=== PATIENT | female | born 1990 | race Two or more races ===

== ENCOUNTER 2020-05-22 10:42 | Emergency (ER) | payer OTHER, SELFPAY ==
--- NOTE | ~2020-05-22 | XR_ITS ---
EXAMINATION: CHEST 1 VIEW CLINICAL INFORMATION: Elevated white blood cell count. COMPARISON: None. TECHNIQUE: An AP view of the chest is provided. FINDINGS: The cardiac silhouette is not enlarged. The mediastinal and hilar contours are unremarkable. There are neither pleural effusions nor pneumothoraces. There are no consolidations. The osseous structures are unremarkable. XR/XR chest 1V IMPRESSION: No evidence for acute disease.
--- NOTE | ~2020-05-22 | CT_ITS ---
EXAMINATION: CT HEAD WITHOUT CONTRAST CLINICAL INFORMATION: Headache. Vision changes. COMPARISON: None. TECHNIQUE: Contiguous helical images of the brain were obtained without IV contrast. Multiplanar reconstructions were performed. DLP: 714 mGy-cm. FINDINGS: There are no pathologic extra-axial fluid collections. The lateral, third, fourth ventricles are nondilated and concordant with the appearance of the sulci. There is no evidence for acute intraparenchymal hemorrhage or infarct. There is neither mass nor mass effect. There is no shift of midline structures. The paranasal sinuses and mastoid air cells are clear. There are no osseous lesions. CT/CT head/brain wo con IMPRESSION: No evidence for acute intracranial injury. Automated exposure control (Care Dose) Adjustment of the mA and/or kv according to patient size (this includes techniques or standardized protocols for targeted exams where dose is matched to indication / reason for exam; i.e. extremities or head).
[2020-05-22 13:40] VITALS: BP 151/93; PULSE 82; RESP 18; TEMP 36.8; O2SAT 98; BMI 36.0
[2020-05-22 14:16] LABS: UPreg QC Valid YES; Urine Pregnancy NEGATIVE (NEGATIVE)
[2020-05-22 18:02] LABS: MANUAL DIFF FLAG NO
[2020-05-22 18:05] LABS: Basophils Absolute Auto 0.1 X10*3/uL (0.0-0.2); Basophils Percent Auto 0.5 % (0-2); Eosinophils Absolute Auto 0.4 X10*3/uL (0.0-0.4); Eosinophils Percent Auto 3.1 % (0-4); Hematocrit 42.8 % (37-47); Hemoglobin 13.2 g/dl (12.0-16.0); Imm Gran Abs Auto 0.12 X10*3/uL (0.00-0.03); Imm Gran Pct Auto 0.9 % (0.0-0.4); Lymphocytes Absolute Auto 3.1 X10*3/uL (1.2-4.9); Lymphocytes Percent Auto 22.9 % (20-40); Mean Corpuscular HGB Conc 30.8 g/dl (31.0-35.0); Mean Corpuscular Hemoglobin 21.4 pg (27.0-33.0); Mean Corpuscular Volume 69.3 fL (80-98); Mean Platelet Volume 10.8 fL (9.4-12.3); Monocytes Absolute Auto 1.2 X10*3/uL (0.1-1.2); Monocytes Percent Auto 8.7 % (2-11); Neutrophils Absolute Auto 8.6 X10*3/uL (2.0-8.3); Neutrophils Percent Auto 63.9 % (45-73); Platelet Count 321 X10*3/uL (160-400); Red Blood Count 6.18 X10*6/uL (4.20-5.50); Red Cell Distribution Width 17.7 % (11.0-16.0); White Blood Count 13.5 X10*3/uL (4.8-10.8)
[2020-05-22] MEDS: 0.9 % Sodium Chloride 1,000 ML 999 ML IVCONT (18:12)
[2020-05-22] MEDS: Ketorolac Tromethamine 30 MG/ML VIAL IVPUSH (18:13)
[2020-05-22] MEDS: diphenhydrAMINE HCL 50 MG/ML VIAL 25 MG IVPUSH (18:13)
[2020-05-22 18:16] VITALS: BP 125/68; PULSE 82; RESP 14; O2SAT 100
[2020-05-22] MEDS: Metoclopramide HCl 10 MG/2 ML VIAL IVPUSH (18:16)
[2020-05-22 18:25] LABS: Anion Gap 13 (12-20); Blood Urea Nitrogen 9 mg/dL (9-16); Calcium 9.4 mg/dL (8.4-10.2); Carbon Dioxide 27 mmol/L (22-29); Chloride 105 mmol/L (96-108); Creatinine Clr Calc Pharmacy 118.1; Estimated Glomerular Filt Rate > 60; Glucose Random 83 mg/dL (60-115); Potassium 4.3 mmol/L (3.3-5.1); Sodium 141 mmol/L (135-145)
--- NOTE | 2020-05-22 18:53 | ED.HA ---
HPI - Headache General Chief Complaint: Headache Stated Complaint: headache Time Seen by Provider: 05/22/20 17:25 Source: patient Mode of arrival: ambulatory Limitations: no limitations History of Present Illness MD elicited complaint: headache Pertinent past history: migraines Onset (ago): day(s) (2) Onset description: gradually Location: right and occipital Severity: severe Pain scale (0-10): 10 Quality & Timing: throbbing, squeezing, constant, pressure, progressively worsening and different than previous headaches Exacerbating factors: exertion, movement of head/neck and light Relieving factors: nothing Context: occurred at rest Associated symptoms: nausea and photophobia Treatments prior to arrival: acetaminophen and ibuprofen Related Data Previous Rx's Medication Instructions Recorded albuterol sulfate 2 puff INHALATION Q4-6H PRN #8.5 g 05/22/20 [id number]-[id number] 1 cap PO Q4-6H PRN #10 cap 05/22/20 [Fioricet] Allergies Allergy/AdvReac Type Severity Reaction Status Date / Time No Known Allergies Allergy Verified 05/22/20 13:40 Review of Systems Review of Systems: Constitutional: No Weight loss, No Fever, No Chills, No Night Sweats, No Fatigue, No Malaise ENT/Mouth: No Hearing loss, No Ear Pain, No Nasal Congestion, No Sinus Pain, No Hoarseness, No sore throat, No Rhinorrhea, No Swallowing Difficulty Eyes: No Eye Pain, No Swelling, No Redness, No Foreign Body, No Discharge, No Vision Changes Cardiovascular: No Chest Pain, No SOB, No Dyspnea on Exertion, No Orthopnea, No Edema, No Palpitations Respiratory: No Cough, No Sputum, No Wheezing, No Smoke Exposure, No Dyspnea Gastrointestinal: No Nausea, No Vomiting, No Diarrhea, No Constipation, No abdominal Pain, No Hematochezia, No Melena Genitourinary: no irregular bleeding, No Dysuria, No Urinary Frequency, No Hematuria, No Urinary Incontinence, No Urgency, No Flank Pain, No Urinary Flow Changes, No Hesitancy Musculoskeletal: No joint pain, No Myalgias, No Joint Swelling Skin: No Skin Lesions, No rash Neuro: No Weakness, No Numbness, No Paresthesias, No Loss of Consciousness, No Dizziness, No Headache Psych: No Anxiety/Panic, No Depression, No SI/HI/AH/VH, No Social Issues Heme/Lymph: No Bruising, No Bleeding,No Lymphadenopathy Endocrine: No Polyuria, No Polydipsia, No Temperature Intolerance [facility] Past Medical History Attestation statement: The following information was validated with the patient. Source: old records reviewed Medical History Patient denies medical problems Social History Social History Smoking Status: Never smoker Use of substances other than those prescribed or required for medical reasons: No Advance Directives: No Advance Directives Information Provided: No Physical Exam Vital Signs: Vital Signs: Last Vital Signs Temp 98.2 F 05/22/20 13:40 Pulse 82 05/22/20 18:16 Resp 14 05/22/20 18:16 BP 125/68 05/22/20 18:16 Pulse Ox 100 05/22/20 18:16 Body Mass Index 36.0 Appearance: Alert. Oriented X3. Mild distress. Head: Normal external exam. Normocephalic. Atraumatic. No Santacruz signs noted. No raccoon eyes noted Eyes: PERRLA. EOMI. Conjunctiva and sclera normal. Eyelids normal. ENT: TM's Normal. Pharynx normal. Uvula midline. Moist mucous membranes. No trismus noted. No drooling noted. No muffled voice noted. Neck: Normal inspection. Neck supple. No adenopathy. Thyroid Normal. No meningeal signs. No neck mass noted. CVS: Normal heart rate and rhythm. Heart sound normal. No murmurs noted. Pulses equal to all extremities. Respiratory: No respiratory distress. Painless inspiration. Breath sounds normal. No wheezes/rales/rhonchi noted. Chest nontender. No accessory muscle usage noted or decreased air movement noted. Abdomen: Soft and nontender. Bowel sounds normal in all 4 quadrants. No distention noted. No organomegaly noted. No visible injury noted. Back: No CVA tenderness. Full range of motion noted. Skin: Skin warm and dry. Normal skin color. Normal skin turgor. No rashes/lesions/lacerations noted. Extremities: No lower extremity edema. Extremities exhibit normal range of motion. Extremities nontender. Neuro: cranial nerves 2-12 intact, no focal neural deficits, strength 5/5 to all extremities, No motor deficit. No sensory deficit. Reflexes normal. Course Course Course Narrative: 30-year-old female presents with headache and eye pressure with photophobia. Has not had headaches like this in the past. Will order CT scan of the head, CBC, Chem 7, urinalysis and COVID test. Will treat with migraine protocol. CBC indicates leukocytosis at 13.5, chemistries and urine normal. COVID test positive. CT scan of head is negative for acute findings requiring emergent intervention. Plan of care is to discharge home with supportive measures and Fioricet for migraines. Patient verbalized understanding of and agrees to plan of care discharge home. MDM - Headache Differential Diagnosis Differential diagnosis: Likely migraine, tension headache, subarachnoid hemorrhage, headache and sinusitis Medical Records Attestation: I reviewed the patient's medical records. Lab Data Attestation: I reviewed the patient's lab results. Result diagrams: 05/22/20 17:57 05/22/20 17:57 Labs: Lab Results 05/22/20 05/22/20 05/22/20 Range/Units 14:04 17:57 17:57 WBC 13.5 H (4.8-10.8) X10*3/uL RBC 6.18 H (4.20-5.50) X10*6/uL Hgb 13.2 (12.0-16.0) g/dl Hct 42.8 (37-47) % MCV 69.3 L (80-98) fL MCH 21.4 L (27.0-33.0) pg MCHC 30.8 L (31.0-35.0) g/dl RDW 17.7 H (11.0-16.0) % Plt Count 321 (160-400) X10*3/uL MPV 10.8 (9.4-12.3) fL Immature Gran % (Auto) 0.9 H (0.0-0.4) % Neut % (Auto) 63.9 (45-73) % Lymph % (Auto) 22.9 (20-40) % Paulding % (Auto) 8.7 (2-11) % Eos % (Auto) 3.1 (0-4) % Baso % (Auto) 0.5 (0-2) % Lymph # (Auto) 3.1 (1.2-4.9) X10*3/uL Paulding # (Auto) 1.2 (0.1-1.2) X10*3/uL Eos # (Auto) 0.4 (0.0-0.4) X10*3/uL Baso # (Auto) 0.1 (0.0-0.2) X10*3/uL Abs Immat Gran (auto) 0.12 H (0.00-0.03) X10*3/uL Absolute Neuts (auto) 8.6 H (2.0-8.3) X10*3/uL Absolute Nucleated RBC 0.000 (0.0-0.012) X10*3/uL Nucleated RBC % (auto) 0.0 (0.0-0.2) /100WBC Sodium 141 (135-145) mmol/L Potassium 4.3 (3.3-5.1) mmol/L Chloride 105 (96-108) mmol/L Carbon Dioxide 27 (22-29) mmol/L Anion Gap 13 (12-20) BUN 9 (9-16) mg/dL Creatinine 0.73 (0.5-1.4) mg/dL Estim Creat Clear Calc 118.1 Estimated GFR > 60 Random Glucose 83 (60-115) mg/dL Calcium 9.4 (8.4-10.2) mg/dL Magnesium 2.0 (1.6-2.6) mg/dL Urine Color Urine Appearance Urine pH (5.0-8.0) Ur Specific Electra (1.005-1.025) Urine Protein (NEG-TRACE) MG/DL Urine Glucose (UA) (NEG) MG/DL Urine Ketones (NEG) MG/DL Urine Blood (NEG) Urine Nitrite (NEG) Ur Leukocyte Esterase (NEG) Urine Test NEGATIVE (NEGATIVE) Coronavirus (PCR) (Negative) Influenza Type A (PCR) (Negative) Influenza Type B (PCR) (Negative) RSV RNA Qual (PCR) (Negative) 05/22/20 05/22/20 Range/Units 17:57 19:29 WBC (4.8-10.8) X10*3/uL RBC (4.20-5.50) X10*6/uL Hgb (12.0-16.0) g/dl Hct (37-47) % MCV (80-98) fL MCH (27.0-33.0) pg MCHC (31.0-35.0) g/dl RDW (11.0-16.0) % Plt Count (160-400) X10*3/uL MPV (9.4-12.3) fL Immature Gran % (Auto) (0.0-0.4) % Neut % (Auto) (45-73) % Lymph % (Auto) (20-40) % Paulding % (Auto) (2-11) % Eos % (Auto) (0-4) % Baso % (Auto) (0-2) % Lymph # (Auto) (1.2-4.9) X10*3/uL Paulding # (Auto) (0.1-1.2) X10*3/uL Eos # (Auto) (0.0-0.4) X10*3/uL Baso # (Auto) (0.0-0.2) X10*3/uL Abs Immat Gran (auto) (0.00-0.03) X10*3/uL Absolute Neuts (auto) (2.0-8.3) X10*3/uL Absolute Nucleated RBC (0.0-0.012) X10*3/uL Nucleated RBC % (auto) (0.0-0.2) /100WBC Sodium (135-145) mmol/L Potassium (3.3-5.1) mmol/L Chloride (96-108) mmol/L Carbon Dioxide (22-29) mmol/L Anion Gap (12-20) BUN (9-16) mg/dL Creatinine (0.5-1.4) mg/dL Estim Creat Clear Calc Estimated GFR Random Glucose (60-115) mg/dL Calcium (8.4-10.2) mg/dL Magnesium (1.6-2.6) mg/dL Urine Color STRAW Urine Appearance CLEAR Urine pH 8.0 (5.0-8.0) Ur Specific Electra 1.015 (1.005-1.025) Urine Protein NEG (NEG-TRACE) MG/DL Urine Glucose (UA) NEG (NEG) MG/DL Urine Ketones NEG (NEG) MG/DL Urine Blood NEG (NEG) Urine Nitrite NEG (NEG) Ur Leukocyte Esterase NEG (NEG) Urine Test (NEGATIVE) Coronavirus (PCR) POSITIVE A (Negative) Influenza Type A (PCR) NEGATIVE (Negative) Influenza Type B (PCR) NEGATIVE (Negative) RSV RNA Qual (PCR) NEGATIVE (Negative) Imaging Data Chest x-ray: Attestation: I personally reviewed and interpreted this imaging study as follows: Radiologist's impression: EXAMINATION: CHEST 1 VIEW CLINICAL INFORMATION: Elevated white blood cell count. COMPARISON: None. TECHNIQUE: An AP view of the chest is provided. FINDINGS: The cardiac silhouette is not enlarged. The mediastinal and hilar contours are unremarkable. There are neither pleural effusions nor pneumothoraces. There are no consolidations. The osseous structures are unremarkable. XR/XR chest 1V IMPRESSION: No evidence for acute disease. CT scan - head: Attestation: I personally reviewed and interpreted this imaging study as follows: Radiologist's impression: EXAMINATION: CT HEAD WITHOUT CONTRAST CLINICAL INFORMATION: Headache. Vision changes. COMPARISON: None. TECHNIQUE: Contiguous helical images of the brain were obtained without IV contrast. Multiplanar reconstructions were performed. DLP: 714 mGy-cm. FINDINGS: There are no pathologic extra-axial fluid collections. The lateral, third, fourth ventricles are nondilated and concordant with the appearance of the sulci. There is no evidence for acute intraparenchymal hemorrhage or infarct. There is neither mass nor mass effect. There is no shift of midline structures. The paranasal sinuses and mastoid air cells are clear. There are no osseous lesions. CT/CT head/brain wo con IMPRESSION: No evidence for acute intracranial injury. Automated exposure control (Care Dose) Adjustment of the mA and/or kv according to patient size (this includes techniques or standardized protocols for targeted exams where dose is matched to indication / reason for exam; i.e. extremities or head). Discharge Plan Discharge Clinical Impression: COVID-19 Headache Qualifiers: Headache type: unspecified Headache chronicity pattern: acute headache Intractability: intractable Qualified Code(s): R51.9 - Headache, unspecified Patient Disposition: Home, Self-Care Instructions: Acute Headache (ED), COVID-19 (Coronavirus Disease 2019) (ED) Additional Instructions: You were evaluated for headache. CT scan of the head is negative for acute findings requiring emergent intervention. You did test positive for COVID-19. Please maintain social isolation guidelines per State Federal regulations. It is your responsibility to maintain these guidelines. Please use Tylenol and Motrin as needed for fever control. We prescribed Fioricet for headaches. Please take this medication as directed. Symptoms get worse please return to the emergency department. Thank you for choosing this emergency department for evaluation. Please follow-up with primary care physician as needed. Return to the emergency department for any new, concerning, or worsening symptoms. Prescriptions: New zkbsmgqqkj-dqvtzdgfddyem-kfxe [Fioricet] 50-300-40 mg capsule 1 cap PO Q4-6H PRN (Reason: pain) Qty: 10 RF: 0 albuterol sulfate 90 mcg/actuation HFA aerosol inhaler 2 puff inhalation Q4-6H PRN (Reason: shortness of breath or wheezing) Qty: 8.5 RF: 0 Stand Alone Forms: Work/School Release Interventions: ED Discharge Assessment Last Done: 05/22/20 20:30 Discharge Date/Time: 05/22/20 20:34
[2020-05-22 19:36] LABS: Appearance Urine CLEAR; Color Urine STRAW; Glucose Urine UA NEG (NEG); Leukocyte Esterase Urine NEG (NEG); Nitrite Urine NEG (NEG); Specific Gravity - Urine 1.015 (1.005-1.025); Urine Blood NEG (NEG); Urine Ketones NEG (NEG); Urine Protein NEG (NEG-TRACE)
[2020-05-22 19:41] LABS: Influenza A PCR NEGATIVE (Negative); Influenza B PCR NEGATIVE (Negative); Resp Syncy Virus RNA Qual PCR NEGATIVE (Negative); SARS COV2 PCR INHOUSE POSITIVE (Negative)
[2020-05-22] MEDS: Albuterol Sulfate 90 MCG 8 GM INHALER 2 PUFF INHALE (20:23)
[2020-05-22] MEDS: Butalb/Acetamin/Caff 50/325/40 TABLET 1 TAB PO (20:24)
== END 2020-05-22 20:34 | disposition home or self-care (01) ==
PROVIDERS: Nurse Practitioner Family; Emergency Provider Emergency Medicine; PCP Internal Medicine
DX: U07.1 COVID-19 (principal); R51.9 Headache, unspecified; D72.829 Elevated white blood cell count, unspecified
CPT/HCPCS: 0241U; 36415; 70450; 71045; 80048; 81003; 81025; 83735; 85025; 96361; 96372; 96374; 96375; 99284; J1200; J1885; J2765; J3030

== ENCOUNTER 2020-05-25 13:00 | Outpatient (REF) | payer OTHER, SELFPAY ==
[2020-05-25 13:18] LABS: COVID-19 Test Negative (Negative)
== END 2020-05-25 13:01 | disposition home or self-care (01) ==
LOC: HO.EMPCOV 13:00
PROVIDERS: Visit Provider Internal Medicine
DX: Z20.822 Contact with and (suspected) exposure to COVID-19 (principal)
CPT/HCPCS: 36415; 87635; C9803

== ENCOUNTER 2021-02-05 14:44 | Emergency (ER) | payer OTHER, SELFPAY ==
--- NOTE | ~2021-02-05 | CT_ITS ---
EXAMINATION: CT HEAD WITHOUT CONTRAST CLINICAL INFORMATION: Hypertensive. Headache. COMPARISON: CT head dated from 05/22/2020. TECHNIQUE: Contiguous axial imaging was performed from the skull base to vertex without intravenous administration of contrast. This CT examination was performed using dose optimization techniques as appropriate, variously including the following: *Automated exposure control *Adjustment of mA and/or kV according to patient size (this includes techniques or standardized protocols for targeted exams where dose is matched to indication/reason for exam; i.e. extremities or head) *Use of iterative reconstruction technique DLP: 694 mGy-cm FINDINGS: There is no evidence of acute intracranial hemorrhage or territorial infarction. No abnormal mass effect or midline shift is seen. Lloyd to white matter differentiation is well preserved. No extra-axial fluid collections are identified. The ventricles are normal in size. There is no abnormal attenuation within the brain parenchyma. The osseous structures and soft tissues are normal. Mild mucoperiosteal thickening of the ethmoidal air cells. Other paranasal sinuses and mastoids are clear. CT/CT head/brain wo con IMPRESSION: No acute intracranial pathology.
[2021-02-05 15:24] VITALS: BP 159/92; PULSE 90; RESP 16; TEMP 36.4; O2SAT 99; BMI 36.6
[2021-02-05 16:44] VITALS: BP 156/101; RESP 18
[2021-02-05 16:50] LABS: MANUAL DIFF FLAG NO
[2021-02-05 16:52] LABS: Basophils Absolute Auto 0.1 X10*3/uL (0.0-0.2); Basophils Percent Auto 0.4 % (0-2); Eosinophils Absolute Auto 0.5 X10*3/uL (0.0-0.4); Eosinophils Percent Auto 3.7 % (0-4); Hematocrit 37.9 % (37.0-47.0); Hemoglobin 11.8 g/dl (12.0-16.0); Imm Gran Abs Auto 0.11 X10*3/uL (0.00-0.03); Imm Gran Pct Auto 0.8 % (0.0-0.4); Lymphocytes Absolute Auto 2.5 X10*3/uL (1.2-4.9); Lymphocytes Percent Auto 17.1 % (20-40); Mean Corpuscular HGB Conc 31.1 g/dl (31.0-35.0); Mean Corpuscular Hemoglobin 21.6 pg (27.0-33.0); Mean Corpuscular Volume 69.4 fL (80.0-98.0); Mean Platelet Volume 10.3 fL (9.4-12.3); Monocytes Absolute Auto 0.8 X10*3/uL (0.1-1.2); Monocytes Percent Auto 5.4 % (2-11); Neutrophils Absolute Auto 10.5 x10*3/uL (2.0-8.3); Neutrophils Percent Auto 72.6 % (45-73); Platelet Count 272 X10*3/uL (160-400); Red Blood Count 5.46 X10*6/uL (4.20-5.50); White Blood Count 14.5 X10*3/uL (4.8-10.8)
[2021-02-05 16:54] LABS: Appearance Urine HAZY; Color Urine YELLOW; Glucose Urine UA NEG (NEG); Leukocyte Esterase Urine NEG (NEG); Nitrite Urine NEG (NEG); Specific Gravity - Urine 1.025 (1.005-1.025); Urine Blood NEG (NEG); Urine Ketones NEG (NEG); Urine Protein NEG (NEG-TRACE)
[2021-02-05 16:56] LABS: UPreg QC Valid YES; Urine Pregnancy NEGATIVE (NEGATIVE)
[2021-02-05 17:06] LABS: Anion Gap 10 (12-20); Blood Urea Nitrogen 9 mg/dL (9-16); COVID-19 Test Negative (Negative); Calcium 9.2 mg/dL (8.4-10.2); Carbon Dioxide 28 mmol/L (22-29); Chloride 106 mmol/L (96-108); Creatinine Clr Calc Pharmacy 108.6; Estimated Glomerular Filt Rate > 60; Glucose Random 116 mg/dL (60-115); Potassium 3.8 mmol/L (3.3-5.1); Sodium 140 mmol/L (135-145)
--- NOTE | 2021-02-05 18:12 | ECG_ITS ---
Test Reason : HYPERTENSION Blood Pressure : / mmHG Vent. Rate : 078 BPM Atrial Rate : 078 BPM P-R Int : 154 ms QRS Dur : 088 ms QT Int : 378 ms P-R-T Axes : 023 040 -06 degrees QTc Int : 430 ms Normal sinus rhythm Nonspecific T wave abnormality Abnormal ECG When compared with ECG of 24-SEP-2012 21:46, Nonspecific T wave abnormality now evident in Inferior leads Heart rate has decreased Referred By: Joshua Whitmore Electronically Signed By:DANIA JOHNSON MD
[2021-02-05 18:13] LABS: Alanine Aminotransferase 42 U/L (0-31); Albumin Level 4.1 g/dL (3.5-5.0); Alkaline Phosphatase 70 U/L (39-117); Aspartate Amino Transferase 27 U/L (5-31); Bilirubin Direct 0.2 mg/dL (0.0-0.5); Bilirubin Total 0.4 mg/dL (0.0-1.0); Lipase 43 U/L (8-78); Total Protein 7.4 g/dL (6.5-8.0)
--- NOTE | 2021-02-05 18:16 | ED.GENADULT ---
HPI - General Adult General Chief complaint: Headache Stated complaint: hbp Time Seen by Provider: 02/05/21 17:48 Source: patient Mode of arrival: ambulatory Limitations: no limitations History of Present Illness HPI narrative: 27-year-old female presents to ED for evaluation for episode of diaphoresis and chills with elevated blood pressure. Patient states she was at work it and s she states felt weird described as chills and diaphoretic and then she had her blood pressure evaluated and systolic was over 160. Patient then states when she came to the ER she has slight epigastric pain and had 2 episodes of diarrhea. patient denies any chest pain or shortness of breath. Patient denies any photophobia, neck stiffness, slurred speech, facial droop, fever, vomiting, loss of vision, rash, dysuria, hematuria, flank pain. Patient denies any paralysis of extremities. Patient denies any head trauma. Patient states family history of brain cancer was concern for possible brain cancer. Presently patient only states slight headache. Related Data Previous Rx's Medication Instructions Recorded albuterol sulfate 90 mcg/actuation 2 puff INHALATION Q4-6H PRN #8.5 g 05/22/20 aerosol inhaler rzoigalsek-rfhbdjfgjyulx-zeebpnsf 1 cap PO Q4-6H PRN #10 cap 05/22/20 50 mg-300 mg-40 mg capsule (Fioricet) ketorolac 10 mg tablet 10 mg PO QID PRN 5 Days #20 tab 02/05/21 Allergies Allergy/AdvReac Type Severity Reaction Status Date / Time No Known Allergies Allergy Verified 05/22/20 13:40 Review of Systems Review of Systems: Yes all other systems are reviewed and are negative Constitutional: Constitutional: Reports as per HPI, Reports no additional constitutional complaints and Reports headache(s) Eyes: Eyes: Reports as per HPI and Reports no additional eye complaints ENT: Reports system reviewed and no additional complaints, except as documented, Reports as per HPI and Reports headache(s) Cardiovascular: Cardiovascular: Reports as per HPI and Reports no additional cardiovascular complaints Comments: one episode of diaphoresis. Respiratory: Respiratory: Reports as per HPI and Reports no additional respiratory complaints Gastrointestinal: Gastrointestinal: Reports as per HPI, Reports no additional gastrointestinal complaints, Reports abdominal pain (epigastric pain resolved), Reports diarrhea (one episode. ) and Reports nausea Musculoskeletal: Musculoskeletal: Reports no additional musculoskeletal complaints and Reports as per HPI Integumentary/Breasts: Skin/Breast: Reports system reviewed and no additional complaints, except as docu and Reports as per HPI Neurologic: Reports system reviewed and no additional complaints, except as documented, Reports as per HPI and Reports headache(s) Psychiatric: Psychiatric: Reports no additional psychiatric complaints and Reports as per HPI Endocrine: Endocrine: Reports no additional endocrine complaints and Reports as per HPI [facility] Past Medical History Medical History Patient denies medical problems Social History Social History Advance Directives: No Advance Directives Information Provided: Yes Patient : No Physical Exam Vital Signs: Vital Signs: Last Vital Signs Temp 97.5 F 02/05/21 15:24 Pulse 80 02/05/21 18:41 Resp 14 02/05/21 18:41 BP 137/77 02/05/21 19:57 Pulse Ox 97 02/05/21 18:41 Body Mass Index 36.6 Const: General: cooperative, healthy appearing, comfortable, no acute distress, well developed, alert, awake and Physically active Orientation/consciousness: patient oriented x3 HENMT: Head: Yes normal to inspection, Yes No palpable skull fracture present, Yes normocephalic, Yes atraumatic and No abrasion Eyes: General: appearance normal, both eyes and all related structures Neck: Neck: Yes normal visual inspection, Yes full ROM, Yes no lymphadenopathy, Yes no meningeal signs, Yes trachea midline, Yes supple, No anterior neck swelling and No tender Chest: Chest palpation & inspection: normal inspection of the chest and normal palpation of entire chest wall Resp: Effort & Inspection: normal respiratory effort and able to speak in complete sentences Auscultation: clear to auscultation bilaterally Cardio: Jugular venous distension: no JVD Heart sounds: S1 normal heart sound present and S2 normal heart sound present GI: Inspection: Yes normal to inspection and No abdominal wall ecchymosis Palpation (GI): Soft to palpation, not firm, nontender, no guarding and not rigid : General: No CVA tenderness and Yes no CVA tenderness Back/Spine/Pelvis: Back: no CVA tenderness, No CVA tenderness and No back tenderness Skin: General skin exam: no rashes or lesions noted and elasticity normal Neuro: Other: Negative facial droop. Negative slurred speech. Alidbj-ua-vloe rapid hand movement intact. Negative Romberg. Negative pronator drift. All extremities equal strength 5+. General: patient oriented x3, gait normal, no meningeal signs and CN's II-XI intact bilaterally Cranial nerves: Yes CN's II-XII intact bilaterally Extrem: General: Yes normal to inspection and Yes full ROM Psych: Appearance: grossly normal, well kempt and not disheveled Course Course Course Narrative: Patient rapid medical screening in triage. Due to patient states the 1 moment of diaphoresis will add EKG and troponin. Negative for any neuro deficits but will also be his CT scan due to patient's concern due to family history of brain cancer. Initial labs are baseline normal. Reevaluation(s) Reevaluation #1: EKG negative STEMI. Troponin negative. Head CT scan normal. Blood pressure resolved without any blood pressure medication. Headache improved with pain meds. Not suspecting stroke or [place]. Negative for any neuro deficits. Non suspecting PE. Migraine/headache versus viral syndrome. Not suspecting meningitis. COVID swab negative. patient informed to follow up with PCP. Time: 20:10 Medical Decision Making Lab Data Result diagrams: 02/05/21 16:37 02/05/21 16:37 Labs: Lab Results 02/05/21 02/05/21 02/05/21 Range/Units 16:37 16:37 16:37 WBC 14.5 H (4.8-10.8) X10*3/uL RBC 5.46 (4.20-5.50) X10*6/uL Hgb 11.8 L (12.0-16.0) g/dl Hct 37.9 (37.0-47.0) % MCV 69.4 L (80.0-98.0) fL MCH 21.6 L (27.0-33.0) pg MCHC 31.1 (31.0-35.0) g/dl RDW 17.0 H (11.0-16.0) % Plt Count 272 (160-400) X10*3/uL MPV 10.3 (9.4-12.3) fL Immature Gran % (Auto) 0.8 H (0.0-0.4) % Neut % (Auto) 72.6 (45-73) % Lymph % (Auto) 17.1 L (20-40) % [place] % (Auto) 5.4 (2-11) % Eos % (Auto) 3.7 (0-4) % Baso % (Auto) 0.4 (0-2) % Lymph # (Auto) 2.5 (1.2-4.9) X10*3/uL [place] # (Auto) 0.8 (0.1-1.2) X10*3/uL Eos # (Auto) 0.5 H (0.0-0.4) X10*3/uL Baso # (Auto) 0.1 (0.0-0.2) X10*3/uL Abs Immat Gran (auto) 0.11 H (0.00-0.03) X10*3/uL Absolute Neuts (auto) 10.5 H (2.0-8.3) x10*3/uL Absolute Nucleated RBC 0.000 (0.0-0.012) X10*3/uL Nucleated RBC % (auto) 0.0 (0.0-0.2) /100WBC Sodium 140 (135-145) mmol/L Potassium 3.8 (3.3-5.1) mmol/L Chloride 106 (96-108) mmol/L Carbon Dioxide 28 (22-29) mmol/L Anion Gap 10 L (12-20) BUN 9 (9-16) mg/dL Creatinine 0.80 (0.5-1.4) mg/dL Estim Creat Clear Calc 108.6 Estimated GFR > 60 Random Glucose 116 H (60-115) mg/dL Calcium 9.2 (8.4-10.2) mg/dL Total Bilirubin 0.4 (0.0-1.0) mg/dL Direct Bilirubin 0.2 (0.0-0.5) mg/dL AST 27 (5-31) U/L ALT 42 H (0-31) U/L Alkaline Phosphatase 70 (39-117) U/L Troponin I High Sens (<3.5-17.0) ng/L Total Protein 7.4 (6.5-8.0) g/dL Albumin 4.1 (3.5-5.0) g/dL Lipase 43 (8-78) U/L Urine Color Urine Appearance Urine pH (5.0-8.0) Ur Specific [place] (1.005-1.025) Urine Protein (NEG-TRACE) MG/DL Urine Glucose (UA) (NEG) MG/DL Urine Ketones (NEG) MG/DL Urine Blood (NEG) Urine Nitrite (NEG) Ur Leukocyte Esterase (NEG) Urine Test (NEGATIVE) COVID-19 (LETA) Negative (Negative) COVID-19 Clin Com See Note 02/05/21 02/05/21 02/05/21 Range/Units 16:44 16:44 18:42 WBC (4.8-10.8) X10*3/uL RBC (4.20-5.50) X10*6/uL Hgb (12.0-16.0) g/dl Hct (37.0-47.0) % MCV (80.0-98.0) fL MCH (27.0-33.0) pg MCHC (31.0-35.0) g/dl RDW (11.0-16.0) % Plt Count (160-400) X10*3/uL MPV (9.4-12.3) fL Immature Gran % (Auto) (0.0-0.4) % Neut % (Auto) (45-73) % Lymph % (Auto) (20-40) % [place] % (Auto) (2-11) % Eos % (Auto) (0-4) % Baso % (Auto) (0-2) % Lymph # (Auto) (1.2-4.9) X10*3/uL [place] # (Auto) (0.1-1.2) X10*3/uL Eos # (Auto) (0.0-0.4) X10*3/uL Baso # (Auto) (0.0-0.2) X10*3/uL Abs Immat Gran (auto) (0.00-0.03) X10*3/uL Absolute Neuts (auto) (2.0-8.3) x10*3/uL Absolute Nucleated RBC (0.0-0.012) X10*3/uL Nucleated RBC % (auto) (0.0-0.2) /100WBC Sodium (135-145) mmol/L Potassium (3.3-5.1) mmol/L Chloride (96-108) mmol/L Carbon Dioxide (22-29) mmol/L Anion Gap (12-20) BUN (9-16) mg/dL Creatinine (0.5-1.4) mg/dL Estim Creat Clear Calc Estimated GFR Random Glucose (60-115) mg/dL Calcium (8.4-10.2) mg/dL Total Bilirubin (0.0-1.0) mg/dL Direct Bilirubin (0.0-0.5) mg/dL AST (5-31) U/L ALT (0-31) U/L Alkaline Phosphatase (39-117) U/L Troponin I High Sens < 3.5 (<3.5-17.0) ng/L Total Protein (6.5-8.0) g/dL Albumin (3.5-5.0) g/dL Lipase (8-78) U/L Urine Color YELLOW Urine Appearance HAZY Urine pH 6.0 (5.0-8.0) Ur Specific [place] 1.025 (1.005-1.025) Urine Protein NEG (NEG-TRACE) MG/DL Urine Glucose (UA) NEG (NEG) MG/DL Urine Ketones NEG (NEG) MG/DL Urine Blood NEG (NEG) Urine Nitrite NEG (NEG) Ur Leukocyte Esterase NEG (NEG) Urine Test NEGATIVE (NEGATIVE) COVID-19 (LETA) (Negative) COVID-19 Clin Com ECG Data Interpretation: Normal sinus rhythm. Ventricular rate 78. Pr interval 154. QRS 88. QTC 430. Negative STEMI Discharge Plan Discharge Clinical Impression: Headache Patient Disposition: Home, Self-Care Instructions: Viral Syndrome (ED), General Headache (ED) Additional Instructions: Your EKG and blood work came back negative for heart attack. Head CT scan came back negative for stroke or brain mass. COVID swab came back negative. Blood work came back at baseline. Blood pressure improved without any hypertensive medication. Please follow-up with your primary care provider. Take your record of your blood pressure twice a day to show your primary care provider at follow-up. Return to the ED immediately for any slurred speech, loss of vision, paralysis of extremities, severe headache, neck stiffness, photophobia, nausea, vomiting, chest pain, shortness of breath, slurred speech, dizziness, elevated blood pressure, weakness, change/loss of vision, abdominal pain, dysuria, hematuria, flank pain, fever, chills, or any other concerning symptoms. Prescriptions: New ketorolac 10 mg tablet 10 mg PO QID PRN (Reason: pain) 5 Days Qty: 20 RF: 0 No Action vrrcqowqcu-ayqglrdmetxww-jvkb [Fioricet] 50-300-40 mg capsule 1 cap PO Q4-6H PRN (Reason: pain) Qty: 10 RF: 0 albuterol sulfate 90 mcg/actuation HFA aerosol inhaler 2 puff inhalation Q4-6H PRN (Reason: shortness of breath or wheezing) Qty: 8.5 RF: 0 Stand Alone Forms: Work/School Release Interventions: ED Discharge Assessment Last Done: 02/05/21 21:22 Discharge Date/Time: 02/05/21 21:22 Print Language: Egyptian
[2021-02-05] MEDS: Metoclopramide HCl 10 MG TABLET PO (18:29)
[2021-02-05] MEDS: Butalb/Acetamin/Caff 50/325/40 TABLET 1 TAB PO (18:29)
[2021-02-05 18:41] VITALS: BP 138/90; PULSE 80; RESP 14; O2SAT 97
[2021-02-05 19:08] LABS: Troponin-I High Sensitivity < 3.5 ng/L (<3.5-17.0)
[2021-02-05 19:57] VITALS: BP 137/77
[2021-02-05] MEDS: Ketorolac Tromethamine 15 MG/ML VIAL 30 MG IM (19:59)
== END 2021-02-05 21:22 | disposition home or self-care (01) ==
PROVIDERS: Physician Assistant; Emergency Provider Internal Medicine; PCP Internal Medicine
DX: R51.9 Headache, unspecified (principal); R68.83 Chills (without fever); Z20.822 Contact with and (suspected) exposure to COVID-19
CPT/HCPCS: 36415; 70450; 80048; 80076; 81003; 81025; 83690; 84484; 85025; 87635; 93005; 96372; 99283; 99284; J1885

== ENCOUNTER 2021-04-23 09:28 | Emergency (ER) | payer OTHER, SELFPAY ==
--- NOTE | ~2021-04-23 | XR_ITS ---
EXAMINATION: XR CHEST CLINICAL INFORMATION: Chest wall pain COMPARISON: Chest 05/22/2020 TECHNIQUE: 2 views of the chest were obtained. FINDINGS: No significant abnormality is noted involving the heart, lungs, mediastinum, bony thorax or soft tissues. XR/XR chest 2V IMPRESSION: Unremarkable chest examination.
[2021-04-23 09:41] VITALS: BP 119/82; PULSE 89; RESP 19; TEMP 36.6; O2SAT 99; BMI 38.4
--- NOTE | 2021-04-23 10:24 | ED_ITS ---
HPI - URI/Sore Throat General Chief Complaint: Upper Respiratory Symptoms <Salina Sanchez NP - Last Filed: 04/23/21 11:46> Stated Complaint: cough,fever <Salina Sanchez NP - Last Filed: 04/23/21 11:46> Time Seen by Provider: 04/23/21 09:46 <Salina Sanchez NP - Last Filed: 04/23/21 11:46> Source: patient <Salina Sanchez NP - Last Filed: 04/23/21 11:46> Mode of arrival: ambulatory <Salina Sanchez NP - Last Filed: 04/23/21 11:46> Limitations: no limitations <Salina Sanchez NP - Last Filed: 04/23/21 11:46> History of Present Illness HPI Narrative: 31 Year old female with a history of asthma here with 2 days of chest wall discomfort with coughing, productive cough with yellow sputum, runny nose, fatigue. No fevers, chills, leg swelling, leg pain, vomiting, diarrhea, abdominal pain. Patient has received [employer] vaccine x2 with booster. She has had COVID 05/22/20 <Salina Sanchez NP - Last Filed: 04/23/21 11:46> Related Data Home Medications: Previous Rx's Medication Instructions Recorded albuterol sulfate 90 mcg/actuation 2 puff INHALATION Q4-6H PRN #8.5 g 05/22/20 aerosol inhaler prefrjjdpx-ppolnmlsjtpxr-lyulovny 1 cap PO Q4-6H PRN #10 cap 05/22/20 50 mg-300 mg-40 mg capsule (Fioricet) ketorolac 10 mg tablet 10 mg PO QID PRN 5 Days #20 tab 02/05/21 ketorolac 10 mg tablet 10 mg PO TID PRN 5 Days #20 tab 02/06/21 acetaminophen 325 mg tablet 650 mg PO Q4H PRN #20 tab 04/23/21 (Tylenol) benzonatate 200 mg capsule 200 mg PO TID PRN #20 cap 04/23/21 ibuprofen 600 mg tablet 600 mg PO TID PRN #20 tab 04/23/21 <Salina Sanchez NP - Last Filed: 04/23/21 11:46> Allergies/Adverse Reactions: Allergies Allergy/AdvReac Type Severity Reaction Status Date / Time No Known Allergies Allergy Verified 05/22/20 13:40 <Salina Sanchez NP - Last Filed: 04/23/21 11:46> Review of Systems Review of Systems: Yes all other systems are reviewed and are negative <Salina Sanchez NP - Last Filed: 04/23/21 11:46> Constitutional: Constitutional: Reports no additional constitutional complaints, Denies body ache(s), Denies chills, Reports fatigue, Denies fever(s), Denies headache(s) and Denies weakness <Salina Sanchez NP - Last Filed: 04/23/21 11:46> Eyes: Eyes: Reports no additional eye complaints and Denies change in vision <Salina Sanchez NP - Last Filed: 04/23/21 11:46> ENT: Reports system reviewed and no additional complaints, except as documented, Denies dizziness, Denies headache(s), Denies nasal congestion, Reports nasal discharge and Denies neck pain <Salina Sanchez NP - Last Filed: 04/23/21 11:46> Cardiovascular: Cardiovascular: Reports no additional cardiovascular complaints, Reports chest pain, Denies leg edema and Denies dyspnea <Salina Sanchez NP - Last Filed: 04/23/21 11:46> Respiratory: Respiratory: Reports no additional respiratory complaints, Reports cough and Denies dyspnea <Salina Sanchez NP - Last Filed: 04/23/21 11:46> Gastrointestinal: Gastrointestinal: Reports no additional gastrointestinal complaints, Denies abdominal pain, Denies diarrhea, Denies nausea and Denies vomiting <Salina Sanchez NP - Last Filed: 04/23/21 11:46> Genitourinary: Genitourinary: Reports no additional female genitourinary complaints and Denies urinary incontinence <Salina Sanchez NP - Last Filed: 04/23/21 11:46> Musculoskeletal: Musculoskeletal: Reports no additional musculoskeletal complaints, Denies back pain, Denies arthralgias, Denies joint swelling, Denies neck pain, Denies numbness and Denies tingling <Salina Sanchez NP - Last Filed: 04/23/21 11:46> Integumentary/Breasts: Skin/Breast: Reports system reviewed and no additional complaints, except as docu and Denies rash <Salina Sanchez NP - Last Filed: 04/23/21 11:46> Neurologic: Denies Abnormal speech present, Denies dizziness, Denies headache(s), Denies numbness, Denies tingling and Denies weakness <Salina Sanchez NP - Last Filed: 04/23/21 11:46> Endocrine: Endocrine: Reports fatigue <Salina Sanchez NP - Last Filed: 04/23/21 11:46> PMFSH Past Medical History Attestation statement: The following information was validated with the patient. <Salina Sanchez NP - Last Filed: 04/23/21 11:46> Source: old records reviewed and nursing notes reviewed <Salina Sanchez NP - Last Filed: 04/23/21 11:46> Medical History: Medical History Patient denies medical problems <Salina Sanchez NP - Last Filed: 04/23/21 11:46> Social History Social History: Social History Advance Directives: No Advance Directives Information Provided: No Patient : No <Salina Sanchez NP - Last Filed: 04/23/21 11:46> Physical Exam Vital Signs: Vital Signs: Last Vital Signs Temp 98 F 04/23/21 09:41 Pulse 89 04/23/21 09:41 Resp 04/23/21 09:41 BP 119/82 04/23/21 09:41 Pulse Ox 99 04/23/21 09:41 BMI result Body Mass Index 38.4 <Salina Sanchez NP - Last Filed: 04/23/21 11:46> Vital Signs: Last Vital Signs Temp 98 F 04/23/21 09:41 Pulse 89 04/23/21 09:41 Resp 04/23/21 09:41 BP 119/82 04/23/21 09:41 Pulse Ox 99 04/23/21 09:41 BMI result Body Mass Index 38.4 <Elliot Townsend MD - Last Filed: 04/23/21 16:19> Const: General: cooperative, healthy appearing, comfortable and no acute distress <Salina Sanchez NP - Last Filed: 04/23/21 11:46> Orientation/consciousness: patient oriented x3 <Salina Sanchez NP - Last Filed: 04/23/21 11:46> Limitations: no limitations <Salina Sanchez NP - Last Filed: 04/23/21 11:46> HENMT: Head: Yes normal to inspection <Salina Sanchez NP - Last Filed: 04/23/21 11:46> Ears: hearing grossly normal bilaterally and TM's normal bilaterally <Salina Sanchez NP - Last Filed: 04/23/21 11:46> General nose exam: Normal external nose present <Salina Sanchez NP - Last Filed: 04/23/21 11:46> Face and sinus: Yes normal facial exam <Salina Sanchez NP - Last Filed: 04/23/21 11:46> Mouth: Normal oral and palatal mucosa present <Salina Sanchez NP - Last Filed: 04/23/21 11:46> Throat: Yes posterior oropharynx normal, Yes tonsils normal and Yes uvula midline <Salina Sanchez NP - Last Filed: 04/23/21 11:46> Eyes: General: appearance normal, both eyes and all related structures <Salina Sanchez NP - Last Filed: 04/23/21 11:46> Pupils: Equal, round and reactive pupils present <Salina Sanchez NP - Last Filed: 04/23/21 11:46> Neck: Neck: Yes normal visual inspection, Yes full ROM, Yes no lymphadenopathy and Yes no meningeal signs <Salina Sanchez NP - Last Filed: 04/23/21 11:46> Chest: Chest palpation & inspection: normal inspection of the chest <Salina Sanchez NP - Last Filed: 04/23/21 11:46> Resp: Effort & Inspection: normal respiratory effort <Salina Sanchez NP - Last Filed: 04/23/21 11:46> Auscultation: clear to auscultation bilaterally <Salina Sanchez NP - Last Filed: 04/23/21 11:46> Cardio: Rate: regular rate <Salina Sanchez NP - Last Filed: 04/23/21 11:46> Rhythm: regular rhythm <Salina Sanchez NP - Last Filed: 04/23/21 11:46> Peripheral pulses: Peripheral pulses 2+ throughout <Salina Sanchez NP - Last Filed: 04/23/21 11:46> GI: Inspection: Yes normal to inspection <Salina Sanchez NP - Last Filed: 04/23/21 11:46> Palpation (GI): Soft to palpation and nontender <Salina Sanchez NP - Last Filed: 04/23/21 11:46> Auscultation: normal bowel sounds <Salina Sanchez NP - Last Filed: 04/23/21 11:46> Back/Spine/Pelvis: Thoracic/Lumbar Spine: thoracic and lumbar spine normal to inspection <Salina Sanchez NP - Last Filed: 04/23/21 11:46> Skin: General skin exam: no rashes or lesions noted <Salina Sanchez NP - Last Filed: 04/23/21 11:46> Neuro: General: patient oriented x3, no meningeal signs, no focal motor deficits and normal sensation to monofilament <Salina Sanchez NP - Last Filed: 04/23/21 11:46> Cranial nerves: Yes Equal, round and reactive pupils present <Salina martin NP - Last Filed: 04/23/21 11:46> Cognition (Neuro): normal cognition <Salina Sanchez NP - Last Filed: 04/23/21 11:46> Speech: No Abnormal speech present <Salina Sanchez NP - Last Filed: 04/23/21 11:46> Gait exam (Neuro): Normal gait present <FRANCISCO Esquivel Last Filed: 04/23/21 11:46> Motor exam (neuro): 5/5 motor strength present throughout <Salina Sanchez NP - Last Filed: 04/23/21 11:46> Extrem: General: Yes normal to inspection, Yes no pedal edema and Yes no calf tenderness <Salina Sanchez NP - Last Filed: 04/23/21 11:46> Course Course Course Narrative: 31-year-old female here with reports of 2 days of chest wall discomfort with coughing, cough, runny nose and fatigue. Exam is benign. Vitals are stable. Will check chest x-ray and COVID screen 1030-patient requesting that she be tested for flu. Will send flu panel 1130-chest x-ray shows no acute finding. COVID, flu and RSV are negative. Likely viral upper respiratory infection. Lungs are clear. Vitals are stable. Patient has adequate albuterol MDI at home. Reviewed worrisome signs and symptoms of when to return to the emergency department. Comfortable discharge home. <Salina Sanchez NP - Last Filed: 04/23/21 11:46> MDM - URI/Sore Throat Medical Records Attestation: I reviewed the patient's medical records. <Salina Sanchez NP - Last Filed: 04/23/21 11:46> Lab Data Attestation: I reviewed the patient's lab results. <Salina Sanchez NP - Last Filed: 04/23/21 11:46> Labs: Lab Results 04/23/21 Range/Units 10:26 Influenza Type A (PCR) NEGATIVE (Negative) Influenza Type B (PCR) NEGATIVE (Negative) RSV RNA Qual (PCR) NEGATIVE (Negative) SARS-CoV-2 RNA (RT-PCR) NEGATIVE (Negative) <Salina Sanchez NP - Last Filed: 04/23/21 11:46> Lab Results 04/23/21 Range/Units 10:26 Influenza Type A (PCR) NEGATIVE (Negative) Influenza Type B (PCR) NEGATIVE (Negative) RSV RNA Qual (PCR) NEGATIVE (Negative) SARS-CoV-2 RNA (RT-PCR) NEGATIVE (Negative) <Elliot Townsend MD - Last Filed: 04/23/21 16:19> Imaging Data Chest x-ray: Attestation: I personally reviewed and interpreted this imaging study as follows: <Salina Sanchez NP - Last Filed: 04/23/21 11:46> Radiologist's impression: EXAMINATION: XR CHEST CLINICAL INFORMATION: Chest wall pain COMPARISON: Chest 05/22/2020 TECHNIQUE: 2 views of the chest were obtained. FINDINGS: No significant abnormality is noted involving the heart, lungs, mediastinum, bony thorax or soft tissues. XR/XR chest 2V IMPRESSION: Unremarkable chest examination. <Salina Sanchez NP - Last Filed: 04/23/21 11:46> Discharge Plan Discharge Clinical Impression: Upper respiratory infection, Chest wall muscle strain <Salina Sanchez NP - Last Filed: 04/23/21 11:46> Patient Disposition: Home, Self-Care <Salina Sanchez NP - Last Filed: 04/23/21 11:46> Instructions: Upper Respiratory Infection (ED), Chest Wall Pain (ED) <Salina Sanchez NP - Last Filed: 04/23/21 11:46> Additional Instructions: Your chest x-ray shows no infection Your testing for flu, covid 19, rsv are negative Increase fluids, rest Motrin or tylenol for pain as needed use albuterol as needed <Salina Sanchez NP - Last Filed: 04/23/21 11:46> Prescriptions: New benzonatate 200 mg capsule 200 mg PO TID PRN (Reason: cough) Qty: 20 RF: 0 ibuprofen 600 mg tablet 600 mg PO TID PRN (Reason: pain) Qty: 20 RF: 0 acetaminophen [Tylenol] 325 mg tablet 650 mg PO Q4H PRN (Reason: pain) Qty: 20 RF: 0 No Action yckwyuhthz-nqximdejywsdj-uiab [Fioricet] 50-300-40 mg capsule 1 cap PO Q4-6H PRN (Reason: pain) Qty: 10 RF: 0 albuterol sulfate 90 mcg/actuation HFA aerosol inhaler 2 puff inhalation Q4-6H PRN (Reason: shortness of breath or wheezing) Qty: 8.5 RF: 0 ketorolac 10 mg tablet 10 mg PO QID PRN (Reason: pain) 5 Days Qty: 20 RF: 0 ketorolac 10 mg tablet 10 mg PO TID PRN (Reason: pain) 5 Days Qty: 20 RF: 0 <Salina Sanchez NP - Last Filed: 04/23/21 11:46> Referrals: Yoana Baig MD [Primary Care Provider] - 2 days <Salina Sanchez NP - Last Filed: 04/23/21 11:46> Stand Alone Forms: Work/School Release <Salina Sanchez NP - Last Filed: 04/23/21 11:46> Interventions: ED Discharge Assessment Last Done: 04/23/21 11:40 <Salina Sanchez NP - Last Filed: 04/23/21 11:46> Discharge Date/Time: 04/23/21 11:41 <Salina Sanchez NP - Last Filed: 04/23/21 11:46>
[2021-04-23 11:09] LABS: Influenza A PCR NEGATIVE (Negative); Influenza B PCR NEGATIVE (Negative); Resp Syncy Virus RNA Qual PCR NEGATIVE (Negative); SARS COV2 PCR INHOUSE NEGATIVE (Negative)
== END 2021-04-23 11:41 | disposition home or self-care (01) ==
PROVIDERS: Nurse Practitioner Family; Emergency Provider Emergency Medicine; PCP Internal Medicine
DX: J06.9 Acute upper respiratory infection, unspecified (principal); R07.89 Other chest pain; R50.9 Fever, unspecified; R05.9 Cough, unspecified; Z20.822 Contact with and (suspected) exposure to COVID-19; Z79.899 Other long term (current) drug therapy
CPT/HCPCS: 0241U; 71046; 99283

== ENCOUNTER 2021-07-25 13:06 | Emergency (ER) | payer OTHER, SELFPAY ==
[2021-07-25 14:05] VITALS: BP 140/97; PULSE 80; RESP 16; TEMP 37; O2SAT 97; BMI 37.5
[2021-07-25 14:37] LABS: IDNOW Serial# 55D5AD1C; Influenza A Negative (Negative); Influenza B2 Negative (Negative)
--- NOTE | 2021-07-25 16:27 | ED_ITS ---
HPI - Asthma General Chief Complaint: Asthma Stated Complaint: covid + sob Time Seen by Provider: 07/25/21 15:46 Source: patient Mode of arrival: ambulatory Limitations: no limitations History of Present Illness HPI Narrative: Patient is a 31 year old female presenting to the emergency department today with increased wheezing. Patient states that she tested positive for COVID-19 on Thursday and has felt more wheezy since then. Patient states that she has a history of asthma. Patient denies any dizziness, lightheadedness, abdominal pain, nausea, vomiting, fever, chills, blurry vision, double vision, loss of vision, chest pain, back pain, night sweats, pain with urination, increased urinary frequency, increased urinary urgency, blood in her urine or stool, syncope or a near syncopal episode, recent trauma or falls, bowel incontinence, bladder incontinence, bowel retention, bladder retention, or any other complaints at this time. MD complaint: wheezing Onset (ago): day(s) Severity: mild Context: recent URI Associated symptoms: dry cough Related Data Current Asthma Therapy: none Previous Rx's Medication Instructions Recorded albuterol sulfate 90 mcg/actuation 2 puff INHALATION Q4-6H PRN #8.5 g 05/22/20 aerosol inhaler leuxshdvyk-pjdpakryfkfml-pnlwttmt 1 cap PO Q4-6H PRN #10 cap 05/22/20 50 mg-300 mg-40 mg capsule (Fioricet) ketorolac 10 mg tablet 10 mg PO QID PRN 5 Days #20 tab 02/05/21 ketorolac 10 mg tablet 10 mg PO TID PRN 5 Days #20 tab 02/06/21 acetaminophen 325 mg tablet 650 mg PO Q4H PRN #20 tab 04/23/21 (Tylenol) benzonatate 200 mg capsule 200 mg PO TID PRN #20 cap 04/23/21 ibuprofen 600 mg tablet 600 mg PO TID PRN #20 tab 04/23/21 prednisone 20 mg tablet 20 mg PO DAILY 5 Days #5 tab 07/25/21 Allergies Allergy/AdvReac Type Severity Reaction Status Date / Time No Known Allergies Allergy Verified 05/22/20 13:40 Review of Systems Constitutional: Constitutional: Reports no additional constitutional complaints, Denies chills, Denies fever(s) and Denies night sweats Eyes: Eyes: Reports no additional eye complaints, Denies blurry vision, Denies change in vision, Denies diplopia, Denies eye discharge, Denies loss of vision and Denies eye pain ENT: Denies dizziness Cardiovascular: Cardiovascular: Reports no additional cardiovascular complaints, Denies chest pain, Denies lightheadedness, Denies Loss of Consciousness and Denies dyspnea Respiratory: Respiratory: Reports no additional respiratory complaints, Denies dyspnea and Reports wheezing Gastrointestinal: Gastrointestinal: Reports no additional gastrointestinal complaints, Denies abdominal pain, Denies melena, Denies hematochezia, Denies change in bowel habits and Denies change in stool character Genitourinary: Genitourinary: Denies hematuria, Denies urinary frequency, Denies dysuria, Denies urinary incontinence, Denies urinary hesitancy and Denies urinary urgency Musculoskeletal: Musculoskeletal: Reports no additional musculoskeletal complaints, Denies numbness and Denies tingling Neurologic: Denies dizziness, Denies loss of vision, Denies numbness and Denies tingling Psychiatric: Psychiatric: Reports no additional psychiatric complaints Endocrine: Endocrine: Reports no additional endocrine complaints Hematologic/Lymphatic: Hematologic/Lymphatic: Reports no additional hematologi c/lymphatic complaints Allergic/Immunologic: Allergic/Immunologic: Reports no additional allergic/immunologic complaints and Reports wheezing PMFSH Past Medical History Attestation statement: The following information was validated with the patient. Source: old records reviewed Medical History Patient denies medical problems Social History Social History Advance Directives: No Advance Directives Information Provided: No Patient : No Physical Exam Vital Signs: Vital Signs: Last Vital Signs Temp 98.6 F 07/25/21 14:05 Pulse 80 07/25/21 14:05 Resp 16 07/25/21 14:05 BP 140/97 H 07/25/21 14:05 Pulse Ox 97 07/25/21 14:05 BMI result Body Mass Index 37.5 Const: General: cooperative, no acute distress, alert and awake Nutritional Appearance: well nourished Orientation/consciousness: patient oriented x3 Limitations: no limitations HEENT: Head: Yes normal to inspection and Yes atraumatic Ears: hearing grossly normal bilaterally and external ears normal General nose exam: Normal external nose present, no nasal discharge noted and no epistaxis Face and sinus: Yes normal facial exam, No abrasion and No laceration Mouth: Normal oral and palatal mucosa present, no drooling and no muffled voice Eyes: General: appearance normal, both eyes and all related structures Periorbital: periorbital findings normal Eyelids: Yes eyelids normal Conjunctivae: conjunctivae normal Pupils: Equal, round and reactive pupils present EOM: EOMs intact bilaterally Neck: Neck: Yes normal visual inspection, Yes full ROM and Yes no lymphadenopathy Chest: Chest palpation & inspection: normal inspection of the chest Resp: Effort & Inspection: normal respiratory effort and able to speak in complete sentences Auscultation: clear to auscultation bilaterally Cardio: Rate: regular rate Rhythm: regular rhythm GI: Inspection: Yes normal to inspection Neuro: General: patient oriented x3 and moves all extremities Cranial nerves: Yes Equal, round and reactive pupils present Cognition (Neuro): normal cognition Motor exam (neuro): 5/5 motor strength present throughout Sensory Exam: Normal double simultaneous stimulation for sensation Coordination: ifzwqf-ri-zuha test normal Extrem: General: Yes normal to inspection, Yes full ROM and Yes capillary refill normal Psych: Appearance: grossly normal Mental Status: mental status grossly normal Affect: normal affect Attitude: cooperative Thought process: Normal thought process present Thought content: Normal thought content present Insight: Good insight present (Psych) MDM - Asthma MDM Narrative Medical decision making narrative: Patient is a 31 year old female presenting to the emergency department today with increased wheezing. Patient's physical exam was unremarkable. Patient's ra pid influenza was negative. I explained my physical exam findings as well as all test results to the patient. I answered all questions asked by the patient. I stressed the importance of the patient taking her medication as prescribed. I stressed the importance of the patient following up with her primary care provider. I stressed the importance of the patient returning to the emergency department immediately if her symptoms were to worsen or if she were to develop any dizziness, shortness of breath, difficulty breathing, chest pain, blurry vision, loss of vision, nausea, vomiting, abdominal pain, fever, chills, back pain, or any other complaints. Patient verbalized agreement and understanding with this treatment plan and discharge. Differential Diagnosis Differential diagnosis: Likely Acute exacerbation Medical Records Attestation: I reviewed the patient's medical records. Lab Data Attestation: I reviewed the patient's lab results. Labs: Lab Results 07/25/21 Range/Units 14:13 Influenza Type A (MIS) Negative (Negative) Influenza Type B (MIS) Negative (Negative) Influenza A & B Note See Note Discharge Plan Discharge Clinical Impression: COVID-19, Asthma with acute exacerbation Patient Disposition: Home, Self-Care Instructions: COVID-19 (Coronavirus Disease 2019) (ED) Additional Instructions: Follow up with your primary care provider. Return to the emergency department immediately if your symptoms worsen or if you develop any dizziness, shortness of breath, difficulty breathing, chest pain, blurry vision, loss of vision, nausea, vomiting, abdominal pain, fever, chills, back pain, or any other complaints. Prescriptions: New prednisone 20 mg tablet 20 mg PO DAILY 5 Days Qty: 5 0RF No Action oqzyrzctcc-wguibmhxfauyv-ecfr [Fioricet] 50-300-40 mg capsule 1 cap PO Q4-6H PRN (Reason: pain) Qty: 10 0RF albuterol sulfate 90 mcg/actuation HFA aerosol inhaler 2 puff inhalation Q4-6H PRN (Reason: shortness of breath or wheezing) Qty: 8.5 0RF Rx Instructions: May substitute equivalent medication per insurance approval ketorolac 10 mg tablet 10 mg PO QID PRN (Reason: pain) 5 Days Qty: 20 0RF Rx Instructions: Patient received Toradol IM 30mg in the ED ketorolac 10 mg tablet 10 mg PO TID PRN (Reason: pain) 5 Days Qty: 20 0RF benzonatate 200 mg capsule 200 mg PO TID PRN (Reason: cough) Qty: 20 0RF ibuprofen 600 mg tablet 600 mg PO TID PRN (Reason: pain) Qty: 20 0RF acetaminophen [Tylenol] 325 mg tablet 650 mg PO Q4H PRN (Reason: pain) Qty: 20 0RF Referrals: Yoana Baig MD [Primary Care Provider] - ED Physician,Generic [Emergency Provider] - (Follow up with your PCP.) Print Language: Chinese
== END 2021-07-25 17:27 | disposition home or self-care (01) ==
PROVIDERS: Emergency Provider Internal Medicine; PCP Internal Medicine
DX: U07.1 COVID-19 (principal); J45.901 Unspecified asthma with (acute) exacerbation
CPT/HCPCS: 87502; 99283

== ENCOUNTER 2021-08-11 20:01 | Emergency (ER) | payer OTHER, SELFPAY ==
--- NOTE | ~2021-08-11 | XR_ITS ---
EXAMINATION: XR FINGER, RIGHT CLINICAL INFORMATION: Pain COMPARISON: None TECHNIQUE: PA view of the hand and oblique and lateral views of first digit FINDINGS: The bones and soft tissues are normal. No fracture. Alignment is anatomic. Joint spaces are maintained. XR/XR finger RT min 2V IMPRESSION: Normal finger radiographs.
[2021-08-11 20:17] VITALS: BP 146/93; PULSE 96; RESP 18; TEMP 36.6; O2SAT 100; BMI 38.4
[2021-08-12 00:04] VITALS: BP 136/91; PULSE 80; RESP 18; TEMP 36.8; O2SAT 100
--- NOTE | 2021-08-12 00:33 | ED_ITS ---
HPI - Extremity Problem General Chief complaint: Extremity Injury, Upper Stated complaint: Hand Inj Time Seen by Provider: 08/12/21 00:33 Source: patient Mode of arrival: ambulatory History of Present Illness HPI Narrative: 31-year-old female who states that she was struck on the extensor aspect of the right thumb earlier in the day at a [employer] and has had significant pain extending distal since that time. Patient states that she is able to open and close her hand but there is significant pain when she attempts to make a fist. Related Data Previous Rx's Medication Instructions Recorded albuterol sulfate 90 mcg/actuation 2 puff INHALATION Q4-6H PRN #8.5 g 05/22/20 aerosol inhaler pfxxxkhynt-eriqneqxrjokz-qiimkbgf 1 cap PO Q4-6H PRN #10 cap 05/22/20 50 mg-300 mg-40 mg capsule (Fioricet) ketorolac 10 mg tablet 10 mg PO QID PRN 5 Days #20 tab 02/05/21 ketorolac 10 mg tablet 10 mg PO TID PRN 5 Days #20 tab 02/06/21 acetaminophen 325 mg tablet 650 mg PO Q4H PRN #20 tab 04/23/21 (Tylenol) benzonatate 200 mg capsule 200 mg PO TID PRN #20 cap 04/23/21 ibuprofen 600 mg tablet 600 mg PO TID PRN #20 tab 04/23/21 prednisone 20 mg tablet 20 mg PO DAILY 5 Days #5 tab 07/25/21 Allergies Allergy/AdvReac Type Severity Reaction Status Date / Time No Known Allergies Allergy Verified 05/22/20 13:40 Review of Systems Review of Systems: Pertinent positives and negatives as stated in HPI 10 point review of systems is otherwise negative. [facility] Past Medical History Source: nursing notes reviewed Medical History Patient denies medical problems Social History Social History Advance Directives: No Physical Exam Vital Signs: Vital Signs: Last Vital Signs Temp 98.2 F 08/12/21 00:04 Pulse 80 08/12/21 00:04 Resp 18 08/12/21 00:04 BP 136/91 H 08/12/21 00:04 Pulse Ox 100 08/12/21 00:04 BMI result Body Mass Index 38.4 VITAL SIGNS: Reviewed. GENERAL: Well developed, well nourished, in no acute distress. HEAD: Normocephalic/atraumatic EYES: PERRLA, EOMI EARS: Ext canals without abnormality OROPHARYNX: no oral lesions noted, posterior pharynx clear LUNGS: Normal breath sounds. No adventitious sounds or accessory muscle use. SpO2<100> CARDIOVASCULAR: Regular rate and rhythm without noted murmurs ABDOMEN: Soft, non-tender, non-distended with bowel sounds. MUSCULOSKELETAL: No tenderness, deformities, or effusions noted on gross inspection. EXTREMITIES: No cyanosis, clubbing or edema; RIGHT HAND: There is mild swelling over the extensor surface of the right thumb without noted deformity, no snuffbox tenderness, patient is able to fully extend her hand, on making a fist there is weakness of the right thumb with pain, sensation is intact, capillary refills less than 3 seconds SKIN: Inspection of the skin reveals no rashes NEUROLOGIC: Alert and oriented x 4. Course Course Course Narrative: 31-year-old female with history and clinical presentation of likely extensor injury. She was provided with combination analgesics on review x-ray there is no evidence of acute fracture or dislocation. Discharge Plan Discharge Clinical Impression: Sprain of right thumb Patient Disposition: Home, Self-Care Instructions: Sprain (ED) Additional Instructions: 1. Recommend jhmy-ftv-wjpeggc Tylenol/ibuprofen as needed for pain control. In addition, apply ice to unexposed skin for additional symptom relief for 5-10 minutes, 3 to 4 times a day. 2. Follow-up with your primary care provider tomorrow for re-evaluation. Return to the ER for worsening symptoms. Prescriptions: No Action zwtkyaocgx-csibqdbhdrfae-slhr [Fioricet] 50-300-40 mg capsule 1 cap PO Q4-6H PRN (Reason: pain) Qty: 10 0RF albuterol sulfate 90 mcg/actuation HFA aerosol inhaler 2 puff inhalation Q4-6H PRN (Reason: shortness of breath or wheezing) Qty: 8.5 0RF Rx Instructions: May substitute equivalent medication per insurance approval prednisone 20 mg tablet 20 mg PO DAILY 5 Days Qty: 5 0RF ketorolac 10 mg tablet 10 mg PO QID PRN (Reason: pain) 5 Days Qty: 20 0RF Rx Instructions: Patient received Toradol IM 30mg in the ED ketorolac 10 mg tablet 10 mg PO TID PRN (Reason: pain) 5 Days Qty: 20 0RF benzonatate 200 mg capsule 200 mg PO TID PRN (Reason: cough) Qty: 20 0RF ibuprofen 600 mg tablet 600 mg PO TID PRN (Reason: pain) Qty: 20 0RF acetaminophen [Tylenol] 325 mg tablet 650 mg PO Q4H PRN (Reason: pain) Qty: 20 0RF Stand Alone Forms: Work/School Release
[2021-08-12] MEDS: Ibuprofen 400 MG TABLET PO (01:43)
[2021-08-12] MEDS: Acetaminophen 325 MG TABLET 975 MG PO (01:44)
== END 2021-08-12 01:47 | disposition home or self-care (01) ==
PROVIDERS: Emergency Provider Student in an Organized Health Care Education/Training Program
DX: S63.601A Unspecified sprain of right thumb, initial encounter (principal); W22.8XXA Striking against or struck by other objects, initial encounter; Y93.9 Activity, unspecified; Y92.9 Unspecified place or not applicable; Y99.9 Unspecified external cause status
CPT/HCPCS: 73140; 99282; 99283

== ENCOUNTER 2021-11-12 10:52 | Emergency (ER) | payer OTHER, SELFPAY ==
[2021-11-12 11:18] VITALS: BP 142/98; PULSE 67; RESP 18; TEMP 36.2; O2SAT 97; BMI 38.7
== END 2021-11-12 17:23 | disposition left against medical advice (07) ==
PROVIDERS: Emergency Provider Emergency Medicine
DX: I10 Essential (primary) hypertension (principal)
CPT/HCPCS: 99281

== ENCOUNTER 2022-03-04 15:23 | Emergency (ER) | payer OTHER, SELFPAY ==
[2022-03-04 15:59] VITALS: BP 137/88; PULSE 74; RESP 16; TEMP 36.7; O2SAT 97; BMI 38.4
--- NOTE | 2022-03-04 15:59 | ED.GENADULT ---
HPI - General Adult General Chief complaint: Headache <Shana David MD - Last Filed: 03/04/22 16:04> Stated complaint: HBP/Nausea/Headache <Shana David MD - Last Filed: 03/04/22 16:04> Time Seen by Provider: 03/04/22 19:27 <Shana David MD - Last Filed: 03/04/22 16:04> Source: patient <Forest Crabtree MD - Last Filed: 03/04/22 20:39> Mode of arrival: ambulatory <Forest Crabtree MD - Last Filed: 03/04/22 20:39> Limitations: no limitations <Forest Crabtree MD - Last Filed: 03/04/22 20:39> History of Present Illness HPI narrative: Patient with history of chronic recurrent headache and hypertension comes in for 2 days of headache localized more to the left side with light sensitivity and nausea patient never been diagnosed with migraines no head injury no fever or chills no neck pain <Forest Crabtree MD - Last Filed: 03/04/22 20:39> Related Data Home medications: Previous Rx's Medication Instructions Recorded albuterol sulfate 90 mcg/actuation 2 puff inhalation Q4-6H PRN 05/22/20 aerosol inhaler shortness of breath or wheezing #8.5 grams abnifhdwup-inmvprjcmpoep-yexfsjyf 1 cap PO Q4-6H PRN pain #10 caps 05/22/20 50 mg-300 mg-40 mg capsule (Fioricet) ketorolac 10 mg tablet 10 mg PO QID PRN pain 5 days #20 02/05/21 tabs ketorolac 10 mg tablet 10 mg PO TID PRN pain 5 days #20 02/06/21 tabs acetaminophen 325 mg tablet 650 mg PO Q4H PRN pain #20 tabs 04/23/21 (Tylenol) benzonatate 200 mg capsule 200 mg PO TID PRN cough #20 caps 04/23/21 ibuprofen 600 mg tablet 600 mg PO TID PRN pain #20 tabs 04/23/21 prednisone 20 mg tablet 20 mg PO DAILY 5 days #5 tabs 07/25/21 rgckmfuneb-dtkxpjakfxgtj-kvxucauc 1 cap PO Q6H PRN headache #20 caps 03/04/22 50 mg-300 mg-40 mg capsule (Fioricet) sumatriptan succinate 50 mg tablet 50 mg PO Q2H PRN migraine headache 03/04/22 (Imitrex) #10 tabs <Shana David MD - Last Filed: 03/04/22 16:04> Allergies/adverse reactions: Allergies Allergy/AdvReac Type Severity Reaction Status Date / Time tramadol AdvReac Vomiting Verified 03/04/22 16:03 <Shana David MD - Last Filed: 03/04/22 16:04> Review of Systems Review of Systems: Yes all other systems are reviewed and are negative <Forest Crabtree MD - Last Filed: 03/04/22 20:39> PMF Past Medical History Medical History: Medical History Patient denies medical problems <Shana David MD - Last Filed: 03/04/22 16:04> Social History Social History: Social History Advance Directives: No Advance Directives Information Provided: Yes <Shana David MD - Last Filed: 03/04/22 16:04> Physical Exam ED Vital Signs: Vital Signs - 24 hr 03/04/22 15:59 03/04/22 19:14 03/04/22 19:24 Temperature 98.1 F 98.3 F Pulse Rate 74 74 79 Respiratory Rate 16 18 18 Blood Pressure 137/88 135/95 H 136/90 H Pulse Oximetry 97 100 96 Oxygen Delivery Method Room Air Room Air Room Air BMI result Body Mass Index 38.4 <Shana David MD - Last Filed: 03/04/22 16:04> Vital Signs - 24 hr 03/04/22 15:59 03/04/22 19:14 03/04/22 19:24 Temperature 98.1 F 98.3 F Pulse Rate 74 74 79 Respiratory Rate 16 18 18 Blood Pressure 137/88 135/95 H 136/90 H Pulse Oximetry 97 100 96 Oxygen Delivery Method Room Air Room Air Room Air BMI result Body Mass Index 38.4 <Forest Crabtree MD - Last Filed: 03/04/22 20:39> Appearance: Alert. Oriented X3. No acute distress. Eyes: PERRLA, no pallor or icterus ENT: Pharynx normal. Oral Mucosa moist no temporal artery tenderness Neck: Normal inspection. Neck supple. CVS: Normal heart rate and rhythm. Pulses normal. Respiratory: No respiratory distress. Equal air entry bilateral, no wheezing/rales/rhonchi Abdomen: Soft and nontender. Bowel sounds are present, no mass palpable, no CVA tenderness Skin: Skin warm and dry. Normal skin color. Normal skin turgor. Extremities: No lower extremity edema. No calf tenderness Neuro: Oriented X 3. No motor deficit. <Forest Crabtree MD - Last Filed: 03/04/22 20:39> Course Course Course Narrative: 31F p/w headaches, sore throat, nausea, but denies fevers, chills. VS Reviewed GEN: NAD EARS: wnl THROAT: wnl LUNGS: CTAB CVS: RRR ABD: NT/ND <Shana David MD - Last Filed: 03/04/22 16:04> Medications Administered Discontinued Medications Generic Name Dose Route Start Last Admin Trade Name Freq PRN Reason Stop Dose Admin Acetaminophen 975 mg 03/04/22 15:59 03/04/22 19:24 Acetaminophen 325 Mg Tablet PO 03/04/22 16:00 975 mg ONCE ONE Administration Ibuprofen 400 mg 03/04/22 15:59 03/04/22 19:24 Ibuprofen 400 Mg Tablet PO 03/04/22 16:00 400 mg ONCE ONE Administration Sumatriptan Succinate 6 mg 03/04/22 19:35 03/04/22 19:41 Sumatriptan Succinate 6 Mg/0.5 Ml Vial SUBCUT 03/04/22 19:36 6 mg ONCE ONE Administration <Shana David MD - Last Filed: 03/04/22 16:04> Medications Administered Discontinued Medications Generic Name Dose Route Start Last Admin Trade Name Freq PRN Reason Stop Dose Admin Acetaminophen 975 mg 03/04/22 15:59 03/04/22 19:24 Acetaminophen 325 Mg Tablet PO 03/04/22 16:00 975 mg ONCE ONE Administration Ibuprofen 400 mg 03/04/22 15:59 03/04/22 19:24 Ibuprofen 400 Mg Tablet PO 03/04/22 16:00 400 mg ONCE ONE Administration Sumatriptan Succinate 6 mg 03/04/22 19:35 03/04/22 19:41 Sumatriptan Succinate 6 Mg/0.5 Ml Vial SUBCUT 03/04/22 19:36 6 mg ONCE ONE Administration <Forest Crabtree MD - Last Filed: 03/04/22 20:39> Medical Decision Making Medical Decision Making MDM Narrative: Patient with migraine headache responded to Imitrex will discharge patient home <Forest Crabtree MD - Last Filed: 03/04/22 20:39> Differential Diagnoses: Differential diagnosis (Migraine, complex tension headache, temporal arteritis) Differential Diagnosis: The differential diagnosis associated with the patient?s presentation includes: <Forest Crabtree MD - Last Filed: 03/04/22 20:39> Discharge Plan Discharge Clinical Impression: Migraine <Shana David MD - Last Filed: 03/04/22 16:04> Patient Disposition: Home, Self-Care <Shana David MD - Last Filed: 03/04/22 16:04> Instructions: Migraine Headache (ED) <Shana David MD - Last Filed: 03/04/22 16:04> Additional Instructions: Likely you have complex migraine Take Imitrex as advised at onset of headache, may repeat in 2 hours if headache continues to not take more than 2 tablets in 24 hours Fioricet 1 tablet every 6 hours as needed for continued headache <Shana David MD - Last Filed: 03/04/22 16:04> Prescriptions: New sumatriptan succinate [Imitrex] 50 mg tablet 50 mg PO Q2H PRN (Reason: migraine headache) Qty: 10 0RF Rx Instructions: do not exceed 2 doses per 24 hrs abqhwvuqus-tnygbmfhkgtiu-rmga [Fioricet] 50-300-40 mg capsule 1 cap PO Q6H PRN (Reason: headache) Qty: 20 0RF No Action vxoxgzgktx-euoaqqrxfduru-szyg [Fioricet] 50-300-40 mg capsule 1 cap PO Q4-6H PRN (Reason: pain) Qty: 10 0RF albuterol sulfate 90 mcg/actuation HFA aerosol inhaler 2 puff inhalation Q4-6H PRN (Reason: shortness of breath or wheezing) Qty: 8.5 0RF Rx Instructions: May substitute equivalent medication per insurance approval prednisone 20 mg tablet 20 mg PO DAILY 5 Days Qty: 5 0RF ketorolac 10 mg tablet 10 mg PO QID PRN (Reason: pain) 5 Days Qty: 20 0RF Rx Instructions: Patient received Toradol IM 30mg in the ED ketorolac 10 mg tablet 10 mg PO TID PRN (Reason: pain) 5 Days Qty: 20 0RF benzonatate 200 mg capsule 200 mg PO TID PRN (Reason: cough) Qty: 20 0RF ibuprofen 600 mg tablet 600 mg PO TID PRN (Reason: pain) Qty: 20 0RF acetaminophen [Tylenol] 325 mg tablet 650 mg PO Q4H PRN (Reason: pain) Qty: 20 0RF <Shaan David MD - Last Filed: 03/04/22 16:04>
[2022-03-04 17:51] LABS: COVID-19 Test Negative (Negative); IDNOW Serial# 16C4AD1C; IDNOW Serial# BCCEAD1C; Influenza A Negative (Negative); Influenza B2 Negative (Negative)
[2022-03-04 19:14] VITALS: BP 135/95; PULSE 74; RESP 18; TEMP 36.8; O2SAT 100
[2022-03-04 19:24] VITALS: BP 136/90; PULSE 79; RESP 18; O2SAT 96
[2022-03-04] MEDS: Ibuprofen 400 MG TABLET PO (19:24)
[2022-03-04] MEDS: Acetaminophen 325 MG TABLET 975 MG PO (19:24)
[2022-03-04] MEDS: SUMAtriptan succinate 6 MG/0.5 ML VIAL SUBCUT (19:41)
--- NOTE | 2022-03-04 19:51 | PC.NURSE ---
Patient is alert and oriented x4. She endorses a 10/10 occipital headache for three days. She is medicated with imitrex, tylenol, and ibuprofen. Call ching within reach.
== END 2022-03-04 20:43 | disposition home or self-care (01) ==
PROVIDERS: Student in an Organized Health Care Education/Training Program; Emergency Provider Internal Medicine
DX: G43.909 Migraine, unspecified, not intractable, without status migrainosus (principal); R11.2 Nausea with vomiting, unspecified; Z20.822 Contact with and (suspected) exposure to COVID-19; Z79.899 Other long term (current) drug therapy
CPT/HCPCS: 87502; 87635; 96372; 99284; J3030

== ENCOUNTER 2022-07-16 19:26 | Emergency (ER) | payer OTHER, SELFPAY ==
--- NOTE | ~2022-07-16 | CT_ITS ---
EXAMINATION: CT ABDOMEN AND PELVIS WITHOUT CONTRAST CLINICAL INFORMATION: Left flank pain COMPARISON: None available. TECHNIQUE: Multidetector volumetric imaging was performed from the superior aspect of the liver through the pubic symphysis. Sagittal and coronal reformatted images were obtained on the technologist's workstation. This CT examination was performed using dose optimization techniques as appropriate, variously including the following: *Automated exposure control *Adjustment of mA and/or kV according to patient size (this includes techniques or standardized protocols for targeted exams where dose is matched to indication/reason for exam; i.e. extremities or head) *Use of iterative reconstruction technique DLP: 707 mGy-cm FINDINGS: LUNG BASES: The visualized lung bases are unremarkable. LIVER, GALLBLADDER, AND BILIARY TREE: Enlarged liver measuring 22 cm in CC dimension. There is normal shape of the liver with decreased attenuation diffusely. No focal hepatic lesion or biliary ductal dilatation is present. The gallbladder is unremarkable with no evidence of radiopaque gallstones, gallbladder wall thickening, or obvious pericholecystic inflammatory changes. PANCREAS: Unremarkable. SPLEEN: Unremarkable. ADRENAL GLANDS: Unremarkable. KIDNEYS AND URETERS: The kidneys are normal in size, shape, and attenuation. No hydronephrosis or hydroureter. There are multiple bilateral renal calculi present. On the left there are greater than 10 calculi. This includes a lower pole 0.4 cm calculus which is 10 cm from the posterior axillary line. On the right there are 3 calculi at least. This includes a midpole 0.4 cm calculus which is 8 cm from the posterior axillary line. BLADDER: Partially distended without wall thickening. No calculi. GASTROINTESTINAL TRACT: The stomach is unremarkable. Normal caliber small bowel. No obstruction. Normal appendix. No colonic wall thickening or inflammation. Mild to moderate diffuse colonic stool burden. No free air. Trace pelvic free fluid. ABDOMINAL WALL: No significant hernia is appreciated. LYMPH NODES: Normal. VASCULAR: Unremarkable. PELVIC VISCERA: The uterus and adnexa are unremarkable. OSSEOUS STRUCTURES: Unremarkable. CT/CT abdomen pelvis wo IV con IMPRESSION: 1. Hepatomegaly with hepatic steatosis. 2. Multiple bilateral nonobstructing renal calculi. Fleischner guidelines were followed.
[2022-07-16 19:55] VITALS: BP 125/87; PULSE 75; RESP 18; TEMP 36.8; O2SAT 94; BMI 39.3
--- NOTE | 2022-07-16 19:55 | ED.ABDPAIN ---
HPI - Abdominal Pain General Chief Complaint: General Medical Stated Complaint: kindey stones sent from [facility] Time Seen by Provider: 07/16/22 20:44 Related Data Previous Rx's Medication Instructions Recorded albuterol sulfate 90 mcg/actuation 2 puff inhalation Q4-6H PRN 05/22/20 aerosol inhaler shortness of breath or wheezing #8.5 grams mldjzmnstx-bfnxdlunipyhe-butaluoi 1 cap PO Q4-6H PRN pain #10 caps 05/22/20 50 mg-300 mg-40 mg capsule (Fioricet) ketorolac 10 mg tablet 10 mg PO QID PRN pain 5 days #20 02/05/21 tabs ketorolac 10 mg tablet 10 mg PO TID PRN pain 5 days #20 02/06/21 tabs acetaminophen 325 mg tablet 650 mg PO Q4H PRN pain #20 tabs 04/23/21 (Tylenol) benzonatate 200 mg capsule 200 mg PO TID PRN cough #20 caps 04/23/21 ibuprofen 600 mg tablet 600 mg PO TID PRN pain #20 tabs 04/23/21 prednisone 20 mg tablet 20 mg PO DAILY 5 days #5 tabs 07/25/21 pebstviazu-yxazgvbsyjeyl-xehmminj 1 cap PO Q6H PRN headache #20 caps 03/04/22 50 mg-300 mg-40 mg capsule (Fioricet) sumatriptan succinate 50 mg tablet 50 mg PO Q2H PRN migraine headache 03/04/22 (Imitrex) #10 tabs ibuprofen 400 mg tablet 400 mg PO Q6H PRN pain #20 tabs 07/16/22 Allergies Allergy/AdvReac Type Severity Reaction Status Date / Time tramadol AdvReac Vomiting Verified 03/04/22 16:03 [facility] Past Medical History Medical History Patient denies medical problems Social History Social History Alcohol intake: never Smoked in Last 30 Days: No Use of substances other than those prescribed or required for medical reasons: No Advance Directives: No Advance Directives Information Provided: No Patient : No Physical Exam ED Vital Signs: Vital Signs - 24 hr 07/16/22 19:55 07/16/22 20:33 Temperature 98.3 F 97.8 F Pulse Rate 75 74 Respiratory Rate 18 19 Blood Pressure 125/87 138/88 Pulse Oximetry 94 92 Oxygen Delivery Method Room Air Room Air BMI result Body Mass Index 39.3 Course Course Course Narrative: This is a rapid medical exam. Deferred additional HPI, ROS, PE to primary provider. 32 yo with history of renal colic, HTN here with left sided back pain x 1 week, decreased urination. Sent from [facility] clinic. LMP 06/28/22. Will obtain labs, UA. VSS Medical Decision Making Lab Data 07/16/22 20:14 07/16/22 20:14 Labs: Lab Results 07/16/22 07/16/22 07/16/22 Range/Units 20:14 20:14 20:43 WBC 11.3 H (4.8-10.8) X10*3/uL RBC 5.94 H (4.20-5.50) X10*6/uL Hgb 12.4 (12.0-16.0) g/dl Hct 40.2 (37.0-47.0) % MCV 67.7 L (80.0-98.0) fL MCH 20.9 L (27.0-33.0) pg MCHC 30.8 L (31.0-35.0) g/dl RDW 18.5 H (11.0-16.0) % Plt Count 340 (160-400) X10*3/uL MPV 10.4 (9.4-12.3) fL Immature Gran % (Auto) 1.1 H (0.0-0.4) % Neut % (Auto) 58.7 (45-73) % Lymph % (Auto) 29.1 (20-40) % [place] % (Auto) 7.4 (2-11) % Eos % (Auto) 3.3 (0-4) % Baso % (Auto) 0.4 (0-2) % Lymph # (Auto) 3.3 (1.2-4.9) X10*3/uL [place] # (Auto) 0.8 (0.1-1.2) X10*3/uL Eos # (Auto) 0.4 (0.0-0.4) X10*3/uL Baso # (Auto) 0.1 (0.0-0.2) X10*3/uL Abs Immat Gran (auto) 0.12 H (0.00-0.03) X10*3/uL Absolute Neuts (auto) 6.6 (2.0-8.3) x10*3/uL Absolute Nucleated RBC 0.000 (0.0-0.012) X10*3/uL Nucleated RBC % (auto) 0.0 (0.0-0.2) /100WBC Sodium 140 (135-145) mmol/L Potassium 4.0 (3.3-5.1) mmol/L Chloride 108 (96-108) mmol/L Carbon Dioxide 27 (22-29) mmol/L Anion Gap 9 L (12-20) BUN 12 (9-16) mg/dL Creatinine 0.83 (0.5-1.4) mg/dL Estim Creat Clear Calc 107.0 Estimated GFR > 60 Random Glucose 99 (60-115) mg/dL Calcium 9.3 (8.4-10.2) mg/dL Total Bilirubin 0.4 (0.0-1.0) mg/dL Direct Bilirubin 0.2 (0.0-0.5) mg/dL AST 26 (5-31) U/L ALT 46 H (0-31) U/L Alkaline Phosphatase 70 (39-117) U/L Total Protein 7.0 (6.5-8.0) g/dL Albumin 4.2 (3.5-5.0) g/dL Lipase 43 (8-78) U/L Urine Color Yellow Urine Appearance Clear Urine pH 6.0 (5.0-9.0) Ur Specific [place] 1.015 (1.005-1.025) Urine Protein Negative (Neg-Trace) mg/dL Urine Glucose (UA) Negative (Negative) mg/dL Urine Ketones Negative (Negative) mg/dL Urine Blood Trace H (Negative) Urine Nitrite Negative (Negative) Ur Leukocyte Esterase Negative (Negative) Urine RBC 3-5 H (0-2) /HPF Urine WBC 0-5 (0-5) /HPF Ur Squamous Epith Cells 3-5 (0-2) /HPF Urine Bacteria None Seen (None Seen) Hyaline Casts 0-2 (0-2) /LPF Urine Test (NEGATIVE) 07/16/22 Range/Units 20:43 WBC (4.8-10.8) X10*3/uL RBC (4.20-5.50) X10*6/uL Hgb (12.0-16.0) g/dl Hct (37.0-47.0) % MCV (80.0-98.0) fL MCH (27.0-33.0) pg MCHC (31.0-35.0) g/dl RDW (11.0-16.0) % Plt Count (160-400) X10*3/uL MPV (9.4-12.3) fL Immature Gran % (Auto) (0.0-0.4) % Neut % (Auto) (45-73) % Lymph % (Auto) (20-40) % [place] % (Auto) (2-11) % Eos % (Auto) (0-4) % Baso % (Auto) (0-2) % Lymph # (Auto) (1.2-4.9) X10*3/uL [place] # (Auto) (0.1-1.2) X10*3/uL Eos # (Auto) (0.0-0.4) X10*3/uL Baso # (Auto) (0.0-0.2) X10*3/uL Abs Immat Gran (auto) (0.00-0.03) X10*3/uL Absolute Neuts (auto) (2.0-8.3) x10*3/uL Absolute Nucleated RBC (0.0-0.012) X10*3/uL Nucleated RBC % (auto) (0.0-0.2) /100WBC Sodium (135-145) mmol/L Potassium (3.3-5.1) mmol/L Chloride (96-108) mmol/L Carbon Dioxide (22-29) mmol/L Anion Gap (12-20) BUN (9-16) mg/dL Creatinine (0.5-1.4) mg/dL Estim Creat Clear Calc Estimated GFR Random Glucose (60-115) mg/dL Calcium (8.4-10.2) mg/dL Total Bilirubin (0.0-1.0) mg/dL Direct Bilirubin (0.0-0.5) mg/dL AST (5-31) U/L ALT (0-31) U/L Alkaline Phosphatase (39-117) U/L Total Protein (6.5-8.0) g/dL Albumin (3.5-5.0) g/dL Lipase (8-78) U/L Urine Color Urine Appearance Urine pH (5.0-9.0) Ur Specific [place] (1.005-1.025) Urine Protein (Neg-Trace) mg/dL Urine Glucose (UA) (Negative) mg/dL Urine Ketones (Negative) mg/dL Urine Blood (Negative) Urine Nitrite (Negative) Ur Leukocyte Esterase (Negative) Urine RBC (0-2) /HPF Urine WBC (0-5) /HPF Ur Squamous Epith Cells (0-2) /HPF Urine Bacteria (None Seen) Hyaline Casts (0-2) /LPF Urine Test NEGATIVE (NEGATIVE) Medications Administered Discontinued Medications Generic Name Dose Route Start Last Admin Trade Name Freq PRN Reason Stop Dose Admin Sodium Chloride 1,000 mls @ 999 mls/hr 07/16/22 21:30 07/16/22 21:29 Ns IV 07/16/22 22:30 Not Given .Q1H1M HOLLI Ketorolac Tromethamine 15 mg 07/16/22 21:16 07/16/22 21:45 Ketorolac Tromethamine 15 Mg/Ml Vial IVPUSH 07/16/22 21:17 15 mg ONCE ONE Administration Discharge Plan Discharge Clinical Impression: Acute flank pain Patient Disposition: Home, Self-Care Instructions: Flank Pain (ED) Prescriptions: New ibuprofen 400 mg tablet 400 mg PO Q6H PRN (Reason: pain) Qty: 20 0RF No Action teqbyegbff-gyhgxxdcfxoly-pppk [Fioricet] 50-300-40 mg capsule 1 cap PO Q4-6H PRN (Reason: pain) Qty: 10 0RF albuterol sulfate 90 mcg/actuation HFA aerosol inhaler 2 puff inhalation Q4-6H PRN (Reason: shortness of breath or wheezing) Qty: 8.5 0RF Rx Instructions: May substitute equivalent medication per insurance approval prednisone 20 mg tablet 20 mg PO DAILY 5 Days Qty: 5 0RF ketorolac 10 mg tablet 10 mg PO QID PRN (Reason: pain) 5 Days Qty: 20 0RF Rx Instructions: Patient received Toradol IM 30mg in the ED ketorolac 10 mg tablet 10 mg PO TID PRN (Reason: pain) 5 Days Qty: 20 0RF benzonatate 200 mg capsule 200 mg PO TID PRN (Reason: cough) Qty: 20 0RF ibuprofen 600 mg tablet 600 mg PO TID PRN (Reason: pain) Qty: 20 0RF acetaminophen [Tylenol] 325 mg tablet 650 mg PO Q4H PRN (Reason: pain) Qty: 20 0RF sumatriptan succinate [Imitrex] 50 mg tablet 50 mg PO Q2H PRN (Reason: migraine headache) Qty: 10 0RF Rx Instructions: do not exceed 2 doses per 24 hrs dsonzrjjyl-ybtksuanzqgzf-ebuj [Fioricet] 50-300-40 mg capsule 1 cap PO Q6H PRN (Reason: headache) Qty: 20 0RF Referrals: Angelina Wood MD [Primary Care Provider] - 07/18/22 Interventions: ED Discharge Assessment Last Done: 07/16/22 22:08 Discharge Date/Time: 07/16/22 22:11
[2022-07-16 20:18] LABS: MANUAL DIFF FLAG NO
[2022-07-16 20:19] LABS: Basophils Absolute Auto 0.1 X10*3/uL (0.0-0.2); Basophils Percent Auto 0.4 % (0-2); Eosinophils Absolute Auto 0.4 X10*3/uL (0.0-0.4); Eosinophils Percent Auto 3.3 % (0-4); Hematocrit 40.2 % (37.0-47.0); Hemoglobin 12.4 g/dl (12.0-16.0); Imm Gran Abs Auto 0.12 X10*3/uL (0.00-0.03); Imm Gran Pct Auto 1.1 % (0.0-0.4); Lymphocytes Absolute Auto 3.3 X10*3/uL (1.2-4.9); Lymphocytes Percent Auto 29.1 % (20-40); Mean Corpuscular HGB Conc 30.8 g/dl (31.0-35.0); Mean Corpuscular Hemoglobin 20.9 pg (27.0-33.0); Mean Corpuscular Volume 67.7 fL (80.0-98.0); Mean Platelet Volume 10.4 fL (9.4-12.3); Monocytes Absolute Auto 0.8 X10*3/uL (0.1-1.2); Monocytes Percent Auto 7.4 % (2-11); Neutrophils Absolute Auto 6.6 x10*3/uL (2.0-8.3); Neutrophils Percent Auto 58.7 % (45-73); Platelet Count 340 X10*3/uL (160-400); Red Blood Count 5.94 X10*6/uL (4.20-5.50); Red Cell Distribution Width 18.5 % (11.0-16.0); White Blood Count 11.3 X10*3/uL (4.8-10.8)
[2022-07-16 20:33] VITALS: BP 138/88; PULSE 74; RESP 19; TEMP 36.6; O2SAT 92
[2022-07-16 20:35] LABS: Alanine Aminotransferase 46 U/L (0-31); Albumin Level 4.2 g/dL (3.5-5.0); Alkaline Phosphatase 70 U/L (39-117); Anion Gap 9 (12-20); Aspartate Amino Transferase 26 U/L (5-31); Bilirubin Direct 0.2 mg/dL (0.0-0.5); Bilirubin Total 0.4 mg/dL (0.0-1.0); Blood Urea Nitrogen 12 mg/dL (9-16); Calcium 9.3 mg/dL (8.4-10.2); Carbon Dioxide 27 mmol/L (22-29); Chloride 108 mmol/L (96-108); Estimated Glomerular Filt Rate > 60; Glucose Random 99 mg/dL (60-115); Lipase 43 U/L (8-78); Sodium 140 mmol/L (135-145)
[2022-07-16 20:53] LABS: Appearance Urine Clear; Color Urine Yellow; Glucose Urine UA Negative (Negative); Leukocyte Esterase Urine Negative (Negative); Nitrite Urine Negative (Negative); Specific Gravity - Urine 1.015 (1.005-1.025); UMIC TRIGGER UACC YES; Urine Blood Trace (Negative); Urine Ketones Negative (Negative); Urine Protein Negative (Neg-Trace)
[2022-07-16 20:54] LABS: UPreg QC Valid YES; Urine Pregnancy NEGATIVE (NEGATIVE)
[2022-07-16 21:11] LABS: Bacteria Urine None Seen (None Seen); Hyaline Casts Urine 0-2 /LPF (0-2); WBC Urine 0-5 /HPF (0-5)
--- NOTE | 2022-07-16 21:18 | ED.GENADULT ---
HPI - General Adult General Chief complaint: General Medical Stated complaint: lopezey stones sent from [facility] Time Seen by Provider: 07/16/22 20:44 History of Present Illness HPI narrative: Declan is a 32-year-old female presents today with having pain to the left side. Patient had a history of kidney stones in the kidney. Denies any vaginal discharge. She is not sexually active with men. She denies any fever chills. The pain is ongoing for few days. Fairly constant. It is sharp. Patient denies any pain on urination. No history of abdominal surgery in the past. Patient is from home. No coughing or congestion or upper respiratory symptoms but no diaphoresis. Related Data Previous Rx's Medication Instructions Recorded albuterol sulfate 90 mcg/actuation 2 puff inhalation Q4-6H PRN 05/22/20 aerosol inhaler shortness of breath or wheezing #8.5 grams fbmyyexzmx-bvgphuhnicjdb-ufqsiabl 1 cap PO Q4-6H PRN pain #10 caps 05/22/20 50 mg-300 mg-40 mg capsule (Fioricet) ketorolac 10 mg tablet 10 mg PO QID PRN pain 5 days #20 02/05/21 tabs ketorolac 10 mg tablet 10 mg PO TID PRN pain 5 days #20 02/06/21 tabs acetaminophen 325 mg tablet 650 mg PO Q4H PRN pain #20 tabs 04/23/21 (Tylenol) benzonatate 200 mg capsule 200 mg PO TID PRN cough #20 caps 04/23/21 ibuprofen 600 mg tablet 600 mg PO TID PRN pain #20 tabs 04/23/21 prednisone 20 mg tablet 20 mg PO DAILY 5 days #5 tabs 07/25/21 ztwpvjoxsm-urdzxsjhisfui-mhijarwm 1 cap PO Q6H PRN headache #20 caps 03/04/22 50 mg-300 mg-40 mg capsule (Fioricet) sumatriptan succinate 50 mg tablet 50 mg PO Q2H PRN migraine headache 03/04/22 (Imitrex) #10 tabs ibuprofen 400 mg tablet 400 mg PO Q6H PRN pain #20 tabs 07/16/22 Allergies Allergy/AdvReac Type Severity Reaction Status Date / Time tramadol AdvReac Vomiting Verified 03/04/22 16:03 Review of Systems Review of Systems: Positive left-sided abdominal pain Yes all other systems are reviewed and are negative [facility] Past Medical History Attestation statement: The following information was validated with the patient. Medical History Patient denies medical problems Social History Social History Alcohol intake: never Smoked in Last 30 Days: No Use of substances other than those prescribed or required for medical reasons: No Advance Directives: No Advance Directives Information Provided: No Patient : No Physical Exam ED Vital Signs: Vital Signs - 24 hr 07/16/22 19:55 07/16/22 20:33 Temperature 98.3 F 97.8 F Pulse Rate 75 74 Respiratory Rate 18 19 Blood Pressure 125/87 138/88 Pulse Oximetry 94 92 Oxygen Delivery Method Room Air Room Air BMI result Body Mass Index 39.3 Appearance: Alert. Oriented X3. No acute distress. Eyes: Pupils equal, round and reactive to light. ENT: Pharynx normal. Neck: Normal inspection. Neck supple. No lymph nodes noted. No crepitus CVS: Normal heart rate and rhythm. Pulses normal. Normal S1 and S2 Respiratory: No respiratory distress. Breath sounds normal. No Wheezing. No rales Abdomen: Soft and nontender. No rigidity. No distention. good BS x4 Skin: Skin warm and dry. Normal skin color. Normal skin turgor. Extremities: No lower extremity edema. Neurovascular intact to all extremities. No Lacerations. No Rash Neuro: Oriented X 3. No motor deficit. No sensory deficit. Moving all extermities. No slurred speech Medications Administered Generic Name Dose Route Start Last Admin Trade Name Freq PRN Reason Stop Dose Admin Sodium Chloride 1,000 mls @ 999 mls/hr 07/16/22 21:30 07/16/22 21:29 Ns IV 07/16/22 22:30 Not Given .Q1H1M HOLLI Discontinued Medications Generic Name Dose Route Start Last Admin Trade Name Freq PRN Reason Stop Dose Admin Ketorolac Tromethamine 15 mg 07/16/22 21:16 07/16/22 21:45 Ketorolac Tromethamine 15 Mg/Ml Vial IVPUSH 07/16/22 21:17 15 mg ONCE ONE Administration Medical Decision Making Medical Decision Making MDM Narrative: Patient complaining of left-sided flank pain. Urine test is negative. No evidence for related issues. Patient's urine showed minimal amount of blood. Had a previous ultrasound that showed multiple stone in the kidney but no stone in the ureter. CT scan of the abdomen pelvis was obtained. There is no evidence for ureteral stone. Stones in the kidney was again identified. There is no enlarging adnexa. She is in stable condition. Pain is controlled. Will have patient take Motrin. Follow up on an outpatient basis. No evidence for diverticulitis on CT. No obstruction no abscess. Patient's urine showed no signs of infection. Differential Diagnosis Differential Diagnoses: The differential diagnosis associated with the presentation includes S, obstruction, abscess, kidney stone, ovarian issue, related issue urinary tract infection Lab Data MDM Lab Attestation statement: I reviewed the patient's lab results. 07/16/22 20:14 07/16/22 20:14 Labs: Lab Results 07/16/22 07/16/22 07/16/22 Range/Units 20:14 20:14 20:43 WBC 11.3 H (4.8-10.8) X10*3/uL RBC 5.94 H (4.20-5.50) X10*6/uL Hgb 12.4 (12.0-16.0) g/dl Hct 40.2 (37.0-47.0) % MCV 67.7 L (80.0-98.0) fL MCH 20.9 L (27.0-33.0) pg MCHC 30.8 L (31.0-35.0) g/dl RDW 18.5 H (11.0-16.0) % Plt Count 340 (160-400) X10*3/uL MPV 10.4 (9.4-12.3) fL Immature Gran % (Auto) 1.1 H (0.0-0.4) % Neut % (Auto) 58.7 (45-73) % Lymph % (Auto) 29.1 (20-40) % [place] % (Auto) 7.4 (2-11) % Eos % (Auto) 3.3 (0-4) % Baso % (Auto) 0.4 (0-2) % Lymph # (Auto) 3.3 (1.2-4.9) X10*3/uL [place] # (Auto) 0.8 (0.1-1.2) X10*3/uL Eos # (Auto) 0.4 (0.0-0.4) X10*3/uL Baso # (Auto) 0.1 (0.0-0.2) X10*3/uL Abs Immat Gran (auto) 0.12 H (0.00-0.03) X10*3/uL Absolute Neuts (auto) 6.6 (2.0-8.3) x10*3/uL Absolute Nucleated RBC 0.000 (0.0-0.012) X10*3/uL Nucleated RBC % (auto) 0.0 (0.0-0.2) /100WBC Sodium 140 (135-145) mmol/L Potassium 4.0 (3.3-5.1) mmol/L Chloride 108 (96-108) mmol/L Carbon Dioxide 27 (22-29) mmol/L Anion Gap 9 L (12-20) BUN 12 (9-16) mg/dL Creatinine 0.83 (0.5-1.4) mg/dL Estim Creat Clear Calc 107.0 Estimated GFR > 60 Random Glucose 99 (60-115) mg/dL Calcium 9.3 (8.4-10.2) mg/dL Total Bilirubin 0.4 (0.0-1.0) mg/dL Direct Bilirubin 0.2 (0.0-0.5) mg/dL AST 26 (5-31) U/L ALT 46 H (0-31) U/L Alkaline Phosphatase 70 (39-117) U/L Total Protein 7.0 (6.5-8.0) g/dL Albumin 4.2 (3.5-5.0) g/dL Lipase 43 (8-78) U/L Urine Color Yellow Urine Appearance Clear Urine pH 6.0 (5.0-9.0) Ur Specific [place] 1.015 (1.005-1.025) Urine Protein Negative (Neg-Trace) mg/dL Urine Glucose (UA) Negative (Negative) mg/dL Urine Ketones Negative (Negative) mg/dL Urine Blood Trace H (Negative) Urine Nitrite Negative (Negative) Ur Leukocyte Esterase Negative (Negative) Urine RBC 3-5 H (0-2) /HPF Urine WBC 0-5 (0-5) /HPF Ur Squamous Epith Cells 3-5 (0-2) /HPF Urine Bacteria None Seen (None Seen) Hyaline Casts 0-2 (0-2) /LPF Urine Test (NEGATIVE) 07/16/22 Range/Units 20:43 WBC (4.8-10.8) X10*3/uL RBC (4.20-5.50) X10*6/uL Hgb (12.0-16.0) g/dl Hct (37.0-47.0) % MCV (80.0-98.0) fL MCH (27.0-33.0) pg MCHC (31.0-35.0) g/dl RDW (11.0-16.0) % Plt Count (160-400) X10*3/uL MPV (9.4-12.3) fL Immature Gran % (Auto) (0.0-0.4) % Neut % (Auto) (45-73) % Lymph % (Auto) (20-40) % [place] % (Auto) (2-11) % Eos % (Auto) (0-4) % Baso % (Auto) (0-2) % Lymph # (Auto) (1.2-4.9) X10*3/uL [place] # (Auto) (0.1-1.2) X10*3/uL Eos # (Auto) (0.0-0.4) X10*3/uL Baso # (Auto) (0.0-0.2) X10*3/uL Abs Immat Gran (auto) (0.00-0.03) X10*3/uL Absolute Neuts (auto) (2.0-8.3) x10*3/uL Absolute Nucleated RBC (0.0-0.012) X10*3/uL Nucleated RBC % (auto) (0.0-0.2) /100WBC Sodium (135-145) mmol/L Potassium (3.3-5.1) mmol/L Chloride (96-108) mmol/L Carbon Dioxide (22-29) mmol/L Anion Gap (12-20) BUN (9-16) mg/dL Creatinine (0.5-1.4) mg/dL Estim Creat Clear Calc Estimated GFR Random Glucose (60-115) mg/dL Calcium (8.4-10.2) mg/dL Total Bilirubin (0.0-1.0) mg/dL Direct Bilirubin (0.0-0.5) mg/dL AST (5-31) U/L ALT (0-31) U/L Alkaline Phosphatase (39-117) U/L Total Protein (6.5-8.0) g/dL Albumin (3.5-5.0) g/dL Lipase (8-78) U/L Urine Color Urine Appearance Urine pH (5.0-9.0) Ur Specific [place] (1.005-1.025) Urine Protein (Neg-Trace) mg/dL Urine Glucose (UA) (Negative) mg/dL Urine Ketones (Negative) mg/dL Urine Blood (Negative) Urine Nitrite (Negative) Ur Leukocyte Esterase (Negative) Urine RBC (0-2) /HPF Urine WBC (0-5) /HPF Ur Squamous Epith Cells (0-2) /HPF Urine Bacteria (None Seen) Hyaline Casts (0-2) /LPF Urine Test NEGATIVE (NEGATIVE) Radiology Impression Discussion of test interpretation with radiology: I have reviewed the radiologist's reading. Radiologist Impression: CT scan negative for acute evidence of ureteral stone. No diverticulitis no obstruction no abscess Discharge Plan Discharge Clinical Impression: Acute flank pain Patient Disposition: Home, Self-Care Instructions: Flank Pain (ED) Prescriptions: New ibuprofen 400 mg tablet 400 mg PO Q6H PRN (Reason: pain) Qty: 20 0RF No Action vadrujwbls-bmvepofcsfeod-tiob [Fioricet] 50-300-40 mg capsule 1 cap PO Q4-6H PRN (Reason: pain) Qty: 10 0RF albuterol sulfate 90 mcg/actuation HFA aerosol inhaler 2 puff inhalation Q4-6H PRN (Reason: shortness of breath or wheezing) Qty: 8.5 0RF Rx Instructions: May substitute equivalent medication per insurance approval prednisone 20 mg tablet 20 mg PO DAILY 5 Days Qty: 5 0RF ketorolac 10 mg tablet 10 mg PO QID PRN (Reason: pain) 5 Days Qty: 20 0RF Rx Instructions: Patient received Toradol IM 30mg in the ED ketorolac 10 mg tablet 10 mg PO TID PRN (Reason: pain) 5 Days Qty: 20 0RF benzonatate 200 mg capsule 200 mg PO TID PRN (Reason: cough) Qty: 20 0RF ibuprofen 600 mg tablet 600 mg PO TID PRN (Reason: pain) Qty: 20 0RF acetaminophen [Tylenol] 325 mg tablet 650 mg PO Q4H PRN (Reason: pain) Qty: 20 0RF sumatriptan succinate [Imitrex] 50 mg tablet 50 mg PO Q2H PRN (Reason: migraine headache) Qty: 10 0RF Rx Instructions: do not exceed 2 doses per 24 hrs eqeeajqfaw-wtvahfvhvgvej-ytpu [Fioricet] 50-300-40 mg capsule 1 cap PO Q6H PRN (Reason: headache) Qty: 20 0RF Referrals: Angelina Wood MD [Primary Care Provider] - 07/18/22
[2022-07-16] MEDS: Ketorolac Tromethamine 15 MG/ML VIAL IVPUSH (21:45)
== END 2022-07-16 22:11 | disposition home or self-care (01) ==
PROVIDERS: Nurse Practitioner Family; Emergency Provider Emergency Medicine Emergency Medical Services; PCP Family Medicine
DX: R10.2 Pelvic and perineal pain (principal); R10.9 Unspecified abdominal pain; Z87.442 Personal history of urinary calculi; Z79.899 Other long term (current) drug therapy
CPT/HCPCS: 36415; 74176; 80048; 80076; 81001; 81025; 83690; 85025; 96374; 99284; J1885

== ENCOUNTER 2022-07-17 15:16 | Outpatient (REF) | payer OTHER, SELFPAY ==
--- NOTE | ~2022-07-17 | US_ITS ---
EXAMINATION: US RETROPERITONEAL LIMITED (RENAL ONLY) CLINICAL INFORMATION: Bilateral nephrolithiasis. COMPARISON: CT abdomen and pelvis from 07/16/2022 TECHNIQUE: Sonographic imaging of the kidneys is performed. cytotechnologist/histotechnologist reports examination was limited by patient body habitus. FINDINGS: RIGHT KIDNEY: 9 x 5 x 4.8 cm (SAG x AP x TRV). The kidney has normal cortical thickness and cortical echotexture. An echogenic calyceal stone in the interpolar area measures up to 0.6 cm. No hydronephrosis. The other stones of the right kidney seen on the abdomen CT of 07/16/2022 are not well visualized with ultrasound. LEFT KIDNEY: 10 x 5.4 x 4.6 cm (SAG x AP x TRV). Normal cortical thickness and cortical echotexture. A visible stone in the lower pole measures up to approximately 0.6 cm. The multiple other calyceal stones are not well visualized on this ultrasound exam. No hydronephrosis. No focal parenchymal lesion. OTHER: The partially visualized liver is diffusely hyperechoic. No free fluid is seen in the visualized portion of the abdomen. US/US renal BI IMPRESSION: * Bilateral renal stones are present. The renal stones are more clearly demonstrated on the abdomen CT of 07/16/2022 than on this ultrasound exam. No hydronephrosis. * Diffuse hepatic steatosis.
== END 2022-07-17 15:17 | disposition home or self-care (01) ==
LOC: HO.US 15:16
PROVIDERS: PCP Family Medicine; Visit Provider Emergency Medicine
DX: R10.9 Unspecified abdominal pain (principal); N20.0 Calculus of kidney
CPT/HCPCS: 76775

== ENCOUNTER → 2022-07-28 08:26 | Outpatient (BNVA) | payer OTHER, SELFPAY | PROVIDERS: PCP Family Medicine; Visit Provider Nurse Practitioner Family ==

== ENCOUNTER 2022-09-08 10:46 | Day surgery (SDC) | payer OTHER, SELFPAY ==
[2022-09-04 16:12] VITALS: BMI 38.9
--- NOTE | 2022-09-05 11:45 | P.CONAN_ITS ---
Documented by User: Rajni Magaña NP 09/05/22 11:46 HPI - Anesthesia Eval Consult details Narrative: 32yo F for Left Cystoscopy, Ureteroroscopy, Retro, Laser,with poss stent PMFSH Active Problems Active Problems: All Active Problems (Updated 07/28/22 @ 09:54 [facility] Left flank pain (Acute) Nephrolithiasis (Acute) COVID-19 (Acute) Past Medical History Medical History HTN (hypertension) Surgical History Surgical History No pertinent past surgical history Social History Social History Alcohol intake: never Patient Tobacco Use Status: Never used Tobacco Use of substances other than those prescribed or required for medical reasons: No Are you DNR?: No Advance Directives: No Advance Directives Information Provided: Yes Meds Allergies Allergy/AdvReac Type Severity Reaction Status Date / Time tramadol AdvReac Vomiting Verified 09/08/22 13:11 Home Medications Medication Instructions Recorded Confirmed Last Taken Type amlodipine 5 mg tablet 5 mg PO DAILY 07/28/22 09/08/22 Unknown History lisinopril 20 mg tablet 20 mg PO DAILY 07/28/22 09/08/22 Unknown History norethindrone (contraceptive) 0.35 0.35 mg PO DAILY 07/28/22 09/08/22 Unknown History mg tablet Exam Exam Date and Time: September 05, 2022 1145 Height,Weight and Vital Signs: Height 5 ft 3 in Weight 99.7 kg Pertinent Lab Results Pertinent Lab Results: Laboratory Tests 07/16/22 07/16/22 20:14 20:14 WBC 11.3 H Hgb 12.4 Hct 40.2 Plt Count 340 Sodium 140 Potassium 4.0 Chloride 108 Carbon Dioxide 27 BUN 12 Creatinine 0.83 Assessment and Plan Assessment Anesthesia Assessment: Chart Reviewed Documented by User: Julissa Santizo MD 09/08/22 13:23 [facility] Past Medical History Medical History HTN (hypertension) Family History Family history of problems with anesthesia: No Surgical History Surgical History No pertinent past surgical history History of Problems with Anesthesia: No Social History Social History Alcohol intake: never Patient Tobacco Use Status: Never used Tobacco Use of substances other than those prescribed or required for medical reasons: No Are you DNR?: No Advance Directives: No Advance Directives Information Provided: Yes Meds Allergies Allergy/AdvReac Type Severity Reaction Status Date / Time tramadol AdvReac Vomiting Verified 09/08/22 13:11 Home Medications Medication Instructions Recorded Confirmed Last Taken Type amlodipine 5 mg tablet 5 mg PO DAILY 07/28/22 09/08/22 Unknown History lisinopril 20 mg tablet 20 mg PO DAILY 07/28/22 09/08/22 Unknown History norethindrone (contraceptive) 0.35 0.35 mg PO DAILY 07/28/22 09/08/22 Unknown History mg tablet Exam Airway Mallampati Class: II TM Dist: >3cm Neck ROM: Full Heart: rrr Lungs: cta Assessment and Plan Assessment Anesthesia Assessment: Anesthesia Plan Discussed Final Anesthetic Review Family History of Problems with Anesthesia: No History of Problems with Anesthesia: No NPO: Yes ASA Class: III (htn on 2 meds , obesity, today diastolic 104) Final Preanesthetic Review: No Changes in Pt Med Stat, Meds/Allgs Chart Reviewed, Consent Obtained/Reviewed and Anes Risks/Benef Reviewed Patient Risk: Intermediate Procedure Risk: Intermediate Anesthetic Plan Anesthetic Plan: GA Disposition: Standard PACU
--- NOTE | ~2022-09-08 | FL_ITS ---
EXAMINATION: XR FLUOROSCOPY WITH IMAGES CLINICAL INFORMATION: Stone left. COMPARISON: None available. TECHNIQUE: Fluoroscopy Supervised By: Dr. Smyth Fluoroscopy Time: 35.6 seconds. Cumulative Dose: 11.26 mGy. DAP: Gycm2. Images: 2. FINDINGS: First image demonstrates a wire in projecting over the left renal collecting system and ureter. Second image demonstrates the distal end of a left internal ureteral stent. FL/FL guidance in OR IMPRESSION: Fluoroscopy guidance for urology procedure.
[2022-09-08 12:06] LABS: UPreg QC Valid YES; Urine Pregnancy NEGATIVE (NEGATIVE)
[2022-09-08 12:39] VITALS: BMI 35.4
[2022-09-08 12:45] VITALS: BP 149/108; PULSE 77; RESP 15; TEMP 36.8; O2SAT 98
[2022-09-08] MEDS: Lactated Ringers 1,000 ML 100 ML IVCONT (13:10)
--- NOTE | 2022-09-08 15:06 | MHC.SHP ---
Pre-Procedural Eval Section A Date of Service: 09/08/22 The patient is an INPATIENT: No Changes since office visit: No Cold of Flu in the past 2 weeks, No New Medical Problems, No Changes in Medication and No Patient answered all questions The History & Physical has been completed within 30 days and I have reviewed it.: Yes Section B Chief Complaint: Calculus of kidney Details of Present Illness: left renal stones Relevant Family History (Specify if Yes): No Relevant Social History: None Present Medications: see Short Stay Collaborative assessment Medical History: No relevant PMH History of Previous Operations: No relevant previous surgery Allergies: Allergies Allergy/AdvReac Type Severity Reaction Status Date / Time tramadol AdvReac Vomiting Verified 09/08/22 13:11 Review of Systems Sugical H&P ROS: Negative: Constitution, Cardiovascular, Respiratory, Neurological, Psychiatric, Hem-Onc, Allergic/Immunologic, Gastrointestinal, Genitourinary, Musculoskeletal, Integumentary, Endocrine and Eyes/Ears/Nose/Throat Exam Surgical H&P Exam: Normal: HEENT, Normal: Heart, Normal: Lungs, Normal: Extremities, Normal: Abdomen, Normal: Skin and Normal: Neurological Plan Diagnosis/Plan: Unchanged (left retrograde, ureteroscopy, laser, stent) I have reviewed the history and physical and performed a pertinent physical examination on my patient. No changes have occurred unless specified. Time Spent With Patient Time: Total time managing care of this patient today ____ minutes.
--- NOTE | 2022-09-08 16:28 | W.PM.OPN ---
Operative Note Operative Note Date of Service: 09/08/22 Narrative: PreOperative Diagnosis: left renal stones Post Operative Diagnosis: left renal stones with nephrocalcinosis and chronic inflammation Procedure: - cystoscopy, left retrograde - left dilatation of ureteric orifice under fluoroscopy - left ureteroscopy, laser lithotripsy, stone basketing - left stent placement Surgeon: Dr Wesly Smyth Anesthesia: General Indications for procedure: persistent left renal stones on imaging. chronic left-sided back pain. Procedure: After informed consent was verified patient was brought to the operating placed in supine position. Anesthesia was administered per protocol. Patient was placed in modified dorsal lithotomy position and prepped and draped in a sterile fashion. Safety pause time-out and side of surgery confirmed. Antibiotics confirmed. 22 Burkinan cystoscope was inserted per urethra. Bladder was normal in its entirety. Both ureteric orifices were in normal position. The Left ureteric orifice was cannulated and a retrograde examination was performed. no filling defects seen. A Sensor guidewire was placed up to the level of the renal pelvis under fluoroscopy. The rigid cystoscope was removed and the inner cannula of ureteric access sheath was used under fluoroscopy to dilate the ureteric orifice. The ureteric access sheath was placed and the inner cannula with access wire removed. The digital flexible ureteral scope was placed. the renal pelvis was inflamed. Evidence of chronic inflammation. The renal pelvis Was examined. Stone was seen in the mid calyx. Using a 1.9 Burkinan ZeroTip basket the stone was removed. examination of other calices showed submucosal stones in 2 other calices. Using the small laser fiber the mucosa was opened and stones were released. These with small stones with will pass on their own. As the flexible years scope was brought back to the sheath there was noticed to be a grade 3 tear on the mucosa. At the completion of the stone procedure a Sensor wire was placed back into the renal pelvis. A 6 Burkinan by 24 cm double-J stent was placed into the renal pelvis and bladder under a combination of fluoroscopy and direct visualization. The symphisis pubis was used as a radiographic marker to release the stent and good coil was seen within the bladder confirming position The bladder was emptied. The patient tolerated the procedure well and was extubated in the operating room, and transferred in stable condition to the recovery area. drainage should stay 3 weeks to allow full healing. Suppression antibiotics. Pathology: Stones Drains: drain is above
[2022-09-08 16:32] VITALS: BP 141/103; PULSE 80; RESP 14; TEMP 36.9; O2SAT 99
[2022-09-08 16:37] VITALS: BP 154/102; PULSE 77; RESP 14; O2SAT 99
[2022-09-08 16:42] VITALS: BP 140/101; PULSE 85; RESP 14; O2SAT 97
[2022-09-08] MEDS: Ketorolac Tromethamine 15 MG/ML VIAL IVPUSH (16:43)
[2022-09-08] MEDS: Phenazopyridine HCL 100 MG TABLET PO (16:43)
[2022-09-08 16:47] VITALS: BP 140/96; PULSE 76; RESP 18; O2SAT 97
[2022-09-12 23:03] LABS: Stone Source LEFT RENAL STONE
== END 2022-09-08 17:13 | disposition home or self-care (01) ==
PROVIDERS: Nurse Practitioner; PCP Family Medicine; Visit Provider Urology
PROC: (CPT 52356; principal; 2022-09-08 13:50)
DX: N20.0 Calculus of kidney (principal); N29 Other disorders of kidney and ureter in diseases classified elsewhere; G89.29 Other chronic pain; I10 Essential (primary) hypertension; Z79.899 Other long term (current) drug therapy; Z88.8 Allergy status to other drugs, medicaments and biological substances
CPT/HCPCS: 52356; 52352; 81025; 82365; C1758; C1769; C2617; J0131; J1885; J1956; J3010; Q9967

== ENCOUNTER → 2022-09-24 13:41 | Outpatient (BNVA) | payer OTHER, SELFPAY | PROVIDERS: Visit Provider Urology | DX: Z48.816 Encounter for surgical aftercare following surgery on the genitourinary system (principal) | CPT/HCPCS: 52310; 99212 ==

== ENCOUNTER 2022-10-09 10:36 | Outpatient (AMB) | payer OTHER, SELFPAY ==
--- NOTE | 2022-10-09 10:56 | A.OFFVIS_ITS ---
Intake Intake Visit Reasons: Kidney stones Intake Note: Patient is present for Kidney stones US From [facility] Urology Med: Tamsulosin Antibiotic Allergy: None Blood Thinner: None Allergies tramadol Adverse Reaction (Verified 10/09/22 10:59) Vomiting Medication List - Last Reconciled 10/09/22 by Wesly Smyth MD amlodipine 5 mg PO DAILY cetirizine 10 mg PO DAILY hydroxyzine HCl 25 mg PO TID lisinopril 20 mg PO DAILY norethindrone (contraceptive) 0.35 mg PO DAILY phenazopyridine (Pyridium) 100 mg PO TID PRN 4 days prednisone 20 mg PO DAILY 5 days tamsulosin 0.4 mg PO BEDTIME 14 days HPI HPI Comments History of Present Illness Details Nighat is a pleasant female. She is a patient of . She is seen for the following urologic conditions - nephrolithiasis Recurrent stone episode at [facility] Imaging shows mm proximal right ureteric stone Will try prednisone for medical expulsion therapy Add on for right ureteroscopy to clean out kidney Nephrolithiasis Presentation to emergency room with past history of nephrolithiasis Imaging - 08/19 CT multiple small bilateral calculi left greater than right Intervention - 09/19 left ureteroscopy Stone composition - 09/19 calcium oxalate monohydrate 80% Laboratories - 09/19 Ca 9.3 Therapeutic plan - may benefit from 24 hour urine PFSH Medical History HTN (hypertension) Surgical History No pertinent past surgical history Social History Alcohol intake: never Patient Tobacco Use Status: Never used Tobacco Review of Systems Const Denies chills and Denies fever(s) Card Reports no additional complaints and Denies syncope Resp Denies cough GI Denies abdominal pain and Denies heartburn Reports as per HPI and Denies change in libido Neuro Denies syncope Psych Denies change in libido Endo Denies change in libido Physical Exam Const General: cooperative, healthy appearing, comfortable and no acute distress Orientation/consciousness: patient oriented x3 HEENT Face and sinus: Yes normal facial exam Mouth: moist mucous membranes Neck Neck: Yes normal visual inspection, Yes full ROM and Yes trachea midline Chest Chest palpation & inspection: normal inspection of the chest Resp Effort & Inspection: normal respiratory effort, able to speak in complete sentences and no respiratory distress GI Inspection: Yes normal to inspection Back/Spine/Pelvis Cervical Spine: normal cervical lordosis Thoracic/Lumbar Spine: thoracic and lumbar spine normal to inspection Skin General skin exam: no rashes or lesions noted Neuro General: patient oriented x3, gait normal, tone normal and moves all extremities Extrem General: Yes normal to inspection and Yes capillary refill normal Results AMB Urinalysis, Automated UA Leukoctes 500 David/uL Last Edit by [facility] on 10/09/22 11:12 UA Nitrite Negative Last Edit by [facility] on 10/09/22 11:12 UA Urobilinogen 0.2 mg/dL Last Edit by [facility] on 10/09/22 11:1 2 UA Protein 0 mg/dL Last Edit by [facility] on 10/09/22 11:12 UA pH 7.5 Last Edit by [facility] on 10/09/22 11:12 UA Blood 0 Damian/uL Last Edit by [facility] on 10/09/22 11:12 UA Specific [place] 1.010 Last Edit by [facility] on 10/09/22 11: 12 UA Ketone Negative Last Edit by [facility] on 10/09/22 11:12 UA Bilirubin 0 mg/dL Last Edit by [facility] on 10/09/22 11:12 UA Glucose 0 mg/dL Last Edit by [facility] on 10/09/22 11:12 Assessment & Plan Assessment & Plan (1) Nephrolithiasis: Code(s): N20.0 - Calculus of kidney Plan Ureteroscopy We discussed the nature of the decision and reasonable alternatives for performing ureteroscopy. Options such as medical therapy were discussed. Interventions include chemical dissolution, ESWL, ureteroscopy with laser lithotripsy and stent placement, PCNL. The relative uncertainties and benefits related to each alternate procedure were adequately discussed. General surgical risks including, but not limited to - pain, bleeding, infection, myocardial infarction, pulmonary embolus, deep vein thrombosis and cerebrovascular accident which may result in further hospitalization were discussed. Full disclosure of the procedure as well as all major risks, benefits and complications were discussed including but not limited to damage to the urethra, bladder and kidney infection, damage to the ureter, stent migration or malposition, scarring to the renal pelvis, remnant stone fragments, subsequent stone passage with need for secondary procedures. The overall secondary procedure rate is approximately 10-15%. The overall clearance rate is approximately 90-95%. Success of the procedure in the short-term does not necessarily guarantee that long-term success will be maintained. Suitable follow up will need to be maintained. The patient showed understanding of discussion and wishes to proceed with - cystoscopy, retrograde, ureteroscopy, possible lithotripsy/stone basketing and stent on the right side side Orders: Orders AMB Urinalysis Automated Today Z13.9 - Encounter for screening, unspecified Medications: New prednisone 20 mg PO DAILY 5 tabs 0RF 5 days N20.0 - Calculus of kidney Patient Instructions: Imaging studies, laboratory and physical exam results were discussed and reviewed in detail. No major barriers to patient understanding were identified. An opportunity to ask questions regarding the treatment plan was provided. All questions were answered. The patient expressed understanding and agreement with the above treatment plan. The patient is aware they should contact our office by phone for worsening of their current condition or the appearance of new urologic symptoms. Compliance is encouraged with any medications and followup testing that is ordered. It is a privilege to participate in the urologic care of your patient. If you have any questions or concerns regarding treatment for the above conditions, or other urologic issues, please do not hesitate to contact me. The office telephone contact is [phone]. This note is constructed using voice recognition software. While every effort has been made to ensure accuracy caterpillar operator errors may have been included. Yours sincerely, Dr Wesly Smyth MD, ALFR[facility] - Urology Providers of Expert, Compassionate Care for the Genitourinary System Coding Level of Care Code Est Pt Level 4 (43113) Diagnoses Nephrolithiasis N20.0
== END 2022-10-09 11:19 | disposition home or self-care (01) ==
PROVIDERS: PCP Family Medicine; Visit Provider Urology
DX: N20.0 Calculus of kidney (principal)
CPT/HCPCS: 99214

== ENCOUNTER → 2022-10-09 10:36 | Outpatient (BNVA) | payer OTHER, SELFPAY | PROVIDERS: PCP Family Medicine; Visit Provider Urology | DX: N20.0 Calculus of kidney (principal) | CPT/HCPCS: 99212 ==

== ENCOUNTER 2022-10-23 12:20 | Outpatient (REF) | payer MEDICAID, SELFPAY ==
[2022-10-23 14:23] LABS: Influenza A PCR NEGATIVE (Negative); Influenza B PCR NEGATIVE (Negative); Resp Syncy Virus RNA Qual PCR NEGATIVE (Negative); SARS COV2 PCR INHOUSE NEGATIVE (Negative)
== END 2022-10-23 12:21 | disposition home or self-care (01) ==
LOC: HO.HHCLNP 12:20
PROVIDERS: Visit Provider General Practice
DX: Z20.822 Contact with and (suspected) exposure to COVID-19 (principal); J02.9 Acute pharyngitis, unspecified
CPT/HCPCS: 0241U; 87070; 87147

== ENCOUNTER 2022-10-24 11:37 | Emergency (ER) | payer MEDICAID, SELFPAY ==
[2022-10-24 11:40] VITALS: BP 158/102; PULSE 84; RESP 18; TEMP 36.6; O2SAT 100; BMI 34.9
--- NOTE | 2022-10-24 11:40 | ED.GENADULT ---
HPI - General Adult General Chief complaint: Upper Respiratory Symptoms Stated complaint: Sore Throat Not Feeling Well Time Seen by Provider: 10/24/22 11:45 Source: patient Mode of arrival: ambulatory Limitations: no limitations History of Present Illness HPI narrative: Patient is a 32 year old assigned female at with a history of HTN and kidney stones presenting to the emergency department today with a sore throat. Patient states that since yesterday she has had a worsening sore throat. Patient denies any dizziness, lightheadedness, abdominal pain, nausea, vomiting, fever, chills, blurry vision, double vision, loss of vision, chest pain, difficulty breathing, shortness of breath, back pain, night sweats, pain with urination, increased urinary frequency, increased urinary urgency, blood in her urine or stool, syncope or a near syncopal episode, recent trauma or falls, bowel incontinence, bladder incontinence, bowel retention, bladder retention, or any other complaints at this time. Onset (ago): day(s) (1) Radiation: non-radiation Severity: mild Severity scale (1-10): 2 Quality: aching and dull Pain Consistency: constant Relieving factors: none Exacerbating factors: none Associated symptoms: denies other symptoms Treatments prior to arrival: other (tylenol) Related Data Home Medications Medication Instructions Recorded Confirmed amlodipine 5 mg tablet 5 mg PO DAILY 07/28/22 10/09/22 lisinopril 20 mg tablet 20 mg PO DAILY 07/28/22 10/09/22 norethindrone (contraceptive) 0.35 0.35 mg PO DAILY 07/28/22 10/09/22 mg tablet cetirizine 10 mg tablet 10 mg PO DAILY 10/09/22 10/09/22 hydroxyzine HCl 25 mg tablet 25 mg PO TID 10/09/22 10/09/22 Previous Rx's Medication Instructions Recorded phenazopyridine 100 mg tablet 100 mg PO TID PRN Spasm 4 days #12 09/08/22 (Pyridium) tabs tamsulosin 0.4 mg capsule 0.4 mg PO BEDTIME 14 days #14 caps 09/08/22 prednisone 20 mg tablet 20 mg PO DAILY 5 days #5 tabs 10/09/22 penicillin V potassium 500 mg 500 mg PO BID 10 days #20 tabs 10/24/22 tablet prednisone 20 mg tablet 20 mg PO DAILY 7 days #7 tabs 10/24/22 Allergies Allergy/AdvReac Type Severity Reaction Status Date / Time tramadol AdvReac Vomiting Verified 10/09/22 10:59 Review of Systems Constitutional: Constitutional: Reports no additional constitutional complaints, Denies chills, Denies fever(s) and Denies night sweats Eyes: Eyes: Reports no additional eye complaints, Denies blurry vision, Denies change in vision, Denies diplopia, Denies eye discharge, Denies loss of vision and Denies eye pain ENT: Denies dizziness and Reports sore throat Cardiovascular: Cardiovascular: Reports no additional cardiovascular complaints, Denies chest pain, Denies lightheadedness, Denies Loss of Consciousness and Denies dyspnea Respiratory: Respiratory: Reports no additional respiratory complaints and Denies dyspnea Gastrointestinal: Gastrointestinal: Reports no additional gastrointestinal complaints, Denies abdominal pain, Denies melena, Denies hematochezia, Denies change in bowel habits and Denies change in stool character Genitourinary: Genitourinary: Denies hematuria, Denies urinary frequency, Denies dysuria, Denies urinary incontinence, Denies urinary hesitancy and Denies urinary urgency Musculoskeletal: Musculoskeletal: Reports no additional musculoskeletal complaints, Denies numbness and Denies tingling Neurologic: Denies dizziness, Denies loss of vision, Denies numbness and Denies tingling Psychiatric: Psychiatric: Reports no additional psychiatric complaints Endocrine: Endocrine: Reports no additional endocrine complaints Hematologic/Lymphatic: Hematologic/Lymphatic: Reports no additional hematologic/lymphatic complaints Allergic/Immunologic: Allergic/Immunologic: Reports no additional allergic/immunologic complaints [facility] Past Medical History Attestation statement: The following information was validated with the patient. Source: old records reviewed and nursing notes reviewed Medical History COVID-19 HTN (hypertension) Left flank pain Surgical History No pertinent past surgical history Social History Social History Alcohol intake: never Patient Tobacco Use Status: Never used Tobacco Advance Directives: No Advance Directives Information Provided: Yes Physical Exam ED Vital Signs: Vital Signs - 24 hr 10/24/22 11:40 Temperature 97.9 F Pulse Rate 84 Respiratory Rate 18 Blood Pressure 158/102 H Pulse Oximetry 100 Oxygen Delivery Method Room Air BMI result Body Mass Index 34.9 Const General: cooperative, no acute distress, alert and awake Nutritional Appearance: well nourished Orientation/consciousness: patient oriented x3 Limitations: no limitations HENMT Head: Yes normal to inspection and Yes atraumatic Ears: hearing grossly normal bilaterally and external ears normal General nose exam: Normal external nose present, no nasal discharge noted and no epistaxis Face and sinus: Yes normal facial exam, No abrasion and No laceration Mouth: Normal oral and palatal mucosa present, no drooling and no muffled voice Throat: Yes abnormal tonsil (bilateral erythema and swelling) Eyes General: appearance normal, both eyes and all related structures Periorbital: periorbital findings normal Eyelids: Yes eyelids normal Conjunctivae: conjunctivae normal Pupils: Equal, round and reactive pupils present EOM: EOMs intact bilaterally Neck Neck: Yes normal visual inspection, Yes full ROM and Yes no lymphadenopathy Chest Chest palpation & inspection: normal inspection of the chest Resp Effort & Inspection: normal respiratory effort and able to speak in complete sentences Auscultation: clear to auscultation bilaterally GI Inspection: Yes normal to inspection Neuro General: patient oriented x3 and moves all extremities Cranial nerves: Yes Equal, round and reactive pupils present Cognition (Neuro): normal cognition Motor exam (neuro): 5/5 motor strength present throughout Sensory Exam: Normal double simultaneous stimulation for sensation Coordination: [id number] test normal Extrem General: Yes normal to inspection, Yes full ROM and Yes capillary refill normal Psych Appearance: grossly normal Mental Status: mental status grossly normal Affect: normal affect Attitude: cooperative Thought process: Normal thought process present Thought content: Normal thought content present Insight: Good insight present (Psych) Course Course Course Narrative: This is a rapid medical exam: Additional HPI, ROS, PE not included below will be deferred to primary provider. Patient is a 32-year-old female presenting to the ED with complaint of sore throat and fever since Thursday. Last took Tylenol last night. Plan: swab for strep/flu/Covid Medical Decision Making Medical Decision Making MDM Narrative: Patient is a 32 year old assigned female at with a history of HTN presenting to the emergency department today with a sore throat. Patient's physical exam was as noted in the physical exam portion of this chart. Patient's COVID, influenza, and mono tests were negative. Patient's strep test was invalid and the patient requested not to be swabbed again. Based on the patient's physical exam, will treat the pharyngitis. I explained my physical exam findings as well as all test results to the patient. I answered all questions asked by the patient. I stressed the importance of the patient taking her medication as prescribed. I stressed the importance of the patient following up with her primary care provider. I stressed the importance of the patient returning to the emergency department immediately if her symptoms were to worsen or if she were to develop any dizziness, shortness of breath, difficulty breathing, chest pain, blurry vision, loss of vision, nausea, vomiting, abdominal pain, fever, chills, back pain, or any other complaints. Patient verbalized agreement and understanding with this treatment plan and discharge. Differential Diagnosis Differential Diagnoses: The differential diagnosis associated with the presentation includes Pharyngitis Influenza COVID-19 Strep pharyngitis Mononucleosis Lab Data MDM Lab Attestation statement: I reviewed the patient's lab results. My interpretation of these studies and their corresponding values is that they are grossly normal. Labs: Lab Results 10/24/22 10/24/22 10/24/22 Range/Units 11:55 11:55 11:55 COVID-19 (LETA) Negative (Negative) COVID-19 Clin Com See Note Monoscreen (Negative) Influenza Type A (MIS) Negative (Negative) Influenza Type B (MIS) Negative (Negative) Influenza A & B Note See Note S. pyogenes GrpA MIS Invalid (Negative) 10/24/22 Range/Units 12:27 COVID-19 (LETA) (Negative) COVID-19 Clin Com Monoscreen Negative (Negative) Influenza Type A (MIS) (Negative) Influenza Type B (MIS) (Negative) Influenza A & B Note S. pyogenes GrpA MIS (Negative) Prescription Management I considered prescription management with: Antibiotic (patient prescribed an antibiotic.) Chronic Conditions Patient?s care impacted by: Hypertension Discharge Plan Discharge Clinical Impression: Pharyngitis Patient Disposition: Home, Self-Care Instructions: Pharyngitis (ED) Additional Instructions: Follow up with your primary care provider. Return to the emergency department immediately if your symptoms worsen or if you develop any dizziness, shortness of breath, difficulty breathing, chest pain, blurry vision, loss of vision, nausea, vomiting, abdominal pain, fever, chills, back pain, or any other complaints. Prescriptions: New prednisone 20 mg tablet 20 mg PO DAILY 7 Days Qty: 7 0RF penicillin V potassium 500 mg tablet 500 mg PO BID 10 Days Qty: 20 0RF No Action tamsulosin 0.4 mg capsule 0.4 mg PO BEDTIME 14 Days Qty: 14 0RF phenazopyridine [Pyridium] 100 mg tablet 100 mg PO TID PRN (Reason: Spasm) 4 Days Qty: 12 0RF amlodipine 5 mg tablet 5 mg PO DAILY lisinopril 20 mg tablet 20 mg PO DAILY norethindrone (contraceptive) 0.35 mg tablet 0.35 mg PO DAILY hydroxyzine HCl 25 mg tablet 25 mg PO TID cetirizine 10 mg tablet 10 mg PO DAILY prednisone 20 mg tablet 20 mg PO DAILY 5 Days Qty: 5 0RF Referrals: Angelina Wood MD [Primary Care Provider] - Interventions: ED Discharge Assessment Last Done: 10/24/22 13:34 Discharge Date/Time: 10/24/22 13:34 Print Language: Bulgarian
[2022-10-24 12:16] LABS: IDNOW Serial# 6674DD1D
[2022-10-24 12:20] LABS: Strep A Nucleic Acid Invalid (Negative)
[2022-10-24 12:30] LABS: IDNOW Serial# 9DB6401D
[2022-10-24 12:31] LABS: COVID-19 Test Negative (Negative); IDNOW Serial# BCCEAD1C; Influenza A Negative (Negative); Influenza B2 Negative (Negative)
[2022-10-24 13:06] LABS: Monotest Negative (Negative)
== END 2022-10-24 13:34 | disposition home or self-care (01) ==
PROVIDERS: Physician Assistant Medical; Registered Nurse Emergency; Emergency Provider Emergency Medicine Emergency Medical Services; PCP Family Medicine
DX: J02.9 Acute pharyngitis, unspecified (principal); Z20.822 Contact with and (suspected) exposure to COVID-19; Z20.828 Contact with and (suspected) exposure to other viral communicable diseases; Z79.899 Other long term (current) drug therapy
CPT/HCPCS: 36415; 86308; 87502; 87635; 87651; 99282; 99283

== ENCOUNTER 2022-10-27 12:54 | Day surgery (SDC) | payer MEDICAID, SELFPAY ==
--- NOTE | 2022-10-24 10:26 | HO.ANESPROP2 ---
Documented by User: Rajni Magaña NP 10/24/22 10:30 HPI - Anesthesia Eval Consult details Narrative: 32yo F for Right Cystoscopy, Ureteroroscopy, Retro, Laser,poss stent using flexible scope s/p same 08/2022 with GA-LMA 3 PMFSH Active Problems Active Problems: All Active Problems (Updated 09/08/22 @ 16:20 by Wesly Smyth MD) Pyelonephritis (Acute) COVID-19 (Acute) Nephrolithiasis (Acute) Left flank pain (Acute) Past Medical History Medical History COVID-19 HTN (hypertension) Left flank pain Family History Family history of problems with anesthesia: No Surgical History Surgical History No pertinent past surgical history History of Problems with Anesthesia: No Social History Social History Alcohol intake: never Patient Tobacco Use Status: Never used Tobacco Are you DNR?: No Advance Directives: No Advance Directives Information Provided: Yes Meds Allergies Allergy/AdvReac Type Severity Reaction Status Date / Time tramadol AdvReac Vomiting Verified 10/09/22 10:59 Home Medications Medication Instructions Recorded Confirmed Last Taken Type amlodipine 5 mg tablet 5 mg PO DAILY 07/28/22 10/27/22 Unknown History lisinopril 20 mg tablet 20 mg PO DAILY 07/28/22 10/27/22 Unknown History norethindrone (contraceptive) 0.35 0.35 mg PO DAILY 07/28/22 10/27/22 Unknown History mg tablet cetirizine 10 mg tablet 10 mg PO DAILY 10/09/22 10/27/22 Unknown History hydroxyzine HCl 25 mg tablet 25 mg PO TID 10/09/22 10/27/22 Unknown History Exam Exam Date and Time: October 24, 2022 1026 Pertinent Lab Results Pertinent Lab Results: Laboratory Tests 07/16/22 07/16/22 20:14 20:14 WBC 11.3 H Hgb 12.4 Hct 40.2 Plt Count 340 Sodium 140 Potassium 4.0 Chloride 108 Carbon Dioxide 27 BUN 12 Creatinine 0.83 Assessment and Plan Assessment Anesthesia Assessment: Chart Reviewed Final Anesthetic Review Family History of Problems with Anesthesia: No History of Problems with Anesthesia: No Documented by User: Yeimy Cueva MD 10/27/22 15:49 HPI - Anesthesia Eval Consult details Narrative: 32yo F for Cystoscopy, Right Ureteroroscopy, Retro, Laser, possible stent using flexible scope s/p same 08/2022 with GA-LMA 3 PMFSH Active Problems Active Problems: All Active Problems (Updated 10/27/22 @ 15:15 by Yeimy Cueva MD) Pyelonephritis (Acute) COVID-19 (Acute) Nephrolithiasis (Acute) Left flank pain (Acute) Right ureteric stone TARSHA. Not using CPAP machine Increased BMI 35 Past Medical History Medical History COVID-19 HTN (hypertension) Left flank pain Surgical History Surgical History No pertinent past surgical history Social History Social History Alcohol intake: never Patient Tobacco Use Status: Never used Tobacco Are you DNR?: No Advance Directives: No Advance Directives Information Provided: Yes Meds Allergies Allergy/AdvReac Type Severity Reaction Status Date / Time tramadol AdvReac Vomiting Verified 10/09/22 10:59 Home Medications Medication Instructions Recorded Confirmed Last Taken Type amlodipine 5 mg tablet 5 mg PO DAILY 07/28/22 10/27/22 Unknown History lisinopril 20 mg tablet 20 mg PO DAILY 07/28/22 10/27/22 Unknown History norethindrone (contraceptive) 0.35 0.35 mg PO DAILY 07/28/22 10/27/22 Unknown History mg tablet cetirizine 10 mg tablet 10 mg PO DAILY 10/09/22 10/27/22 Unknown History hydroxyzine HCl 25 mg tablet 25 mg PO TID 10/09/22 10/27/22 Unknown History Exam Height,Weight and Vital Signs: Height 5 ft 2 in Weight 87.09 kg Vital Signs Temp Pulse Resp BP Pulse Ox O2 Del Method 10/27/22 13:54 97.4 F 69 18 141/93 H 98 Room Air Pertinent Lab Results Pertinent Lab Results: Laboratory Tests 07/16/22 07/16/22 20:14 20:14 WBC 11.3 H Hgb 12.4 Hct 40.2 Plt Count 340 Sodium 140 Potassium 4.0 Chloride 108 Carbon Dioxide 27 BUN 12 Creatinine 0.83 Lab Results 10/27/22 Range/Units 13:30 Urine Test NEGATIVE (NEGATIVE) Airway Mallampati Class: II TM Dist: >3cm Neck ROM: Full Loose/Missing/Broken Teeth: No (Denies broken, loose, missing teeth) Heart: RRR Lungs: CTAB Assessment and Plan Assessment Anesthesia Assessment: Anesthesia Plan Discussed Final Anesthetic Review NPO: Yes ASA Class: III Final Preanesthetic Review: No Changes in Pt Med Stat, Meds/Allgs Chart Reviewed, Consent Obtained/Reviewed and Anes Risks/Benef Reviewed Patient Risk: Intermediate Procedure Risk: Low Assessment/Block/Sedation in SS: Assess/Block/Sedation-SS Anesthetic Plan Anesthetic Plan: GA Disposition: Standard PACU
--- NOTE | ~2022-10-27 | FL_ITS ---
EXAMINATION: XR FLUOROSCOPY WITH IMAGES CLINICAL INFORMATION: Cystoscopy, ureteroscopy, retro, possible stent. COMPARISON: CT of the abdomen and pelvis June 2022 TECHNIQUE: Fluoroscopy Supervised By: Dr. Wesly Smyth. Fluoroscopy Time: 54.8 seconds. Cumulative Dose: 18.07 mGy. DAP: None. Images: 1. FINDINGS: Single image demonstrates opacification of the right renal collecting system and proximal right ureter. No hydronephrosis or ureteral dilatation. Filling defects in the right proximal ureter, question air bubbles versus stones. FL/FL guidance in OR IMPRESSION: Fluoroscopy guidance for right retrograde exam
[2022-10-27 13:50] LABS: UPreg QC Valid YES; Urine Pregnancy NEGATIVE (NEGATIVE)
[2022-10-27 13:54] VITALS: BP 141/93; PULSE 69; RESP 18; TEMP 36.3; O2SAT 98; BMI 35.1
[2022-10-27] MEDS: Lactated Ringers 1,000 ML 100 ML IVCONT (14:12)
--- NOTE | 2022-10-27 15:31 | MHC.SHP ---
Pre-Procedural Eval Section A Date of Service: 10/27/22 The patient is an INPATIENT: No Changes since office visit: No Cold of Flu in the past 2 weeks, No New Medical Problems, No Changes in Medication and No Patient answered all questions The History & Physical has been completed within 30 days and I have reviewed it.: Yes Section B Chief Complaint: Calculus of kidney Details of Present Illness: right side ureteric stone Allergies: Allergies Allergy/AdvReac Type Severity Reaction Status Date / Time tramadol AdvReac Vomiting Verified 10/09/22 10:59 Review of Systems Sugical H&P ROS: Negative: Constitution, Cardiovascular, Respiratory, Neurological, Psychiatric, Hem-Onc, Allergic/Immunologic, Gastrointestinal, Genitourinary, Musculoskeletal, Integumentary, Endocrine and Eyes/Ears/Nose/Throat Exam Surgical H&P Exam: Normal: HEENT, Normal: Heart, Normal: Lungs, Normal: Extremities, Normal: Abdomen, Normal: Skin and Normal: Neurological Plan Diagnosis/Plan: Unchanged ( cystoscopy, right retrograde, right ureteroscopy with laser lithotripsy and possible stent placed) I have reviewed the history and physical and performed a pertinent physical examination on my patient. No changes have occurred unless specified. Time Spent With Patient Time: Total time managing care of this patient today ____ minutes.
--- NOTE | 2022-10-27 16:55 | W.PM.OPN ---
Operative Note Operative Note Date of Service: 10/27/22 Narrative: PreOperative Diagnosis: right proximal ureteric stone Post Operative Diagnosis: right proximal ureteric stone Procedure: - cystoscopy, right retrograde - right dilatation of ureteric orifice under fluoroscopy - right ureteroscopy, laser lithotripsy, stone basketing - right stent placement Surgeon: Dr Wesly Smyth Anesthesia: General Indications for procedure: right proximal ureteric stone with hydronephrosis an ongoing pain Procedure: After informed consent was verified the patient was brought to the operating room and placed in a supine position. Anesthesia was administered per protocol. The patient was placed in a modified dorsal lithotomy position and prepped and draped in a sterile fashion. Safety pause time-out and side of surgery were confirmed. Images were available for review. Antibiotic administration confirmed. A 22 Tongan cystoscope was inserted per urethra. The urethra was without aabnormality. The bladder was normal in its entirety. Both ureteric orifices were seen in normal position . The right ureteric orifice was cannulated and a retrograde examination was performed. filling defects seen at junction between proximal and mid 3rd of ureter . A Sensor guidewire was placed up to the level of the renal pelvis under fluoroscopy. The rigid cystoscope was removed. A Nate dilator was placed over the Sensor guidewire and used to dilate the ureteric orifice under fluoroscopy. The dilator was removed. The semi rigid ureteral scope was placed alongside the Sensor guidewire. stone was encountered at the estimated junction between the proximal and mid ureter. Using a 365 micro holmium laser fiber the stone was broken into small pieces using a combination of hammer and dusting techiques. Stone fragments were removed from the ureter using a 2.9 Tongan ZeroTip basket basket. Once the fragments were removed a decision was made to place a ureteric stent. Based on the height of the patient a 6 Fr x 24 stent was used. The string was removed from the stent prior to placement A 6 Tongan by 24 cm double-J stent was placed into the renal pelvis and bladder under a combination of fluoroscopy and direct visualization. The symphisis pubis was used as a radiographic marker to release the stent and good coil was seen within the bladder confirming position The bladder was emptied. The patient tolerated the procedure well and was extubated in the operating room. They were transferred in stable condition to the recovery area. Pathology: stones Drains: Double J stent as described above
[2022-10-27 16:56] VITALS: BP 153/102; PULSE 72; RESP 12; TEMP 36.3; O2SAT 97
[2022-10-27 17:01] VITALS: BP 152/102; PULSE 73; RESP 14; O2SAT 99
[2022-10-27 17:02] VITALS: BP 153/110; PULSE 62; RESP 14; O2SAT 95
[2022-10-27 17:07] VITALS: BP 147/100; PULSE 68; RESP 16; TEMP 36.2; O2SAT 97
[2022-10-27] MEDS: Phenazopyridine HCL 100 MG TABLET PO (17:08)
[2022-10-27 17:22] VITALS: BP 155/104; PULSE 68; RESP 16; O2SAT 97
[2022-11-01 19:43] LABS: Stone Source RIGHT URETERAL STONE
== END 2022-10-27 17:40 | disposition home or self-care (01) ==
PROVIDERS: Nurse Practitioner; Visit Provider Urology
PROC: (CPT 52356; principal; 2022-10-27 14:50)
DX: N13.2 Hydronephrosis with renal and ureteral calculous obstruction (principal); R10.9 Unspecified abdominal pain; I10 Essential (primary) hypertension; F41.1 Generalized anxiety disorder; Z79.899 Other long term (current) drug therapy; Z88.8 Allergy status to other drugs, medicaments and biological substances; Z86.16 Personal history of COVID-19
CPT/HCPCS: 52356; 81025; 82365; 88300; C1758; C1769; C2617; J0131; J1100; J1885; J1956; J2250; J2405; J3010; Q9967

== ENCOUNTER → 2022-10-27 12:54 | Outpatient (BNV) | payer MEDICAID, SELFPAY | PROVIDERS: Visit Provider Urology | DX: N20.1 Calculus of ureter (principal) | CPT/HCPCS: 52356 ==

== ENCOUNTER 2022-11-05 14:59 | Outpatient (AMB) | payer MEDICAID, SELFPAY ==
--- NOTE | 2022-11-05 15:00 | A.OFFVIS_ITS ---
Intake Intake Visit Reasons: post op stent removal Intake Note: Pt presents to the office today for a post op stent removal. Urinalysis done. Disposable cystoscope used. LOT:[id number] EXP:08/01/24 Allergies tramadol Adverse Reaction (Verified 11/05/22 15:01) Vomiting Medication List - Last Reconciled 11/05/22 by Wesly Smyth MD allopurinol 100 mg PO DAILY 90 days amlodipine 5 mg PO DAILY cetirizine 10 mg PO DAILY ciprofloxacin HCl 500 mg PO BID 5 days hydroxyzine HCl 25 mg PO TID lisinopril 20 mg PO DAILY norethindrone (contraceptive) 0.35 mg PO DAILY phenazopyridine (Pyridium) 100 mg PO TID PRN 4 days pyridoxine (vitamin B6) 50 mg PO DAILY 90 days tamsulosin 0.4 mg PO BEDTIME 14 days tamsulosin 0.4 mg PO BEDTIME 14 days HPI HPI Comments History of Present Illness Details Nighat is a pleasant female. She is a patient of . She is seen for the following urologic conditions - nephrolithiasis Here for stent removal UTI today Stone composition consistent with prior procedure Report states small calculi bilateral Initiate vitamin B6 and allopurinol Three month follow-up renal imaging with [facility]olink Nephrolithiasis Presentation to emergency room with past history of nephrolithiasis Imaging - 08/19 CT multiple small bilateral calculi left greater than right Intervention - 09/19 left ureteroscopy - 11/19 right USR Stone composition - 09/19 calcium oxalate monohydrate 80% - 11/19 calcium oxalate monohydrate 80% Laboratories - 09/19 Ca 9.3 Therapeutic plan - may benefit from 24 hour urine PFSH Medical History COVID-19 HTN (hypertension) Left flank pain Surgical History No pertinent past surgical history Social History Alcohol intake: never Patient Tobacco Use Status: Never used Tobacco Review of Systems Const Denies chills and Denies fever(s) Card Reports no additional complaints and Denies syncope Resp Denies cough GI Denies abdominal pain and Denies heartburn Reports as per HPI and Denies change in libido Neuro Denies syncope Psych Denies change in libido Endo Denies change in libido Physical Exam Const General: cooperative, healthy appearing, comfortable and no acute distress Orientation/consciousness: patient oriented x3 HEENT Face and sinus: Yes normal facial exam Mouth: moist mucous membranes Neck Neck: Yes normal visual inspection, Yes full ROM and Yes trachea midline Chest Chest palpation & inspection: normal inspection of the chest Resp Effort & Inspection: normal respiratory effort, able to speak in complete sentences and no respiratory distress GI Inspection: Yes normal to inspection Back/Spine/Pelvis Cervical Spine: normal cervical lordosis Thoracic/Lumbar Spine: thoracic and lumbar spine normal to inspection Skin General skin exam: no rashes or lesions noted Neuro General: patient oriented x3, gait normal, tone normal and moves all extremities Extrem General: Yes normal to inspection and Yes capillary refill normal Office Procedures Cystoscopy Consent Discussed risk and benefit or proposed procedure with the patient. Information consent for procedure given to the patient. Discussed technical aspects, risks, benefits and alternatives in full. Addressed all of the patient's questions and concerns regarding the procedure. The patient demonstrated knowledge and understanding. They wish to proceed with this procedure. Preparation The patient was prepped in the usual manner. A technical support assistant was present and in the room. Genitalia was prepped with betadine solution in a sterile manner. Lidocaine Jelly 2% was placed into the urethra and 16Fr flexible Olympus cystoscope was inserted into the meatus after adequate lubrication. Procedure A well lubricated 16 Argentine cystoscope was placed No abnormality noted of urethra during placement Indwelling stent seen within bladder emerging from right ureteric orifices The stent was grasped with a 3 prong grasper and removed without difficulty The patient tolerated the procedure well [id number] with stent removal DISPOSABLE SCOPE URO-G FLEXIBLE SCOPE Procedure code (CPT) selection complete Office Meds lidocaine HCl Performing Provider: Wesly Smyth MD Administered by: Connie Landry RN on 11/05/22 15:07 Dose Route Admin Location Lot Number Expiration Date [facility] [employer] 10 mL intra-urethral nitrofurantoin monohyd/m-cryst 100 mg Performing Provider: Wesly Smyth MD Administered by: Connie Landry RN on 11/05/22 15:07 Dose Route Admin Location Lot Number Expiration Date [facility] [employer] 100 mg PO naproxen Performing Provider: Wesly Smyth MD Administered by: Connie Landry RN on 11/05/22 15:07 Dose Route Admin Location Lot Number Expiration Date [facility] [employer] 500 mg PO Results AMB Urinalysis, Automated UA Leukoctes 500 David/uL Last Edit by Kenya Gong MA on 11/05/22 15:14 UA Nitrite Positive Last Edit by Kenya Gong MA on 11/05/22 15:14 UA Urobilinogen 1 mg/dL Last Edit by Kenya Gong MA on 11/05/22 15:14 UA Protein 300 mg/dL Last Edit by Kenya Gong MA on 11/05/22 15:14 UA pH 7.0 Last Edit by Kenya Gong MA on 11/05/22 15:14 UA Blood 200 Damian/uL Last Edit by Kenya Gong MA on 11/05/22 15:14 UA Specific [place] 1.015 Last Edit by Kenya Gong MA on 11/05/22 15:14 UA Ketone Positive Last Edit by Kenya Gong MA on 11/05/22 15:14 UA Bilirubin 0 mg/dL Last Edit by Kenya Gong MA on 11/05/22 15:14 UA Glucose 0 mg/dL Last Edit by Kenya Gong MA on 11/05/22 15:14 Assessment & Plan Assessment & Plan (1) Nephrolithiasis: Code(s): N20.0 - Calculus of kidney (2) Pyelonephritis: Code(s): N12 - Tubulo-interstitial nephritis, not specified as acute or chronic Plan Three month follow-up imaging Start medications UTI treatment Orders: Orders US renal BI 2 Months N20.0 - Calculus of kidney AMB Cystoscopy Today N20.0 - Calculus of kidney AMB Urinalysis Automated Today Z13.9 - Encounter for screening, unspecified Medications: New pyridoxine (vitamin B6) 50 mg PO DAILY 90 tabs 1RF 90 days N20.0 - Calculus of kidney allopurinol 100 mg PO DAILY 90 tabs 1RF 90 days N20.0 - Calculus of kidney ciprofloxacin HCl 500 mg PO BID 10 tabs 0RF 5 days N12 - Tubulo-interstitial nephritis, not specified as acute or chronic Patient Instructions: Imaging studies, laboratory and physical exam results were discussed and reviewed in detail. No major barriers to patient understanding were identified. An opportunity to ask questions regarding the treatment plan was provided. All questions were answered. The patient expressed understanding and agreement with the above treatment plan. The patient is aware they should contact our office by phone for worsening of their current condition or the appearance of new urologic symptoms. Compliance is encouraged with any medications and followup testing that is ordered. It is a privilege to participate in the urologic care of your patient. If you have any questions or concerns regarding treatment for the above conditions, or other urologic issues, please do not hesitate to contact me. The office telephone contact is [phone]. This note is constructed using voice recognition software. While every effort has been made to ensure accuracy wastewater supervisor errors may have been included. Yours sincerely, Dr Wesly Smyth MD, [facility] - Urology Providers of Expert, Compassionate Care for the Genitourinary System Coding Level of Care Code Est Pt Level 4 (10901) Diagnoses Nephrolithiasis N20.0 Pyelonephritis N12 CPT Codes Cystoscopy - CPT: 74798-[id number] with stent removal ([id number]) Cystoscopy - CPT: DISPOSABLE SCOPE URO-G FLEXIBLE SCOPE ([id number])
== END 2022-11-05 15:47 | disposition home or self-care (01) ==
PROVIDERS: Visit Provider Urology
DX: N20.0 Calculus of kidney (principal); N12 Tubulo-interstitial nephritis, not specified as acute or chronic
CPT/HCPCS: 52310; 99214

== ENCOUNTER → 2022-11-05 14:59 | Outpatient (BNVA) | payer MEDICAID, SELFPAY | PROVIDERS: Visit Provider Urology | DX: N20.0 Calculus of kidney (principal); N12 Tubulo-interstitial nephritis, not specified as acute or chronic | CPT/HCPCS: 52310; 99212; C1747 ==

== ENCOUNTER 2022-11-09 16:38 | Emergency (ER) | payer MEDICAID, SELFPAY ==
--- NOTE | ~2022-11-09 | CT_ITS ---
EXAMINATION: CT ABDOMEN AND PELVIS WITHOUT CONTRAST CLINICAL INFORMATION: Right flank pain. COMPARISON: CT abdomen/pelvis 07/16/2022. TECHNIQUE: Multidetector volumetric imaging was performed from the superior aspect of the liver through the pubic symphysis. Sagittal and coronal reformatted images were obtained on the technologist's workstation. This CT examination was performed using dose optimization techniques as appropriate, variously including the following: *Automated exposure control *Adjustment of mA and/or kV according to patient size (this includes techniques or standardized protocols for targeted exams where dose is matched to indication/reason for exam; i.e. extremities or head) *Use of iterative reconstruction technique DLP: 666 mGy-cm FINDINGS: The lack of intravenous contrast limits evaluation of the solid visceral organs including the liver, spleen, pancreas, and kidneys. LUNG BASES: No focal consolidation or pleural effusion. LIVER, GALLBLADDER, AND BILIARY TREE: The liver is enlarged measuring 20.5 cm craniocaudally and demonstrates decreased attenuation most consistent with hepatic steatosis. No discrete focal liver lesions noted in this limited noncontrast examination. No biliary ductal dilatation. The gallbladder is unremarkable with no evidence of radiopaque gallstones, gallbladder wall thickening, or obvious pericholecystic inflammatory changes. PANCREAS: Limited noncontrast examination. No significant peripancreatic free fluid or fat stranding. No main ductal dilatation. SPLEEN: Unremarkable. ADRENAL GLANDS: Unremarkable. KIDNEYS AND URETERS: Mild right hydroureteronephrosis without discrete obstructive radiopaque calculus. Multiple bilateral nonobstructive renal calculi are seen, largest in the mid right kidney measuring 0.5 cm (3:26) and lower left kidney measuring 0.6 cm (3:35). No significant perinephric fat stranding. BLADDER: No radiopaque intraluminal calculi. No significant perivesical fat stranding. GASTROINTESTINAL TRACT: Nonspecific gastric distention filled with heterogeneous debris and radiopaque food content. The small bowel is nondilated. Normal appendix. Scattered colonic diverticulosis without significant pericolonic fat stranding/free fluid. Moderate amount of stool content throughout the colon. No evidence of bowel obstruction. ABDOMINAL WALL: No significant hernia is appreciated. LYMPH NODES: No lymphadenopathy. VASCULAR: Normal caliber abdominal aorta. PELVIC VISCERA: Symmetric ovaries. No free fluid. OSSEOUS STRUCTURES: No acute or aggressive appearing osseous findings. CT/CT abdomen pelvis wo IV con IMPRESSION: Limited noncontrast examination. 1. Mild right hydroureteronephrosis without discrete obstructive radiopaque calculus. 2. Multiple bilateral nonobstructive renal calculi. 3. Hepatomegaly and hepatic steatosis. 4. Nonspecific gastric distention. 5. Colonic diverticulosis without evidence of acute diverticulitis. 6. Moderate amount of stool content throughout the colon suggesting constipation.
[2022-11-09 17:20] VITALS: BP 149/96; PULSE 77; RESP 18; TEMP 36.3; O2SAT 100; BMI 35.6
--- NOTE | 2022-11-09 17:25 | ED_ITS ---
HPI - General Adult General Chief complaint: Urogenital-Female Stated complaint: kidney infection? uti? Time Seen by Provider: 11/09/22 18:18 Source: patient Mode of arrival: ambulatory Limitations: no limitations History of Present Illness HPI narrative: Patient With history of bilateral nonobstructive kidney stone had ureteric stent placed on the right side on 10/27 removed on 11/05 on Cipro since then complain ing of pain in the right flank and suprapubic area with no nausea no vomiting no fever had some chills still has dysuria and frequency and not feeling good still having hematuria which is going on for last 2 weeks Related Data Home Medications Medication Instructions Recorded Confirmed amlodipine 5 mg tablet 5 mg PO DAILY 07/28/22 11/05/22 lisinopril 20 mg tablet 20 mg PO DAILY 07/28/22 11/05/22 norethindrone (contraceptive) 0.35 0.35 mg PO DAILY 07/28/22 11/05/22 mg tablet cetirizine 10 mg tablet 10 mg PO DAILY 10/09/22 11/05/22 hydroxyzine HCl 25 mg tablet 25 mg PO TID 10/09/22 11/05/22 Previous Rx's Medication Instructions Recorded tamsulosin 0.4 mg capsule 0.4 mg PO BEDTIME 14 days #14 caps 09/08/22 phenazopyridine 100 mg tablet 100 mg PO TID PRN Spasm 4 days #12 10/27/22 (Pyridium) tabs tamsulosin 0.4 mg capsule 0.4 mg PO BEDTIME 14 days #14 caps 10/27/22 allopurinol 100 mg tablet 100 mg PO DAILY 90 days #90 tabs 11/05/22 ciprofloxacin HCl 500 mg tablet 500 mg PO BID 5 days #10 tabs 11/05/22 pyridoxine (vitamin B6) 50 mg 50 mg PO DAILY 90 days #90 tabs 11/05/22 tablet cefuroxime axetil 250 mg tablet 250 mg PO BID 7 days #14 tabs 11/09/22 ibuprofen 600 mg tablet 600 mg PO Q6H PRN fever or pain 11/09/22 #30 tabs polyethylene glycol 3350 17 17 g PO DAILY #510 grams 11/09/22 gram/dose oral powder (Miralax) Allergies Allergy/AdvReac Type Severity Reaction Status Date / Time tramadol AdvReac Vomiting Verified 11/05/22 15:01 Review of Systems Review of Systems: Yes all other systems are reviewed and are negative [facility] Past Medical History Medical History COVID-19 HTN (hypertension) Left flank pain Surgical History No pertinent past surgical history Social History Social History Alcohol intake: never Patient Tobacco Use Status: Never used Tobacco Advance Directives: No Advance Directives Information Provided: Yes Physical Exam ED Vital Signs: Vital Signs - 24 hr 11/09/22 17:20 11/09/22 20:00 Temperature 97.3 F 98.3 F Pulse Rate 77 68 Respiratory Rate 18 16 Blood Pressure 149/96 H 144/90 H Pulse Oximetry 100 99 Oxygen Delivery Method Room Air Room Air BMI result Body Mass Index 35.6 Appearance: Alert. Oriented X3. No acute distress. Eyes: No pallor/icterus ENT: Pharynx normal. Oral Mucosa moist Neck: Normal inspection. Neck supple. CVS: Normal heart rate and rhythm. Pulses normal. Respiratory: No respiratory distress. Equal air entry bilateral, no wheezing/rales/rhonchi Abdomen: Soft and nontender. Bowel sounds are present, no mass palpable, R CVA tenderness Skin: Skin warm and dry. Normal skin color. Normal skin turgor. Extremities: No lower extremity edema. No calf tenderness Neuro: Oriented X 3. No motor deficit. Course Course Course Narrative: RME: 32 yoldl female presents to the ED for right flank/RLQ pain and dysuria since having right kidney stent removed for a kidney stones. Vital signs stable. labs ordered Medications Administered Discontinued Medications Generic Name Dose Route Start Last Admin Trade Name Freq PRN Reason Stop Dose Admin Bisacodyl 10 mg 11/09/22 21:08 11/09/22 21:26 Bisacodyl 5 Mg Tablet. PO 11/09/22 21:09 10 mg ONCE ONE Administration Sodium Chloride 1,000 mls @ 999 mls/hr 11/09/22 19:02 11/09/22 19:53 Ns IV 11/09/22 20:02 999 mls/hr .Q1H1M ONE Administration Ceftriaxone Sodium 1 gm/ 50 mls @ 100 mls/hr 11/09/22 19:02 11/09/22 20:00 Sodium Chloride IV 11/09/22 19:31 100 mls/hr ONCE ONE Administration Ketorolac Tromethamine 30 mg 11/09/22 19:02 11/09/22 19:56 Ketorolac Tromethamine 30 Mg/Ml Vial IVPUSH 11/09/22 19:03 30 mg ONCE ONE Administration Magnesium Hydroxide 30 ml 11/09/22 21:07 11/09/22 21:26 Milk Of Magnesia 30 Ml Oral.Susp PO 11/09/22 21:08 30 ml ONCE ONE Administration Medical Decision Making Medical Decision Making MDM Narrative: Patient with UTI back here as culture was not done before already taking Cipro and urine still showing wbc's . Will change antibiotic to Ceftin pending urine culture CT scan negative for any acute patient does have constipation will give her milk coming years and discharged on MiraLax Lab Data MDM Lab Attestation statement: I reviewed the patient's lab results. 11/09/22 17:31 11/09/22 17:31 Labs: Lab Results 11/09/22 11/09/22 11/09/22 Range/Units 17:31 17:31 17:36 WBC 11.7 H (4.8-10.8) X10*3/uL RBC 5.69 H (4.20-5.50) X10*6/uL Hgb 11.8 L (12.0-16.0) g/dl Hct 38.8 (37.0-47.0) % MCV 68.2 L (80.0-98.0) fL MCH 20.7 L (27.0-33.0) pg MCHC 30.4 L (31.0-35.0) g/dl RDW 17.4 H (11.0-16.0) % Plt Count 328 (160-400) X10*3/uL MPV 11.0 (9.4-12.3) fL Immature Gran % (Auto) 0.6 H (0.0-0.4) % Neut % (Auto) 67.6 (45-73) % Lymph % (Auto) 23.6 (20-40) % [place] % (Auto) 5.6 (2-11) % Eos % (Auto) 2.2 (0-4) % Baso % (Auto) 0.4 (0-2) % Lymph # (Auto) 2.8 (1.2-4.9) X10*3/uL [place] # (Auto) 0.7 (0.1-1.2) X10*3/uL Eos # (Auto) 0.3 (0.0-0.4) X10*3/uL Baso # (Auto) 0.1 (0.0-0.2) X10*3/uL Abs Immat Gran (auto) 0.07 H (0.00-0.03) X10*3/uL Absolute Neuts (auto) 7.9 (2.0-8.3) x10*3/uL Absolute Nucleated RBC 0.000 (0.0-0.012) X10*3/uL Nucleated RBC % (auto) 0.0 (0.0-0.2) /100WBC Sodium 142 (135-145) mmol/L Potassium 3.8 (3.3-5.1) mmol/L Chloride 108 (96-108) mmol/L Carbon Dioxide 25 (22-29) mmol/L Anion Gap 13 (12-20) BUN 11 (9-16) mg/dL Creatinine 1.04 (0.5-1.4) mg/dL Estim Creat Clear Calc 80.9 Estimated GFR > 60 Random Glucose 105 (60-115) mg/dL Calcium 9.7 (8.4-10.2) mg/dL Total Bilirubin 0.3 (0.0-1.0) mg/dL AST 17 (5-31) U/L ALT 21 (0-31) U/L Alkaline Phosphatase 70 (39-117) U/L Total Protein 7.5 (6.5-8.0) g/dL Albumin 4.0 (3.5-5.0) g/dL Beta HCG, Quant < 2 mIU/mL Urine Color Urine Appearance Urine pH (5.0-9.0) Ur Specific [place] (1.005-1.025) Urine Protein (Neg-Trace) mg/dL Urine Glucose (UA) (Negative) mg/dL Urine Ketones (Negative) mg/dL Urine Blood (Negative) Urine Nitrite (Negative) Ur Leukocyte Esterase (Negative) Urine RBC (0-2) /HPF Urine WBC (0-5) /HPF Ur Squamous Epith Cells (0-2) /HPF Urine Bacteria (None Seen) Hyaline Casts (0-2) /LPF Urine Test NEGATIVE (NEGATIVE) 11/09/22 Range/Units 17:37 WBC (4.8-10.8) X10*3/uL RBC (4.20-5.50) X10*6/uL Hgb (12.0-16.0) g/dl Hct (37.0-47.0) % MCV (80.0-98.0) fL MCH (27.0-33.0) pg MCHC (31.0-35.0) g/dl RDW (11.0-16.0) % Plt Count (160-400) X10*3/uL MPV (9.4-12.3) fL Immature Gran % (Auto) (0.0-0.4) % Neut % (Auto) (45-73) % Lymph % (Auto) (20-40) % [place] % (Auto) (2-11) % Eos % (Auto) (0-4) % Baso % (Auto) (0-2) % Lymph # (Auto) (1.2-4.9) X10*3/uL [place] # (Auto) (0.1-1.2) X10*3/uL Eos # (Auto) (0.0-0.4) X10*3/uL Baso # (Auto) (0.0-0.2) X10*3/uL Abs Immat Gran (auto) (0.00-0.03) X10*3/uL Absolute Neuts (auto) (2.0-8.3) x10*3/uL Absolute Nucleated RBC (0.0-0.012) X10*3/uL Nucleated RBC % (auto) (0.0-0.2) /100WBC Sodium (135-145) mmol/L Potassium (3.3-5.1) mmol/L Chloride (96-108) mmol/L Carbon Dioxide (22-29) mmol/L Anion Gap (12-20) BUN (9-16) mg/dL Creatinine (0.5-1.4) mg/dL Estim Creat Clear Calc Estimated GFR Random Glucose (60-115) mg/dL Calcium (8.4-10.2) mg/dL Total Bilirubin (0.0-1.0) mg/dL AST (5-31) U/L ALT (0-31) U/L Alkaline Phosphatase (39-117) U/L Total Protein (6.5-8.0) g/dL Albumin (3.5-5.0) g/dL Beta HCG, Quant mIU/mL Urine Color Red A Urine Appearance Turbid Urine pH 5.5 (5.0-9.0) Ur Specific [place] 1.020 (1.005-1.025) Urine Protein 300 (3+) H (Neg-Trace) mg/dL Urine Glucose (UA) Negative (Negative) mg/dL Urine Ketones Negative (Negative) mg/dL Urine Blood Large (3+) H (Negative) Urine Nitrite Negative (Negative) Ur Leukocyte Esterase Moderate (2+) H (Negative) Urine RBC >20 H (0-2) /HPF Urine WBC >50 H (0-5) /HPF Ur Squamous Epith Cells 11-20 (0-2) /HPF Urine Bacteria Trace (None Seen) Hyaline Casts 0-2 (0-2) /LPF Urine Test (NEGATIVE) Discharge Plan Discharge Clinical Impression: Urinary tract infection, Constipation Patient Disposition: Home, Self-Care Instructions: Constipation (ED), Urinary Tract Infection in Women (ED) Additional Instructions: Drink plenty of fluids Antibiotic as prescribed Stool softeners as prescribed Follow-up with your urology/pcp if not better Prescriptions: New cefuroxime axetil 250 mg tablet 250 mg PO BID 7 Days Qty: 14 0RF polyethylene glycol 3350 [Miralax] 17 gram/dose powder 17 g PO DAILY Qty: 510 0RF ibuprofen 600 mg tablet 600 mg PO Q6H PRN (Reason: fever or pain) Qty: 30 0RF No Action tamsulosin 0.4 mg capsule 0.4 mg PO BEDTIME 14 Days Qty: 14 0RF tamsulosin 0.4 mg capsule 0.4 mg PO BEDTIME 14 Days Qty: 14 0RF phenazopyridine [Pyridium] 100 mg tablet 100 mg PO TID PRN (Reason: Spasm) 4 Days Qty: 12 0RF pyridoxine (vitamin B6) 50 mg tablet 50 mg PO DAILY 90 Days Qty: 90 1RF allopurinol 100 mg tablet 100 mg PO DAILY 90 Days Qty: 90 1RF ciprofloxacin HCl 500 mg tablet 500 mg PO BID 5 Days Qty: 10 0RF amlodipine 5 mg tablet 5 mg PO DAILY lisinopril 20 mg tablet 20 mg PO DAILY norethindrone (contraceptive) 0.35 mg tablet 0.35 mg PO DAILY hydroxyzine HCl 25 mg tablet 25 mg PO TID cetirizine 10 mg tablet 10 mg PO DAILY Interventions: ED Discharge Assessment Last Done: 11/09/22 21:33 Discharge Date/Time: 11/09/22 21:38
[2022-11-09 17:41] LABS: MANUAL DIFF FLAG NO
[2022-11-09 17:44] LABS: Basophils Absolute Auto 0.1 X10*3/uL (0.0-0.2); Basophils Percent Auto 0.4 % (0-2); Eosinophils Absolute Auto 0.3 X10*3/uL (0.0-0.4); Eosinophils Percent Auto 2.2 % (0-4); Hematocrit 38.8 % (37.0-47.0); Hemoglobin 11.8 g/dl (12.0-16.0); Imm Gran Abs Auto 0.07 X10*3/uL (0.00-0.03); Imm Gran Pct Auto 0.6 % (0.0-0.4); Lymphocytes Absolute Auto 2.8 X10*3/uL (1.2-4.9); Lymphocytes Percent Auto 23.6 % (20-40); Mean Corpuscular HGB Conc 30.4 g/dl (31.0-35.0); Mean Corpuscular Hemoglobin 20.7 pg (27.0-33.0); Mean Corpuscular Volume 68.2 fL (80.0-98.0); Monocytes Absolute Auto 0.7 X10*3/uL (0.1-1.2); Monocytes Percent Auto 5.6 % (2-11); Neutrophils Absolute Auto 7.9 x10*3/uL (2.0-8.3); Neutrophils Percent Auto 67.6 % (45-73); Platelet Count 328 X10*3/uL (160-400); Red Blood Count 5.69 X10*6/uL (4.20-5.50); Red Cell Distribution Width 17.4 % (11.0-16.0); White Blood Count 11.7 X10*3/uL (4.8-10.8)
[2022-11-09 17:48] LABS: UPreg QC Valid YES; Urine Pregnancy NEGATIVE (NEGATIVE)
[2022-11-09 17:58] LABS: Appearance Urine Turbid; Color Urine Red; Glucose Urine UA Negative (Negative); Leukocyte Esterase Urine Moderate (2+) (Negative); Nitrite Urine Negative (Negative); PH 5.5 (5.0-9.0); UMIC TRIGGER UACC YES; Urine Blood Large (3+) (Negative); Urine Ketones Negative (Negative); Urine Protein 300 (3+) mg/dL (Neg-Trace)
[2022-11-09 17:59] LABS: Bacteria Urine Trace (None Seen); Hyaline Casts Urine 0-2 /LPF (0-2); RBC Urine >20 /HPF (0-2); UACC Culture Trigger YES; WBC Urine >50 /HPF (0-5)
[2022-11-09 18:07] LABS: Alanine Aminotransferase 21 U/L (0-31); Alkaline Phosphatase 70 U/L (39-117); Anion Gap 13 (12-20); Aspartate Amino Transferase 17 U/L (5-31); Bilirubin Total 0.3 mg/dL (0.0-1.0); Blood Urea Nitrogen 11 mg/dL (9-16); Calcium 9.7 mg/dL (8.4-10.2); Carbon Dioxide 25 mmol/L (22-29); Chloride 108 mmol/L (96-108); Creatinine Clr Calc Pharmacy 80.9; Estimated Glomerular Filt Rate > 60; Glucose Random 105 mg/dL (60-115); Potassium 3.8 mmol/L (3.3-5.1); Sodium 142 mmol/L (135-145); Total Protein 7.5 g/dL (6.5-8.0)
[2022-11-09 18:18] LABS: HCG Quantitative < 2 mIU/mL
[2022-11-09] MEDS: 0.9 % Sodium Chloride 1,000 ML 999 ML IV (19:53)
[2022-11-09] MEDS: Ketorolac Tromethamine 30 MG/ML VIAL IVPUSH (19:56)
[2022-11-09 20:00] VITALS: BP 144/90; PULSE 68; RESP 16; TEMP 36.8; O2SAT 99
[2022-11-09] MEDS: cefTRIAXone sodium 1 GM in 0.9 % Sodium Chloride 50 ML IV (20:00)
[2022-11-09] MEDS: bisacodyL 5 MG TABLET.DR 10 MG PO (21:26)
[2022-11-09] MEDS: Milk of Magnesia 30 ML ORAL.SUSP PO (21:26)
== END 2022-11-09 21:38 | disposition home or self-care (01) ==
PROVIDERS: Physician Assistant; Emergency Provider Internal Medicine; PCP Family Medicine
DX: N39.0 Urinary tract infection, site not specified (principal); K59.00 Constipation, unspecified; Z79.899 Other long term (current) drug therapy
CPT/HCPCS: 36415; 74176; 80053; 81001; 81025; 84702; 85025; 87086; 96361; 96365; 96375; 99284; J0696; J1885

== ENCOUNTER 2023-02-17 18:45 | Emergency (ER) | payer MEDICAID, SELFPAY ==
--- NOTE | ~2023-02-17 | CT_ITS ---
EXAMINATION: CT ABDOMEN AND PELVIS WITHOUT CONTRAST CLINICAL INFORMATION: Right flank pain with history of kidney stones COMPARISON: 11/09/2022 TECHNIQUE: Multidetector volumetric imaging was performed from the superior aspect of the liver through the pubic symphysis. Sagittal and coronal reformatted images were obtained on the technologist's workstation. This CT examination was performed using dose optimization techniques as appropriate, variously including the following: *Automated exposure control *Adjustment of mA and/or kV according to patient size (this includes techniques or standardized protocols for targeted exams where dose is matched to indication/reason for exam; i.e. extremities or head) *Use of iterative reconstruction technique DLP: 635 mGy-cm FINDINGS: LUNG BASES: The visualized lung bases are unremarkable. LIVER, GALLBLADDER, AND BILIARY TREE: The liver is mildly prominent in size. No focal hepatic lesion or biliary ductal dilatation is identified on this noncontrast exam. Gallbladder appears somewhat contracted. PANCREAS: Unremarkable. SPLEEN: Unremarkable. ADRENAL GLANDS: Unremarkable. KIDNEYS AND URETERS: No hydronephrosis or obstructing calculus bilaterally. There are several scattered tiny calculi within each kidney measuring up to 3 mm. BLADDER: Unremarkable. GASTROINTESTINAL TRACT: No evidence of bowel obstruction or significant wall thickening. The appendix appears nondilated. No free fluid or free air is seen. ABDOMINAL WALL: No significant hernia is appreciated. LYMPH NODES: No lymphadenopathy is seen, though assessment is limited in the absence of intravenous contrast. VASCULAR: Unremarkable. PELVIC VISCERA: Unremarkable. OSSEOUS STRUCTURES: Unremarkable. CT/CT abdomen pelvis wo IV con IMPRESSION: No hydronephrosis or obstructing calculus bilaterally. Scattered tiny bilateral renal calculi.
--- NOTE | 2023-02-17 19:11 | ED_ITS ---
HPI - General Adult General Chief complaint: Abdominal Pain Stated complaint: Bool in the urine, lower right abdominal pain Time Seen by Provider: 02/17/23 22:00 Source: patient Mode of arrival: ambulatory Limitations: no limitations History of Present Illness HPI narrative: Patient with history of kidney stones comes here for last 2 days of bilateral flank pain more on the right side radiating to the right lower abdomen with blood tinged urine painful to urinate no fever no chills slight nausea no vomiting no shortness of breath no cough Related Data Home Medications Medication Instructions Recorded Confirmed amlodipine 5 mg tablet 5 mg PO DAILY 07/28/22 11/05/22 lisinopril 20 mg tablet 20 mg PO DAILY 07/28/22 11/05/22 norethindrone (contraceptive) 0.35 0.35 mg PO DAILY 07/28/22 11/05/22 mg tablet cetirizine 10 mg tablet 10 mg PO DAILY 10/09/22 11/05/22 hydroxyzine HCl 25 mg tablet 25 mg PO TID 10/09/22 11/05/22 Previous Rx's Medication Instructions Recorded tamsulosin 0.4 mg capsule 0.4 mg PO BEDTIME 14 days #14 caps 09/08/22 phenazopyridine 100 mg tablet 100 mg PO TID PRN Spasm 4 days #12 10/27/22 (Pyridium) tabs tamsulosin 0.4 mg capsule 0.4 mg PO BEDTIME 14 days #14 caps 10/27/22 allopurinol 100 mg tablet 100 mg PO DAILY 90 days #90 tabs 11/05/22 ciprofloxacin HCl 500 mg tablet 500 mg PO BID 5 days #10 tabs 11/05/22 pyridoxine (vitamin B6) 50 mg 50 mg PO DAILY 90 days #90 tabs 11/05/22 tablet cefuroxime axetil 250 mg tablet 250 mg PO BID 7 days #14 tabs 11/09/22 ibuprofen 600 mg tablet 600 mg PO Q6H PRN fever or pain 11/09/22 #30 tabs polyethylene glycol 3350 17 17 g PO DAILY #510 grams 11/09/22 gram/dose oral powder (Miralax) Allergies Allergy/AdvReac Type Severity Reaction Status Date / Time tramadol AdvReac Vomiting Verified 11/05/22 15:01 Review of Systems 2 Review of Systems: Yes all other systems are reviewed and are negative PMFSH Past Medical History Medical History HTN (hypertension) Left flank pain COVID-19 Surgical History No pertinent past surgical history Social History Alcohol intake: never Patient Tobacco Use Status: Never used Tobacco Advance Directives: No Advance Directives Information Provided: No Physical Exam ED Vital Signs: Vital Signs - 24 hr 02/17/23 19:13 02/17/23 21:26 02/17/23 23:51 Temperature 97.2 F Pulse Rate 72 68 71 Respiratory Rate 20 16 16 Blood Pressure 140/92 H 135/78 142/97 H Pulse Oximetry 99 100 98 Oxygen Delivery Method Room Air Room Air Room Air BMI result Body Mass Index 36.8 Appearance: Alert. Oriented X3. In moderate distress. Eyes: PERRLA, ENT: Pharynx normal. Oral Mucosa moist Neck: Normal inspection. Neck supple. CVS: Normal heart rate and rhythm. Pulses normal. Respiratory: No respiratory distress. Equal air entry bilateral, no wheezing/rales/rhonchi Abdomen: Soft and nontender. Bowel sounds are present, no mass palpable,R CVA tenderness Skin: Skin warm and dry. Normal skin color. Normal skin turgor. Extremities: No lower extremity edema. No calf tenderness Neuro: Oriented X 3. No motor deficit. Course Course Course Narrative: This is an RME: Additional HPI, ROS, PE not included below will be deferred to primary provider. This is a [id number], with a hx of kidney stones with stents, presenting to the emergency department with difficulty voiding and hematuria and right sided flank pain x 2 days. No dysuria. No N/V/D or fevers. Plan: Labs, UA, CT abd & pelvis ordered Medications Administered Discontinued Medications Generic Name Dose Route Start Last Admin Trade Name Freq PRN Reason Stop Dose Admin Acetaminophen 650 mg 02/17/23 23:20 02/17/23 23:23 Acetaminophen 325 Mg Tablet PO 02/17/23 23:21 650 mg ONCE ONE Administration Sodium Chloride 1,000 mls @ 999 mls/hr 02/17/23 22:31 02/17/23 22:45 Ns IV 02/17/23 23:31 Not Given .Q1H1M ONE Morphine Sulfate 4 mg 02/17/23 22:31 02/17/23 22:44 Morphine Sulfate 4 Mg/Ml Cartridge IVPUSH 02/17/23 22:32 Not Given ONCE ONE Protocol Ondansetron HCl 4 mg 02/17/23 22:31 02/17/23 22:44 Ondansetron Hcl 4 Mg/2 Ml Vial IVPUSH 02/17/23 22:32 Not Given ONCE ONE Medical Decision Making Medical Decision Making [facility] Narrative: Patient with bilateral kidney stone without any stone in the ureter. CT scan negative ureteric stone patient patient feeling much better with pain discharge patient home advised to follow with urologist Differential Diagnosis Differential Diagnoses: The differential diagnosis associated with the presentation includes Renal colic/kidney stone/UTI Admission/Observation Consideration of admission/observation: Escalation of care including admission/observation considered Lab Data [facility] Lab Attestation statement: I reviewed the patient's lab results. 02/17/23 19:28 02/17/23 19:29 Labs: Lab Results 02/17/23 02/17/23 02/17/23 Range/Units 19:28 19:29 21:34 WBC 10.5 (4.8-10.8) X10*3/uL RBC 5.53 H (4.20-5.50) X10*6/uL Hgb 11.1 L (12.0-16.0) g/dl Hct 36.3 L (37.0-47.0) % MCV 65.6 L (80.0-98.0) fL MCH 20.1 L (27.0-33.0) pg MCHC 30.6 L (31.0-35.0) g/dl RDW 18.0 H (11.0-16.0) % Plt Count 289 (160-400) X10*3/uL MPV 10.8 (9.4-12.3) fL Immature Gran % (Auto) 1.0 H (0.0-0.4) % Neut % (Auto) 62.7 (45-73) % Lymph % (Auto) 25.8 (20-40) % [place] % (Auto) 7.2 (2-11) % Eos % (Auto) 2.9 (0-4) % Baso % (Auto) 0.4 (0-2) % Lymph # (Auto) 2.7 (1.2-4.9) X10*3/uL [place] # (Auto) 0.8 (0.1-1.2) X10*3/uL Eos # (Auto) 0.3 (0.0-0.4) X10*3/uL Baso # (Auto) 0.0 (0.0-0.2) X10*3/uL Abs Immat Gran (auto) 0.10 H (0.00-0.03) X10*3/uL Absolute Neuts (auto) 6.6 (2.0-8.3) x10*3/uL Absolute Nucleated RBC 0.020 H (0.0-0.012) X10*3/uL Nucleated RBC % (auto) 0.2 (0.0-0.2) /100WBC Sodium 140 (135-145) mmol/L Potassium 3.3 (3.3-5.1) mmol/L Chloride 106 (96-108) mmol/L Carbon Dioxide 30 H (22-29) mmol/L Anion Gap 7 L (12-20) BUN 11 (9-16) mg/dL Creatinine 0.79 (0.5-1.4) mg/dL Estim Creat Clear Calc 104.3 Estimated GFR > 60 Random Glucose 101 (60-115) mg/dL Calcium 9.1 D (8.4-10.2) mg/dL Total Bilirubin 0.3 (0.0-1.0) mg/dL Direct Bilirubin 0.1 (0.0-0.5) mg/dL AST 16 (5-31) U/L ALT 19 (0-31) U/L Alkaline Phosphatase 70 (39-117) U/L Total Protein 7.5 (6.5-8.0) g/dL Albumin 4.0 (3.5-5.0) g/dL Lipase 40 (8-78) U/L Urine Color [place] A Urine Appearance Cloudy Urine pH 6.0 (5.0-9.0) Ur Specific [place] 1.020 (1.005-1.025) Urine Protein 30 (1+) H (Neg-Trace) mg/dL Urine Glucose (UA) Negative (Negative) mg/dL Urine Ketones Negative (Negative) mg/dL Urine Blood Large (3+) H (Negative) Urine Nitrite Negative (Negative) Ur Leukocyte Esterase Trace H (Negative) Urine RBC >20 H (0-2) /HPF Urine WBC 6-10 H (0-5) /HPF Ur Squamous Epith Cells 6-10 (0-2) /HPF Urine Bacteria 1+ (None Seen) Hyaline Casts 0-2 (0-2) /LPF Urine Test NEGATIVE (NEGATIVE) Independent Interpretation I performed an independent interpretation of an: CT Scan Radiology Impression Discussion of test interpretation with radiology: I have reviewed the radiologist's reading. Radiologist Impression: [address] [address] [address] Scan Report Signed Patient: Nighat Montes MR#: [id number] : 1990 Acct:[id number] Age/Sex: 32 / F ADM Date: 02/17/23 Loc: HO.ED Attending Dr: Ordering Physician: Forest Crabtree MD Date of Service: 02/18/23 Procedure(s): CT abdomen pelvis wo IV con Accession Number(s): [id number] cc: Angelina Wood MD; Forest Crabtree MD~ EXAMINATION: CT ABDOMEN AND PELVIS WITHOUT CONTRAST CLINICAL INFORMATION: Right flank pain with history of kidney stones COMPARISON: 11/09/2022 TECHNIQUE: Multidetector volumetric imaging was performed from the superior aspect of the liver through the pubic symphysis. Sagittal and coronal reformatted images were obtained on the technologist's workstation. This CT examination was performed using dose optimization techniques as appropriate, variously including the following: *Automated exposure control *Adjustment of mA and/or kV according to patient size (this includes techniques or standardized protocols for targeted exams where dose is matched to indication/reason for exam; i.e. extremities or head) *Use of iterative reconstruction technique DLP: 635 mGy-cm FINDINGS: LUNG BASES: The visualized lung bases are unremarkable. LIVER, GALLBLADDER, AND BILIARY TREE: The liver is mildly prominent in size. No focal hepatic lesion or biliary ductal dilatation is identified on this noncontrast exam. Gallbladder appears somewhat contracted. PANCREAS: Unremarkable. SPLEEN: Unremarkable. ADRENAL GLANDS: Unremarkable. KIDNEYS AND URETERS: No hydronephrosis or obstructing calculus bilaterally. There are several scattered tiny calculi within each kidney measuring up to 3 mm. BLADDER: Unremarkable. GASTROINTESTINAL TRACT: No evidence of bowel obstruction or significant wall thickening. The appendix appears nondilated. No free fluid or free air is seen. ABDOMINAL WALL: No significant hernia is appreciated. LYMPH NODES: No lymphadenopathy is seen, though assessment is limited in the absence of intravenous contrast. VASCULAR: Unremarkable. PELVIC VISCERA: Unremarkable. OSSEOUS STRUCTURES: Unremarkable. CT/CT abdomen pelvis wo IV con IMPRESSION: No hydronephrosis or obstructing calculus bilaterally. Scattered tiny bilateral renal calculi. Discharge Plan Discharge Clinical Impression: Renal colic Patient Disposition: Home, Self-Care Instructions: Renal Colic (ED) Additional Instructions: No kidney stone seen in the renal tube likely have pain from stone in the kidneys and possible that one of the stone has passed Take pain medication as prescribed Follow-up with urologist Prescriptions: No Action tamsulosin 0.4 mg capsule 0.4 mg PO BEDTIME 14 Days Qty: 14 0RF tamsulosin 0.4 mg capsule 0.4 mg PO BEDTIME 14 Days Qty: 14 0RF phenazopyridine [Pyridium] 100 mg tablet 100 mg PO TID PRN (Reason: Spasm) 4 Days Qty: 12 0RF cefuroxime axetil 250 mg tablet 250 mg PO BID 7 Days Qty: 14 0RF polyethylene glycol 3350 [Miralax] 17 gram/dose powder 17 g PO DAILY Qty: 510 0RF ibuprofen 600 mg tablet 600 mg PO Q6H PRN (Reason: fever or pain) Qty: 30 0RF pyridoxine (vitamin B6) 50 mg tablet 50 mg PO DAILY 90 Days Qty: 90 1RF allopurinol 100 mg tablet 100 mg PO DAILY 90 Days Qty: 90 1RF ciprofloxacin HCl 500 mg tablet 500 mg PO BID 5 Days Qty: 10 0RF amlodipine 5 mg tablet 5 mg PO DAILY lisinopril 20 mg tablet 20 mg PO DAILY norethindrone (contraceptive) 0.35 mg tablet 0.35 mg PO DAILY hydroxyzine HCl 25 mg tablet 25 mg PO TID cetirizine 10 mg tablet 10 mg PO DAILY Referrals: Wesly Smyth MD [Physician] - 1 week
[2023-02-17 19:13] VITALS: BP 140/92; PULSE 72; RESP 20; TEMP 36.2; O2SAT 99; BMI 36.8
[2023-02-17 19:34] LABS: MANUAL DIFF FLAG NO
[2023-02-17 19:49] LABS: Alanine Aminotransferase 19 U/L (0-31); Alkaline Phosphatase 70 U/L (39-117); Anion Gap 7 (12-20); Aspartate Amino Transferase 16 U/L (5-31); Bilirubin Direct 0.1 mg/dL (0.0-0.5); Bilirubin Total 0.3 mg/dL (0.0-1.0); Blood Urea Nitrogen 11 mg/dL (9-16); Calcium 9.1 mg/dL (8.4-10.2); Carbon Dioxide 30 mmol/L (22-29); Chloride 106 mmol/L (96-108); Creatinine Clr Calc Pharmacy 104.3; Estimated Glomerular Filt Rate > 60; Glucose Random 101 mg/dL (60-115); Lipase 40 U/L (8-78); Potassium 3.3 mmol/L (3.3-5.1); Sodium 140 mmol/L (135-145); Total Protein 7.5 g/dL (6.5-8.0)
[2023-02-17 20:25] LABS: Basophils Percent Auto 0.4 % (0-2); Eosinophils Absolute Auto 0.3 X10*3/uL (0.0-0.4); Eosinophils Percent Auto 2.9 % (0-4); Hematocrit 36.3 % (37.0-47.0); Hemoglobin 11.1 g/dl (12.0-16.0); Lymphocytes Absolute Auto 2.7 X10*3/uL (1.2-4.9); Lymphocytes Percent Auto 25.8 % (20-40); Mean Corpuscular HGB Conc 30.6 g/dl (31.0-35.0); Mean Corpuscular Hemoglobin 20.1 pg (27.0-33.0); Mean Corpuscular Volume 65.6 fL (80.0-98.0); Mean Platelet Volume 10.8 fL (9.4-12.3); Monocytes Absolute Auto 0.8 X10*3/uL (0.1-1.2); Monocytes Percent Auto 7.2 % (2-11); NRBC Pct Auto 0.2 /100WBC (0.0-0.2); Neutrophils Absolute Auto 6.6 x10*3/uL (2.0-8.3); Neutrophils Percent Auto 62.7 % (45-73); Platelet Count 289 X10*3/uL (160-400); Red Blood Count 5.53 X10*6/uL (4.20-5.50); White Blood Count 10.5 X10*3/uL (4.8-10.8)
[2023-02-17 21:26] VITALS: BP 135/78; PULSE 68; RESP 16; O2SAT 100
[2023-02-17 21:54] LABS: UPreg QC Valid YES; Urine Pregnancy NEGATIVE (NEGATIVE)
[2023-02-17 22:06] LABS: Appearance Urine Cloudy; Color Urine Orange; Glucose Urine UA Negative (Negative); Leukocyte Esterase Urine Trace (Negative); Nitrite Urine Negative (Negative); UMIC TRIGGER UACC YES; Urine Blood Large (3+) (Negative); Urine Ketones Negative (Negative); Urine Protein 30 (1+) mg/dL (Neg-Trace)
[2023-02-17 22:36] LABS: Bacteria Urine 1+ (None Seen); Hyaline Casts Urine 0-2 /LPF (0-2); RBC Urine >20 /HPF (0-2); UACC Culture Trigger YES
--- NOTE | 2023-02-17 22:48 | PC.NURSE ---
Pt refusing IV and Morphine @ this time. Pt requesting Tylenol. Provider notified. Pt agreeable to CT scan @ this time.
[2023-02-17] MEDS: Acetaminophen 325 MG TABLET 650 MG PO (23:23)
[2023-02-17 23:51] VITALS: BP 142/97; PULSE 71; RESP 16; O2SAT 98
== END 2023-02-18 01:52 | disposition home or self-care (01) ==
PROVIDERS: Physician Assistant Medical; Emergency Provider Internal Medicine; PCP Family Medicine
DX: N23 Unspecified renal colic (principal); R31.9 Hematuria, unspecified; Z79.899 Other long term (current) drug therapy
CPT/HCPCS: 36415; 74176; 80048; 80076; 81001; 81003; 81025; 83690; 85025; 87086; 99283; 99284

== ENCOUNTER 2023-03-04 21:03 | Emergency (ER) | payer MEDICAID, SELFPAY ==
[2023-03-04 21:16] VITALS: BP 197/116; PULSE 150; RESP 22; O2SAT 100; BMI 38.5
--- NOTE | 2023-03-04 21:20 | ECG_ITS ---
Test Reason : tachycardia Blood Pressure : / mmHG Vent. Rate : 145 BPM Atrial Rate : 145 BPM P-R Int : 124 ms QRS Dur : 082 ms QT Int : 268 ms P-R-T Axes : 042 019 005 degrees QTc Int : 416 ms Sinus tachycardia Otherwise normal ECG When compared with ECG of 05-FEB-2021 18:30, Vent. rate has increased BY 67 BPM Nonspecific T wave abnormality no longer evident in Anterior leads Referred By: Generic ED Physician Electronically Signed By:ANDREW HANDLEY
[2023-03-04 21:39] LABS: MANUAL DIFF FLAG NO
[2023-03-04 21:44] VITALS: BP 179/107; PULSE 137; RESP 13; TEMP 37.4; O2SAT 100
[2023-03-04 21:48] LABS: Basophils Absolute Auto 0.1 X10*3/uL (0.0-0.2); Basophils Percent Auto 0.4 % (0-2); Eosinophils Absolute Auto 0.4 X10*3/uL (0.0-0.4); Eosinophils Percent Auto 2.8 % (0-4); Hematocrit 38.2 % (37.0-47.0); Hemoglobin 11.8 g/dl (12.0-16.0); Imm Gran Abs Auto 0.09 X10*3/uL (0.00-0.03); Imm Gran Pct Auto 0.7 % (0.0-0.4); Lymphocytes Absolute Auto 3.3 X10*3/uL (1.2-4.9); Lymphocytes Percent Auto 25.4 % (20-40); Mean Corpuscular HGB Conc 30.9 g/dl (31.0-35.0); Mean Corpuscular Hemoglobin 20.1 pg (27.0-33.0); Mean Platelet Volume 10.3 fL (9.4-12.3); Monocytes Absolute Auto 0.8 X10*3/uL (0.1-1.2); Monocytes Percent Auto 6.3 % (2-11); Neutrophils Absolute Auto 8.4 x10*3/uL (2.0-8.3); Neutrophils Percent Auto 64.4 % (45-73); Platelet Count 303 X10*3/uL (160-400); Red Blood Count 5.88 X10*6/uL (4.20-5.50); Red Cell Distribution Width 18.6 % (11.0-16.0); White Blood Count 13.1 X10*3/uL (4.8-10.8)
--- NOTE | 2023-03-04 21:51 | MHC.EDTECH ---
patients heart rate between 140-160. RN made aware and staff has been working with the patient on breathing to help lower their heart rate.
[2023-03-04 21:55] LABS: Anion Gap 13 (12-20); Blood Urea Nitrogen 12 mg/dL (9-16); Calcium 9.4 mg/dL (8.4-10.2); Carbon Dioxide 23 mmol/L (22-29); Chloride 107 mmol/L (96-108); Estimated Glomerular Filt Rate > 60; Glucose Random 155 mg/dL (60-115); Sodium 140 mmol/L (135-145)
[2023-03-04 22:05] LABS: Troponin-I High Sensitivity < 2.7 ng/L (<3.5-17.0)
[2023-03-04 22:15] VITALS: BP 142/90; PULSE 93; RESP 13; O2SAT 98
--- NOTE | 2023-03-04 22:17 | PC.NURSE ---
pt VSS at this time. pt appears more calm and relaxed, communicating in clear full sentences, no SOB noted. dry heaving has stopped. urine collected and sent.
[2023-03-04 22:23] LABS: UPreg QC Valid YES; Urine Pregnancy NEGATIVE (NEGATIVE)
[2023-03-04 22:34] LABS: Amphetamine Screen Urine Not Detected (Not Detect); Barbiturates, Urine Not Detected (Not Detect); Benzodiazepines Screen Urine Not Detected (Not Detect); Cannabinoid Screen Urine POSITIVE (Not Detect); Cocaine Screen Urine Not Detected (Not Detect); Fentanyl, urine Not Detected (Not Detect); Opiate Screen Urine Not Detected (Not Detect); Phencyclidine Screen Urine Not Detected (Not Detect)
[2023-03-04 22:35] LABS: Appearance Urine Clear; Bacteria Urine None Seen (None Seen); Color Urine Orange; Glucose Urine UA Negative (Negative); Hyaline Casts Urine 0-2 /LPF (0-2); Leukocyte Esterase Urine Trace (Negative); Nitrite Urine Negative (Negative); RBC Urine >20 /HPF (0-2); Specific Gravity - Urine 1.015 (1.005-1.025); UACC Culture Trigger YES; UMIC TRIGGER UACC YES; Urine Blood Large (3+) (Negative); Urine Ketones Negative (Negative); Urine Protein Trace mg/dL (Neg-Trace)
--- NOTE | 2023-03-04 22:36 | ED.CHESTPAIN ---
HPI - Chest Pain General Chief Complaint: Chest Pain Stated Complaint: asthma ? anxiety Time Seen by Provider: 03/04/23 22:29 Source: patient Mode of arrival: ambulatory Limitations: no limitations History of Present Illness HPI narrative: Patient comes emergency room complaining of anxiety. Patient states that earlier today, patient has multiple marijuana after a long-time of not using THC. Patient came in complaining of palpitations and severe anxiety. Patient denies using any other drugs. Patient denies shortness of breath. Related Data Home Medications Medication Instructions Recorded Confirmed amlodipine 5 mg tablet 5 mg PO DAILY 07/28/22 11/05/22 lisinopril 20 mg tablet 20 mg PO DAILY 07/28/22 11/05/22 norethindrone (contraceptive) 0.35 0.35 mg PO DAILY 07/28/22 11/05/22 mg tablet cetirizine 10 mg tablet 10 mg PO DAILY 10/09/22 11/05/22 hydroxyzine HCl 25 mg tablet 25 mg PO TID 10/09/22 11/05/22 Previous Rx's Medication Instructions Recorded tamsulosin 0.4 mg capsule 0.4 mg PO BEDTIME 14 days #14 caps 09/08/22 phenazopyridine 100 mg tablet 100 mg PO TID PRN Spasm 4 days #12 10/27/22 (Pyridium) tabs tamsulosin 0.4 mg capsule 0.4 mg PO BEDTIME 14 days #14 caps 10/27/22 allopurinol 100 mg tablet 100 mg PO DAILY 90 days #90 tabs 11/05/22 ciprofloxacin HCl 500 mg tablet 500 mg PO BID 5 days #10 tabs 11/05/22 pyridoxine (vitamin B6) 50 mg 50 mg PO DAILY 90 days #90 tabs 11/05/22 tablet cefuroxime axetil 250 mg tablet 250 mg PO BID 7 days #14 tabs 11/09/22 ibuprofen 600 mg tablet 600 mg PO Q6H PRN fever or pain 11/09/22 #30 tabs polyethylene glycol 3350 17 17 g PO DAILY #510 grams 11/09/22 gram/dose oral powder (Miralax) Allergies Allergy/AdvReac Type Severity Reaction Status Date / Time tramadol AdvReac Vomiting Verified 11/05/22 15:01 Review of Systems Review of Systems: Constitutional : No Weight loss, No Fever, No Chills, No Night Sweats, No Fatigue, No Malaise ENT/Mouth : No Hearing loss, No Ear Pain, No Nasal Congestion, No Sinus Pain, No Hoarseness, No sore throat, No Rhinorrhea, No Swallowing Difficulty Eyes: No Eye Pain, No Swelling, No Redness, No Foreign Body, No Discharge, No Vision Changes Cardiovascular : No Chest Pain, No SOB, No Dyspnea on Exertion, No Orthopnea, No Edema, complaining of Palpitations Respiratory : No Cough, No Sputum, No Wheezing, No Smoke Exposure, No Dyspnea Gastrointestinal : No Nausea, No Vomiting, No Diarrhea, No Constipation, No abdominal Pain, No Hematochezia, No Melena Genitourinary : no irregular bleeding, No Dysuria, No Urinary Frequency, No Hematuria, No Urinary Incontinence, No Urgency, No Flank Pain, No Urinary Flow Changes, No Hesitancy Musculoskeletal : No joint pain, No Myalgias, No Joint Swelling Skin : No Skin Lesions, No rash Neuro : No Weakness, No Numbness, No Paresthesias, No Loss of Consciousness, No Dizziness, No Headache Psych : Complaining of anxiety, No Depression, No SI/HI/AH/VH, admits to using THC Heme/Lymph: No Bruising, No Bleeding,No Lymphadenopathy Endocrine : No Polyuria, No Polydipsia, No Temperature Intolerance PMFSH Past Medical History Medical History HTN (hypertension) Left flank pain COVID-19 Surgical History No pertinent past surgical history Social History Social History Alcohol intake: never Patient Tobacco Use Status: Never used Tobacco Advance Directives: No Advance Directives Information Provided: No Physical Exam Vital Signs: Vital Signs: Last Vital Signs Temp 99.3 F 03/04/23 21:44 Pulse 93 03/04/23 22:15 Resp 13 03/04/23 22:15 BP 142/90 H 03/04/23 22:15 Pulse Ox 98 03/04/23 22:15 O2 Del Method Room Air 03/04/23 22:15 BMI result Body Mass Index 38.5 Const: Other: Appearance: Alert. Oriented X3. No acute distress. Eyes: Pupils equal, round and reactive to light. ENT: Pharynx normal. Neck: Normal inspection. Neck supple. No lymph nodes noted. No crepitus CVS: Normal heart rate and rhythm. Pulses normal. Normal S1 and S2 Respiratory: No respiratory distress. Breath sounds normal. No Wheezing. No rales Abdomen: Soft and nontender. No rigidity. No distention. Skin: Skin warm and dry. Normal skin color. Normal skin turgor. Extremities: No lower extremity edema. No Lacerations. No Rash Neuro: Oriented X 3. No motor deficit. No sensory deficit. Moving all extremities. No slurred speech. CN 2 through 12 grossly intact Psych: calm, cooperative, mildly anxious Medical Decision Making Medical Decision Making [facility] Narrative: -my interpretation of labs: White blood cell count chronically elevated, likely secondary to use of THC/reactive leukocytosis. Patient's potassium 3.0, repleted p.o.. Patient's urinalysis shows a large amount of blood in the urine. However, this seems to be chronic. Patient instructed to follow-up with urology. Reviewing patient's previous labs, microbiology results do not show bacterial growth to call this a UTI. Urine toxicology positive for THC as expected. -per my interpretation of EKG: Sinus rhythm, heart rate 145, no ST segment depression or elevation, no T-wave inversion, QTC 416 -on physical exam, heart rate between 80 and 90 Differential Diagnosis Differential Diagnoses: The differential diagnosis associated with the presentation includes (Anxiety, SVT, sinus tachycardia, AFib, drug side effect) Lab Data [facility] Lab Attestation statement: I reviewed the patient's lab results. 03/04/23 21:34 03/04/23 21:34 Labs: Lab Results 03/04/23 03/04/23 03/04/23 Range/Units 21:34 22:11 22:12 WBC 13.1 H (4.8-10.8) X10*3/uL RBC 5.88 H (4.20-5.50) X10*6/uL Hgb 11.8 L (12.0-16.0) g/dl Hct 38.2 (37.0-47.0) % MCV 65.0 L (80.0-98.0) fL MCH 20.1 L (27.0-33.0) pg MCHC 30.9 L (31.0-35.0) g/dl RDW 18.6 H (11.0-16.0) % Plt Count 303 (160-400) X10*3/uL MPV 10.3 (9.4-12.3) fL Immature Gran % (Auto) 0.7 H (0.0-0.4) % Neut % (Auto) 64.4 (45-73) % Lymph % (Auto) 25.4 (20-40) % Castro % (Auto) 6.3 (2-11) % Eos % (Auto) 2.8 (0-4) % Baso % (Auto) 0.4 (0-2) % Lymph # (Auto) 3.3 (1.2-4.9) X10*3/uL [place] # (Auto) 0.8 (0.1-1.2) X10*3/uL Eos # (Auto) 0.4 (0.0-0.4) X10*3/uL Baso # (Auto) 0.1 (0.0-0.2) X10*3/uL Abs Immat Gran (auto) 0.09 H (0.00-0.03) X10*3/uL Absolute Neuts (auto) 8.4 H (2.0-8.3) x10*3/uL Absolute Nucleated RBC 0.000 (0.0-0.012) X10*3/uL Nucleated RBC % (auto) 0.0 (0.0-0.2) /100WBC Sodium 140 (135-145) mmol/L Potassium 3.0 L (3.3-5.1) mmol/L Chloride 107 (96-108) mmol/L Carbon Dioxide 23 (22-29) mmol/L Anion Gap 13 (12-20) BUN 12 (9-16) mg/dL Creatinine 0.82 (0.5-1.4) mg/dL Estim Creat Clear Calc 103.0 Estimated GFR > 60 Random Glucose 155 H (60-115) mg/dL Calcium 9.4 (8.4-10.2) mg/dL Troponin I High Sens < 2.7 (<3.5-17.0) ng/L Urine Color Milnor A Urine Appearance Clear Urine pH 7.0 (5.0-9.0) Ur Specific Burke 1.015 (1.005-1.025) Urine Protein Trace (Neg-Trace) mg/dL Urine Glucose (UA) Negative (Negative) mg/dL Urine Ketones Negative (Negative) mg/dL Urine Blood Large (3+) H (Negative) Urine Nitrite Negative (Negative) Ur Leukocyte Esterase Trace H (Negative) Urine RBC >20 H (0-2) /HPF Urine WBC 6-10 H (0-5) /HPF Ur Squamous Epith Cells 3-5 (0-2) /HPF Urine Bacteria None Seen (None Seen) Hyaline Casts 0-2 (0-2) /LPF Urine Test NEGATIVE (NEGATIVE) Urine Opiates Screen Not Detected (Not Detect) Urine Fentanyl Screen Not Detected (Not Detect) Ur Barbiturates Screen Not Detected (Not Detect) Ur Phencyclidine Scrn Not Detected (Not Detect) Ur Amphetamines Screen Not Detected (Not Detect) U Benzodiazepines Scrn Not Detected (Not Detect) Urine Cocaine Screen Not Detected (Not Detect) U Marijuana (THC) Screen POSITIVE H (Not Detect) Independent Interpretation I performed an independent interpretation of an: EKG Discharge Plan Discharge Clinical Impression: Anxiety, Hypokalemia, Hematuria Patient Disposition: Home, Self-Care Instructions: Anxiety (ED), Hypokalemia (ED), Hematuria (ED) Additional Instructions: Since June of 2022, every time that you have your urine checked at this facility, there has been blood in the urine without a urinary tract infection. Please follow-up with urology. Please follow-up with your primary care physician tomorrow. If you have any worsening or new symptoms, please return to the emergency room or call 911 Prescriptions: No Action tamsulosin 0.4 mg capsule 0.4 mg PO BEDTIME 14 Days Qty: 14 0RF tamsulosin 0.4 mg capsule 0.4 mg PO BEDTIME 14 Days Qty: 14 0RF phenazopyridine [Pyridium] 100 mg tablet 100 mg PO TID PRN (Reason: Spasm) 4 Days Qty: 12 0RF cefuroxime axetil 250 mg tablet 250 mg PO BID 7 Days Qty: 14 0RF polyethylene glycol 3350 [Miralax] 17 gram/dose powder 17 g PO DAILY Qty: 510 0RF ibuprofen 600 mg tablet 600 mg PO Q6H PRN (Reason: fever or pain) Qty: 30 0RF pyridoxine (vitamin B6) 50 mg tablet 50 mg PO DAILY 90 Days Qty: 90 1RF allopurinol 100 mg tablet 100 mg PO DAILY 90 Days Qty: 90 1RF ciprofloxacin HCl 500 mg tablet 500 mg PO BID 5 Days Qty: 10 0RF amlodipine 5 mg tablet 5 mg PO DAILY lisinopril 20 mg tablet 20 mg PO DAILY norethindrone (contraceptive) 0.35 mg tablet 0.35 mg PO DAILY hydroxyzine HCl 25 mg tablet 25 mg PO TID cetirizine 10 mg tablet 10 mg PO DAILY Referrals: Matthias Marte MD [Physician] - (chronic hematuria)
[2023-03-04] MEDS: Potassium Chloride Packet 20 MEQ PACKET 80 MEQ PO (22:47)
[2023-03-04 23:00] VITALS: BP 144/99; PULSE 91; RESP 20; O2SAT 98
== END 2023-03-04 23:03 | disposition home or self-care (01) ==
PROVIDERS: Emergency Provider Emergency Medicine
DX: F41.9 Anxiety disorder, unspecified (principal); E87.6 Hypokalemia; R31.9 Hematuria, unspecified; F12.90 Cannabis use, unspecified, uncomplicated; Z79.899 Other long term (current) drug therapy
CPT/HCPCS: 36415; 80048; 80307; 81001; 81025; 84484; 85025; 87086; 93005; 99283; 99284

== ENCOUNTER → 2023-03-04 21:20 | Outpatient (BNV) | payer MEDICAID, SELFPAY | PROVIDERS: Emergency Provider Emergency Medicine; Visit Provider Internal Medicine | DX: R00.0 Tachycardia, unspecified (principal) | CPT/HCPCS: 93010 ==

== ENCOUNTER 2023-04-04 00:07 | Emergency (ER) | payer MEDICAID, SELFPAY ==
[2023-04-04 00:15] VITALS: BP 163/115; BP 166/107; PULSE 112; PULSE 170; RESP 20; TEMP 37; O2SAT 94; O2SAT 98; BMI 39.3
--- NOTE | 2023-04-04 00:24 | ED.ARRPALP ---
HPI - Arrhythmia/Palpitations General Chief Complaint: Arrhythmia/Palpitations Stated Complaint: chest pain Time Seen by Provider: 04/04/23 00:14 Source: patient Mode of arrival: EMS Limitations: no limitations History of Present Illness HPI narrative: 32 yo female with PMH of HTN, kidney stones, anxiety here with c/o palpitations tonight while trying to lay down for sleep. She uses OCPs but is not very compliant she is not really compliant with many medications. She notes she has had lots of stress and anxiety happened after drinking cup of wine at home - this happened another time with the same wine. EMS noted HR around 150s in SVT broke with vagal maneuvers patient denies drugs or hx of SVT. The patient denies chest pain/sob notes she felt sick to her stomach and anxiety. No recent travel, URI/viral syndrome, vaccine. MD complaint: rapid heart beat, heart racing and palpitations Onset (ago): hour(s) (2229) Duration: now resolved Severity: severe Context: occurred during rest Associated symptoms: nausea, anxiety, diaphoresis and feeling of impending doom Treatments prior to arrival: vagal maneuvers Related Data Home Medications Medication Instructions Recorded Confirmed amlodipine 5 mg tablet 5 mg PO DAILY 07/28/22 11/05/22 lisinopril 20 mg tablet 20 mg PO DAILY 07/28/22 11/05/22 norethindrone (contraceptive) 0.35 0.35 mg PO DAILY 07/28/22 11/05/22 mg tablet cetirizine 10 mg tablet 10 mg PO DAILY 10/09/22 11/05/22 hydroxyzine HCl 25 mg tablet 25 mg PO TID 10/09/22 11/05/22 Previous Rx's Medication Instructions Recorded tamsulosin 0.4 mg capsule 0.4 mg PO BEDTIME 14 days #14 caps 09/08/22 phenazopyridine 100 mg tablet 100 mg PO TID PRN Spasm 4 days #12 10/27/22 (Pyridium) tabs tamsulosin 0.4 mg capsule 0.4 mg PO BEDTIME 14 days #14 caps 10/27/22 allopurinol 100 mg tablet 100 mg PO DAILY 90 days #90 tabs 11/05/22 ciprofloxacin HCl 500 mg tablet 500 mg PO BID 5 days #10 tabs 11/05/22 pyridoxine (vitamin B6) 50 mg 50 mg PO DAILY 90 days #90 tabs 11/05/22 tablet cefuroxime axetil 250 mg tablet 250 mg PO BID 7 days #14 tabs 11/09/22 ibuprofen 600 mg tablet 600 mg PO Q6H PRN fever or pain 11/09/22 #30 tabs polyethylene glycol 3350 17 17 g PO DAILY #510 grams 11/09/22 gram/dose oral powder (Miralax) metoprolol tartrate 25 mg tablet 25 mg PO ONCE PRN SVT #10 tabs 04/04/23 Allergies Allergy/AdvReac Type Severity Reaction Status Date / Time tramadol AdvReac Vomiting Verified 04/04/23 00:53 Review of Systems Review of Systems: Constitutional : No Weight loss, No Fever, No Chills ENT/Mouth : No sore throat, No Rhinorrhea Eyes: No Eye Pain, No Swelling Cardiovascular : no Chest Pain, no SOB, no Dyspnea on Exertion, No Orthopnea, No Edema, pos Palpitations Respiratory : No Cough, No Sputum Gastrointestinal : pos Nausea, No Vomiting, No Diarrhea, No abdominal Pain, No Hematochezia, No Melena Genitourinary : No Dysuria, No Urinary Frequency Musculoskeletal : No joint pain, No Myalgias, No Joint Swelling Skin : No Skin Lesions, No rash Neuro : No Weakness, No Numbness, No Dizziness, No Headache Psych : pos Anxiety/Panic, No Depression Heme/Lymph: No Bruising, No Lymphadenopathy Endocrine : No Polyuria, No Polydipsia All other systems reviewed and are negative PMFSH Past Medical History Attestation statement: The following information was validated with the patient. Source: old records reviewed Onset Date is defined in the Problem List Problems that require an onset date and time if occurred within 24 hrs of arrival to the ED Aortic Dissection and Rupture; Neurologic impairment; Cardiopulmonary Arrest; Endotracheal Intubation; Insertion or Replacement of Mechanical Circulatory Assist Device Medical History HTN (hypertension) Left flank pain COVID-19 Surgical History No pertinent past surgical history Social History Social History Alcohol intake: current Alcohol intake frequency: holidays/special occasions only Alcohol type: wine Patient Tobacco Use Status: Never used Tobacco Smoked in Last 30 Days: No Use of substances other than those prescribed or required for medical reasons: Yes Substance Use Type: Marijuana Advance Directives: No Advance Directives Information Provided: Yes Patient : No Physical Exam Vital Signs: Vital Signs: Last Vital Signs Temp 98.6 F 04/04/23 00:15 Pulse 112 H 04/04/23 00:15 Resp 20 04/04/23 00:15 BP 166/107 H 04/04/23 00:15 Pulse Ox 98 04/04/23 00:15 O2 Del Method Room Air 04/04/23 00:15 BMI result Body Mass Index 39.3 Appearance: Alert. Oriented X3. anxious acute distress. deep breaths Eyes: Pupils equal, round and reactive to light. ENT: Pharynx normal. Neck: Normal inspection. Neck supple. CVS: tachycardic heart rate and rhythm. Pulses normal. Respiratory: No respiratory distress. Breath sounds normal. Abdomen: Soft and non-tender. Skin: Skin warm and dry. Normal skin color. Normal skin turgor. Extremities: No lower extremity edema. No calf ttp Neuro: Oriented X 3. No motor deficit. No sensory deficit. Course Course Course Narrative: VS improved resting feels much better will observe for a little bit longer but if symptoms and VS remain stable will send home with no alcohol and and low dose PRN metoprolol if this happens again Medications Administered Discontinued Medications Generic Name Dose Route Start Last Admin Trade Name Freq PRN Reason Stop Dose Admin Sodium Chloride 1,000 mls @ 999 mls/hr 04/04/23 00:15 04/04/23 00:48 Ns IVCONT 04/04/23 01:15 999 mls/hr .Q1H1M HOLLI Administration Lorazepam 1 mg 04/04/23 00:15 04/04/23 00:46 Lorazepam 2 Mg/Ml Vial IVPUSH 04/04/23 00:16 1 mg STAT STA Administration Medical Decision Making Medical Decision Making MDM Narrative: 32 yo female with PMH of HTN, kidney stones - here with c/o drinking a cup of wine then had her HR elevated with anxiety and sense of doom, notes this happened another time she drank this wine. No cocaine use. Was found to be in SVT per EMS broke with vagle maneuvers. At this time will obtain labs, lytes, TSH - IVF and IV ativan for anxiety ordered. Differential Diagnosis Differential Diagnoses: The differential diagnosis associated with the presentation includes SVT, lyte abnormality, stress reaction Admission/Observation Consideration of admission/observation: Escalation of care including admission/observation considered converted can be managed at home Lab Data [facility] Lab Attestation statement: I reviewed the patient's lab results. trop and ddimer negative 04/04/23 00:31 04/04/23 00:31 Labs: Lab Results 04/04/23 Range/Units 00:31 WBC 10.9 H (4.8-10.8) X10*3/uL RBC 5.81 H (4.20-5.50) X10*6/uL Hgb 11.9 L (12.0-16.0) g/dl Hct 38.1 (37.0-47.0) % MCV 65.6 L (80.0-98.0) fL MCH 20.5 L (27.0-33.0) pg MCHC 31.2 (31.0-35.0) g/dl RDW 19.1 H (11.0-16.0) % Plt Count 258 (160-400) X10*3/uL MPV 10.4 (9.4-12.3) fL Immature Gran % (Auto) 0.7 H (0.0-0.4) % Neut % (Auto) 54.9 (45-73) % Lymph % (Auto) 33.6 (20-40) % [place] % (Auto) 6.8 (2-11) % Eos % (Auto) 3.5 (0-4) % Baso % (Auto) 0.5 (0-2) % Lymph # (Auto) 3.7 (1.2-4.9) X10*3/uL [place] # (Auto) 0.7 (0.1-1.2) X10*3/uL Eos # (Auto) 0.4 (0.0-0.4) X10*3/uL Baso # (Auto) 0.1 (0.0-0.2) X10*3/uL Abs Immat Gran (auto) 0.08 H (0.00-0.03) X10*3/uL Absolute Neuts (auto) 6.0 (2.0-8.3) x10*3/uL Absolute Nucleated RBC 0.000 (0.0-0.012) X10*3/uL Nucleated RBC % (auto) 0.0 (0.0-0.2) /100WBC D-Dimer High Sensitivty < 150 NG/ML Sodium 141 (135-145) mmol/L Potassium 3.4 (3.3-5.1) mmol/L Chloride 105 (96-108) mmol/L Carbon Dioxide 26 (22-29) mmol/L Anion Gap 13 (12-20) BUN 9 (9-16) mg/dL Creatinine 0.89 (0.5-1.4) mg/dL Estim Creat Clear Calc 96.1 Estimated GFR > 60 Random Glucose 118 H (60-115) mg/dL Calcium 9.2 (8.4-10.2) mg/dL Magnesium 1.9 (1.6-2.6) mg/dL Total Bilirubin 0.2 (0.0-1.0) mg/dL Direct Bilirubin < 0.2 (0.0-0.5) mg/dL AST 19 (5-31) U/L ALT 31 (0-31) U/L Alkaline Phosphatase 71 (39-117) U/L Troponin I High Sens < 2.7 (<3.5-17.0) ng/L Total Protein 7.8 (6.5-8.0) g/dL Albumin 4.4 (3.5-5.0) g/dL TSH 6.78 H (0.32-4.0) uIU/mL Beta HCG, Quant < 2 mIU/mL Ethyl Alcohol < 10 mg/dL Independent Interpretation I performed an independent interpretation of an: EKG Interpretation: Rate: 93 Rhythm: NSR [place]: normal Normal P waves. Normal LEÓN. Normal QRS complex. ST T wave : inverted t wave III, normal no ALEKSEY qTC: normal prior studies: no acute ischemia The study has been interpreted contemporaneously by me. . Independent Historian Clinical information obtained from an independent historian. History obtained from or confirmed by: EMS External Record Review External record reviewed: Inpatient record Prescription Management I considered prescription management with: Other Discharge Plan Discharge Clinical Impression: SVT (supraventricular tachycardia) Patient Disposition: Still a Patient Instructions: Supraventricular Tachycardia (ED) Additional Instructions: no alcohol. if this happens again you can take a dose of metoprolol 25mg only once and wait. call 911 if no improvements, chest pain, shortness of breath, dizziness, blood pressure below 100 or any other concerns. you should follow up with your doctor or cardiology for holter monitor. rest today and stay hydrated. Prescriptions: New metoprolol tartrate 25 mg tablet 25 mg PO ONCE PRN (Reason: SVT) Qty: 10 0RF Rx Instructions: take one for SVT symptoms HR over 150 with symptoms. one dose every 24 hours. No Action tamsulosin 0.4 mg capsule 0.4 mg PO BEDTIME 14 Days Qty: 14 0RF tamsulosin 0.4 mg capsule 0.4 mg PO BEDTIME 14 Days Qty: 14 0RF phenazopyridine [Pyridium] 100 mg tablet 100 mg PO TID PRN (Reason: Spasm) 4 Days Qty: 12 0RF cefuroxime axetil 250 mg tablet 250 mg PO BID 7 Days Qty: 14 0RF polyethylene glycol 3350 [Miralax] 17 gram/dose powder 17 g PO DAILY Qty: 510 0RF ibuprofen 600 mg tablet 600 mg PO Q6H PRN (Reason: fever or pain) Qty: 30 0RF pyridoxine (vitamin B6) 50 mg tablet 50 mg PO DAILY 90 Days Qty: 90 1RF allopurinol 100 mg tablet 100 mg PO DAILY 90 Days Qty: 90 1RF ciprofloxacin HCl 500 mg tablet 500 mg PO BID 5 Days Qty: 10 0RF amlodipine 5 mg tablet 5 mg PO DAILY lisinopril 20 mg tablet 20 mg PO DAILY norethindrone (contraceptive) 0.35 mg tablet 0.35 mg PO DAILY hydroxyzine HCl 25 mg tablet 25 mg PO TID cetirizine 10 mg tablet 10 mg PO DAILY Referrals: Aron Brian MD [Physician] - (call to schedule appointment ) Stand Alone Forms: Work/School Release
[2023-04-04 00:53] VITALS: PULSE 108
[2023-04-04 01:31] VITALS: BP 136/86; PULSE 95; RESP 15
[2023-04-04 02:12] VITALS: BP 125/81; PULSE 83; RESP 16; O2SAT 98
== END 2023-04-04 02:37 | disposition still patient (30) ==
PROVIDERS: Emergency Provider Emergency Medicine
DX: I47.10 Supraventricular tachycardia, unspecified (principal); F41.9 Anxiety disorder, unspecified; I10 Essential (primary) hypertension; Z79.899 Other long term (current) drug therapy
CPT/HCPCS: 36415; 80048; 80076; 80307; 83735; 84439; 84443; 84484; 84702; 85025; 85379; 93005; 96361; 96374; 96375; 99284; 99285; J2060

== ENCOUNTER → 2023-04-04 00:17 | Outpatient (BNV) | payer MEDICAID, SELFPAY | PROVIDERS: Emergency Provider Emergency Medicine; Visit Provider Internal Medicine Cardiovascular Disease | DX: R00.0 Tachycardia, unspecified (principal) | CPT/HCPCS: 93010 ==

== ENCOUNTER 2023-06-11 14:47 | Emergency (ER) | payer MEDICAID, SELFPAY ==
--- NOTE | ~2023-06-11 | CT_ITS ---
EXAMINATION: CT ABDOMEN AND PELVIS WITHOUT CONTRAST CLINICAL INFORMATION: Right flank pain. COMPARISON: 02/18/2023 and 11/09/2022 TECHNIQUE: Multidetector volumetric imaging was performed from the superior aspect of the liver through the pubic symphysis. Sagittal and coronal reformatted images were obtained on the technologist's workstation. This CT examination was performed using dose optimization techniques as appropriate, variously including the following: *Automated exposure control *Adjustment of mA and/or kV according to patient size (this includes techniques or standardized protocols for targeted exams where dose is matched to indication/reason for exam; i.e. extremities or head) *Use of iterative reconstruction technique DLP: 746 mGy-cm FINDINGS: LUNG BASES: The visualized lung bases are unremarkable. LIVER, GALLBLADDER, AND BILIARY TREE: The noncontrast liver is decreased in attenuation. No biliary ductal dilatation is present. The gallbladder is contracted. PANCREAS: No ductal dilatation. SPLEEN: Not enlarged. ADRENAL GLANDS: No adrenal mass. KIDNEYS AND URETERS: The kidneys are symmetric in size. 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 There are several bilateral 1 to 4 mm nonobstructing renal calculi. No ureteral calculus. No hydronephrosis or perinephric fluid collection. BLADDER: Decompressed. GASTROINTESTINAL TRACT: No small bowel obstruction. ABDOMINAL WALL: No significant hernia is appreciated. LYMPH NODES: No bulky lymphadenopathy. VASCULAR: Normal caliber abdominal aorta. PELVIC VISCERA: Possible cervical wall thickening. OSSEOUS STRUCTURES: No destructive bone lesions. CT/CT abdomen pelvis wo IV con IMPRESSION: Medullary nephrocalcinosis. Nonobstructing 1 to 4 mm bilateral renal calculi. No hydronephrosis. Hepatic steatosis. Possible cervical wall thickening.
[2023-06-11 14:57] VITALS: BP 146/90; PULSE 68; RESP 17; TEMP 37.1; O2SAT 98; BMI 38.1
--- NOTE | 2023-06-11 14:57 | ED.GENADULT ---
HPI - General Adult General Chief complaint: Back Pain/Injury Stated complaint: Lower back/abd pain Time Seen by Provider: 06/11/23 21:03 Source: patient and old records reviewed Mode of arrival: ambulatory Limitations: no limitations History of Present Illness HPI narrative: 33 yo female with PMH of HTN and kidney stones here with months or sharp R low back pain with radiation down the R leg worse with moving and lifting. No numbness, weakness, loss of control of bowel or bladder. MD complaint: back pain Onset (ago): month(s) Location: back Radiation: extremity Severity: moderate Quality: sharp Pain Consistency: intermittent Relieving factors: none Exacerbating factors: movement Associated symptoms: denies other symptoms Treatments prior to arrival: none Related Data Home Medications Medication Instructions Recorded Confirmed amlodipine 5 mg tablet 5 mg PO DAILY 07/28/22 11/05/22 lisinopril 20 mg tablet 20 mg PO DAILY 07/28/22 11/05/22 norethindrone (contraceptive) 0.35 0.35 mg PO DAILY 07/28/22 11/05/22 mg tablet cetirizine 10 mg tablet 10 mg PO DAILY 10/09/22 11/05/22 hydroxyzine HCl 25 mg tablet 25 mg PO TID 10/09/22 11/05/22 Previous Rx's Medication Instructions Recorded tamsulosin 0.4 mg capsule 0.4 mg PO BEDTIME 14 days #14 caps 09/08/22 phenazopyridine 100 mg tablet 100 mg PO TID PRN Spasm 4 days #12 10/27/22 (Pyridium) tabs tamsulosin 0.4 mg capsule 0.4 mg PO BEDTIME 14 days #14 caps 10/27/22 allopurinol 100 mg tablet 100 mg PO DAILY 90 days #90 tabs 11/05/22 ciprofloxacin HCl 500 mg tablet 500 mg PO BID 5 days #10 tabs 11/05/22 pyridoxine (vitamin B6) 50 mg 50 mg PO DAILY 90 days #90 tabs 11/05/22 tablet cefuroxime axetil 250 mg tablet 250 mg PO BID 7 days #14 tabs 11/09/22 ibuprofen 600 mg tablet 600 mg PO Q6H PRN fever or pain 11/09/22 #30 tabs polyethylene glycol 3350 17 17 g PO DAILY #510 grams 11/09/22 gram/dose oral powder (Miralax) metoprolol tartrate 25 mg tablet 25 mg PO ONCE PRN SVT #10 tabs 04/04/23 cyclobenzaprine 10 mg tablet 10 mg PO TID PRN muscle spasm #20 06/11/23 tabs lidocaine 4 % topical patch 1 patch topical DAILY PRN pain #10 06/11/23 ea Allergies Allergy/AdvReac Type Severity Reaction Status Date / Time tramadol AdvReac Vomiting Verified 06/11/23 14:56 Review of Systems Review of Systems: Constitutional : No Weight loss, No Fever, No Chills, ENT/Mouth : No Hearing loss, No Ear Pain, No Nasal Congestion, No Sinus Pain, No Hoarseness, No sore throat, No Rhinorrhea, No Swallowing Difficulty Cardiovascular : No Chest Pain, No SOB Respiratory : No Cough, No Dyspnea Gastrointestinal : No Nausea, No Vomiting, No Diarrhea, No abdominal Pain, No Hematochezia, No Melena Genitourinary : No Dysuria, No Urinary Frequency, No Hematuria, No Urinary Incontinence, Musculoskeletal : positive back pain Skin : No Skin Lesions, No rash Neuro : No Weakness, No Numbness, No Paresthesias, no loss of bowel or bladder incontinence, no saddle anesthesia all other systems reviewed and are negative PMFSH Past Medical History Attestation statement: The following information was validated with the patient. Source: old records reviewed Medical History HTN (hypertension) Left flank pain COVID-19 Surgical History No pertinent past surgical history Social History Social History Alcohol intake: current Alcohol intake frequency: holidays/special occasions only Alcohol type: wine Patient Tobacco Use Status: Never used Tobacco Substance Use Type: Marijuana Advance Directives: No Advance Directives Information Provided: No Physical Exam ED Vital Signs: Vital Signs - 24 hr 06/11/23 14:57 06/11/23 19:16 06/11/23 21:24 Temperature 98.7 F 98.0 F 97.9 F Pulse Rate 68 65 68 Respiratory Rate 17 16 16 Blood Pressure 146/90 H 156/96 H 158/95 H Pulse Oximetry 98 100 99 Oxygen Delivery Method Room Air Room Air Room Air BMI result Body Mass Index 38.1 Appearance: Alert. Oriented X3. No acute distress. Eyes: Pupils equal, round and reactive to light. ENT: Pharynx normal. Neck: Normal inspection. Neck supple. CVS: Normal heart rate and rhythm. Pulses normal. Respiratory: No respiratory distress. Breath sounds normal. Abdomen: Soft and nontender. Back: ttp along r lower lumbar area no mildine ttp Skin: Skin warm and dry. Normal skin color. Normal skin turgor. Extremities: No lower extremity edema. No calf ttp Neuro: Oriented X 3. No motor deficit. No sensory deficit. Course Course Course Narrative: This is an RME: Additional HPI, ROS, PE not included below will be deferred to primary provider. 33-year-old female history of kidney stones, pyelonephritis, hypertension presenting with complaints of right-sided flank pain with radiation to abdomen and decreased urination for the past 3 days, patient reports she has a history of kidney stones and has had surgical procedures in the past to get them removed. Patient reports this feels similar To the time she would kidney stones. Plan labs, imaging, urine Medical Decision Making Medical Decision Making [facility] Narrative: 33 yo female with PMH of HTN and renal colic here with months of back pain it is radicular but no b/b incontinence no saddle anesthesia she is NV intact at this time will need labs, CT scan for renal colic. I suspect more MSK given the nature. She is not toxic appearing well hydrated. PO medications ordered for pain. Differential Diagnosis Differential Diagnoses: The differential diagnosis associated with the presentation includes renal colic, back strain, disc herniation Admission/Observation Consideration of admission/observation: Escalation of care including admission/observation considered not toxic, tolerating PO pain for one month stable for DC Lab Data [facility] Lab Attestation statement: I reviewed the patient's lab results. 06/11/23 15:18 06/11/23 15:18 Labs: Lab Results 06/11/23 06/11/23 Range/Units 15:14 15:18 WBC 10.8 (4.8-10.8) X10*3/uL RBC 5.64 H (4.20-5.50) X10*6/uL Hgb 11.4 L (12.0-16.0) g/dl Hct 36.5 L (37.0-47.0) % MCV 64.7 L (80.0-98.0) fL MCH 20.2 L (27.0-33.0) pg MCHC 31.2 (31.0-35.0) g/dl RDW 17.2 H (11.0-16.0) % Plt Count 278 (160-400) X10*3/uL MPV 11.1 (9.4-12.3) fL Immature Gran % (Auto) 0.6 H (0.0-0.4) % Neut % (Auto) 63.6 (45-73) % Lymph % (Auto) 23.6 (20-40) % [place] % (Auto) 7.6 (2-11) % Eos % (Auto) 4.0 (0-4) % Baso % (Auto) 0.6 (0-2) % Lymph # (Auto) 2.6 (1.2-4.9) X10*3/uL [place] # (Auto) 0.8 (0.1-1.2) X10*3/uL Eos # (Auto) 0.4 (0.0-0.4) X10*3/uL Baso # (Auto) 0.1 (0.0-0.2) X10*3/uL Abs Immat Gran (auto) 0.07 H (0.00-0.03) X10*3/uL Absolute Neuts (auto) 6.9 (2.0-8.3) x10*3/uL Absolute Nucleated RBC 0.000 (0.0-0.012) X10*3/uL Nucleated RBC % (auto) 0.0 (0.0-0.2) /100WBC Sodium 141 (135-145) mmol/L Potassium 3.5 (3.3-5.1) mmol/L Chloride 108 (96-108) mmol/L Carbon Dioxide 24 (22-29) mmol/L Anion Gap 13 (12-20) BUN 8 L (9-16) mg/dL Creatinine 0.75 (0.5-1.4) mg/dL Estim Creat Clear Calc 115.3 Estimated GFR > 60 Random Glucose 113 (60-115) mg/dL Calcium 9.0 (8.4-10.2) mg/dL Total Bilirubin 0.2 (0.0-1.0) mg/dL AST 18 (5-31) U/L ALT 25 (0-31) U/L Alkaline Phosphatase 69 (39-117) U/L Total Protein 7.2 (6.5-8.0) g/dL Albumin 3.9 (3.5-5.0) g/dL Beta HCG, Quant < 2 mIU/mL Urine Color Yellow Urine Appearance Cloudy Urine pH 6.5 (5.0-9.0) Ur Specific [place] 1.020 (1.005-1.025) Urine Protein Negative (Neg-Trace) mg/dL Urine Glucose (UA) Negative (Negative) mg/dL Urine Ketones Negative (Negative) mg/dL Urine Blood Small (1+) H (Negative) Urine Nitrite Negative (Negative) Ur Leukocyte Esterase Negative (Negative) Urine RBC 11-20 H (0-2) /HPF Urine WBC 0-5 (0-5) /HPF Ur Squamous Epith Cells 11-20 (0-2) /HPF Urine Bacteria 1+ (None Seen) Hyaline Casts 0-2 (0-2) /LPF Independent Interpretation I performed an independent interpretation of an: CT Scan (no obstructing stone) Radiology Impression Discussion of test interpretation with radiology: I have reviewed the radiologist's reading. External Record Review External record reviewed: Inpatient record Prescription Management I considered prescription management with: Pain Medication and Other Discharge Plan Discharge Clinical Impression: Lumbar radiculopathy Patient Disposition: Home, Self-Care Instructions: Acute Low Back Pain (ED), Lumbar Radiculopathy (ED) Additional Instructions: follow up with your doctor Thursday as planned. rest and stay hydrated. return for numbness, weakness, loss of control of bowel or bladder, or any other concerns. chronic kidney stones but no stones have moved and no obstruction Prescriptions: New cyclobenzaprine 10 mg tablet 10 mg PO TID PRN (Reason: muscle spasm) Qty: 20 0RF lidocaine 4 % adhesive patch,medicated 1 patch topical DAILY PRN (Reason: pain) Qty: 10 0RF Rx Instructions: may leave on for up to 12 hrs No Action tamsulosin 0.4 mg capsule 0.4 mg PO BEDTIME 14 Days Qty: 14 0RF tamsulosin 0.4 mg capsule 0.4 mg PO BEDTIME 14 Days Qty: 14 0RF phenazopyridine [Pyridium] 100 mg tablet 100 mg PO TID PRN (Reason: Spasm) 4 Days Qty: 12 0RF metoprolol tartrate 25 mg tablet 25 mg PO ONCE PRN (Reason: SVT) Qty: 10 0RF Rx Instructions: take one for SVT symptoms HR over 150 with symptoms. one dose every 24 hours. cefuroxime axetil 250 mg tablet 250 mg PO BID 7 Days Qty: 14 0RF polyethylene glycol 3350 [Miralax] 17 gram/dose powder 17 g PO DAILY Qty: 510 0RF ibuprofen 600 mg tablet 600 mg PO Q6H PRN (Reason: fever or pain) Qty: 30 0RF pyridoxine (vitamin B6) 50 mg tablet 50 mg PO DAILY 90 Days Qty: 90 1RF allopurinol 100 mg tablet 100 mg PO DAILY 90 Days Qty: 90 1RF ciprofloxacin HCl 500 mg tablet 500 mg PO BID 5 Days Qty: 10 0RF amlodipine 5 mg tablet 5 mg PO DAILY lisinopril 20 mg tablet 20 mg PO DAILY norethindrone (contraceptive) 0.35 mg tablet 0.35 mg PO DAILY hydroxyzine HCl 25 mg tablet 25 mg PO TID cetirizine 10 mg tablet 10 mg PO DAILY Stand Alone Forms: Work/School Release
[2023-06-11 15:23] LABS: MANUAL DIFF FLAG NO
[2023-06-11 15:25] LABS: Appearance Urine Cloudy; Color Urine Yellow; Glucose Urine UA Negative (Negative); Leukocyte Esterase Urine Negative (Negative); Nitrite Urine Negative (Negative); PH 6.5 (5.0-9.0); UMIC TRIGGER UACC YES; Urine Blood Small (1+) (Negative); Urine Ketones Negative (Negative); Urine Protein Negative (Neg-Trace)
[2023-06-11 15:28] LABS: Bacteria Urine 1+ (None Seen); Hyaline Casts Urine 0-2 /LPF (0-2); WBC Urine 0-5 /HPF (0-5)
[2023-06-11 15:29] LABS: Basophils Absolute Auto 0.1 X10*3/uL (0.0-0.2); Basophils Percent Auto 0.6 % (0-2); Eosinophils Absolute Auto 0.4 X10*3/uL (0.0-0.4); Hematocrit 36.5 % (37.0-47.0); Hemoglobin 11.4 g/dl (12.0-16.0); Imm Gran Abs Auto 0.07 X10*3/uL (0.00-0.03); Imm Gran Pct Auto 0.6 % (0.0-0.4); Lymphocytes Absolute Auto 2.6 X10*3/uL (1.2-4.9); Lymphocytes Percent Auto 23.6 % (20-40); Mean Corpuscular HGB Conc 31.2 g/dl (31.0-35.0); Mean Corpuscular Hemoglobin 20.2 pg (27.0-33.0); Mean Corpuscular Volume 64.7 fL (80.0-98.0); Mean Platelet Volume 11.1 fL (9.4-12.3); Monocytes Absolute Auto 0.8 X10*3/uL (0.1-1.2); Monocytes Percent Auto 7.6 % (2-11); Neutrophils Absolute Auto 6.9 x10*3/uL (2.0-8.3); Neutrophils Percent Auto 63.6 % (45-73); Platelet Count 278 X10*3/uL (160-400); Red Blood Count 5.64 X10*6/uL (4.20-5.50); Red Cell Distribution Width 17.2 % (11.0-16.0); White Blood Count 10.8 X10*3/uL (4.8-10.8)
[2023-06-11 15:39] LABS: Alanine Aminotransferase 25 U/L (0-31); Albumin Level 3.9 g/dL (3.5-5.0); Alkaline Phosphatase 69 U/L (39-117); Anion Gap 13 (12-20); Aspartate Amino Transferase 18 U/L (5-31); Bilirubin Total 0.2 mg/dL (0.0-1.0); Blood Urea Nitrogen 8 mg/dL (9-16); Carbon Dioxide 24 mmol/L (22-29); Chloride 108 mmol/L (96-108); Creatinine Clr Calc Pharmacy 115.3; Estimated Glomerular Filt Rate > 60; Glucose Random 113 mg/dL (60-115); Potassium 3.5 mmol/L (3.3-5.1); Sodium 141 mmol/L (135-145); Total Protein 7.2 g/dL (6.5-8.0)
[2023-06-11 15:48] LABS: HCG Quantitative < 2 mIU/mL
[2023-06-11 19:16] VITALS: BP 156/96; PULSE 65; RESP 16; TEMP 36.7; O2SAT 100
[2023-06-11 21:24] VITALS: BP 158/95; PULSE 68; RESP 16; TEMP 36.6; O2SAT 99
[2023-06-11 21:52] VITALS: BP 158/95; PULSE 68; RESP 16; TEMP 36.6; O2SAT 99
== END 2023-06-11 21:54 | disposition home or self-care (01) ==
PROVIDERS: Physician Assistant; Emergency Provider Emergency Medicine
DX: M54.16 Radiculopathy, lumbar region (principal); M54.50 Low back pain, unspecified; M79.604 Pain in right leg; R10.9 Unspecified abdominal pain; Z79.899 Other long term (current) drug therapy
CPT/HCPCS: 36415; 74176; 80053; 81001; 84702; 85025; 99283; 99284

== ENCOUNTER 2023-08-28 22:39 | Emergency (ER) | payer MEDICAID, SELFPAY ==
--- NOTE | ~2023-08-28 | XR_ITS ---
EXAMINATION: XR CHEST CLINICAL INFORMATION: Productive cough. COMPARISON: None available. TECHNIQUE: 2 views of the chest were obtained. FINDINGS: Cardiac silhouette is normal in size. The lungs are clear. Pleural spaces are clear. No pneumothorax. No acute osseous abnormality. XR/XR chest 2V IMPRESSION: No acute cardiopulmonary disease.
[2023-08-28 22:42] VITALS: BP 147/93; PULSE 89; RESP 18; TEMP 36.9; O2SAT 98; BMI 39.1
--- NOTE | 2023-08-28 23:25 | ED.URI ---
HPI - URI/Sore Throat General Chief Complaint: Upper Respiratory Symptoms Stated Complaint: asthma, cough Time Seen by Provider: 08/28/23 23:22 Source: patient Mode of arrival: ambulatory Limitations: no limitations History of Present Illness ED Provider: Dari Edwards PA-C HPI Narrative: 33 yo female with history of asthma, HTN, kidney stones who presents to the ER for evaluation of cough productive of green phlegm that started yesterday. Patient states she has headache, body aches, diarrhea, generally not feeling well. She has history of asthma and uses her inhaler as needed but has not required it. She denies any wheezing. She states she is coughing a lot, more at night. She has not having any difficulty breathing or chest pain. No abdominal pain. No known sick contacts. She has seasonal allergies but this feels different. She is on medication for seasonal allergies and has been compliant. MD elicited complaint: cough Pertinent past history: asthma and seasonal allergies Onset (ago): day(s) (1) Consistency: progressively worsening Severity: moderate Description of mucous: green Able to tolerate fluids by mouth: Yes Exacerbating factors: supine positioning Relieving factors: NSAID Associated symptoms: myalgias, headache, nasal congestion, sore throat, cough and diarrhea Treatments prior to arrival: none Related Data Home Medications ?Medication ?Instructions ?Recorded ?Confirmed amlodipine 5 mg tablet 5 mg PO DAILY 07/28/22 11/05/22 lisinopril 20 mg tablet 20 mg PO DAILY 07/28/22 11/05/22 norethindrone (contraceptive) 0.35 0.35 mg PO DAILY 07/28/22 11/05/22 mg tablet cetirizine 10 mg tablet 10 mg PO DAILY 10/09/22 11/05/22 hydroxyzine HCl 25 mg tablet 25 mg PO TID 10/09/22 11/05/22 Previous Rx's ?Medication ?Instructions ?Recorded tamsulosin 0.4 mg capsule 0.4 mg PO BEDTIME 14 days #14 caps 09/08/22 phenazopyridine 100 mg tablet 100 mg PO TID PRN Spasm 4 days #12 10/27/22 (Pyridium) tabs tamsulosin 0.4 mg capsule 0.4 mg PO BEDTIME 14 days #14 caps 10/27/22 allopurinol 100 mg tablet 100 mg PO DAILY 90 days #90 tabs 11/05/22 ciprofloxacin HCl 500 mg tablet 500 mg PO BID 5 days #10 tabs 11/05/22 pyridoxine (vitamin B6) 50 mg 50 mg PO DAILY 90 days #90 tabs 11/05/22 tablet cefuroxime axetil 250 mg tablet 250 mg PO BID 7 days #14 tabs 11/09/22 ibuprofen 600 mg tablet 600 mg PO Q6H PRN fever or pain 11/09/22 #30 tabs polyethylene glycol 3350 17 17 g PO DAILY #510 grams 11/09/22 gram/dose oral powder (Miralax) metoprolol tartrate 25 mg tablet 25 mg PO ONCE PRN SVT #10 tabs 04/04/23 cyclobenzaprine 10 mg tablet 10 mg PO TID PRN muscle spasm #20 06/11/23 tabs lidocaine 4 % topical patch 1 patch topical DAILY PRN pain #10 06/11/23 ea azithromycin 250 mg tablet See Rx Instructions PO .COMPLEX #6 08/29/23 (Zithromax Z-Kwabena) tabs Allergies Allergy/AdvReac Type Severity Reaction Status Date / Time tramadol AdvReac Vomiting Verified 08/28/23 22:43 Review of Systems Review of Systems: Yes all other systems are reviewed and are negative [facility] Past Medical History Medical History HTN (hypertension) Left flank pain COVID-19 Surgical History No pertinent past surgical history Social History Social History Alcohol intake: current Alcohol intake frequency: holidays/special occasions only Alcohol type: wine Patient Tobacco Use Status: Never used Tobacco Smoked in Last 30 Days: No Use of substances other than those prescribed or required for medical reasons: No Substance Use Type: Marijuana Advance Directives: No Advance Directives Information Provided: Yes Do you have a plan to hurt others: No Plan Patient : No Physical Exam Vital Signs: Vital Signs: Last Vital Signs Temp 98.2 F 08/29/23 00:10 Pulse 78 08/29/23 00:10 Resp 18 08/29/23 00:10 BP 148/83 H 08/29/23 00:10 Pulse Ox 98 08/29/23 00:10 O2 Del Method Room Air 08/29/23 00:10 BMI result Body Mass Index 39.1 Appearance: Alert. Oriented X3. No acute distress. Head: normocephalic, atraumatic. Eyes: Pupils equal, round and reactive to light. ENT: Pharynx normal. No tonsillar swelling or exudate. Neck: Normal inspection. Neck supple. CVS: Normal heart rate and rhythm. Pulses normal. Respiratory: No respiratory distress. Breath sounds normal. Congested cough, no wheezing or rhonchi. Abdomen: Soft and nontender. +BS x4 Skin: Skin warm and dry. Normal skin color. Normal skin turgor. No rashes. Extremities: No lower extremity edema. No joint swelling. Neuro/psych: Oriented X 3. Grossly normal, nonfocal. Medications Administered Discontinued Medications Generic Name Dose Route Start Last Admin Trade Name Freq PRN Reason Stop Dose Admin Guaifenesin 1,200 mg 08/28/23 23:46 08/28/23 23:51 Guaifenesin La 600 Mg Tab.Er.12h PO 08/28/23 23:47 1,200 mg ONCE ONE Administration Medical Decision Making Medical Decision Making [facility] Narrative: 33-year-old female, nonsmoker with a history of mild intermittent asthma presenting to the ER for evaluation of productive cough of green phlegm since yesterday. Her vital signs are stable and her exam is unremarkable. No wheezing to suggest asthma exacerbation. Clinical presentation most consistent with a viral URI versus bronchitis. Given her asthma history will start her on a course of azithromycin, Mucinex, [id number] cold and flu medications. She was advised to rest and drink plenty of fluids. She is stable for discharge home with supportive care. Patient agrees with plan. Differential Diagnosis Differential Diagnoses: The differential diagnosis associated with the presentation includes strep, covid, flu, rsv, other viral syndrome, bronchitis, pneumonia, no evidence of peritonsillar abcsess or retropharyngeal abscess Lab Data [facility] Lab Attestation statement: I reviewed the patient's lab results. Labs: Lab Results 08/28/23 Range/Units 23:18 Influenza Type A (PCR) NEGATIVE (Negative) Influenza Type B (PCR) NEGATIVE (Negative) RSV RNA Qual (PCR) NEGATIVE (Negative) SARS-CoV-2 RNA (RT-PCR) NEGATIVE (Negative) Independent Interpretation I performed an independent interpretation of an: Plain X-Ray Interpretation: No focal infiltrate or evidence of pneumonia Radiology Impression Discussion of test interpretation with radiology: I have reviewed the radiologist's reading. Radiologist Impression: EXAMINATION: XR CHEST CLINICAL INFORMATION: Productive cough. COMPARISON: None available. TECHNIQUE: 2 views of the chest were obtained. FINDINGS: Cardiac silhouette is normal in size. The lungs are clear. Pleural spaces are clear. No pneumothorax. No acute osseous abnormality. XR/XR chest 2V IMPRESSION: No acute cardiopulmonary disease. External Record Review External record reviewed: Prior outpatient labs and Prior outpatient radiology Prescription Management I considered prescription management with: Pain Medication and Antibiotic Chronic Conditions Patient?s care impacted by: Other (Asthma) Critical Care Time Critical Care Time Critical Care Time: No Discharge Plan Discharge Clinical Impression: Bronchitis Patient Disposition: Home, Self-Care Instructions: Acute Bronchitis (ED) Additional Instructions: Your chest x-ray was normal. Your tested for COVID, flu, RSV-if any of these tests come back positive we will call you. If it is negative you will not hear from us. Take the prescribed antibiotics as directed, complete the entire course and do not miss any doses Recommend [id number] Mucinex 1200 mg 2 times a day for the next 5 days. Take jris-fls-[id number] DayQuil and NyQuil for your symptoms. Rest and drink plenty of fluids. Follow-up with your doctor as needed. If you develop new or worsening symptoms call 911 or come back to the ER for further evaluation. Prescriptions: New azithromycin [Zithromax Z-Kwabena] 250 mg tablet See Rx Instructions .ROUTE .COMPLEX Qty: 6 0RF Rx Instructions: take 500 mg today (day 1), then 250 mg for 4 days (days 2-5) No Action tamsulosin 0.4 mg capsule 0.4 mg PO BEDTIME 14 Days Qty: 14 0RF tamsulosin 0.4 mg capsule 0.4 mg PO BEDTIME 14 Days Qty: 14 0RF phenazopyridine [Pyridium] 100 mg tablet 100 mg PO TID PRN (Reason: Spasm) 4 Days Qty: 12 0RF metoprolol tartrate 25 mg tablet 25 mg PO ONCE PRN (Reason: SVT) Qty: 10 0RF Rx Instructions: take one for SVT symptoms HR over 150 with symptoms. one dose every 24 hours. cefuroxime axetil 250 mg tablet 250 mg PO BID 7 Days Qty: 14 0RF polyethylene glycol 3350 [Miralax] 17 gram/dose powder 17 g PO DAILY Qty: 510 0RF ibuprofen 600 mg tablet 600 mg PO Q6H PRN (Reason: fever or pain) Qty: 30 0RF cyclobenzaprine 10 mg tablet 10 mg PO TID PRN (Reason: muscle spasm) Qty: 20 0RF lidocaine 4 % adhesive patch,medicated 1 patch topical DAILY PRN (Reason: pain) Qty: 10 0RF Rx Instructions: may leave on for up to 12 hrs pyridoxine (vitamin B6) 50 mg tablet 50 mg PO DAILY 90 Days Qty: 90 1RF allopurinol 100 mg tablet 100 mg PO DAILY 90 Days Qty: 90 1RF ciprofloxacin HCl 500 mg tablet 500 mg PO BID 5 Days Qty: 10 0RF amlodipine 5 mg tablet 5 mg PO DAILY lisinopril 20 mg tablet 20 mg PO DAILY norethindrone (contraceptive) 0.35 mg tablet 0.35 mg PO DAILY hydroxyzine HCl 25 mg tablet 25 mg PO TID cetirizine 10 mg tablet 10 mg PO DAILY Referrals: [facility] [Primary Care Provider] - Interventions: ED Discharge Assessment Last Done: 08/29/23 00:10 Discharge Date/Time: 08/29/23 00:11 Print Language: Khmer
[2023-08-28] MEDS: guaiFENesin LA 600 MG TAB.ER.12H 1200 MG PO (23:51)
[2023-08-29 00:10] VITALS: BP 148/83; PULSE 78; RESP 18; TEMP 36.8; O2SAT 98
[2023-08-29 00:26] LABS: Influenza A PCR NEGATIVE (Negative); Influenza B PCR NEGATIVE (Negative); Resp Syncy Virus RNA Qual PCR NEGATIVE (Negative); SARS COV2 PCR INHOUSE NEGATIVE (Negative)
== END 2023-08-29 00:11 | disposition home or self-care (01) ==
PROVIDERS: Emergency Provider Emergency Medicine Emergency Medical Services
DX: J40 Bronchitis, not specified as acute or chronic (principal); J45.20 Mild intermittent asthma, uncomplicated; I10 Essential (primary) hypertension
CPT/HCPCS: 0241U; 71046; 99283; 99284

== ENCOUNTER 2023-10-13 16:43 | Outpatient (REF) | payer MEDICAID, SELFPAY ==
--- NOTE | ~2023-10-13 | XR_ITS ---
EXAMINATION: XR ABDOMEN KUB CLINICAL INDICATION: Renal stone. COMPARISON: None available. TECHNIQUE: AP view of the abdomen. 2 views upper and lower abdomen and pelvis. FINDINGS: Small calcific density projecting over the lower calyx left kidney 3 mm possibly a kidney stone. The bowel gas pattern is normal with no evidence of ileus or obstruction. No unusual soft tissue calcifications are noted. The bones are unremarkable. XR/XR KUB IMPRESSION: Small calcific density projecting over the lower calyx left kidney 3 mm possibly a kidney stone.
== END 2023-10-13 16:44 | disposition home or self-care (01) ==
LOC: HO.XRAY 16:43
PROVIDERS: PCP Family Medicine; Visit Provider Urology
DX: N20.0 Calculus of kidney (principal)
CPT/HCPCS: 74018

== ENCOUNTER 2023-11-24 09:01 | Outpatient (AMB) | payer MEDICAID, SELFPAY ==
--- NOTE | 2023-11-24 09:25 | MHC.OFFVIS ---
Intake Visit Reasons: X-Ray follow up(Kidney Stone) Intake Note: Patient is present for X-RAY F/U(Kidney Stones) Urology Med: Tamsulosin,pyridium,allopurinol,vitamin B6 Antibiotic Allergy: None Blood Thinner: None Consultant Intern Required: No Allergies tramadol Adverse Reaction (Verified 01/11/24 11:56) Vomiting Medication List - Last Reconciled 11/24/23 by Wesly Smyth MD pyridoxine (vitamin B6) 50 mg PO DAILY 90 days HPI Comments Details: Nighat is a pleasant female. She is a patient of . She is seen for the following urologic conditions - nephrolithiasis Stone follow-up Imaging - KUB possible small stone left side Stone composition consistent with prior procedure Continue with vitamin B6 and allopurinol Twelve month follow-up nurse-practitioner Nephrolithiasis Presentation to emergency room with past history of nephrolithiasis Imaging - 08/19 CT multiple small bilateral calculi left greater than right - 11/20 KUB - small stone Intervention - 09/19 left ureteroscopy - 11/19 right USR Stone composition - 09/19 calcium oxalate monohydrate 80% - 11/19 calcium oxalate monohydrate 80% Laboratories - 09/19 Ca 9.3 Therapeutic plan - may benefit from 24 hour urine PFSH Medical History HTN (hypertension) Left flank pain COVID-19 Surgical History No pertinent past surgical history Social History Alcohol intake: current Alcohol intake frequency: holidays/special occasions only Alcohol type: wine Patient Tobacco Use Status: Never used Tobacco Substance Use Type: Marijuana Review of Systems Const Denies chills and Denies fever(s) Card Reports no additional complaints and Denies syncope Resp Denies cough GI Denies abdominal pain and Denies heartburn Reports as per HPI and Denies change in libido Neuro Denies syncope Psych Denies change in libido Endo Denies change in libido Physical Exam Const General: cooperative, healthy appearing, comfortable and no acute distress Orientation/consciousness: patient oriented x3 HEENT Face and sinus: Yes normal facial exam Mouth: moist mucous membranes Neck Neck: Yes normal visual inspection, Yes full ROM and Yes trachea midline Chest Chest palpation & inspection: normal inspection of the chest Resp Effort & Inspection: normal respiratory effort, able to speak in complete sentences and no respiratory distress GI Inspection: Yes normal to inspection Back/Spine/Pelvis Cervical Spine: normal cervical lordosis Thoracic/Lumbar Spine: thoracic and lumbar spine normal to inspection Skin General skin exam: no rashes or lesions noted Neuro General: patient oriented x3, gait normal, tone normal and moves all extremities Extrem General: Yes normal to inspection and Yes capillary refill normal Results AMB Urinalysis, Automated UA Leukoctes 15 David/uL Last Edit by GINA Mansfield on 11/24/23 09:41 UA Nitrite Negative Last Edit by GINA Mansfield on 11/24/23 09:41 UA Urobilinogen 0.2 mg/dL Last Edit by GINA Mansfield on 11/24/23 09:41 UA Protein 0 mg/dL Last Edit by GINA Mansfield on 11/24/23 09:41 UA pH 6.0 Last Edit by GINA Mansfield on 11/24/23 09:41 UA Blood 0 Damian/uL Last Edit by Bull Dodson CCM on 11/24/23 09:41 UA Specific [place] 1.015 Last Edit by GINA Mansfield on 11/24/23 09:41 UA Ketone Negative Last Edit by GINA Mansfield on 11/24/23 09:41 UA Bilirubin 0 mg/dL Last Edit by GINA Mansfield on 11/24/23 09:41 UA Glucose 0 mg/dL Last Edit by Bull Dodson CCM on 11/24/23 09:41 Results Reviewed Results Reviewed: Laboratory Last Values Urine pH (Auto) 6.0 11/24/23 09:40 Specific [place] (Auto) 1.015 11/24/23 09:40 Urine Protein (Auto) 0 mg/dL 11/24/23 09:40 Glucose (UA)(Auto) 0 mg/dL 11/24/23 09:40 Urine Ketones (Auto) Negative 11/24/23 09:40 Urine Blood (Auto) 0 Damian/uL 11/24/23 09:40 Urine Nitrite (Auto) Negative 11/24/23 09:40 Urine Bilirubin (Auto) 0 mg/dL 11/24/23 09:40 Urine Urobilinogen (Auto) 0.2 mg/dL 11/24/23 09:40 Leukocyte Esterase (Auto) 15 David/uL 11/24/23 09:40 Assessment & Plan Assessment & Plan (1) Nephrolithiasis: Code(s): N20.0 - Calculus of kidney Category: Medical Plan Twelve month follow-up imaging Orders: Orders US renal BI 12 Months N20.0 - Calculus of kidney AMB Urinalysis Automated 11/24/23 Z13.9 - Encounter for screening, unspecified Patient Instructions: Imaging studies, laboratory and physical exam results were discussed and reviewed in detail. No major barriers to patient understanding were identified. An opportunity to ask questions regarding the treatment plan was provided. All questions were answered. The patient expressed understanding and agreement with the above treatment plan. The patient is aware they should contact our office by phone for worsening of their current condition or the appearance of new urologic symptoms. Compliance is encouraged with any medications and followup testing that is ordered. It is a privilege to participate in the urologic care of your patient. If you have any questions or concerns regarding treatment for the above conditions, or other urologic issues, please do not hesitate to contact me. The office telephone contact is [phone]. This note is constructed using voice recognition software. While every effort has been made to ensure accuracy financial institution treasurer errors may have been included. Yours sincerely, Dr Wesly Smyth MD, [facility] - Urology Providers of Expert, Compassionate Care for the Genitourinary System Coding Level of Care Code Est Pt Level 3 (64615) Diagnoses Nephrolithiasis N20.0
== END 2023-11-24 10:20 | disposition home or self-care (01) ==
PROVIDERS: Visit Provider Urology
DX: N20.0 Calculus of kidney (principal)
CPT/HCPCS: 99213

== ENCOUNTER → 2023-11-24 09:01 | Outpatient (BNVA) | payer MEDICAID, SELFPAY | PROVIDERS: Visit Provider Urology | DX: N20.0 Calculus of kidney (principal) | CPT/HCPCS: 81003; 99212 ==

== ENCOUNTER 2024-01-11 11:31 | Emergency (ER) | payer MEDICAID, SELFPAY ==
--- NOTE | 2024-01-11 | ECG_ITS ---
Test Reason : CP Blood Pressure : / mmHG Vent. Rate : 078 BPM Atrial Rate : 078 BPM P-R Int : 160 ms QRS Dur : 086 ms QT Int : 396 ms P-R-T Axes : 031 024 004 degrees QTc Int : 451 ms Normal sinus rhythm with sinus arrhythmia Nonspecific T wave abnormality Abnormal ECG When compared with ECG of 04-APR-2023 00:17, Nonspecific T wave abnormality now evident in Anterior leads Referred By: Generic ED Physician Electronically Signed By:ANDREW HANDLEY
--- NOTE | ~2024-01-11 | XR_ITS ---
EXAMINATION: XR CHEST 2 VIEW CLINICAL INFORMATION: Chest pain COMPARISON: 08/28/2023 TECHNIQUE: PA and lateral views of the chest obtained. FINDINGS: The lungs are clear. There are no pleural effusions. The cardiomediastinal silhouette is normal. No rib fracture, bone lesion or pneumothorax is detected. XR/XR chest 2V IMPRESSION: No acute cardiopulmonary disease. Electronically signed by: Carl Elliott MD 01/11/2024 12:21 PM EDT
[2024-01-11 11:53] VITALS: BP 133/94; PULSE 68; RESP 20; TEMP 36.8; O2SAT 95; BMI 34.6
--- NOTE | 2024-01-11 11:54 | ED.CHESTPAIN ---
HPI - Chest Pain General Chief Complaint: Chest Pain Stated Complaint: Chest pain Time Seen by Provider: 01/11/24 20:32 Source: patient, RN notes reviewed and old records reviewed Mode of arrival: ambulatory Limitations: no limitations History of Present Illness ED Provider: Russ GANDARA narrative: 33-year-old female presents for evaluation of intermittent chest pain. Patient reports a history of anxiety for which she takes hydroxyzine daily. She states for the last month she has been having intermittent left-sided chest pain that comes on randomly. She states that she occasionally wakes up with chest pain and feels as though she can not breathe The chest pain usually resolves within a minute The patient is not on any oral contraception, she denies any recent flights or long travel, denies any history of DVT or PE The patient denies any recent cold symptoms such as cough, congestion, runny nose No fevers or chills She has a follow up with her PCP in 9 days Related Data Previous Rx's ?Medication ?Instructions ?Recorded pyridoxine (vitamin B6) 50 mg 50 mg PO DAILY 90 days #90 tabs 11/24/23 tablet Allergies Allergy/AdvReac Type Severity Reaction Status Date / Time tramadol AdvReac Vomiting Verified 01/11/24 11:56 Review of Systems Constitutional: Constitutional: Denies body ache(s), Denies chills, Denies fever(s), Denies headache(s) and Denies increased appetite Eyes: Eyes: Denies blurry vision ENT: Denies headache(s) and Denies sore throat Cardiovascular: Cardiovascular: Reports chest pain, Reports chest pain at rest, Reports chest pain with activity and Denies dyspnea Respiratory: Respiratory: Denies cough and Denies dyspnea Gastrointestinal: Gastrointestinal: Denies abdominal pain, Denies nausea and Denies vomiting Musculoskeletal: Musculoskeletal: Denies back pain Integumentary/Breasts: Skin/Breast: Denies rash Neurologic: Denies headache(s) Psychiatric: Psychiatric: Reports anxiety and Denies suicidal ideation [facility] Past Medical History Medical History HTN (hypertension) Left flank pain COVID-19 Surgical History No pertinent past surgical history Social History Social History Alcohol intake: current Alcohol intake frequency: holidays/special occasions only Alcohol type: wine Patient Tobacco Use Status: Never used Tobacco Substance Use Type: Marijuana Advance Directives: No Advance Directives Information Provided: No Do you have a plan to hurt others: No Plan Physical Exam Vital Signs: Vital Signs: Last Vital Signs Temp 97.7 F 01/11/24 19:36 Pulse 55 01/11/24 19:36 Resp 16 01/11/24 19:36 BP 164/91 H 01/11/24 19:36 Pulse Ox 99 01/11/24 19:36 O2 Del Method Room Air 01/11/24 19:36 BMI result Body Mass Index 34.6 Const: General: healthy appearing, comfortable, no acute distress, alert and awake Nutritional Appearance: well nourished Orientation/consciousness: patient oriented x3 HEENT: Head: Yes normocephalic and Yes atraumatic Eyes: Eyelids: Yes eyelids normal Conjunctivae: conjunctivae normal Sclerae: sclerae normal Corneas: corneas normal Pupils: Equal, round and reactive pupils present EOM: EOMs intact bilaterally Neck: Neck: Yes full ROM Resp: Effort & Inspection: normal respiratory effort, able to speak in complete sentences, no audible wheezes and not labored Auscultation: clear to auscultation bilaterally Cardio: Rate: regular rate Rhythm: regular rhythm GI: Inspection: No distended Palpation (GI): Soft to palpation, not firm, nontender, no guarding and not rigid Skin: General skin exam: elasticity normal Neuro: General: patient oriented x3 Cranial nerves: Yes Equal, round and reactive pupils present and Yes Bilaterally intact EOM present Cognition (Neuro): normal cognition Course Course Course Narrative: This is an RME: Additional HPI, ROS, PE not included below will be deferred to primary provider. RME assessment and note performed by: Luisa Strauss PA-C This is a [id number]-female, with a hx of asthma and HTN, who presents to the ER with complaints of intermittent chest pain x 1 month. Reporting squeezing pain that occasionally radiates down her left arm. Plan: Labs, EKG, CXR Medical Decision Making Medical Decision Making MDM Narrative: This is a healthy 33-year-old female presenting for evaluation of intermittent chest pain. Her clinical picture is most consistent with anxiety as she has a history of this, her symptoms kind randomly at rest and with exertion. Her symptoms resolved within a minute. She endorses feeling anxious and short of breath when these symptoms occur. She does have a history of hypertension but no other risk factors for ACS, her heart score is a 2. Troponin is negative. The patient is PERC negative, less likely PE. Chest x-ray shows no pneumothorax, pleural effusion or pneumonia. The patient is currently asymptomatic. She will be discharged to follow up with her PCP Differential Diagnosis Differential Diagnoses: The differential diagnosis associated with the presentation includes Chest wall pain Costochondritis ACS PE Anxiety Lab Data MDM Lab Attestation statement: I reviewed the patient's lab results. No leukocytosis. The patient's hemoglobin is just below normal 11.9 with a normal hematocrit 37.5. Normal platelet count. Electrolytes within normal limits 01/11/24 12:54 01/11/24 12:54 Labs: Lab Results 01/11/24 Range/Units 12:54 WBC 7.9 (4.8-10.8) X10*3/uL RBC 5.73 H (4.20-5.50) X10*6/uL Hgb 11.9 L (12.0-16.0) g/dl Hct 37.5 (37.0-47.0) % MCV 65.4 L (80.0-98.0) fL MCH 20.8 L (27.0-33.0) pg MCHC 31.7 (31.0-35.0) g/dl RDW 18.0 H (11.0-16.0) % Plt Count 260 (160-400) X10*3/uL MPV 10.7 (9.4-12.3) fL Immature Gran % (Auto) 0.6 H (0.0-0.4) % Neut % (Auto) 67.9 (45-73) % Lymph % (Auto) 21.7 (20-40) % [place] % (Auto) 6.9 (2-11) % Eos % (Auto) 2.5 (0-4) % Baso % (Auto) 0.4 (0-2) % Lymph # (Auto) 1.7 (1.2-4.9) X10*3/uL [place] # (Auto) 0.6 (0.1-1.2) X10*3/uL Eos # (Auto) 0.2 (0.0-0.4) X10*3/uL Baso # (Auto) 0.0 (0.0-0.2) X10*3/uL Abs Immat Gran (auto) 0.05 H (0.00-0.03) X10*3/uL Absolute Neuts (auto) 5.4 (2.0-8.3) x10*3/uL Absolute Nucleated RBC 0.000 (0.0-0.012) X10*3/uL Nucleated RBC % (auto) 0.0 (0.0-0.2) /100WBC PT 12.2 (10.9-12.4) SEC INR 1.0 (0.9-1.1) Sodium 141 (135-145) mmol/L Potassium 3.6 (3.3-5.1) mmol/L Chloride 107 (96-108) mmol/L Carbon Dioxide 27 (22-29) mmol/L Anion Gap 11 L (12-20) BUN 9 (9-16) mg/dL Creatinine 0.78 (0.5-1.4) mg/dL Estim Creat Clear Calc 121.6 Estimated GFR > 60 Random Glucose 107 (60-115) mg/dL Calcium 9.2 (8.4-10.2) mg/dL Total Bilirubin 0.4 (0.0-1.0) mg/dL AST 20 (5-31) U/L ALT 26 (0-31) U/L Alkaline Phosphatase 68 (39-117) U/L Troponin I High Sens < 2.7 (<3.5-17.0) ng/L Total Protein 7.2 (6.5-8.0) g/dL Albumin 4.2 (3.5-5.0) g/dL Beta HCG, Quant < 2 mIU/mL Influenza Type A (PCR) NEGATIVE (Negative) Influenza Type B (PCR) NEGATIVE (Negative) RSV RNA Qual (PCR) NEGATIVE (Negative) SARS-CoV-2 RNA (RT-PCR) NEGATIVE (Negative) Independent Interpretation I performed an independent interpretation of an: Plain X-Ray Interpretation: Agree with Radiology interpretation, no acute abnormalities Radiology Impression Discussion of test interpretation with radiology: I have reviewed the radiologist's reading. Radiologist Impression: FINDINGS: The lungs are clear. There are no pleural effusions. The cardiomediastinal silhouette is normal. No rib fracture, bone lesion or pneumothorax is detected. XR/XR chest 2V IMPRESSION: No acute cardiopulmonary disease. Electronically signed by: Carl Elliott MD 01/11/2024 12:21 PM EDT RP Discharge Plan Discharge Clinical Impression: Atypical chest pain Patient Disposition: Home, Self-Care Instructions: Chest Pain (ED) Additional Instructions: Your workup in the ER today was reassuring. Your chest pain may be related to costochondritis or a muscle strain I recommend using ibuprofen 600 mg every 6 hours for the next 3 days Your pain also may be related to anxiety Follow-up with your primary doctor as discussed Prescriptions: No Action pyridoxine (vitamin B6) 50 mg tablet 50 mg PO DAILY 90 Days Qty: 90 3RF Stand Alone Forms: Work/School Release Print Language: Gabonese
[2024-01-11 12:58] LABS: MANUAL DIFF FLAG NO
[2024-01-11 13:03] LABS: Basophils Percent Auto 0.4 % (0-2); Eosinophils Absolute Auto 0.2 X10*3/uL (0.0-0.4); Eosinophils Percent Auto 2.5 % (0-4); Hematocrit 37.5 % (37.0-47.0); Hemoglobin 11.9 g/dl (12.0-16.0); Imm Gran Abs Auto 0.05 X10*3/uL (0.00-0.03); Imm Gran Pct Auto 0.6 % (0.0-0.4); Lymphocytes Absolute Auto 1.7 X10*3/uL (1.2-4.9); Lymphocytes Percent Auto 21.7 % (20-40); Mean Corpuscular HGB Conc 31.7 g/dl (31.0-35.0); Mean Corpuscular Hemoglobin 20.8 pg (27.0-33.0); Mean Corpuscular Volume 65.4 fL (80.0-98.0); Mean Platelet Volume 10.7 fL (9.4-12.3); Monocytes Absolute Auto 0.6 X10*3/uL (0.1-1.2); Monocytes Percent Auto 6.9 % (2-11); Neutrophils Absolute Auto 5.4 x10*3/uL (2.0-8.3); Neutrophils Percent Auto 67.9 % (45-73); Platelet Count 260 X10*3/uL (160-400); Red Blood Count 5.73 X10*6/uL (4.20-5.50); White Blood Count 7.9 X10*3/uL (4.8-10.8)
[2024-01-11 13:06] LABS: Prothrombin Time 12.2 SEC (10.9-12.4)
[2024-01-11 13:22] LABS: Alanine Aminotransferase 26 U/L (0-31); Albumin Level 4.2 g/dL (3.5-5.0); Alkaline Phosphatase 68 U/L (39-117); Anion Gap 11 (12-20); Aspartate Amino Transferase 20 U/L (5-31); Bilirubin Total 0.4 mg/dL (0.0-1.0); Blood Urea Nitrogen 9 mg/dL (9-16); Calcium 9.2 mg/dL (8.4-10.2); Carbon Dioxide 27 mmol/L (22-29); Chloride 107 mmol/L (96-108); Creatinine Clr Calc Pharmacy 121.6; Estimated Glomerular Filt Rate > 60; Glucose Random 107 mg/dL (60-115); Potassium 3.6 mmol/L (3.3-5.1); Sodium 141 mmol/L (135-145); Total Protein 7.2 g/dL (6.5-8.0)
[2024-01-11 13:37] LABS: Influenza A PCR NEGATIVE (Negative); Influenza B PCR NEGATIVE (Negative); Resp Syncy Virus RNA Qual PCR NEGATIVE (Negative); SARS COV2 PCR INHOUSE NEGATIVE (Negative)
[2024-01-11 13:39] LABS: HCG Quantitative < 2 mIU/mL; Troponin-I High Sensitivity < 2.7 ng/L (<3.5-17.0)
[2024-01-11 19:36] VITALS: BP 164/91; PULSE 55; RESP 16; TEMP 36.5; O2SAT 99
--- NOTE | 2024-01-11 19:38 | PC.NURSE ---
pt a&ox3, vss, pt states she has 7/10 generalized body pain, nasal congestion, cough, chest discomfort, nasal swab and labs previously obtained and negative, pt awaiting provider.
--- NOTE | 2024-01-11 19:39 | PC.NURSE ---
cxr and ekg previously obtained as well
[2024-01-11 21:10] VITALS: BP 156/83; PULSE 58; RESP 16; TEMP 36.6; O2SAT 99
== END 2024-01-11 21:11 | disposition home or self-care (01) ==
PROVIDERS: Physician Assistant Medical; Emergency Provider Student in an Organized Health Care Education/Training Program
DX: R07.89 Other chest pain (principal); Z03.818 Encounter for observation for suspected exposure to other biological agents ruled out; Z79.899 Other long term (current) drug therapy
CPT/HCPCS: 0241U; 36415; 71046; 80053; 84484; 84702; 85025; 85610; 93005; 99283; 99284

== ENCOUNTER → 2024-01-11 11:40 | Outpatient (BNV) | payer MEDICAID, SELFPAY | PROVIDERS: Visit Provider Internal Medicine | DX: R94.31 Abnormal electrocardiogram [ECG] [EKG] (principal) | CPT/HCPCS: 93010 ==

== ENCOUNTER 2024-01-20 11:38 | Outpatient (REF) | payer MEDICAID, SELFPAY ==
[2024-01-20 13:50] LABS: Cholesterol 112 mg/dL (<200); HDL Cholesterol 47 mg/dL (>40); LDL Cholesterol Calculated 53 mg/dL (<100); Triglycerides 61 mg/dL (<150)
== END 2024-01-20 11:39 | disposition home or self-care (01) ==
LOC: HO.HHCL 11:38
PROVIDERS: Visit Provider Family Medicine
DX: I10 Essential (primary) hypertension (principal)
CPT/HCPCS: 36415; 80061

== ENCOUNTER 2024-06-17 12:22 | Outpatient (REF) | payer BC, SELFPAY ==
--- NOTE | ~2024-06-17 | XR_ITS ---
CLINICAL HISTORY: N20.0 - Calculus of kidney Single view of the abdomen. COMPARISON: None FINDINGS: Normal bowel distention. No calculus seen overlying the expected location of the kidneys or ureters bilaterally. No pneumoperitoneum identified. Mild stool burden. No fracture identified. IMPRESSION: 1. Nonspecific nonobstructive bowel gas pattern. 2. No calculi identified overlying the expected location of the kidneys or ureters bilaterally. This document has been electronically signed by: Tello Shields MD on 06/20/2024 14:23:06
== END 2024-06-17 12:23 | disposition home or self-care (01) ==
LOC: HO.XRAY 12:22
PROVIDERS: PCP Family Medicine; Visit Provider Urology
DX: N20.0 Calculus of kidney (principal)
CPT/HCPCS: 74018

== ENCOUNTER → 2024-06-17 12:25 | Outpatient (BNV) | payer BC, SELFPAY | PROVIDERS: PCP Family Medicine; Visit Provider Radiology Diagnostic Radiology | DX: R14.0 Abdominal distension (gaseous) (principal) | CPT/HCPCS: 74018 ==

== ENCOUNTER 2024-08-17 13:03 | Outpatient (REF) | payer BC, SELFPAY ==
[2024-08-17 13:17] LABS: MANUAL DIFF FLAG NO
[2024-08-17 13:32] LABS: Basophils Absolute Auto 0.1 X10*3/uL (0.0-0.2); Basophils Percent Auto 0.6 % (0-2); Eosinophils Absolute Auto 0.3 X10*3/uL (0.0-0.4); Eosinophils Percent Auto 2.7 % (0-4); Hemoglobin 12.7 g/dl (12.0-16.0); Imm Gran Abs Auto 0.12 X10*3/uL (0.00-0.03); Imm Gran Pct Auto 1.1 % (0.0-0.4); Lymphocytes Absolute Auto 2.5 X10*3/uL (1.2-4.9); Lymphocytes Percent Auto 23.9 % (20-40); Mean Corpuscular Hemoglobin 21.2 pg (27.0-33.0); Mean Corpuscular Volume 68.3 fL (80.0-98.0); Mean Platelet Volume 10.4 fL (9.4-12.3); Monocytes Absolute Auto 0.8 X10*3/uL (0.1-1.2); Monocytes Percent Auto 7.5 % (2-11); Neutrophils Absolute Auto 6.8 x10*3/uL (2.0-8.3); Neutrophils Percent Auto 64.2 % (45-73); Platelet Count 268 X10*3/uL (160-400); Red Cell Distribution Width 17.9 % (11.0-16.0); White Blood Count 10.5 X10*3/uL (4.8-10.8)
--- OUTSIDE RECORDS SUMMARY | 2024-08-17 13:39 | XMS_ITS | Encounter Summary ---
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 Name Role Phone Angelina Wood MD Primary Care Provider [phone] Neil Wise PharmD Unavailable Encounter Details Date Type Department Care Team (Late st Contact Info) Description 10/28/2023 Orders Only [facility] [address], [place] [phone] Angelina Wood MD [address], [place] [id number] Social History Tobacco Use Types Packs/Day Years Used Date Smoking Tobacco: Never Passive Smoke Exposure: Never Smokeless Tobacco: Never Alcohol Use Standard Drinks/Week Comments Never 0 (1 standard drink = 0.6 oz pur e alcohol) Depression Answer Date Recorded Patient Health Questionnaire-9 Score 0 03/27/2022 Housing Stability Answer Date Recorded What is your housing situation today? I have [place] 01/16/[address] you li ve. Do you have problems with any of the following? None of the above 01/16/2023 Food Insecurity Answer Date Recorded Within the past 12 months, y ou worried that your food would run out before you got money to buy more: Never True 01/16/2023 Within the past 12 months,th e food you bought just didn't last and you didn't have enough money to get more: Never True Transportation Answer Date Recorded In the past 12 months, has l ack of transportation kept you from medical appts, meetings, work or from getting things needed for daily living? No 01/16/2023 Utilities Answer Date Recorded In the past 12 months, has t he electric, gas, oil or water [place] threatened to shut off services in your home? No 01/16/2023 Depression Answer Date Recorded Patient Health Questionnaire-2 Score 0 03/27/2022 Comments Unknown Sex and Gender Information Value Date Recorded Sex Assigned at Female 01/27/2022 10:30 AM EDT Legal Sex Female 10:30 AM EDT Gender Identity Female 01/27/2022 10:30 AM EDT Sexual Orientation Don't know 01/27/2022 10 :30 AM EDT documented as of this encounter Plan of Treatment Upcoming Encounters Date Type Department Care Team (Late st Contact Info) Description 10/14/2024 2:00 PM EDT Office Visit [facility] [address], [place] [phone] Luzmaria, Sarina [address], [place] [phone] documented as of this encounter Goals Goal Patient Goal Type Associated Problems Recent Progress Patient-Stated? Author Blood Pressure < 140/90 Blood Pressure 142/100(2024 4:32 PM EDT) No Neil Wise, PharmD documented as of this encounter Visit Diagnoses Not on filedocumented in this encounter Additional Health Concerns Assessment Noted Time PHQ-9 Depression Total Score: 0 03/27/20 22 9:34 AM EST documented as of this encounter Care Teams [employer] Crane Operator Relationship Specialty Start Date End Date Angelina Wood MD [address] [place] [address] PCP - General Family Medicine 05/01/22 Neil Wise, PharmD [address] [place] [address] Pharmacist Internal Medicine 06/16/23 documented as of this encounter
--- OUTSIDE RECORDS SUMMARY | 2024-08-17 13:39 | XMS_ITS | Data Portability ---
Author Organization [place] - .[employer] [place] Address [address] [place] [address] Care Team Providers Care Superannuation Funds Manager Name Role Phone [facility] Primary Care Provider Assessment No assessment recorded. Plan of Treatment Reminders Order Date Submit Date Provider Last Modified By Organization Details Last Modified Time Details Appointments None recorde d. Lab urinaly sis, dipstic k, auto 2023 024 caio Amanda_ [address]inda, [address] , [place], [address], 4 12:56:11 pregnan cy test, urine 2023 024 caio Amanda_ [address]inda, [address], [place], [address], 4 12:56:12 Referral None recorde d. Procedures None recorde d. Surgeries None recorde d. Imaging None recorde d. Medication Orders ondanse deyvi 4 mg disinte grating tablet 2023 024 [place] [address] [facility], [address] [place] [address], [address], 4 09:07:05 Imodium A-D 2 mg tablet [address] [facility], [address] [place], [address], 4 09:07:05 amoxici llin 875 mg tablet 2023 024 hemant [facility], [address] [place] [address], [address], 4 09:07:06 Motrin IB 200 mg capsule 2023 024 MIGUEL [facility], [address] [place], [address], 15:15:52 Patient TargetsNo targets recorded. Patient Instructions Encounter Date Encounter Id Patient Instructions Last Modified By Organization Details Last Modified Time 07/27/2023 [id number] A healthy lifestyle: care instructions caio Not available 07/27/2023 12:56:09 Thank you for visiting [facility]. We may be calling you to review your lab results or schedule a follow up appointment. The call will be through an automated system which asks you to press a carrasquillo to speak with one of our agents. Please be on the lookout for this call and listen to the message in its entirety. You may also view your lab results using the [employer] tejal, available in the Tejal Store and Google Play. First-time tejal users will need to create an account; please note you? ll need to select a login and password for the tejal versus just using your patient portal login. Your lab results will be posted to the [employer] tejal as soon as they? re available. If you have any questions regarding your visit, our Aftercare department can be reached at [phone]. Our hours are Thursday ? Thursday from 8 am ? 11 pm or Thursday/Thursday from 9a ? 8p. Flank Pain Your Care Instructions Flank pain is pain on the side of the back just below the rib cage and above the waist. It can be on one or both sides. Flank pain has many possible causes, including a kidney stone, a urinary tract infection, or back strain. Flank pain may get better on its own. But don't ignore new symptoms, such as fever, nausea and vomiting, urination problems, pain that gets worse, and dizziness. These may be signs of a more serious problem. You may have to have tests or other treatment. Follow-up care is a carrasquillo part of your treatment and safety. Be sure to make and go to all appointments, and call your doctor if you are having problems. It's also a good idea to know your test results and keep a list of the medicines you take. How can you care for yourself at home? Rest until you feel better. Take pain medicines exactly as directed. If the doctor gave you a prescription medicine for pain, take it as prescribed. If you are not taking a prescription pain medicine, ask your doctor if you can take an lgfa-rar-blacgym pain medicine, such as acetaminophen (Tylenol), ibuprofen (Advil, Motrin), or naproxen (Aleve). Read and follow all instructions on the label. If your doctor prescribed antibiotics, take them as directed. Do not stop taking them just because you feel better. You need to take the full course of antibiotics. To apply heat, put a warm water bottle, a heating pad set on low, or a warm cloth on the painful area. Do not go to sleep with a heating pad on your skin. To prevent dehydration, drink plenty of fluids, enough so that your urine is light yellow or clear like water. Choose water and other caffeine-free clear liquids until you feel better. If you have kidney, heart, or liver disease and have to limit fluids, talk with your doctor before you increase the amount of fluids you drink. When should you call for help? Call your doctor now or seek immediate medical care if: Your flank pain gets worse. You have new symptoms, such as fever, nausea, or vomiting. You have symptoms of a urinary problem. For example: You have blood or pus in your urine. You have chills or body aches. It hurts to urinate. You have groin or belly pain. Watch closely for changes in your health, and be sure to contact your doctor if you do not get better as expected. Not available 07/27/2023 12:50:32 12/08/2023 [id number] A healthy lifestyle: care instructions [email or web address] Not available 12/09/2023 09:07:06 Thank you for visiting [facility]. We may be calling you to review your lab results or schedule a follow up appointment. The call will be through an automated system which asks you to press a carrasquillo to speak with one of our agents. Please be on the lookout for this call and listen to the message in its entirety. You may also view your lab results using the [employer] tejal, available in the Tejal Store and Google Play. First-time tejal users will need to create an account; please note you? ll need to select a login and password for the tejal versus just using your patient portal login. Your lab results will be posted to the [employer] tejal as soon as they? re available. If you have any questions regarding your visit, our Aftercare department can be reached at [phone]. Our hours are Thursday ? Thursday from 8 am ? 11 pm or Thursday/Thursday from 9a ? 8p. Otitis Media (adult) Your Care Instructions: An ear infection may start with a cold and affect the middle ear (otitis media). It can hurt a lot. Most ear infections clear up on their own in a couple of days. Most often you will not need antibiotics. This is because many ear infections are caused by a virus. Antibiotics don''t work against a virus. Regular doses of pain medicines are the best way to reduce your fever and help you feel better. Follow-up care is a carrasquillo part of your treatment and safety. Be sure to make and go to all appointments, and call your doctor if you are having problems. It''s also a good idea to know your test results and keep a list of the medicines you take. How can you care for yourself at home? Take pain medicines exactly as directed. If the doctor gave you a prescription medicine for pain, take it as prescribed. If you are not taking a prescription pain medicine, take an pxsw-hnr-zsqrjxr medicine, such as acetaminophen (Tylenol), ibuprofen (Advil, Motrin), or naproxen (Aleve). Read and follow all instructions on the label. Do not take two or more pain medicines at the same time unless the doctor told you to. Many pain medicines have acetaminophen, which is Tylenol. Too much acetaminophen (Tylenol) can be harmful. Plan to take a full dose of pain reliever before bedtime. Getting enough sleep will help you get better. Try a warm, moist washcloth on the ear. It may help relieve pain. If your doctor prescribed antibiotics, take them as directed. Do not stop taking them just because you feel better. You need to take the full course of antibiotics. When should you call for help? Call your doctor now or seek immediate medical care if: You have new or increasing ear pain. You have new or increasing pus or blood draining from your ear. You have a fever with a stiff neck or a severe headache. Watch closely for changes in your health, and be sure to contact your doctor if: You have new or worse symptoms. You are not getting better after taking an antibiotic for 2 days. Gastroenteritis Your Care Instructions Gastroenteritis is an illness that may cause nausea, vomiting, and diarrhea. It is sometimes called stomach flu. It can be caused by bacteria or a virus. You will probably begin to feel better in 1 to 2 days. In the meantime, get plenty of rest and make sure you do not become dehydrated. Dehydration occurs when your body loses too much fluid. Follow-up care is a carrasquillo part of your treatment and safety. Be sure to make and go to all appointments, and call your doctor if you are having problems. It s also a good idea to know your test results and keep a list of the medicines you take. How can you care for yourself at home? If your doctor prescribed antibiotics, take them as directed. Do not stop taking them just because you feel better. You need to take the full course of antibiotics. Drink plenty of fluids to prevent dehydration, enough so that your urine is light yellow or clear like water. Choose water and other caffeine-free clear liquids until you feel better. If you have kidney, heart, or liver disease and have to limit fluids, talk with your doctor before you increase your fluid intake. Drink fluids slowly, in frequent, small amounts, because drinking too much too fast can cause vomiting. Begin eating mild foods, such as dry toast, yogurt, applesauce, bananas, and rice. Avoid spicy, hot, or high-fat foods, and do not drink alcohol or caffeine for a day or two. Do not drink milk or eat ice cream until you are feeling better. How to prevent gastroenteritis Keep hot foods hot and cold foods cold. Do not eat meats, dressings, salads, or other foods that have been kept at room temperature for more than 2 hours. Use a thermometer to check your refrigerator. It should be between 34F and 40F. Defrost meats in the refrigerator or microwave, not on the kitchen counter. Keep your hands and your kitchen clean. Wash your hands, cutting boards, and counter tops with hot soapy water frequently. Cook meat until it is well done. Do not eat raw eggs or uncooked sauces made with raw eggs. Do not take chances. If food looks or tastes spoiled, throw it out. When should you call for help? Call 911 anytime you think you may need emergency care. For example, call if: You vomit blood or what looks like coffee grounds. You passed out (lost consciousness). You pass maroon or very bloody stools. Call your doctor now or seek immediate medical care if: You have severe belly pain. You have signs of needing more fluids. You have sunken eyes, a dry mouth, and pass only a little dark urine. You feel like you are going to faint. You have increased belly pain that does not go away in 1 to 2 days. You have new or increased nausea, or you are vomiting. You have a new or higher fever. Your stools are black and tar-like or have streaks of blood. Watch closely for changes in your health, and be sure to contact your doctor if: You are dizzy or lightheaded. You urinate less than usual, or your urine is dark yellow or brown. You do not feel better with each day that goes by. [email or web address] Not available 12/08/2023 15:37:38 Reason for Referral None Reported. Results Created Date Observation Date Name Description Value Unit Range Abnormal Flag Note LastModifiedBy Organization Detail LastModifiedTime 07/27/1907/27/2023 pregn scott test, urine Human Chorionic Gonadotropin (hCG) NEGATI VE Not Available sunitha_ Dorinda [address] , [place], [address], 07/27/2023 12:47:00 07/27/1907/27/2023 urina lysis , dipst ick, auto BLOOD NEGATI VE - (tamika/u L, ref. neg) Not Available [facility] [address] , [place], [address], 07/27/2023 12:46:28 07/27/19 24 07/27/2023 urina lysis , dipst ick, auto UROBILINOGEN NORMAL - (mg/dL , ref. normal ) Not Available [address], [place], [address], 07/27/2023 12:46:28 07/27/19 24 07/27/2023 urina lysis , dipst ick, auto BILIRUBIN 1 - (mg/dL , ref. neg) Not Available [address], [place], [address], 07/27/2023 12:46:28 07/27/19 24 07/27/2023 urina lysis , dipst ick, auto PROTEIN NEGATI VE - (mg/dL , ref. neg) Not Available [address], [place], [address], 07/27/2023 12:46:28 07/27/19 24 07/27/2023 urina lysis , dipst ick, auto NITRATES NEGATI VE - (ref. neg) Not Available [address], [place], [address], 07/27/2023 12:46:28 07/27/19 24 07/27/2023 urina lysis , dipst ick, auto KETONES NEGATI VE - (mg/dL , ref. neg) Not Available [address], [place], [address], 07/27/2023 12:46:28 07/27/19 24 07/27/2023 urina lysis , dipst ick, auto GLUCOSE NEGATI VE - (mg/dL , ref. neg) Not Available [address], [place], [address], 07/27/2023 12:46:28 07/27/19 24 07/27/2023 urina lysis , dipst ick, auto pH 5 - (ref. 5.0-7. 0) Not Available [address], [place], [address], 07/27/2023 12:46:28 07/27/19 24 07/27/2023 urina lysis , dipst ick, auto SPECIFIC GRAVITY 1.015 (ref. 1.010- 1.030) Not Available ArshyUlisses Mann [address], [place], [address], 07/27/2023 12:46:28 07/27/19 24 07/27/2023 urina lysis , dipst ick, auto LEUKOCYTES Neg - (David/d L, ref. neg) Not Available [address], [place], [address], 07/27/2023 12:46:28 Result Notes None recorded. Problems Name Problem SNOMED Code Status Onset Date Resolution Date Notes Provider Name and Address Organization Details Recorded Time Hypertensive disorder 28766815 Active 2023 MAGNOLIA Mercado - .[facility] 12:33:59 Problem Notes None recorded. Medical Equipment None Reported. Allergies No known drug allergies Medications Name Sig Start Date Stop Date Status Note LastModified by Organization Details LastModified Time amoxicillin 875 mg tablet Take 1 tablet twice a day by oral route for 10 days. 2023 active Not Available Not Available Not Avai lable Imodium A-D 2 mg tablet Take by mouth 2 tablets after first loose stool, then 1 tablet after each loose stool - max 8 tablets/d ay (16mg) 2023 active Not Available Not Available Not Avai lable ondansetron 4 mg disintegrat ing tablet Place 1 tablet on the tongue and allow to dissolve every 8 hours as needed 2023 active Not Available Not Available Not Avai lable amlodipine active Not Available Not Av ailable Not Available Motrin IB 200 mg capsule Take 1 capsule every 6 hours by oral route as needed for 7 days. 12/07 completed Not Available Not Available Not Available Vitals Date Recorded Heart rate Respiratory rate Oxygen saturation Oxygen saturation in Arterial blood by Pulse oximetry Body temperature Systolic blood pressure Diastolic blood pressure Provider Name and Address Organization Details Last Updated DateTime 90 /min 16 /min 98 % 98 % 97.4 [degF] 139 mm[Hg] 100 mm[Hg] Gracia Cantu [place] - .[facility] 12:35:06 Date Recorded Body height Body mass index (BMI) Body weight Heart rate Body temperature Respiratory rate Oxygen saturation Oxygen saturation in Arterial blood by Pulse oximetry Systolic blood pressure Diastolic blood pressure Provider Name and Address Organization Details Last Updated DateTime 157.48 cm 37.5 kg/m2 60981.4 4 g 111 /min 98.7 [degF] 16 /min 96 % 96 % 133 mm[Hg] 96 mm[Hg] Malissa MERIDA - .[facility] 15:19:07 Social History None recorded. 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 Family History Nothing Reported. Medical History No medical history recorded. Gynecological HistoryNo gynecological history recorded. Obstetrics History GPAL:G 0 P 0 0 0 0 Past Encounters Encounter ID Performer Location Encounter Start Date Encounter Closed Date Diagnosis/Indication Diagnosis SNOMED-CT Code Diagnosis ICD10 Code Diagnosis Note [id number] Adithya AMANDA_ [address] [place] [address] 07/27/2023 12:11:07 07/27/2023 12:49:11 Flank pain 221461756 R10.9 - hx of recurrent kidney stone- Continue with flomax- Follow up with urologist- NSAID for pain control [id number] Allison Mann [address] [place] [address] 12/08/2023 14:48:13 12/08/2023 15:21:14 Acute right otitis media 950305313 H66.91 Viral gastroenteritis 11 4828761 A08.4 Health Concerns Section Related Observation LastModified by Organization Detai ls LastModified Time None Recorded Concern Status LastModified by Organization Details LastModified Time None Recorded Advance Directives Directive None Recorded Payers Insurance Date Sequence Insurance Name Policy Number Policy [place] Covered Member ID [place] Member ID Guarantor Name 12/09/2023 1 [place] [facility] Nighat Montes [id number] Nighat Montes Notes Date Note Type Note Provider Name and Address Organization Details Recorded Time 07/27/2023 text/html Flank Pain - cmdReported bypatient.Patient presents with:Flank pain which began one week ago Pertinent findings:No fever; No chills; No dysuria; No nausea/vomiting; No blood in urine; No abdominal discomfort; No chest pain; No shortness of breath;(+) history of kidney stonesNotes:33 y/o F presents w b/l flank pain x 1wk. Pt reports having a hx of kidney stones and believes one is passing through. Pt reports experiencing urinary frequency and back pain as well. Pt denies any n/v. Pt had 1 ep of diarrhea this morning. Hx of recurrent kidney stonesPrev surgical management for kidney stoneUA negative for infxnpain well controlled currently Adithya Billings MD [facility],[address] [place] [address], [place], [address], [facility] .[facility] 07/27/2023 18:15:07 12/08/2023 text/html Vomiting and Diarrhea - cmdReported bypatient.Patient presents with:Vomiting and Diarrhea which began yesterday Menstrual history:LMP: 12/03/23 Pertinent findings:No abdominal cramping/discomfor t; No vomiting blood 24y/o F c/o n/v/d since yesterday. She denies fever, abd pain, vomiting blood, blood in stool, or other sxs. She mentions that the side of her R ear began hurting today. Pt notes that she vomited and had diarrhea this morning. Pt is currently on her period and she usually doesn't experience these sxs while on it. CHRISTIE [facility]unonez [address] [facility],[address] [facility], [place], [address], [facility] .[facility] 12/08/2023 17:45:08 OBGyn Episode No OBEpisode recorded.
--- OUTSIDE RECORDS SUMMARY | 2024-08-17 13:39 | XMS_ITS | Encounter Summary ---
Author Organization [employer] Address [address] [place] [address] Care Team Providers Care Assistant Front Desk Manager Name Role Phone Angelina Wood MD Primary Care Provider [phone] Neil Wise PharmD Unavailable [phone] Encounter Details Date Type Department Care Team (Latest Contact Info) Description 07/02/2020 Abstract [facility] CONVERSIONS Dental, Provider, DDS Social History Tobacco Use Types Packs/Day Years Used Date Smoking Tobacco: Never Assessed Comments Unknown Sex and Gender Information Value [...] Description 10/14/2024 2:00 PM EDT Office Visit [facility] [address] [place] [address] Lu[facility] [address] [place] [address] documented as of this encounter Visit Diagnoses Not on filedocumented in this encounter Care Teams Assistant Front Desk Manager Relationship Specialty Start Date End Date Angelina Wood MD [address] [place] [address] PCP - General Family Medicine 05/01/22 Neil Wise, PharmD [address] [place] [address] Pharmacist Internal Medicine 06/16/23 documented as of this encounter
--- OUTSIDE RECORDS SUMMARY | 2024-08-17 13:39 | XMS_ITS | Encounter Summary ---
Author Organization [employer] Address [address] [place] [address] Care Team Providers Care Automobile Service Writer Name Role Phone Angelina Wood MD Primary Care Provider [phone] Neil Wise PharmD Unavailable [phone] Encounter Details Date Type Department Care Team (Late st Contact Info) Description 04/02/2022 Orders Only [facility] [address] [place], [place] [phone] Angelina Wood MD [address] [place], [place] [phone] Alopecia areata (Primary Dx) Social History Tobacco Use Types Packs/Day Years Used Date Smoking Tobacco: Never Passive Smoke Exposure: Never Smokeless Tobacco: Never Depression Answer Date Recorded Patient Health Questionnaire-9 Score 0 03/27/2022 Depression Answer Date Recorded Patient Health Questionnaire-2 Score 0 03/27/2022 Comments Unknown Sex and Gender Information Value Date Recorded Sex Assigned at Female 01/27/2022 10:30 AM EDT Legal Sex Female 10:30 AM EDT Gender Identity Female 01/27/2022 10:30 AM EDT Sexual Orientation Don't know 01/27/2022 10 :30 AM EDT COVID-19 Exposure Response Date Recorded In the last 10 days, have yo u been in contact with someone who was confirmed or suspected to have Coronavirus/COVID-19? No / Unsure 03/27/2022 9:14 AM EST documented as of this encounter Plan of Treatment Upcoming Encounters Date Type Department Care Team (Late st Contact Info) Description 10/14/2024 2:00 PM EDT Office Visit [facility] [address] [place], [place] [phone] [facility] [place] [phone] documented as of this encounter Procedures Procedure Name Priority Date/Time Associated Diagnosis Comments URINALYSIS, COMPLETE, WITH REFLEX TO CULTURE Routine 07/16/2022 8:43 PM EDT Alopecia areata HCG, QL, URINE Routine 07/16/2022 8:43 PM EDT Alopecia areata CBC WITH AUTO DIFFERENTIAL Routine 07/16/2022 8:14 PM EDT Alopecia areata LIPASE Routine 07/16/2022 8:14 PM EDT Alopecia areata HEPATIC FUNCTION PANEL Routine 07/16/2022 8:14 PM EDT Alopecia areata BASIC METABOLIC PANEL Routine 07/16/2022 8:14 PM EDT Alopecia areata documented in this encounter Results * HCG, Qualitative, Urine (07/16/2022 8:43 PM EDT) Urine NEGATIVE NEGATIVE [facility] Comment:This test was develo ped to detect early . Falsenegative results may occur after the 5th - 7th week ofpregnancy when using this test method. If clinicallyindicated, consider a serum hCG. 07/16/2022 8:43 PM EDT 07/16/2022 8:47 PM EDT [facility] External Provider LAB URI NE ORDERABLES Final Result [facility] [address] [place] [phone] * (ABNORMAL) Urinalysis, Complete, with Reflex to Culture (07/16/2022 8:43 PM EDT) Color Urine Yellow [facility] Appearance Urine Clear [facility] PH 6.0 5.0 - 9.0 [facility] Glucose Urine UA Negative Negative mg/dL [facility] Urine Blood Trace(A) Negative [facility] Specific [place] - Urine 1.015 1.005 - 1.025 [facility] Urine Protein Negative Neg-Trace mg/dL [facility] Urine Ketones Negative Negative mg/dL [facility] Nitrite Urine Negative Negative [facility] Leukocyte Esterase Urine Negative Negative [facility] RBC Urine 3-5(A) 0 - 2 /HPF [facility] Urine WBC 0-5 0 - 5 /HPF [facility] Urine Squamous Epithelial Cell 3-5 0 - 2 /HPF [facility] Urine Bacteria None Seen None Seen [facility] Hyaline Casts, Urine 0-2 0 - 2 /LPF [facility] 07/16/2022 8:43 PM EDT 07/16/2022 8:47 PM EDT Narrative [facility] - 07/16/2022 9:12 PM EDT [id number], Clean Catch [facility] External Provider LAB URI NE ORDERABLES Final Result Performing Organization Address [facility]/ZIP Co de Phone Number [facility] [address] [place] [phone] * Lipase (07/16/2022 8:14 PM EDT) Lipase 43 8 - 78 U/L [facility] 07/16/2022 8:14 PM EDT 07/16/2022 8:16 PM EDT [facility] External Provider LAB BLO OD ORDERABLES Final Result Performing Organization Address [facility] Co de Phone Number [facility] [address] [place] [phone] * (ABNORMAL) Basic Metabolic Panel (07/16/2022 8:14 PM EDT) Sodium 140 135 - 145 mmol/L [facility] Potassium 4.0 3.3 - 5.1 mmol/L [facility] Chloride 108 96 - 108 mmol/L [facility] Carbon Dioxide 27 22 - 29 mmol/L [facility] Anion Gap 9(L) 12 - 20 [facility] Urea Nitrogen (BUN) 12 9 - 16 mg/dL [facility] Creatinine, Serum 0.83 0.5 - 1.4 mg/dL [facility] Creatinine Clr Calc Pharmacy 107.0 [facility] Comment:Provided height and weight: 157.48 cm,97.522 kg.eGFR (calculated from the MDRD study equation) and eCrCl(calculated from the Cockcroft-Gault equation) are based ondifferent parameters and may not yield comparable results.If eCrCl result is absurd, please check patient'sheight/weight. Estimated Glomerular Filt Rate >60 [facility] Comment:NOTE: For -Am erican individuals, multiply the result by 1.210.Chronic Kidney Disease: Estimated GFR < 60 mL/min/1.91h8Cfllxf Kidney Disease: Estimated GFR < 15 mL/min/1.73m2 Glucose 99 60 - 115 mg/dL [facility] Calcium 9.3 8.4 - 10.2 mg/dL [facility] 07/16/2022 8:14 PM EDT 07/16/2022 8:16 PM EDT us [facility] External Provider LAB BLO OD ORDERABLES Final Result [facility] [address] [place] [phone] * (ABNORMAL) Hepatic Function Panel (07/16/2022 8:14 PM EDT) Bilirubin, Total 0.4 0.0 - 1.0 mg/dL [facility] Bilirubin, Direct 0.2 0.0 - 0.5 mg/dL [facility] Aspartate Amino Transferase 26 5 - 31 U/L [facility] Alanine Aminotransferase 46(H) 0 - 31 U/L [facility] Total Protein 7.0 6.5 - 8.0 g/dL [facility] Albumin Level 4.2 3.5 - 5.0 g/dL [facility] Alkaline Phosphatase 70 39 - 117 U/L [facility] 07/16/2022 8:14 PM EDT 07/16/2022 8:16 PM EDT us [facility] External Provider LAB BLO OD ORDERABLES Final Result [facility] [address] [place] [phone] * (ABNORMAL) CBC auto differential (07/16/2022 8:14 PM EDT) White Blood Count 11.3(H) 4.8 - 10.8 X10*3/uL [facility] Red Blood Count 5.94(H) 4.20 - 5.50 X10*6/uL [facility] Hemoglobin 12.4 12.0 - 16.0 g/dl [facility] Hematocrit 40.2 37.0 - 47.0 % [facility] Mean Corpuscular Volume 67.7(L) 80.0 - 98.0 fL [facility] Mean Corpuscular Hemoglobin 20.9(L) 27.0 - 33.0 pg [facility] Mean Corpuscular HGB Conc 30.8(L) 31.0 - 35.0 g/dl [facility] Red Cell Distribution Width 18.5(H) 11.0 - 16.0 % [facility] Platelet Count 340 160 - 400 X10*3/uL [facility] Mean Platelet Volume 10.4 9.4 - 12.3 fL [facility] Neutrophils Percent Auto 58.7 45 - 73 % [facility] Imm Gran Pct Auto 1.1(H) 0.0 - 0.4 % [facility] Lymphocytes Percent Auto 29.1 20 - 40 % [facility] Monocytes Percent Auto 7.4 2 - 11 % [facility] Eosinophils Percent Auto 3.3 0 - 4 % [facility] Basophils Percent Auto 0.4 0 - 2 % [facility] NRBC Pct Auto 0.0 0.0 - 0.2 /100WBC [facility] Neutrophils Absolute Auto 6.6 2.0 - 8.3 x10*3/uL [facility] Imm Gran Abs Auto 0.12(H) 0.00 - 0.03 X10*3/uL [facility] Lymphocytes Absolute Auto 3.3 1.2 - 4.9 X10*3/uL [facility] Monocytes Absolute Auto 0.8 0.1 - 1.2 X10*3/uL [facility] Eosinophils Absolute Auto 0.4 0.0 - 0.4 X10*3/uL [facility] Basophils Absolute Auto 0.1 0.0 - 0.2 X10*3/uL [facility] NRBC Abs Auto 0.000 0.0 - 0.012 X10*3/uL [facility] 07/16/2022 8:14 PM EDT 07/16/2022 8:16 PM EDT [facility] External Provider LAB BLO OD ORDERABLES Final Result Performing Organization Address City/State/[facility] Co de Phone Number [facility] [address] [place] [phone] documented in this encounter Visit Diagnoses Diagnosis Alopecia areata- Primary documented in this encounter Additional Health Concerns Assessment Noted Time PHQ-9 Depression Total Score: 0 03/27/20 22 9:34 AM EST documented as of this encounter Care Teams Automobile Service Writer Relationship Specialty Start Date End Date Angelina Wood MD [address] [place] [phone] PCP - General Family Medicine 05/01/22 Neil Wise, PharmD [address] [place] [phone] Pharmacist Internal Medicine 06/16/23 documented as of this encounter
--- OUTSIDE RECORDS SUMMARY | 2024-08-17 13:39 | XMS_ITS | Clinical Summary ---
Author Organization [employer] Address [address] [place] [address] Care Team Providers Care Lumber Carrier Name Role Phone Angelina Wood MD Primary Care Provider [phone] Neil Wise PharmD Unavailable [phone] Allergies Active Allergy Reactions Criticality Noted Date Comments Amoxicillin-Pot Clavulanate Other 05/01/19 23 vomiting Ketorolac Dizziness 03/27/2022 Only oral tablet. Tolerated injection. Tramadol 03/04/2022 Other reaction(s): Vomiting Other reaction(s): Vomiting Medications * This document contains information received from the source organization and may not represent a complete record from that organization. hydrOXYzine pamoate (Vistaril) 50 MG capsule 08/23/19 23 Active Diclofenac Sodium 1 % gel Apply 1 inch topically if needed in the morning and at bedtime (pain). 60 g 07/14/19 24 Active Additional Information Patient not taking.Reported on 08/03/2023 cyclobenzaprine (Flexeril) 10 MG tablet Take 1 tablet (10 mg) by mouth at bedtime for 10 days. 10 tablet 07/14/19 24 Active naloxone (Narcan) 4 mg/0.1 mL nasal spray CALL 911. SPR CONTENTS OF ONE SPRAYER (0.1ML) INTO ONE NOSTRIL. REPEAT IN 2-3 MIN IF SYMPTOMS OF OPIOID EMERGENCY PERSIST, ALTERNATE NOSTRILS 08/03/19 24 Active acetaminophen (Tylenol) 500 MG tablet Take 2 tablets (1,000 mg) by mouth every 6 (six) hours if needed for moderate pain or fever. 50 tablet 1 01/20/20 24 Active multivitamin () 27-0.8 MG tablet Take 1 tablet by mouth Once per day. 90 tablet 3 01/20/20 24 Active metoprolol succinate XL (Toprol XL) 50 MG 24 hr tabletIndicatio ns:Hypertension , unspecified type TAKE 1 & 1/2 TABLETS (75 mg) BY MOUTH EVERY DAY 135 tablet 1 02/11/20 24 Active Spacer/Aero-Hol ding Chambers (OptiChamber Leigha) miscIndications :Mild asthma with exacerbation, unspecified whether persistent 1 each every 4 (four) hours if needed (asthma). 1 each 02/29/20 24 Active albuterol 108 (90 Base) MCG/ACT inhalerIndicati ons:Mild asthma with exacerbation, unspecified whether persistent Inhale 2 puffs every 6 (six) hours if needed for wheezing. 18 g 3 02/29/20 24 2024 Active amLODIPine (Norvasc) 10 MG tablet Take 1 tablet (10 mg) by mouth Once per day. 90 tablet 3 05/15/19 25 Active cetirizine (ZyrTEC) 10 MG tabletIndicatio ns:Viral syndrome,Season al allergic rhinitis, unspecified trigger Take 1 tablet (10 mg) by mouth Once per day. 90 tablet 3 08/17/19 25 Active fluticasone (Flonase) 50 MCG/ACT nasal sprayIndication s:Seasonal allergic rhinitis, unspecified trigger Administer 1-2 sprays into each nostril Once per day. Shake gently. Before first use, prime pump. After use, clean tip and replace cap. 16 g 2 08/17/19 25 2025 Active Blood Pressure Monitor miscIndications :Primary hypertension Check BP daily 1 each 08/17/19 25 Active cetirizine (ZyrTEC) 10 MG tabletIndicatio ns:Viral syndrome,Season al allergic rhinitis, unspecified trigger TAKE 1 TABLET BY MOUTH DAILY NEEDED FOR RHINITIS (CONGESTION OR ALLERGIES) 90 tablet 10/30/19 23 2024 Discontinued(R eorder (will not trigger notification to Pharmacy)) terbinafine (LamISIL) 250 MG tablet Take 1 tablet (250 mg) by mouth Once per day. 90 tablet 05/09/19 25 2024 Active Problems Problem Noted Date Diagnosed Date Pain of both elbows 08/16/2024 Assessment & Plan (08/16/2024 4:49 PM EDT): - Left worse than right - Most likely medial epicondylitis - Recommended ice, activity modification, NSAID - Discussed about referral to orthopedist or steroid injection. Pt would like to try conservative management at this time. Chronic pain of both knees 08/16/2024 Assessment & Plan (08/16/2024 4:50 PM EDT): - Most likely bursitis or PFS - Continue conservative management Obesity 05/15/2024 Assessment & Plan (05/15/2024 11:52 AM EST): Dietary Recommendations: Fruits, vegetables, whole grains, protein foods, and fat-free or low-fat dairy products are healthy choices. Eat different types of protein foods in your diet. This can include seafood, lean meats, poultry, beans, peas, lentils, nuts, seeds, soy products, and eggs. Limit foods and beverages higher in added sugars, saturated fat, and sodium. Exercise Recommendations: At least 150 minutes of moderate-intensity physical activity per week, or an equivalent combination of moderate- and vigorous-intensity activity Onychomycosis 05/09/2024 Assessment & Plan (05/15/2024 11:56 AM EST): - Discussed about risk and benefit of systemic vs. Topical antifungal treatment. Patient elected systemic treatment. - Ordered Hepatic Function Panel - Prescribed terbinafine (LamISIL) 250 MG tablet, plan for at least 3 mo. Vomiting in adult patient 04/19/2024 Desire for 01/24/2024 Assessment & Plan (01/24/2024 5:19 PM EDT): - IVF - changing antihypertensive to CCB - start vitamin - refer to reproductive health specialist for IVF Gingival bleeding 08/03/2023 Acute gingival inflammation 08/03/2023 Dental calculus 08/03/2023 Chronic bilateral thoracic back pain 07/14/2023 Assessment & Plan (07/14/2023 5:59 PM EDT): Sec to kidney stones See above RTC prn or call to rx tramadol x 1w Lesion of left nipple 04/24/2023 Assessment & Plan (04/24/2023 8:43 AM EST): Pt w 2 small superficial lumps around her left nipple ,mild tender w no drainage Unsure if infectious but will give ATB x 5 days -trial w bactrim BID x 5 days ( hold on Cephalosporins for amoxi allergy listed) -advised to use Warm compresses -tylenol prn -alarm signs symptoms discussed w pt -RTC if after completing ATB lesions are still present to further evaluate 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 Murillo for evaluation and treatment Asthma 07/10/2022 Bilateral kidney stones 07/10/2022 Assessment & Plan (08/16/2024 4:45 PM EDT): US on 04/11/22, non-obstructive kidney stone Adequate hydration Follow up with urologist as scheduled Assessment & Plan (01/20/2024 10:56 AM EDT): US on 04/11/22, non-obstructive kidney stone Adequate hydration Refer to urology Assessment & Plan (07/14/2023 5:58 PM EDT): CT scan pelvis/abd on 06/11/23, didn't show obstruction. Recc'd Use of tylenol prn + Diclofenac gel prn + flexeril for reflex muscular pain. I could rx tylenol if sxs are not resolved with above. Increase water intake, cranberry juice Start Flomax x 1mo Refer to urology (recurrent urolithiasis) Assessment & Plan (07/17/2022 8:23 AM EDT): US on 04/11/22, non-obstructive kidney stone Adequate hydration Refer to urology Seasonal allergic rhinitis 07/10/2022 Assessment & Plan (01/20/2024 10:57 AM EDT): - Continue Zyrtec Assessment & Plan (07/29/2022 1:04 PM EDT): -Continue cetirizine PRN Assessment & Plan (07/10/2022 9:39 AM EDT): Continue Zyrte TARSHA (obstructive sleep apnea) 07/09/2022 Assessment & Plan (08/16/2024 1:26 PM EDT): 09/09/21 Sleep study. Mild TARSHA. O2 sat appropriate. No strong indication for CPAP. Consider trial only if worsening symptoms. Since last sleep study, patient has gained weight and her BP is not at goal. Will evaluate with another sleep study Assessment & Plan (05/15/2024 11:54 AM EST): 09/09/21 Sleep study. Mild TARSHA. O2 sat appropriate. No strong indication for CPAP. Consider trial only if worsening symptoms. Since last sleep study, patient has gained weight and her BP is not at goal. Will evaluate with another sleep study Assessment & Plan (01/20/2024 10:54 AM EDT): 09/09/21 Sleep study. Mild TARSHA. O2 sat appropriate. No strong indication for CPAP. Consider trial only if worsening symptoms. Assessment & Plan (07/09/2022 9:19 PM EDT): 09/09/21 Sleep study. Mild TARSHA. O2 sat appropriate. No strong indication for CPAP. Consider trial only if worsening symptoms. Family history of diabetes mellitus in mother Assessment & Plan (03/28/2022 6:18 AM EST): -Risk factors for diabetes: Family Hx; BMI -Continue working on lifestyle modifications -Annual screening Anxiety and depression 03/28/2022 Assessment & Plan (08/16/2024 1:25 PM EDT): - GAD7 score 13 and PHQ9 score 11 in Dec 2023 - continue hydroxyzine prn Assessment & Plan (05/15/2024 11:57 AM EST): - GAD7 score 13 and PHQ9 score 11 in Dec 2023 - continue hydroxyzine prn Assessment & Plan (01/24/2024 5:18 PM EDT): - GAD7 score 13 and PHQ9 score 11 - continue hydroxyzine prn Assessment & Plan (07/29/2022 1:04 PM EDT): -Refill hydroxyzine PRN Assessment & Plan (03/28/2022 6:29 AM EST): -continue hydroxyzine prn Insomnia 03/28/2022 Assessment & Plan (03/28/2022 6:23 AM EST): -Continue trazodone -Consider discontinuing if pt does not have concurrent depression since trazodone is not effective pt without Dx Hypertension 03/27/2022 Assessment & Plan (08/16/2024 4:44 PM EDT): Goal BP < per 140/90 JNC-8 and < 130/80 per ACC/AHA guideline (Tx threshold 140/90) BP not at goal today Treatment Hx: Indapamide, which was discontinued Continue current lifestyle modifications Continue Amlodipine 10 mg daily Continue Metoprolol 50 mg daily Return for BP check in 1 month if her home BP and office BP are elevated. Will increase metoprolol to 75 mg daily as long as heart rate is above 65 Assessment & Plan (05/09/2024 3:46 PM EST): Goal BP < per 140/90 JNC-8 and < 130/80 per ACC/AHA guideline (Tx threshold 140/90) BP not at goal today Treatment Hx: Indapamide, which was discontinued Continue current lifestyle modifications Increase Amlodipine from 5 mg to 10 mg daily Continue Metoprolol 50 mg daily Follow up in 3 mo, sooner if any problem arises Assessment & Plan (02/29/2024 4:45 PM EST): Patient forgot yto take her blood pressure medication today, I advise to take her meds every day and f/u with PCP Assessment & Plan (01/20/2024 10:56 AM EDT): Goal BP < per 140/90 JNC-8 and < 130/80 per ACC/AHA guideline (Tx threshold 140/90) BP not at goal today Treatment Hx: Indapamide, which was discontinued Continue current lifestyle modifications Continue current medications: change lisinopril to Amlodipine 5 mg daily Follow up in 3 mo, sooner if any problem arises Assessment & Plan (04/24/2023 8:38 AM EST): Elevated BP today ,states did not take BP meds this am -advised to be complaint w her meds and to take consistently Assessment & Plan (08/28/2022 10:31 AM EDT): BP high for her today. She did take medication today. Home BP monitor given with goal BP readings. Assessment & Plan (07/10/2022 9:26 AM EDT): ? ? Goal BP < per 140/90 JNC-8 and < 130/80 per ACC/AHA guideline (Tx threshold 140/90) ? ? Office BP not at goal (both SBP and DBP). Home BP not at goal (DBP) ? ? Treatment Hx: Indapamide, which was discontinued ? ? Continue current lifestyle modifications ? ? Continue current medications: Amlodipine 5 mg daily and lisinopril 20 mg daily ? ? Follow up in 3 mo, sooner if any problem arises ? ? Refer to CDTM to calvin Assessment & Plan (03/28/2022 6:35 AM EST): ? ? Goal BP < per 140/90 JNC-8 and < 130/80 per ACC/AHA guideline (Tx threshold 140/90) ? ? Office BP not at goal (both SBP and DBP). Home BP not at goal (DBP) ? ? Treatment Hx: Indapamide, which was discontinued ? ? Continue current lifestyle modifications ? ? Continue current medications: Amlodipine 5 mg daily and lisinopril 20 mg daily ? ? Follow up in 3 mo, sooner if any problem arises ? ? Refer to CDTM to calvin Family history of cancer 03/27/2022 Assessment & Plan (07/10/2022 9:27 AM EDT): -Family Hx: Brain; lungs; prostate -She does not smoke cigarettes or drink alcohol -Continue practicing healthy lifestyle -Cancer screening is up to date for her age group Assessment & Plan (03/28/2022 6:20 AM EST): -Family Hx: Brain; lungs; prostate -She does not smoke cigarettes or drink alcohol -Continue practicing healthy lifestyle -Cancer screening is up to date for her age group Fear of flying 03/04/2021 Vitamin D deficiency 04/19/2018 Papanicolaou smear of cervix with atypical squamous cells of undetermined significance (ASC-US) 01/05/2017 Overview (05/15/2024): 11/2016 ASCUS HR HPV 12/2016 Colpo negative for dysplasia 03/2021 NIL HPV neg 03/2022 ASCUS +HPV - per ASCCP recommendation will repeat Pap in one year Beta thalassemia minor 11/29/2015 Overview (05/15/2024): Hgb electrophoresis 10/2015. Microcytosis without anemia. Resolved Problems Problem Noted Date Diagnosed Date Resolved Date Flu 04/19/2024 05/09/2024 Overview (04/19/2024): - Prescribed oseltamivir (Tamiflu) 75 MG capsule 04/19/24 - ER precautions discussed. - Seek medical attention for worsening symptoms. Assessment & Plan (04/19/2024 9:35 AM EST): - Prescribed oseltamivir (Tamiflu) 75 MG capsule 04/19/24 - ER precautions discussed. - Seek medical attention for worsening symptoms. Mild asthma with exacerbation 02/29/2024 05/09/2024 Assessment & Plan (02/29/2024 4:48 PM EST): Patient educated to avoid asthma triggers I will prescribed for patient prednisone for 5 days Albuterol inhaler renewed spacer prescribed Report back if symptoms persist or worse COVID-19 10/22/2022 01/19/2024 Left flank pain 10/22/2022 01/20/2024 Pyelonephritis 10/22/2022 01/20/2024 Strep throat 10/22/2022 01/19/2024 Assessment & Plan (10/22/2022 6:38 PM EDT): Centor criteria 4 of 4, not able to run rapid strep, multiple error messages will treat empirically with Azithromycin due to Augmentin allergy Sore throat 10/22/2022 01/20/2024 Gastroenteritis 08/28/2022 01/20/2024 Assessment & Plan (08/28/2022 10:22 AM EDT): -likely viral gastroenteritis -no evidence of dehydration on exam -no evidence of acute abdomen -Ondansetron 4mg given. -supportive care with fluids -ER precautions discussed Encounters Date Type Department Care Team Description 08/16/2024 3:45 PM EDT Office Visit [facility] [address] [place] [phone] Angelina Wood MD Primary hypertension (Primary Dx); TARSHA (obstructive sleep apnea); Anxiety and depression; Bilateral kidney stones; Screening for diabetes mellitus; Viral syndrome; Seasonal allergic rhinitis, unspecified trigger; Pain of both elbows; Chronic pain of both knees; Polyarthralgia; Elevated TSH 08/16/2024 Travel 08/15/2024 Telephone [facility] [address] [place] [phone] Angelina Wood MD Chart prep 07/07/2024 2:20 PM EDT Office Visit [facility] [address] [place] [phone] Alta Portillo FNP Sprain of right ankle, unspecified ligament, initial encounter (Primary Dx) 07/07/2024 Travel 07/07/[address] [phone] Angelina Wood MD Lab Orders 06/20/[address] [phone] Angelina Wood MD Nurse Triage 06/17/2024 Orders Only [facility] External Provider, [facility] from Last 3 Months Immunizations Immunization Administration Dates Next Due DTP / HiB 01/01/2021 HPV, Quadrivalent 04/11/2013 Influenza injectable quadrivalent preservative f ree 01/23/2022,01/06/2019 Influenza, IIV3, injectable 02/11/2013 Influenza, Unspecified 01/09/2021 Influenza, seasonal, injectable, preservative fr ee 01/04/2015 Moderna Covid-19 Vaccine 12+ 02/06/2021 Pfizer Covid-19 Vaccine 12+ 02/18/2021 Pneumococcal Polysaccharide PPSV23 03/14/2020 Tdap 03/14/2020,04/09/2010 Family History Medical History Relation Name Comments Hypertension Father Prostate cancer Father Brain cancer Mother Diabetes type II Mother Lung cancer Mother Relation Name Status Comments Father Mother Social History Tobacco Use Types Packs/Day Years Used Date Smoking Tobacco: Never Passive Smoke Exposure: Never Smokeless Tobacco: Never Tobacco Cessation:Counseling Given: Not Answered Alcohol Use Standard Drinks/Week Comments Never 0 (1 standard drink = 0.6 oz pur e alcohol) Alcohol Answer Date Recorded Frequency of Alcohol Consumption Not on file 01/20/2024 Average Number of Drinks Not on file 024 Frequency of Binge Drinking Not on file 12/29 Score 0 01/20/2024 Depression Answer Date Recorded Patient Health Questionnaire-9 Score 11 01/20/2024 Patient Health Questionnaire-9 Score 11 01/20/2024 Last PHQ-9: Questionnaire Data Not on file 1 Housing Stability Answer Date Recorded What is your housing situation today? I do not have housing (Staying with others, in a hotel, in a halfway, living outside on the street, on a beach, in a car, or in a park 01/20/[address] you li ve. Do you have problems with any of the following? None of the above 01/20/2024 Food Insecurity Answer Date Recorded Within the past 12 months, y ou worried that your food would run out before you got money to buy more: Sometimes True 2023 Within the past 12 months,th e food you bought just didn't last and you didn't have enough money to get more: Sometimes True 01/20/2024 Transportation Answer Date Recorded In the past 12 months, has l ack of transportation kept you from medical appts, meetings, work or from getting things needed for daily living? No 01/20/2024 Utilities Answer Date Recorded In the past 12 months, has t he electric, gas, oil or water company threatened to shut off services in your home? I am not sure 01/20/2024 Depression Answer Date Recorded Patient Health Questionnaire-2 Score 2 01/20/2024 Internet Access Answer Date Recorded Internet Access Q1 Yes 01/20/2024 Internet Access Q2 Not on file 01/20/2024 Comments Unknown Sex and Gender Information Value Date Recorded Sex Assigned at Female 01/27/2022 10:30 AM EDT Legal Sex Female 10:30 AM EDT Gender Identity Female 01/27/2022 10:30 AM EDT Sexual Orientation Don't know 01/27/2022 10 :30 AM EDT Last Filed Vital Signs Vital Sign Reading Time Taken Comments Blood Pressure 142/100 08/16/2024 4:32 PM EDT Pulse 74 08/16/2024 4:11 PM EDT Temperature 36.4 ??C (97.5 ??F) 08/16/2024 4:11 PM ED T Respiratory Rate 18 08/16/2024 4:11 PM EDT Oxygen Saturation 99% 08/16/2024 4:11 PM EDT Inhaled Oxygen Concentration - - Weight 100 kg (221 lb 3.2 oz) 08/16/2024 4:11 PM EDT Height 157.5 cm (5' 2 ) 08/16/2024 4:11 PM EDT Body Mass Index 40.46 08/16/2024 4:11 PM EDT Plan of Treatment Upcoming Encounters Date Type Department Care Team (Late st Contact Info) Description 10/14/2024 2:00 PM EDT Office Visit [facility] [address] [place] [address] Luzmaria, Sarina [address] [place] [address] Health Maintenance Due Date Last Done Comments HIV Screening 1990 Disability Screening 1990 Family Planning (PISQ) 2006 Hepatitis C Screening 2009 Hepatitis B Vaccines (1 of 3 - 19+ 3-dose series) 2010 Pap Smear 2012 HPV Vaccines (2 - 3-dose series) 05/09/2013 04/11/2013 Pneumococcal Vaccine: Pediatrics (0 to 5 Years) and At-Risk Patients (6 to 49) Years) (2 of 2 - PCV) 03/14/2021 03/14/2020 Cervical Cancer Screening 2021 HPV/Cotest 2021 COVID-19 Vaccine ( season) 2023 01/23/2022, 02/18/2021, 02/06/2021, Additional history exists Influenza Vaccine (#1) 2023 , 01/09/2021, 01/06/2019, Additional history exists Dental Prophylaxis 02/04/2024 08/03/2023, 1 , 07/18/2020, Additional history exists Dental Oral Exam 03/11/2024 09/09/2023, 07/2020, 01/20/2017, Additional history exists Dental X-Ray: Bitewings 08/03/2024 08/03/19, 03/06/2023, 01/30/2023, Additional history exists Alcohol/Substance Use Screening 01/19/2025 01/20/2024 Depression Screening 01/19/2025 01/20/2024, 01/20/20 SDOH Screening 01/19/2025 01/20/2024 Dental X-Ray: Full Mouth 01/23/2025 01/22/2022, 02/28 Tobacco Screening 08/16/2025 08/16/2024 Lipid Panel 01/19/2029 01/20/2024, 03/27/2022 DTaP/Tdap/Td Vaccines (4 - Td or Tdap) 01/01/2031 01/01/2021, 03/14/2020, 04/09/2010 Zoster Vaccines (1 of 2) 2041 RSV Patients and Patients Aged 60 years or older (1 - 1-dose 75+ series) 2066 HIB Vaccines Aged Out 01/01/2021 No longer eligi ble based on patient's age to complete this topic Hepatitis A Vaccines Aged Out No long er eligible based on patient's age to complete this topic IPV Vaccines Aged Out No longer eligi ble based on patient's age to complete this topic Meningococcal B Vaccine Aged Out No l onger eligible based on patient's age to complete this topic Meningococcal Vaccine Aged Out No srini jarrell eligible based on patient's age to complete this topic RSV under 20 months Aged Out No longe r eligible based on patient's age to complete this topic Rotavirus Vaccines Aged Out No longer eligible based on patient's age to complete this topic Goals Goal Patient Goal Type Associated Problems Recent Progress Patient-Stated? Author Blood Pressure < 140/90 Blood Pressure 142/100(2024 4:32 PM EDT) No Neil Wise, Bisi Procedures Procedure Name Priority Date/Time Associated Diagnosis Comments CBC WITH AUTO DIFFERENTIAL Routine 08/17/2024 1:16 PM EDT Polyarthralgia XR KUB AND UPRIGHT 2 VIEWS Routine 06/20/2024 2:23 PM EDT LIPID PANEL, STANDARD Routine 01/20/2024 11:40 AM EDT PERIODIC ORAL EVALUATION - ESTABLISHED PATIENT Routine 09/09/2023 3:30 PM EDT Encounter for dental examination Dental caries Full PROPHYLAXIS - ADULT Routine 08/03/2023 2:30 PM EDT Gingival bleeding Acute gingival inflammation Dental calculus BITEWINGS - 4 RADIOGRAPHIC IMAGES Routine 08/03/2023 2:30 PM EDT Gingival bleeding Acute gingival inflammation Dental calculus INTRAORAL - COMPLETE SERIES OF RADIOGRAPHIC IMAGES Routine 01/22/2022 12:00 AM EDT from Last 3 Months or Most Recently Relevant to Health Maintenance Results * (ABNORMAL) CBC auto differential (08/17/2024 1:16 PM EDT) White Blood Count 10.5 4.8 - 10.8 X10*3/uL [facility] Red Blood Count 6.00(H) 4.20 - 5.50 X10*6/uL [facility] Hemoglobin 12.7 12.0 - 16.0 g/dl [facility] Hematocrit 41.0 37.0 - 47.0 % [facility] Mean Corpuscular Volume 68.3(L) 80.0 - 98.0 fL [facility] Mean Corpuscular Hemoglobin 21.2(L) 27.0 - 33.0 pg [facility] Mean Corpuscular HGB Conc 31.0 31.0 - 35.0 g/dl [facility] Red Cell Distribution Width 17.9(H) 11.0 - 16.0 % [facility] Platelet Count 268 160 - 400 X10*3/uL [facility] Mean Platelet Volume 10.4 9.4 - 12.3 fL [facility] Neutrophils Percent Auto 64.2 45 - 73 % [facility] Imm Gran Pct Auto 1.1(H) 0.0 - 0.4 % [facility] Lymphocytes Percent Auto 23.9 20 - 40 % [facility] Monocytes Percent Auto 7.5 2 - 11 % [facility] Eosinophils Percent Auto 2.7 0 - 4 % [facility] Basophils Percent Auto 0.6 0 - 2 % [facility] NRBC Pct Auto 0.0 0.0 - 0.2 /100WBC [facility] Neutrophils Absolute Auto 6.8 2.0 - 8.3 x10*3/uL [facility] Imm Gran Abs Auto 0.12(H) 0.00 - 0.03 X10*3/uL [facility] Lymphocytes Absolute Auto 2.5 1.2 - 4.9 X10*3/uL [facility] Monocytes Absolute Auto 0.8 0.1 - 1.2 X10*3/uL [facility] Eosinophils Absolute Auto 0.3 0.0 - 0.4 X10*3/uL [facility] Basophils Absolute Auto 0.1 0.0 - 0.2 X10*3/uL [facility] NRBC Abs Auto 0.000 0.0 - 0.012 X10*3/uL [facility] Blood Venous blood specimen / Unknown 08/17/2024 1:16 PM EDT 08/17/2024 1:16 PM EDT us Angelina oWod MD LAB BLOOD ORDERABLES Final Resul t [facility] [address] [place] [address] [phone] * XR KUB and Upright 2 Views (06/20/2024 2:23 PM EDT) Anatomical Region Laterality Modality Radiographic Tita ging 06/20/2024 2:23 PM EDT Narrative 06/20/2024 2:23 PM EDT ? [facility] ?[address] ?[place] [address] ?XRay Report ? Signed ? Patient: Simon,Nighat ?MR#: [id number] ?? [id number] ? : 1990 ?Acct:[id number] ? Age/Sex: 34 / F ?ADM Date: 06/17/24 ? Loc: HO.XRAY ? Attending Dr: Wesly Smyth MD ? Ordering Physician: Wesly Smyth MD ?? Date of Service: 06/17/24 ?? Procedure(s): XR KUB ?? Accession Number(s): [id number] ? cc: Wesly Smyth MD; Angelina Wood MD ? CLINICAL HISTORY: N20.0 - Calculus of kidney ? Single view of the abdomen. ? COMPARISON: None ? FINDINGS: ?? Normal bowel distention. ?? No calculus seen overlying the expected location of the kidneys or ureters ?? bilaterally. No pneumoperitoneum identified. ?? Mild stool burden. ? No fracture identified. ? IMPRESSION: ?? 1. Nonspecific nonobstructive bowel gas pattern. ?? 2. No calculi identified overlying the expected location of the kidneys or ?? ureters bilaterally. ? This document has been electronically signed by: Tello Shields MD on ?? 06/20/2024 14:23:06 ? Dictated By: ?Tello Shields MD ? Signed By: ?<Electronically signed by Tello Shields MD in OV> ?06/20/243 ? DD/ ? TD/TT: 06/20/243 ? Shot Coat Tender: ? Procedure Note Gilbert, Image - 06/20/[address] [address] XRay Report Signed Patient: Nighat MontesMR#: [id number] : 1990Acct:[id number] Age/Sex: 34 / FADM Date: 06/17/24 Loc: HO.XRAY Attending Dr: Wesly Smyth MD Ordering Physician: Wesly Smyth MD Date of Service: 06/17/24 Procedure(s): XR KUB Accession Number(s): [id number] cc: Wesly Smyth MD; Angelina Wood MD CLINICAL HISTORY: N20.0 - Calculus of kidney Single view of the abdomen. COMPARISON: None FINDINGS: Normal bowel distention. No calculus seen overlying the expected location of the kidneys or ureters bilaterally. No pneumoperitoneum identified. Mild stool burden. No fracture identified. IMPRESSION: 1. Nonspecific nonobstructive bowel gas pattern. 2. No calculi identified overlying the expected location of the kidneys or ureters bilaterally. This document has been electronically signed by: Tello Shields MD on 06/20/2024 14:23:06 Dictated By: Tello Shields MD Signed By: <Electronically signed by Tello Shields MD in OV> 06/20/24 1423 DD/ 1423 TD/TT: 06/20/24 142 Shot Coat Tender: [facility] External Provider IMG XR PROCEDURES Final Result * Lipid Panel, Standard (01/20/2024 11:40 AM EDT) Triglycerides 61 <150 mg/dL [facility] Comment:Desirable Triglyceri de: less than 150 mg/dLBorderline High Triglyceride 150-199 mg/dLHigh Triglyceride: 200-499 mg/dLVery High Triglyceride: greater than or equal to 5OO mg/dL Cholesterol 112 <200 mg/dL [facility] Comment:Desirable Cholestero l: less than 200 mg/dLBorderline High Cholesterol: 200-239 mg/dLHigh Cholesterol: greater than 239 mg/dL LDL Cholesterol Calculated 53 <100 mg/dL [facility] Comment:Desirable LDL: less than 100 mg/dLNear Optimal/Above Optimal LDL: 110- 129 mg/dLBorderline High LDL: 130-159 mg/dLHigh LDL: 160-189 mg/dLVery High LDL: greater than or equal to 190 mg/dL HDL Cholesterol 47 >40 mg/dL [facility] Comment:Desirable HDL: great er than 40 mg/dL Note: This HDL assay may give artificially low results in patients with liver disease. 01/20/2024 11:4 0 AM EDT 01/20/2024 1:24 PM EDT us Angelina Wood MD LAB BLOOD ORDERABLES Final Resul t [facility] [address] [place] [phone] from Last 3 Months or Most Recently Relevant to Health Maintenance Insurance [facility] PPO D[facility]AL-[facility] MEDICAID STAND ADULT Care Teams Lumber Carrier Relationship Specialty Start Date End Date Angelina Wood MD [address] [place] [address] PCP - General Family Medicine 05/01/22 Neil Wise, GageD [address] [place] [address] Pharmacist Internal Medicine 06/16/23
--- OUTSIDE RECORDS SUMMARY | 2024-08-17 13:39 | XMS_ITS | Continuity of Care Document ---
Author Organization [facility] Address [facility] [place] [address] Phone Care Team Providers Care Lead Javascript Developer Name Role Phone Provider, [facility] Unavailable Unavailable Advance Directives Directive Yes / No Effective Date File Name No Information Encounters Encounter Description Practice Location Reason(s) For Visit Diagnoses Date Provider Providers Copied on Encounter [facility], [address] [place] [address], [id number], tel:+ [phone] No Information 3-201 3 Provider [facility]. . [facility], [address] [place] [address], [id number], [place] tel:+ [phone] [facility] Location UNSPECIFIED VITAMIN D DEFICIENSYNCOPE AND COLLAPSE Sep- 1-201 3 Provider [facility]. . [facility], [address] [place] [address], [id number], [place] tel:+ [phone] [facility] Location UNSPECIFIED VITAMIN D DEFICIENSYNCOPE AND COLLAPSE Jun- 2-201 3 Provider [facility]. . [facility], [address] [place] [address], [id number], [place] tel:+ [phone] [facility] Location DISTURBANCE OF SKIN SENSATIONSYNCOPE AND COLLAPSE May-0 4-201 3 Provider [facility]. . [facility], [address] [place] [address], [id number], [place] tel:+ [phone] [facility] Location SPRAIN OF NECK July- 1-201 2 Provider [facility]. . [facility], [address] [place] [address], [id number], [place] tel:+ [phone] [facility] Location PAIN, LIMBUNSPECIFIED VITAMIN D DEFICIEN Feb- 9-201 0 Provider [facility]. . [facility], [address], [place], [place], [id number], [place] tel: [phone] [facility] Location PAIN, LIMB Dec-2 1-201 0 Provider [facility]. . [facility], [address], [place], [place], [id number], [place] tel:+ [phone] [facility] Location OVARIAN CYST Oct-1 8-201 0 Provider [facility]. . [facility], [address], [place], [place], [id number], [place] tel:+ [phone] [facility] Location OVARIAN CYST Sep-3 0-201 0 Provider [facility]. . [facility], [address] [facility] [address], [place], [place], [id number], [place] tel: [phone] [facility] Location OVARIAN CYST Sep-2 2-201 0 Provider [facility]. . [facility], [address] [place] [address] [address], [place], [id number], [place] tel: [phone] [facility] Location OVARIAN CYSTSCREENING EXAMINATION FOR PULM Sep-2 0-201 0 Provider [facility]. . [facility], [address], [place], [place], [id number], [place] tel: [phone] [facility] Location No Information Sep-2 0-201 0 Provider [facility]. . [facility], [address], [place], [place], [id number], [place] tel:+ [phone] [facility] Location UTI NOS Aug-3 0-201 0 Provider [facility]. . [facility], [facility] [address], [place], [place], [id number], [place] tel: [phone] [facility] Location SEPSIS Sep-2 1-201 0 Provider [facility]. . [facility], [address] [facility] [address], [place], [place], [id number], [place] tel:+ [phone] [facility] Location FEVER Sep-0 8-201 0 Provider [facility]. . [facility], [address], [place], [place], [id number], [place] tel: [phone] [facility] Location INFLUENZA WITH OTHER RESPIRATO Sep-0 7-201 0 Provider [facility]. . [facility], [address], [place], [place], [id number], [place] tel: [phone] [facility] Location UTI NOS 2-201 0 Provider [facility]. . [facility], [address], [place], [place], [id number], [place] tel: [phone] [facility] Location PHARYNGITIS, STREP Jan-3 0-200 9 Provider [facility]. . [facility], [address], [place], [place], [id number], [place] tel:+ [phone] [facility] Location ALLERGIC RHINITIS NOS 0 7-200 9 Provider [facility]. . [facility], [address], [place], [place], [id number], [place] tel: [phone] [facility] Location ALLERGIC RHINITIS NOS 6-200 9 Provider [facility]. . [facility], [address], [place], [place], [id number], [place] tel: [phone] [facility] Location SHORTNESS OF BREATH 5-200 9 Provider [facility]. . [facility], [address], [place], [place], [id number], [place] tel: [phone] [facility] Location PAIN IN R ARM 2-200 9 Provider [facility]. . [facility], [address], [place], [place], [id number], [place] tel: [phone] [facility] Location MAJOR DEPRESSIVE DISORDER SINGASTROESOPHAGEAL REFLUX 6-200 9 Provider [facility]. . [facility], [address], [place], [place], [id number], [place] tel: [phone] [facility] Location PAIN IN L KNEE & L HIP 6-200 9 Provider [facility]. . [facility], [address], [place], [place], [id number], [place] tel: [phone] [facility] Location PAIN IN L KNEE & L HIP 4-200 9 Provider [facility]. . [facility], [facility] [address], [place], [id number], [place] tel: [phone] [facility] Location OTALGIA UNSPECIFIEDPHARYNGI TIS, VIRAL ACUTE Nov-0 6-200 8 Provider [facility]. . [facility], [address], [place], [place], [id number], [place] tel:+ [phone] [facility] Location PANIC DISORDER WITHOUT AGORAPH Oct-1 3-200 8 Provider [facility]. . [facility], [facility] [address], [place], [place], [id number], [place] tel:+ [phone] [facility] Location No Information Oct-0 2-200 8 Provider [facility]. . [facility], [address], [place], [place], [id number], [place] tel:+ [phone] [facility] Location HEADACHE NOSOTHER PSYCHOLOGICAL OR PHYSICA Sep-2 9-200 8 Provider [facility]. . [facility], [facility] [address], [place], [place], [id number], [place] tel:+ [phone] [facility] Location No Information Eugene-0 2-200 8 Provider [facility]. . [facility], [facility] [address], [place], [place], [id number], [place] tel:+ [phone] [facility] Location HEADACHE NOSCOUGH Mar-3 1-200 8 Provider [facility]. . [facility], [facility] [address], [place], [place], [id number], [place] tel:+ [phone] [facility] Location No Information Mar-3 1-200 8 Provider [facility]. . [facility], [address], [place], [place], [id number], [place] tel:+ [phone] [facility] Location UPPER RESP INFECTION NOS Nov-0 6-200 7 Provider [facility]. . [facility], [address], [place], [place], [id number], [place] tel:+ [phone] [facility] Location HEADACHE NOS May-1 8-200 7 Provider [facility]. . [facility], [facility] [address], [place], [place], [id number], [place] tel:+ [phone] [facility] Location GASTROENTERITIS, VIRAL Apr-1 6-200 7 Provider [facility]. . [facility], [facility] [address], [place], [place], [id number], tel:+ [phone] [facility] Location No Information Dec-0 7-200 6 Provider [facility]. . [facility], [address], [place], [place], [id number], tel: [phone] [facility] Location ROUTINE CHILD EXAM Dec-0 6-200 6 Provider [facility]. . [facility], [address], [place], [place], [id number], tel:[phone] [facility] Location ANXIETY STATE NOSHEADACHE, MIGRAINEHEADACHE NOS Sep-0 5-200 6 Provider [facility]. . [facility], [address], [place], [place], [id number], tel:[phone] [facility] Location HEADACHE, MIGRAINE Harjeet-2 0-200 6 Provider [facility]. . Family History Family Member [...] schedule), for intramuscular use administered Note: [facility] conversion as of 01/30/2013 ; Source: New [...]
--- OUTSIDE RECORDS SUMMARY | 2024-08-17 13:39 | XMS_ITS | Encounter Summary ---
Author Organization [employer] Address [address] [facility] 7t [place] [address] Care Team Providers Care Tissue Technician Name Role Phone Angelina Wood MD Primary Care Provider [phone] Neil Wise PharmD Unavailable [phone] Encounter Details Date Type Department Care Team (Latest Contact Info) Description 01/22/2022 Abstract [facility] CONVERSIONS Dental, Provider, DDS Social History Tobacco [...] Description 10/14/2024 2:00 PM EDT Office Visit [facility] ADULT DENTAL [address] [place] [address] LuzmariaNeoSarina [address] [place] [address] documented as of this encounter Visit Diagnoses Not on filedocumented in this encounter Care Teams Tissue Technician Relationship Specialty Start Date End Date Angelina Wood MD [address] [place] [address] PCP - General Family Medicine 05/01/22 Neil Wise, PharmD [address] [place] [address] Pharmacist Internal Medicine 06/16/23 documented as of this encounter
--- OUTSIDE RECORDS SUMMARY | 2024-08-17 13:39 | XMS_ITS | Clinical Summary ---
Author Organization [facility] ity Address [address] [place] [address] Care Team Providers Care Admissions Gate Attendant Name Role Phone Ramone Tomlin MD Primary Care Provider Allergies Active Allergy Reactions Criticality Noted Date Comments Other 04/11/2013 Tramadol Other 03/01/2020 N/V Medications norethindrone (MARIAH,JUAN JOSE,H EATHER,MICRONOR ) 0.35 mg tablet Take 1 tablet (0.35 mg total) by mouth 1 (one) time each day. 04/03/2022 Active traZODone (DESYREL) 50 mg tablet Take 1 Tablet by mouth at bedtime. 11/13/2021 Active lisinopriL (PRINIVIL,ZESTR IL) 20 mg tablet 08/22/2021 Active indapamide (LOZOL) 1.25 mg tablet 08/15/2021 Active hydrOXYzine HCL (ATARAX) 25 mg tablet Every 8 Hours as needed for Anxiety 04/16/2018 Active Active Problems Problem Noted Date Diagnosed Date Fear of flying 03/04/2021 Chronic cough 02/14/2021 Hypersomnolence 02/14/2021 Hypertension 02/13/2021 Chronic right-sided low back pain without sciati ca 01/20/2020 Asthma 03/25/2019 Obstructive sleep apnea 11/18/2018 Overview (03/26/2024): [facility] Polysomnogram: Date 11/11/2018; Wt 182#; BMI 33; SE 85%; SM 92%; REM 21%; RDI 9 (AHI 7), REM (RDI 18 - AHI 14), Central apneas 3; Obstructive apneas 4; Mixed apneas 0; hypopneas 42; RERAs 19; average oxygen saturation 95% (lowest 87% - without saturations <88% for 5% or more of study); PLMs 0. - Obstructive Sleep Apnea - Mild; mostly hypopneas; without sleep related hypoventilation by 2018 polysomnogram. Anxiety with depression 11/10/2018 Vitamin D deficiency 04/19/2018 Papanicolaou smear of cervix with atypical squamous cells of undetermined significance (ASC-US) 01/05/2017 Overview (03/26/2024): 11/2016 ASCUS HR HPV 12/2016 Colpo negative for dysplasia 03/2021 NIL HPV neg 03/2022 ASCUS +HPV - per ASCCP recommendation will repeat Pap in one year Beta thalassemia minor 11/29/2015 Overview (03/26/2024): Hgb electrophoresis 10/2015. Microcytosis without anemia. Acne 04/09/2010 Dysfunctional uterine bleeding 04/09/2010 Immunizations Name Administration Dates Next Due HPV, Quadrivalent 04/11/2013 Influenza trivalent, 0.5mL, preservative free (Fluarix; FluLaval; Fluzone) ages 6mo and older (Afluria) 3 years and older 01/04/2015 Influenza trivalent, with pr eservative (Fluzone; Afluria) 6mo and older 02/11/2013 Influenza, Unspecified 01/09/2021 Veduca SARS-CoV-2 COVID-19, mRNA, LNP-S, preservative free 02/18/2021 Pneumococcal polysaccharide 23 valent (Pneumovax 23) 2yo and older 03/14/2020 Tdap Tetanus diptheria acell ular pertussis (Boostrix; Adacel) 7yo and older 03/14/2020,04/09/2010 Surgical History Surgery Date Site/Laterality Comments OTHER SURGICAL HISTORY PROCEDURE: DENIES PREVIOUS SURGERY Medical History Medical History Date Comments Hydronephrosis with obstruct ing calculus 02/20/2018 DX:Hydronephrosis with obstr ucting calculus; COMMENT: Right - [facility] 02/08/18 CT scan Vitamin D deficiency 04/19/2018 DX:Vitamin D deficiency PCOS (polycystic ovarian syndrome) DX:PCOS (polycystic ovarian syndrome) COVID-19 virus infection 02/06/2020 DX:COVI D-19 virus infection Hydronephrosis with obstruct ing calculus 02/20/2018 DX:Hydronephrosis with obstr ucting calculus; COMMENT: Right - [facility] 02/08/18 CT scan Acute intractable headache 02/02/2019 DX:Ac tanana intractable headache Family History Medical History Relation Name Comments No Known Problems Brother x2 healthy Diabetes Father Hypertension Father Prostate cancer Father Diabetes Mother Hyperlipidemia Mother Lung cancer Mother mets to brain, passed age 70 Thyroid disease Mother Diabetes Mother's side aunt Brain cancer Paternal Grandmother Lung cancer Paternal Grandmother No Known Problems Sister Breast cancer Neg Hx Cancer of Small Bowel Neg Hx Colon cancer Neg Hx Kidney cancer Neg Hx Ovarian cancer Neg Hx Pancreatic cancer Neg Hx Uterine cancer Neg Hx Relation Name Status Comments Brother Alive Father Alive Mother Mother's side Paternal Grandmother Sister Alive Social History Tobacco Use Types Packs/Day Years Used Date Smoking Tobacco: Never Smokeless Tobacco: Never Alcohol Use Standard Drinks/Week Comments Not Currently 0 (1 standard drink = 0.6 oz pur e alcohol) Comments Unknown Sex and Gender Information Value Date Recorded Sex Assigned at Not on file Legal Sex Female 11:38 PM EST Gender Identity Not on file Sexual Orientation Not on file Obstetrics History Last Filed Vital Signs Vital Sign Reading Time Taken Comments Blood Pressure 136/97 04/03/2022 10:07 AM EST Pulse 71 04/03/2022 10:07 AM EST Temperature - - Respiratory Rate - - Oxygen Saturation - - Inhaled Oxygen Concentration - - Weight 98.9 kg (218 lb) 04/03/2022 10:07 AM EST Height 157.5 cm (5' 2 ) 04/03/2022 10:07 AM EST Body Mass Index 39.87 04/03/2022 10:07 AM EST Plan of Treatment Health Maintenance Due Date Last Done Comments Hepatitis B Vaccines (1 of 3 - 19+ 3-dose series) 2010 HPV Vaccines (2 - 3-dose series) 05/09/2013 04/11/2013 Pneumococcal Vaccine: Pediatrics (0 to 5 Years) and At-Risk Patients (6 to 64 Years) (2 of 2 - PCV) 03/14/2021 03/14/2020 Social Influencers of Health Screening 03/08/2022 Hypertension/CHF/CAD Annual BMP Blood Test 11/18/2022 11/18/2021 Depression Screening 03/27/2023 03/27/2022 COVID-19 Vaccine ( season) 2023 02/18/2021, 04/18/2020, 03/28/2020 Influenza Vaccine (Season Ended) 2024 01/09/2021, 01/06/2019, 01/04/2015, Additional history exists Cholesterol Screening (Lipid Panel) 01/10/2026 01/10/2021 Cervical Cancer Screening: HPV 04/03/2027 04/03/2022 DTaP,Tdap,and Td Vaccines (3 - Td or Tdap) 03/14/2030 03/14/2020, 04/09/2010 Hepatitis C Screening Completed 11/23/2015 HIV Screening Completed 12/03/2016 HIB Vaccines Aged Out No longer eligi ble based on patient's age to complete this topic Hepatitis A Vaccines Aged Out No long er eligible based on patient's age to complete this topic IPV Vaccines Aged Out No longer eligi ble based on patient's age to complete this topic MMR Vaccines Aged Out No longer eligi ble based on patient's age to complete this topic Meningococcal ACWY Vaccine Aged Out N o longer eligible based on patient's age to complete this topic Meningococcal B Vaccine Aged Out No l onger eligible based on patient's age to complete this topic RSV Immunization Patients Under 20 months Aged Out No longer eligible based on patient's age to complete this topic Varicella Vaccines Aged Out No longer eligible based on patient's age to complete this topic Procedures Procedure Name Priority Date/Time Associated Diagnosis Comments HPV Routine 04/03/2022 ANNUAL BMP BLOOD TEST Routine 11/18/2021 LIPID PANEL Routine 01/10/2021 HIV SCREENING Routine 12/03/2016 HEPATITIS C SCREENING Routine 11/23/2015 from Last 3 Months or Most Recently Relevant to Health Maintenance Results * Cervical Cancer Screening: HPV (04/03/2022) [facility] Cervical Cancer Screening: HPV positive,a bstracted Historical Provider HEALTH MAINTENANCE Final Result * Annual BMP Blood Test (11/18/2021) Pathologist [facility] Annual BMP Blood Test ABSTRACTED Historical Provider HEALTH MAINTENANCE Final Result * Lipid panel (01/10/2021) [facility] LDL/HDL Ratio 3 0 - 4 Triglycerides 82 0 - 150 mg/dL Cholesterol 122 0 - 200 mg/dL HDL 44 >=40 mg/dL LDL Cholesterol 62 0 - 100 mg/dL Blood Venous blood specimen / Unknown Result [facility] Historical Provider LAB BLOOD ORDERABLES Yazmin l Result * HIV Screening (12/03/2016) [facility] HIV Screening ABSTRACTED [facility] Provider HEALTH MAINTENANCE Final Result * Hepatitis C Screening (11/23/2015) [facility] Hepatitis C Screening ABSTRACTED Historical Provider HEALTH MAINTENANCE Final Result from Last 3 Months or Most Recently Relevant to Health Maintenance Care Teams Admissions Gate Attendant Relationship Specialty Start Date End Date Ramone Tomlin MD [address] [place] [address] PCP - General Internal Medicine 08/02/21
--- OUTSIDE RECORDS SUMMARY | 2024-08-17 13:39 | XMS_ITS | Encounter Summary ---
Author Organization [employer] Address [address] [facility] 7t [place] [address] Care Team Providers Care Salvage Worker Name Role Phone Angelina Wood MD Primary Care Provider [phone] Neil Wise PharmD Unavailable [phone] Encounter Details Date Type Department Care Team (Late st Contact Info) Description 03/27/2022 Abstract [facility] MEDIC[facility] [address] [place], [place] [phone] Angelina Wood MD [address] [place], [place] [phone] Social History Tobacco Use Types Packs/Day Years [...] AM EST documented as of this encounter Functional Status * Over the past 2 weeks, how often have you been bothered by any of the following problems? Question Answer Date of Assessment Author Patient Health Questionnaire -2 Score 0 03/27/2022 9:34 AM EST Monica Westfall MA * Over the past 2 weeks, how often have you been bothered by any of the following problems? Question Answer Date of Assessment Author Little interest or pleasure in doing things Not at all 03/27/2022 9:34 AM Monica Peguero MA Feeling down, depressed, or hopeless Not at all 03/27/2022 9:34 AM Monica Peguero MA Trouble falling or staying asleep, or sleeping too much Not at all 03/27/2022 9:34 AM Sheeba Peguero MA Feeling tired or having little energy Not at all 03/27/2022 9:34 AM Monica Peguero MA Poor appetite or overeating Not at all 03/27/2022 9: 34 AM Sheeba Peguero MA Feeling bad about yourself - or that you are a failure or have let yourself or your family down Not at all 03/27/2022 9:34 AM Monica Peguero MA Trouble concentrating on things, such as reading the newspaper or watching television Not at all 03/27/2022 9:34 AM Mnoica Peguero MA Moving or speaking so slowly that other people could have noticed? Or the opposite - being so fidgety or restless that you have been moving around a lot more than usual. Not at all 03/27/2022 9:34 AM Sheeba Peguero MA Thoughts that you would be better off or hurting yourself in some way Not at all 03/27/2022 9:34 AM Robin Peguero MA Patient Health Questionnaire-9 Score 0 03/27/2022 9:34 AM Андрей Peguero MA documented as of this encounter Plan of Treatment Upcoming Encounters Date Type Department Care Team (Late st Contact Info) Description 10/14/2024 2:00 PM EDT Office Visit [facility] ADULT DENTAL [address] [place] [address] Sarina Dutta [address] [place] [address] documented as of this encounter Visit Diagnoses Not on filedocumented in this encounter Additional Health Concerns Assessment Noted Time PHQ-9 Depression Total Score: 0 12/29/20 22 9:34 AM EST documented as of this encounter Care Teams Salvage Worker Relationship Specialty Start Date End Date Angelina Wood MD [address] [place], [place] [phone] PCP - General Family Medicine 05/01/22 Neil Wise, Bisi [address] [place] [address] Pharmacist Internal Medicine 06/16/23 documented as of this encounter
--- OUTSIDE RECORDS SUMMARY | 2024-08-17 13:40 | XMS_ITS | Encounter Summary ---
Author Organization [employer] Address [address] [facility] 7t [place] [address] Care Team Providers Care Mud Car Worker Name Role Phone Angelina Wood MD Primary Care Provider [phone] Neil Wise PharmD Unavailable [phone] Reason for Visit * Reason Onset Date Comments Chart prep 08/15/2024 Encounter Details Date Type Department Care Team ([facility] st Contact Info) Description 08/15/2024 Telephone [facility] [address] [place], [place] [phone] Angelina Wood MD [address] [place], [place] [phone] Chart prep Social History Tobacco Use Types Packs/Day Years [...] with others, in a hotel, in a mcc, living outside on the street, on a [...] the past 12 months, has t he [employer], oil or [employer] threatened to shut off services in your [...] AM EDT documented as of this encounter Miscellaneous Notes * Telephone Encounter - Za Patterson [place] - 08/15/2024 3:54 PM EDT Chart Prep Labs: not done Images: done Vaccines due: Covid Due, Hep B Due, PCV20 Due, and Flu Due Referrals: Completed Screenings: PAP Overdue care gaps: Disability documented in this encounter Plan of Treatment Upcoming Encounters Date Type Department Care Team (Late st Contact Info) Description 10/14/2024 2:00 PM EDT Office Visit [facility] ADULT DENTAL [address] [place] [address] Luzmaria Sarina [address] [place] [address] documented as of this encounter Goals Goal Patient Goal Type Associated Problems Recent Progress Patient-Stated? Author Blood Pressure < 140/90 Blood Pressure 142/100(2024 4:32 PM EDT) No Neil Wise, PharmD documented as of this encounter Visit Diagnoses Not on filedocumented in this encounter Additional Health Concerns Assessment Noted Time PHQ-9 Depression Total Score: 11 01/19/ 024 11:00 AM EDT documented as of this encounter Care Teams Mud Car Worker Relationship Specialty Start Date End Date Angelina Wood MD [address] [place] [address] PCP - General Family Medicine 05/01/22 Neil Wise, PharmD [address] [place] [address] Pharmacist Internal Medicine 06/16/23 documented as of this encounter
--- OUTSIDE RECORDS SUMMARY | 2024-08-17 13:40 | XMS_ITS | Encounter Summary ---
Author Organization [employer] Address [address] [place] [address] Care Team Providers Care Engraved Roller Inspector Name Role Phone Angelina Wood MD Primary Care Provider [phone] Neil Wise PharmD Unavailable [phone] Encounter Details Date Type Department Care Team (Latest Contact Info) Description 08/16/2024 Travel Social History Tobacco Use Types Packs/Day Years [...] with others, in a hotel, in a half-way, living outside on the street, on a [...] Description 10/14/2024 2:00 PM EDT Office Visit [facility] [address] [place] [address] Luzmaria, Sarina [address] [place] [address] documented as of this encounter Goals Goal Patient Goal Type Associated Problems Recent Progress Patient-Stated? Author Blood Pressure < 140/90 Blood Pressure 142/100(2024 4:32 PM EDT) No Neil Wise PharmD documented as of this encounter Visit Diagnoses Not on filedocumented in this encounter Additional Health Concerns Assessment Noted Time PHQ-9 Depression Total Score: 11 024 11:00 AM EDT documented as of this encounter Care Teams Engraved Roller Inspector Relationship Specialty Start Date End Date Angelina Wood MD [address] [place] [address] PCP - General Family Medicine 05/01/22 Neil Wise PharmD [address] [place] [address] Pharmacist Internal Medicine 06/16/23 documented as of this encounter
--- OUTSIDE RECORDS SUMMARY | 2024-08-17 13:40 | XMS_ITS | Encounter Summary ---
Author Organization [employer] Address [address] [facility] [address] [place] [address] Care Team Providers Care Beverage Specialist Name Role Phone Angelina Wood MD Primary Care Provider [phone] Neil Wise PharmD Unavailable Reason for Visit * Reason Onset Date Comments Nurse Triage 12/31/2022 Encounter Details Date Type Department Care Team (Late st Contact Info) Description 12/31/2022 Telephone [facility] MED[facility]INE [address] [place], [place] [phone] Angelina Wood MD [address] [place], [place] [phone] Nurse Triage Social History Tobacco Use Types Packs/Day Years [...] encounter Miscellaneous Notes * Telephone Encounter - Sangeetha Mckinney RN - 12/31/2022 3:39 PM EDT Triage call Pt reports marble sized lump on inner aspect of right thigh. Pt reports it is red around the edges and is very tender to touch and hurts when walking. Pt reports has had this before and urologist , Dr. Smyth , has prescribed medication for this but requests Pt see Pcp. Pt is advised to come to [facility] today open till 800pm and Pt agrees. Protocol Used: Skin Lump or Localized Swelling (Adult) Protocol-Based Disposition: See in Office or Video Visit Today Video visit not offered Positive Triage Question: * Swelling is painful to touch and no fever * All higher-acuity triage questions were negative Care Advice Discussed: * Reasons To Call Back - Fever occurs - Spreading redness occurs - Swelling becomes painful - Swelling persists over 1 week - You become worse * Telephone Encounter - Sadie Westfall - 12/31/2022 3:27 PM EDT Symptom: cyst in inner thigh Outcome: Schedule an appointment to be seen within 24 hours Reason: requesting medication for cyst The caller accepted this outcome Please contact pt at [phone] documented in this encounter Plan of Treatment Upcoming Encounters Date Type Department Care Team (Late st Contact Info) Description 10/14/2024 2:00 PM EDT Office Visit [facility] ADULT DENTAL [address] [place] [address] Luzmaria, Sarina [address] [place] [address] documented as of this encounter Visit Diagnoses Not on filedocumented in this encounter Additional Health Concerns Assessment Noted Time PHQ-9 Depression Total Score: 0 03/27/20 22 9:34 AM EST documented as of this encounter Care Teams Beverage Specialist Relationship Specialty Start Date End Date Angelina Wood MD [address] [place] [address] PCP - General Family Medicine 05/01/22 Neil Wise, GageD [address] [place] [address] Pharmacist Internal Medicine 06/16/23 documented as of this encounter
--- OUTSIDE RECORDS SUMMARY | 2024-08-17 13:40 | XMS_ITS | Encounter Summary ---
Author Organization [employer] Address [address] [place] [address] Care Team Providers Care Tenter Feeder Name Role Phone Angelina Wood MD Primary Care Provider [phone] Neil Wise PharmD Unavailable [phone] Encounter Details Date Type Department Care Team (Late st Contact Info) Description 01/29/[address] [facility] ADULT D[facility]AL [address] [place], [place] [phone] Sawyer Contreras DDS [address] [place], [place] [phone] Social History Tobacco Use Types Packs/Day Years Used Date Smoking Tobacco: Never Passive Smoke Exposure: Never Smokeless Tobacco: Never Alcohol Use Standard Drinks/Week Comments Never 0 (1 standard drink = 0.6 oz pur e alcohol) Depression Answer Date Recorded Patient Health Questionnaire-9 Score 0 03/27/2022 Housing Stability Answer Date Recorded What is your housing situation today? I have patrice carolina 01/16/[address] you [...] the past 12 months, has t he [employer] gas, oil or water company threatened to [...] encounter Miscellaneous Notes * Telephone Encounter - Lisa Galicia - 01/29/2023 2:16 PM EDT Patient was seen today for an emergency visit we referral her to get emergency root canal . Patientwas able to get it done today . Patient is calling to set up her next apt to get the temporary grown . documented in this encounter Plan of Treatment Upcoming Encounters Date Type Department Care Team (Late st Contact Info) Description 10/14/2024 2:00 PM EDT Office Visit [facility] ADULT DENTAL [address] [place] [address] Luzmaria, Sarina [address] [place] [address] documented as of this encounter Visit Diagnoses Not on filedocumented in this encounter Additional Health Concerns Assessment Noted Time PHQ-9 Depression Total Score: 0 03/27/20 22 9:34 AM EST documented as of this encounter Care Teams Tenter Feeder Relationship Specialty Start Date End Date Angelina Wood MD [address] [place] [address] PCP - General Family Medicine 05/01/22 Neil Wise PharmD [address] [place] [address] Pharmacist Internal Medicine 06/16/23 documented as of this encounter
--- OUTSIDE RECORDS SUMMARY | 2024-08-17 13:40 | XMS_ITS | Encounter Summary ---
Author Organization [employer] Address [address] [facility] [address] [place] [address] Care Team Providers Care Ict Business Analyst Name Role Phone Angelina Wood MD Primary Care Provider [phone] Neil Wise PharmD Unavailable Reason for Visit * Reason Comments Dental Exam Encounter Details Date Type Department Care Team (Late st Contact Info) Description 03/10/2022 Abstract [facility] ADULT DENTAL [address] [place], [place] [phone] Dental, Provider, DDS Social History Tobacco Use [...] Description 10/14/2024 2:00 PM EDT Office Visit [facility] ADULT DENTAL [address] [place] [address] Luzmaria Sarina [address] [place] [address] documented as of this encounter Procedures Procedure Name Priority Date/Time Associated Diagnosis Comments 20 DO COMPOSITE FILLING Routine 03/10/2022 12:00 AM EST 19 PRITI COMPOSITE FILLING Routine 03/10/2022 12:00 AM EST 18 O COMPOSITE FILLING Routine 03/10/2022 12:00 AM EST 15 O COMPOSITE FILLING Routine 03/10/2022 12:00 AM EST 14 O COMPOSITE FILLING Routine 03/10/2022 12:00 AM EST 13 MOD COMPOSITE FILLING Routine 03/10/2022 12:00 AM EST 12 DO COMPOSITE FILLING Routine 03/10/2022 12:00 AM EST 11 D COMPOSITE FILLING Routine 03/10/2022 12:00 AM EST 29 DO COMPOSITE FILLING Routine 03/10/2022 12:00 AM EST 30 MO COMPOSITE FILLING Routine 03/10/2022 12:00 AM EST 31 O COMPOSITE FILLING Routine 03/10/2022 12:00 AM EST 7 M COMPOSITE FILLING Routine 03/10/2022 12:00 AM EST 6 D COMPOSITE FILLING Routine 03/10/2022 12:00 AM EST 5 D COMPOSITE FILLING Routine 03/10/2022 12:00 AM EST 4 MO COMPOSITE FILLING Routine 03/10/2022 12:00 AM EST 3 O COMPOSITE FILLING Routine 03/10/2022 12:00 AM EST documented in this encounter Visit Diagnoses Not on filedocumented in this encounter Care Teams Ict Business Analyst Relationship Specialty Start Date End Date Angelina Wood MD [address] [place] [address] PCP - General Family Medicine 05/01/22 Neil Wise, GageD [address] [place] [address] Pharmacist Internal Medicine 06/16/23 documented as of this encounter
--- OUTSIDE RECORDS SUMMARY | 2024-08-17 13:40 | XMS_ITS | Encounter Summary ---
Author Organization [email or web address] Address [address] [facility] [address] [place] [address] Care Team Providers Care Ornamental Ironworker Name Role Phone Angelina Wood MD Primary Care Provider [phone] Neil Wise PharmD Unavailable [phone] Encounter Details Date Type Department Care Team (Late st Contact Info) Description 08/16/2024 3:45 PM EDT Office Visit [facility] MEDICINE [address] [place] [phone] Angelina Wood MD [address] [place], [place] [phone] Primary hypertension (Primary Dx); TARSHA (obstructive sleep apnea); Anxiety and depression; Bilateral kidney stones; Screening for diabetes mellitus; Viral syndrome; Seasonal allergic rhinitis, unspecified trigger; Pain of both elbows; Chronic pain of both knees; Polyarthralgia; Elevated TSH Social History Tobacco Use Types Packs/Day Years [...] with others, in a hotel, in [place] [facility], living outside on the street, on a [...] AM EDT documented as of this encounter Last Filed Vital Signs Vital Sign Reading [...] Mass Index 40.46 08/16/2024 4:11 PM EDT documented in this encounter Miscellaneous Notes * Assessment & Plan Note - Renée Hima, [place] - 08/16/2024 4:50 PM EDTAssociated Problem(s): Chronic pain of both knees - Most likely bursitis or PFS - Continue conservative management * Assessment & Plan Note - Renée Rabago MA - 08/16/2024 4:49 PM EDTAssociated Problem(s): Pain of both elbows - Left worse than right - Most likely medial epicondylitis - Recommended ice, activity modification, NSAID - Discussed about referral to orthopedist or steroid injection. Pt would like to try conservative management at this time. * Assessment & Plan Note - Renée Rabago MA - 08/16/2024 1:26 PM EDTAssociated Problem(s): TARSHA (obstructive sleep apnea) 09/09/21 Sleep study. Mild TARSHA. O2 sat appropriate. No strong indication for CPAP. Consider trial only if worsening symptoms. Since last sleep study, patient has gained weight and her BP is not at goal. Will evaluate with another sleep study * Assessment & Plan Note - Renée Rabago MA - 08/16/2024 1:25 PM EDTAssociated Problem(s): Anxiety and depression - GAD7 score 13 and PHQ9 score 11 in Dec 2023 - continue hydroxyzine prn * Assessment & Plan Note - Renée Rabago MA - 08/16/2024 1:25 PM EDTAssociated Problem(s): Bilateral kidney stones US on 04/11/22, non-obstructive kidney stone Adequate hydration Follow up with urologist as scheduled * Assessment & Plan Note - Renée Rabago MA - 08/16/2024 1:25 PM EDTAssociated Problem(s): Hypertension Goal BP < per 140/90 JNC-8 and [...] long as heart rate is above 65 documented in this encounter Plan of Treatment Upcoming Encounters Date Type Department Care Team (Late st Contact Info) Description 10/14/2024 2:00 PM EDT Office Visit [facility] ADULT DENTAL [address] [place], [place] [phone] Luzmaria, Sarina [address] [place] [address] Scheduled Orders Name Type Priority Associated Diagnoses Orde r Schedule TSH with Reflex to Free T4 Lab Routine Primary hypertension Elevated TSH Expected: 08/16/2024 (Approximate), Expires: 08/16/2025 Hemoglobin A1c Lab Routine Screening for diabetes mellitus Expected: 08/16/2024 (Approximate), Expires: 08/16/2025 C-reactive Protein Lab Routine Polyarthralgia Expected: 08/17/2024 (Approximate), Expires: 08/17/2025 Rheumatoid Factor Lab Routine Polyarthralgia Expected: 08/17/2024 (Approximate), Expires: 08/17/2025 Cyclic Citrullinated Peptide (CCP) Antibody (IgG) Lab Routine Polyarthralgia Expected: 08/17/2024 (Approximate), Expires: 08/17/2025 Sed Rate by Modified [place]gren Lab Routine Polyarthralgia Expected: 08/17/2024 (Approximate), Expires: 08/17/2025 Thyroid Peroxidase Antibodies Lab Routine Primary hypertension Elevated TSH Expected: 08/17/2024 (Approximate), Expires: 08/17/2025 documented as of this encounter Goals Goal Patient Goal Type Associated Problems Recent Progress Patient-Stated? Author Blood Pressure < 140/90 Blood Pressure 142/100(2024 4:32 PM EDT) No Neil Wise, Bisi documented as of this encounter Procedures Procedure Name Priority Date/Time Associated Diagnosis Comments CBC WITH AUTO DIFFERENTIAL Routine 08/17/2024 1:16 PM EDT Polyarthralgia documented in this encounter Results * (ABNORMAL) CBC auto differential (08/17/2024 1:16 PM EDT) White Blood Count 10.5 4.8 - 10.8 X10*3/uL [facility] Red Blood Count 6.00(H) 4.20 - 5.50 X10*6/uL [facility] Hemoglobin 12.7 12.0 - 16.0 g/dl [facility] Hematocrit 41.0 37.0 - 47.0 % [facility] Mean Corpuscular Volume 68.3(L) 80.0 - 98.0 fL [facility] Mean Corpuscular Hemoglobin 21.2(L) 27.0 - 33.0 pg [facility] Mean Corpuscular HGB Conc 31.0 31.0 - 35.0 g/dl [facility] Red Cell Distribution Width 17.9(H) 11.0 - 16.0 % [facility] Platelet Count 268 160 - 400 X10*3/uL [facility] Mean Platelet Volume 10.4 9.4 - 12.3 fL [facility] Neutrophils Percent Auto 64.2 45 - 73 % [facility] Imm Gran Pct Auto 1.1(H) 0.0 - 0.4 % [facility] Lymphocytes Percent Auto 23.9 20 - 40 % [facility] Monocytes Percent Auto 7.5 2 - 11 % [facility] Eosinophils Percent Auto 2.7 0 - 4 % [facility] Basophils Percent Auto 0.6 0 - 2 % [facility] NRBC Pct Auto 0.0 0.0 - 0.2 /100WBC [facility] Neutrophils Absolute Auto 6.8 2.0 - 8.3 x10*3/uL [facility] Imm Gran Abs Auto 0.12(H) 0.00 - 0.03 X10*3/uL [facility] Lymphocytes Absolute Auto 2.5 1.2 - 4.9 X10*3/uL [facility] Monocytes Absolute Auto 0.8 0.1 - 1.2 X10*3/uL [facility] Eosinophils Absolute Auto 0.3 0.0 - 0.4 X10*3/uL [facility] Basophils Absolute Auto 0.1 0.0 - 0.2 X10*3/uL [facility] NRBC Abs Auto 0.000 0.0 - 0.012 X10*3/uL [facility] Blood Venous blood specimen / Unknown 08/17/2024 1:16 PM EDT 08/17/2024 1:16 PM EDT Angelina Wood MD LAB BLOOD ORDERABLES Final Resul t [facility] [address] [place] [address] [phone] documented in this encounter Visit Diagnoses Diagnosis Primary hypertension- Primary Unspecified essential hypertension TARSHA (obstructive sleep apnea) Obstructive sleep apnea (adult) (pediatric) Anxiety and depression Bilateral kidney stones Screening for diabetes mellitus Viral syndrome Unspecified viral infection, in conditions classified elsewhere and of unspecified site Seasonal allergic rhinitis, unspecified trigger Pain of both elbows Chronic pain of both knees Polyarthralgia Pain in joint, multiple sites Elevated TSH Other abnormal blood chemistry documented in this encounter Additional Health Concerns Assessment Noted Time PHQ-9 Depression Total Score: 11 01/19/ 024 11:00 AM EDT documented as of this encounter Care Teams Ornamental Ironworker Relationship Specialty Start Date End Date Angelina Wood MD [address] [place] [phone] PCP - General Family Medicine 05/01/22 Neil Wise, GageD [address] [place] [phone] Pharmacist Internal Medicine 06/16/23 documented as of this encounter
[2024-08-17 14:21] LABS: Erythrocyte Sedimentation Rate 8 MM/HR (0-20)
[2024-08-17 14:32] LABS: Estimated Average Glucose 123 mg/dL; Hemoglobin A1c % 5.9 % (<6.0); Total Hemoglobin (HGBA1C) 3356.6399 umol/L
[2024-08-17 14:47] LABS: Alanine Aminotransferase 37 U/L (0-31); Albumin Level 4.2 g/dL (3.5-5.0); Alkaline Phosphatase 63 U/L (39-117); Aspartate Amino Transferase 32 U/L (5-31); Bilirubin Direct 0.1 mg/dL (0.0-0.5); Bilirubin Total 0.3 mg/dL (0.0-1.0); C Reactive Protein 0.42 mg/dL (< or = 0.50); TSH reflex Free T4 1.63 uIU/mL (0.32-4.0); Total Protein 7.3 g/dL (6.5-8.0)
[2024-08-17 14:51] LABS: Rheumatoid Factor < 13.0 IU/mL (<15.0)
[2024-08-18 21:53] LABS: Thyroid Peroxidase Antibodies 1 IU/mL (<9)
[2024-08-19 10:53] LABS: Cyclic Citrullinated Peptide <16 UNITS
== END 2024-08-17 13:04 | disposition home or self-care (01) ==
LOC: HO.LAB 13:03
PROVIDERS: PCP Family Medicine; Visit Provider Family Medicine
DX: I10 Essential (primary) hypertension (principal); Z13.1 Encounter for screening for diabetes mellitus; B35.1 Tinea unguium; R79.89 Other specified abnormal findings of blood chemistry; M25.50 Pain in unspecified joint
CPT/HCPCS: 36415; 80076; 83036; 84443; 85025; 85652; 86140; 86200; 86376; 86431

== ENCOUNTER 2024-08-18 16:46 | Outpatient (REF) | payer BC, SELFPAY ==
[2024-08-18 17:08] LABS: Immature Retic Fraction 12.3 % (3.0-15.9); Retic HGB Equivalent 24.1 pg (30.0-35.0); Reticulocyte Percent 1.3 % (0.5-1.8); Reticulocytes Absolute 0.078 X10*6/uL (0.026-0.095)
[2024-08-18 17:43] LABS: Iron 42 mcg/dL (30-160); Percent Iron Saturation 15 % (15-50); Total Iron Binding Capacity 286 mcg/dL (228-428); Unsaturated Iron Binding 244 ug/dL
[2024-08-18 17:59] LABS: Ferritin 35 ng/mL (10-122)
== END 2024-08-18 16:47 | disposition home or self-care (01) ==
LOC: HO.LAB 16:46
PROVIDERS: PCP Family Medicine; Visit Provider Family Medicine
DX: R71.8 Other abnormality of red blood cells (principal)
CPT/HCPCS: 82728; 83540; 85045

== ENCOUNTER 2024-08-27 11:15 | Emergency (ER) | payer BC, SELFPAY ==
[2024-08-27 11:20] VITALS: BP 146/97; PULSE 77; RESP 16; TEMP 36.5; O2SAT 97; BMI 39.1
--- NOTE | 2024-08-27 11:20 | ED_ITS ---
HPI - General Adult General Chief complaint: Skin/Abscess/Foreign Body Stated complaint: cyst on inner thigh Time Seen by Provider: 08/27/24 11:47 Source: patient Mode of arrival: ambulatory Limitations: no limitations History of Present Illness ED Provider: Jj Horn DO HPI narrative: 34-year-old female with no significant past medical history who has had cyst and abscesses drained from the bilateral inner thighs in the past, most recently years ago as well as development of these at home which responded to warm compresses presents with 1 day of recurrence of the right inner thigh described as painful with an area of a pimple without discharge despite using warm compresses. Patient does shave this area. She denies any other lesions in any other parts of her body. She denies fevers or chills. Related Data Previous Rx's ?Medication ?Instructions ?Recorded pyridoxine (vitamin B6) 50 mg 50 mg PO DAILY 90 days #90 tabs 11/24/23 tablet naproxen 500 mg tablet 500 mg PO BID 14 days #28 tabs 06/17/24 prednisone 20 mg tablet 20 mg PO DAILY 5 days #5 tabs 06/17/24 tamsulosin 0.4 mg capsule 0.4 mg PO BEDTIME 14 days #14 caps 06/17/24 Allergies Allergy/AdvReac Type Severity Reaction Status Date / Time tramadol AdvReac Vomiting Verified 08/27/24 11:21 Review of Systems Review of Systems: Yes all other systems are reviewed and are negative [facility] Past Medical History Medical History HTN (hypertension) Left flank pain COVID-19 Surgical History No pertinent past surgical history Social History Social History Alcohol intake: current Alcohol intake frequency: holidays/special occasions only Alcohol type: wine Patient Tobacco Use Status: Never used Tobacco Substance Use Type: Marijuana Physical Exam ED Vital Signs: Vital Signs - 24 hr 08/27/24 11:20 Temperature 97.7 F Pulse Rate 77 Respiratory Rate 16 Blood Pressure 146/97 H Pulse Oximetry 97 Oxygen Delivery Method Room Air BMI result Body Mass Index 39.1 Constitutional: Alert, oriented, speaking in full sentences HEENT: Normocephalic, atraumatic. Respiratory: no increased work of breathing Back: Normal range of motion Skin: No rash, There is a pimple noted about the right inner thigh with overlying tenderness and a very small area of mild induration just medial to this without erythema or other surrounding skin changes. Neuro: Alert and oriented to person, place and time, moves all 4 extremities, no focal deficits Extremities: full range of motion Psych: Calm, alert and cooperative, appropriate behavior Course Course Course Narrative: RME performed by Celi Aleman PA-C. Patient is a 34 year old assigned female at presenting to the emergency department with a right groin cyst. Patient states she began to develop a cyst in her right thigh. Patient states that she has had these before and this one is possibly infected. Detailed physical exam and review of systems are deferred to the rope coiling machine operator. Patient placed back in the waiting room pending room availability. Medical Decision Making Medical Decision Making MDM Narrative: Patient presenting with a pimple of the right inner thigh with no signs of surrounding cellulitis. There is no evidence of necrotizing fasciitis or other dangerous skin etiology today. I have a very low suspicion for abscess amenable to drainage given the size of this and I confirmed with ultrasound imaging that there is only a very tiny pocket of fluid less than 2 mm. I discussed with the patient that there are greater risks to attempting to drain this compared to the benefits and provided a bandage and encouraged warm compresses. Return precautions for any spreading redness or other signs of infection or abscess provided and patient agrees with plan. Discharge Plan Discharge Clinical Impression: Skin pimple Patient Disposition: Home, Self-Care Instructions: Blister (ED) Additional Instructions: avoid shaving in this area, continue warm compresses, return with any fevers, spreading redness or increased size of pimple or any other new symptoms or concerns. Prescriptions: No Action tamsulosin 0.4 mg capsule 0.4 mg PO BEDTIME 14 Days Qty: 14 0RF prednisone 20 mg tablet 20 mg PO DAILY 5 Days Qty: 5 0RF naproxen 500 mg tablet 500 mg PO BID 14 Days Qty: 28 0RF pyridoxine (vitamin B6) 50 mg tablet 50 mg PO DAILY 90 Days Qty: 90 3RF Print Language: Belarusian
[2024-08-27 12:20] VITALS: BP 146/97; PULSE 77; RESP 16; TEMP 36.5; O2SAT 97
== END 2024-08-27 12:21 | disposition home or self-care (01) ==
PROVIDERS: Emergency Provider Emergency Medicine; PCP Family Medicine
DX: R23.8 Other skin changes (principal); I10 Essential (primary) hypertension
CPT/HCPCS: 99283

== ENCOUNTER → 2024-10-28 21:54 | Outpatient (BNV) | payer BC, SELFPAY | PROVIDERS: Emergency Provider Emergency Medicine; PCP Family Medicine; Visit Provider Radiology Diagnostic Radiology | DX: M79.641 Pain in right hand (principal) | CPT/HCPCS: 73130 ==

== ENCOUNTER 2024-10-28 22:30 | Emergency (ER) | payer BC, SELFPAY ==
--- NOTE | ~2024-10-28 | XR_ITS ---
CLINICAL HISTORY: hand swelling pain s p punching wall 3 view right hand Comparison: None provided Findings: No fractures or dislocations. No significant loss of joint space or osteophytes. No erosions. No radiopaque foreign body. IMPRESSION: 1. No acute findings This document has been electronically signed by: Eugenio Quach MD on 10/28/2024 23:36:43
[2024-10-28 22:35] VITALS: BP 146/86; PULSE 88; RESP 16; TEMP 36.5; O2SAT 99; BMI 38.4
--- NOTE | 2024-10-29 | ED_ITS ---
HPI - Extremity Problem General Chief complaint: Extremity Injury, Upper Stated complaint: R hand injury Time Seen by Provider: 10/28/24 23:26 Source: patient Mode of arrival: ambulatory Limitations: no limitations History of Present Illness ED Provider: Dr. Evelyn Titus HPI Narrative: Patient comes to the emergency room complaining right hand pain and swelling. Patient states that she was at work, came in the freezer and accidentally dropped it. Patient states that out of anger she punched a wall. No complaining of localized pain and swelling. Related Data Previous Rx's ?Medication ?Instructions ?Recorded pyridoxine (vitamin B6) 50 mg 50 mg PO DAILY 90 days # 90 tabs 11/24/23 tablet naproxen 500 mg tablet 500 mg PO BID 14 days #28 ta bs 06/17/24 prednisone 20 mg tablet 20 mg PO DAILY 5 days #5 tab s 06/17/24 tamsulosin 0.4 mg capsule 0.4 mg PO BEDTIME 14 days #1 4 caps 06/17/24 ibuprofen 600 mg tablet 600 mg PO Q8H PRN fever or p ain 10/29/24 #20 tabs Allergies Allergy/AdvReac Type Severity Reaction Status Date / Time tramadol AdvReac Vomiting Verified 10/28/24 22:37 Review of Systems Review of Systems: Constitutional : No Weight loss, No Fever, No Chills, No Night Sweats, No Fatigue, No Malaise ENT/Mouth : No Hearing loss, No Ear Pain, No Nasal Congestion, No Sinus Pain, No Hoarseness, No sore throat, No Rhinorrhea, No Swallowing Difficulty Eyes: No Eye Pain, No Swelling, No Redness, No Foreign Body, No Discharge, No Vision Changes Cardiovascular : No Chest Pain, No SOB, No Dyspnea on Exertion, No Orthopnea, No Edema, No Palpitations Respiratory : No Cough, No Sputum, No Wheezing, No Smoke Exposure, No Dyspnea Gastrointestinal : No Nausea, No Vomiting, No Diarrhea, No Constipation, No abdominal Pain, No Hematochezia, No Melena Genitourinary : no irregular bleeding, No Dysuria, No Urinary Frequency, No Hematuria, No Urinary Incontinence, No Urgency, No Flank Pain, No Urinary Flow Changes, No Hesitancy Musculoskeletal : Complaining of right hand dorsum pain and swelling after punching a wall,No Myalgias, No Joint Swelling Skin : No Skin Lesions, No rash Neuro : No Weakness, No Numbness, No Paresthesias, No Loss of Consciousness, No Dizziness, No Headache Psych : No Anxiety/Panic, No Depression, No SI/HI/AH/VH, No Social Issues, Heme/Lymph: No Bruising, No Bleeding,No Lymphadenopathy Endocrine : No Polyuria, No Polydipsia, No Temperature Intolerance [facility], [facility] Past Medical History Medical History HTN (hypertension) Left flank pain COVID-19 Surgical History No pertinent past surgical history Social History Social History Alcohol intake: current Alcohol intake frequency: holidays/special occasions only Alcohol type: wine Patient Tobacco Use Status: Never used Tobacco Substance Use Type: Marijuana Advance Directives: No Advance Directives Information Provided: No Do you have a plan to hurt others: No Plan Physical Exam Exam: Exam: Appearance: Alert. Oriented X3. No acute distress. Eyes: Pupils equal, round and reactive to light. ENT: Pharynx normal. Neck: Normal inspection. Neck supple. No lymph nodes noted. No crepitus CVS: Normal heart rate and rhythm. Pulses normal. Normal S1 and S2 Respiratory: No respiratory distress. Breath sounds normal. No Wheezing. No rales Abdomen: Soft and nontender. No rigidity. No distention. Skin: Skin warm and dry. Normal skin color. Normal skin turgor. Extremities: No lower extremity edema. No Lacerations. No Rash patient's right hand on the dorsum around the 4th and 5th digits, hand is swollen, has a ecchymosis. Patient able to flex and extend all fingers Neuro: Oriented X 3. No motor deficit. No sensory deficit. Moving all extremities. No slurred speech. CN 2 through 12 grossly intact Psych: calm, cooperative, normal affect Vital Signs: Vital Signs: Last Vital Signs Temp 97.7 F 10/28/24 22:35 Pulse 82 10/29/24 00:03 Resp 18 10/29/24 00:03 BP 130/87 10/29/24 00:03 Pulse Ox 97 10/29/24 00:03 O2 Del Method Room Air 10/29/24 00:03 BMI result Body Mass Index 38.4 Course Course Course Narrative: at work, patient punched a wall increase pending patient given p.o. ibuprofen in the emergency room Medical Decision Making Medical Decision Making [facility] Narrative: my interpretation of x-rays, no acute abnormality. Radiology report: No fracture discussed the above-mentioned with the patient, patient given p.o. ibuprofen. Patient's hand was Faraz wrapped per patient's request patient denies SI or HI Independent Interpretation I performed an independent interpretation of an: Plain X-Ray Radiology Impression Discussion of test interpretation with radiology: I have reviewed the radiologist's reading. Radiologist Impression: No fractures or dislocations. No significant loss of joint space or osteophytes. No erosions. No radiopaque foreign body. IMPRESSION: 1. No acute findings Discharge Plan Discharge Clinical Impression: Traumatic ecchymosis of hand Patient Disposition: Home, Self-Care Instructions: Contusion in Adults (ED) Additional Instructions: Please follow-up with your primary care physician tomorrow. If you have any worsening or new symptoms, please return to the emergency room or call 911 Prescriptions: New ibuprofen 600 mg tablet 600 mg PO Q8H PRN (Reason: fever or pain) Qty: 20 0RF No Action tamsulosin 0.4 mg capsule 0.4 mg PO BEDTIME 14 Days Qty: 14 0RF prednisone 20 mg tablet 20 mg PO DAILY 5 Days Qty: 5 0RF naproxen 500 mg tablet 500 mg PO BID 14 Days Qty: 28 0RF pyridoxine (vitamin B6) 50 mg tablet 50 mg PO DAILY 90 Days Qty: 90 3RF Print Language: Cook Islander
[2024-10-29 00:03] VITALS: BP 130/87; PULSE 82; RESP 18; O2SAT 97
[2024-10-29 00:45] VITALS: BP 130/87; PULSE 82; RESP 18; TEMP 36.7; O2SAT 97
== END 2024-10-29 00:48 | disposition home or self-care (01) ==
PROVIDERS: Emergency Provider Emergency Medicine; PCP Family Medicine
DX: S60.221A Contusion of right hand, initial encounter (principal); I10 Essential (primary) hypertension; X50.9XXA Other and unspecified overexertion or strenuous movements or postures, initial encounter; Y93.9 Activity, unspecified; Y92.9 Unspecified place or not applicable; Y99.9 Unspecified external cause status
CPT/HCPCS: 73130; 99283

== ENCOUNTER 2024-12-21 10:21 | Emergency (ER) | payer BC, SELFPAY ==
--- OUTSIDE RECORDS SUMMARY | 2013-01-29 20:00 | XMS_ITS | Continuity of Care Document ---
Author Organization [facility] Address [facility] [place] [address] Phone Care Team Providers Care Fire Technician Name Role Phone Provider, [facility] Unavailable Unavailable Advance Directives Directive Yes / No Effective Date File Name No Information Encounters Encounter Description Practice Location Reason(s) For Visit Diagnoses Date Provider Sammyed, [address] [place] [address], [id number], tel:[phone] No Information Provider [facility]. . [facility], [address] [place] [address], [id number], [place] tel:[phone] [facility] Location UNSPECIFIED VITAMIN D DEFICIENSYNCOPE AND COLLAPSE Provider [facility]. . [facility], [address] [place] [address], [id number], [place] tel:[phone] [facility] Location UNSPECIFIED VITAMIN D DEFICIENSYNCOPE AND COLLAPSE Provider [facility]. . [facility], [address] [place] [address], [id number], [place] tel:[phone] [facility] Location DISTURBANCE OF SKIN SENSATIONSYNCOPE AND COLLAPSE Provider [facility]. . [facility], [address] [place] [address], [id number], [place] tel:[phone] [facility] Location SPRAIN OF NECK Provider [facility]. . [facility], [address] [place] [address], [id number], [place] tel:[phone] [facility] Location PAIN, LIMBUNSPECIFIED VITAMIN D DEFICIEN Provider [facility]. . [facility], [address] [place], [place] [address], [place], [id number], [place] tel:[phone] [facility] Location PAIN, LIMB Provider [facility]. . [facility], [address], [place], [place], [id number], [place] tel:[phone] [facility] Location OVARIAN CYST Provider [facility]. . [facility], [address], [place], [place], [id number], [place] tel:[phone] [facility] Location OVARIAN CYST Provider [facility]. . [facility], [address], [place], [place], [id number], [place] tel:[phone] [facility] Location OVARIAN CYST Provider [facility]. . [facility], [address], [place], [place], [id number], [place] tel:[phone] [facility] Location OVARIAN CYSTSCREENING EXAMINATION FOR PULM Provider [facility]. . [facility], [address], [place], [place], [id number], [place] tel:[phone] [facility] Location No Information Provider [facility]. . [facility], [address], [place], [place], [id number], [place] tel:[phone] [facility] Location UTI NOS Provider [facility]. . [facility], [address], [place], [place], [id number], [place] tel:[phone] [facility] Location SEPSIS Provider [facility]. . [facility], [address], [place], [place], [id number], [place] tel:[phone] [facility] Location FEVER Provider [facility]. . [facility], [address], [place], [place], [id number], [place] tel:[phone] [facility] Location INFLUENZA WITH OTHER RESPIRATO Provider [facility]. . [facility], [facility] [address], [place], [place], [id number], [place] tel:[phone] [facility] Location UTI NOS Provider [facility]. . [facility], [address], [place], [place], [id number], [place] tel:[phone] [facility] Location PHARYNGITIS, STREP Provider [facility]. . [facility], [address], [place], [place], [id number], [place] tel:[phone] [facility] Location ALLERGIC RHINITIS NOS Provider [facility]. . [facility], [address], [place], [place], [id number], [place] tel:[phone] [facility] Location ALLERGIC RHINITIS NOS Provider [facility]. . [facility], [address], [place], [place], [id number], [place] tel:[phone] [facility] Location SHORTNESS OF BREATH Provider [facility]. . [facility], [address], [place], [place], [id number], [place] tel:[phone] [facility] Location PAIN IN R ARM Provider [facility]. . [facility], [address], [place], [place], [id number], [place] tel:[phone] [facility] Location MAJOR DEPRESSIVE DISORDER SINGASTROESOPHAGEAL REFLUX Provider [facility]. . [facility], [address], [place], [place], [id number], [place] tel:[phone] [facility] Location PAIN IN L KNEE & L HIP Provider [facility]. . [facility], [address], [place], [place], [id number], [place] tel:[phone] [facility] Location PAIN IN L KNEE & L HIP Provider [facility]. . [facility], [address], [place], [place], [id number], [place] tel:[phone] [facility] Location OTALGIA UNSPECIFIEDPHARYNGITI S, VIRAL ACUTE Provider [facility]. . [facility], [address], [place], [place], [id number], [place] tel:[phone] [facility] Location PANIC DISORDER WITHOUT AGORAPH Provider [facility]. . [facility], [address], [place], [place], [id number], [place] tel:[phone] [facility] Location No Information Provider [facility]. . [facility], [address], [place], [place], [id number], [place] tel:[phone] [facility] Location HEADACHE NOSOTHER PSYCHOLOGICAL OR PHYSICA Provider [facility]. . [facility], [address], [place], [place], [id number], [place] tel:[phone] [facility] Location No Information Provider [facility]. . [facility], [address], [place], [place], [id number], [place] tel:[phone] [facility] Location HEADACHE NOSCOUGH Provider [facility]. . [facility], [address], [place], [place], [id number], [place] tel:[phone] [facility] Location No Information Provider [facility]. . [facility], [address], [place], [place], [id number], [place] tel:[phone] [facility] Location UPPER RESP INFECTION NOS Provider [facility]. . [facility], [address], [place], [place], [id number], [place] tel:[phone] [facility] Location HEADACHE NOS Provider [facility]. . [facility], [address], [place], [place], [id number], [place] tel:[phone] [facility] Location GASTROENTERITIS, VIRAL Provider [facility]. . [facility], [address], [place], [place], [id number], [place] tel:[phone] [facility] Location No Information Provider [facility]. . [facility], [address], [place], [place], [id number], [place] tel:[phone] [facility] Location ROUTINE CHILD EXAM Provider [facility]. . [address], [place], [place], [id number], [place] tel:[phone] [facility] Location ANXIETY STATE NOSHEADACHE, MIGRAINEHEADACHE NOS Provider [facility]. . [address], [place], [place], [id number], [place] tel:[phone] [facility] Location HEADACHE, MIGRAINE Provider [facility]. . [...] dose schedule), for intramuscular use administered Note: [facility] city conversion as of 01/30/2013 ; Source: New Immunization Record Payers Payer name Insurance type Covered democrat ID Authoriza tion(s) No Information Social History Type Description Quantity Date Captured Comments Sex Female Smoking Status No Information Chief Complaint And Reason For Visit No Information History Of Present Illness Encounter Date Complaint History Of Prese nt Illness No Information Instructions Date Instruction Additional Infor mation No Information Assessments Type Assessment Date No Information
--- NOTE | 2024-12-21 | ECG_ITS ---
Test Reason : CP Blood Pressure : */* mmHG Vent. Rate : 76 BPM Atrial Rate : 76 BPM P-R Int : 142 ms QRS Dur : 80 ms QT Int : 392 ms P-R-T Axes : 19 23 -5 degrees QTcB Int : 441 ms Normal sinus rhythm Normal ECG When compared with ECG of 11-Jan-2024 11:40, No significant change was found Referred By: Generic ED Physician Electronically Signed By: Aron Brian
--- NOTE | ~2024-12-21 | XR_ITS ---
EXAMINATION: XR CHEST CLINICAL INFORMATION: SOB / cough COMPARISON: 01/11/2024 TECHNIQUE: 2 views of the chest were obtained. FINDINGS: The cardiac, hilar, and mediastinal contours are normal. The lungs are clear bilaterally. There is no pneumothorax or pleural effusion. There is no focal osseous or soft tissue abnormality. XR/XR chest 2V IMPRESSION: Normal chest. Electronically signed by: Rangel Phan MD 12/21/2024 11:30 AM EDT
[2024-12-21 10:29] VITALS: BP 147/87; PULSE 85; RESP 20; TEMP 37; O2SAT 99; BMI 31.6
--- NOTE | 2024-12-21 10:29 | ED_ITS ---
HPI - General Adult General Chief complaint: Chest Pain Stated complaint: CP, cough Time Seen by Provider: 12/21/24 10:41 Source: patient Mode of arrival: ambulatory Limitations: no limitations History of Present Illness ED Provider: Celi Aleman PA-C HPI narrative: Patient is a 34 year old assigned female at with a history of HTN and presenting to the emergency department today with left sided chest pain, nausea, and vomiting. Patient states that she had an episode of vomiting twice with nausea and is now having left sided chest pain that is sharp. Patient denies any other complaints at this time. Related Data Previous Rx's ?Medication ?Instructions ?Recorded pyridoxine (vitamin B6) 50 mg 50 mg PO DAILY 90 days # 90 tabs 11/24/23 tablet naproxen 500 mg tablet 500 mg PO BID 14 days #28 ta bs 06/17/24 prednisone 20 mg tablet 20 mg PO DAILY 5 days #5 tab s 06/17/24 tamsulosin 0.4 mg capsule 0.4 mg PO BEDTIME 14 days #1 4 caps 06/17/24 ibuprofen 600 mg tablet 600 mg PO Q8H PRN fever or p ain 10/29/24 #20 tabs ondansetron 4 mg disintegrating 4 mg PO Q8H 3 days #9 tabs 12/21/24 tablet Allergies Allergy/AdvReac Type Severity Reaction Status Date / Time tramadol AdvReac Vomiting Verified 12/21/24 10:32 Review of Systems 2 Constitutional: Constitutional: Reports as per HPI Eyes: Eyes: Reports as per HPI ENT: Reports as per HPI Cardiovascular: Cardiovascular: Reports as per HPI Respiratory: Respiratory: Reports as per HPI Gastrointestinal: Gastrointestinal: Reports as per HPI Genitourinary: Genitourinary: Reports as per HPI Musculoskeletal: Musculoskeletal: Reports as per HPI Integumentary/Breasts: Skin/Breast: Reports as per HPI Neurologic: Reports as per HPI Psychiatric: Psychiatric: Reports as per HPI Endocrine: Endocrine: Reports as per HPI Hematologic/Lymphatic: Hematologic/Lymphatic: Reports as per HPI Allergic/Immunologic: Allergic/Immunologic: Reports as per HPI PMFSH Past Medical History Attestation statement: The following information was validated with the patient. Source: old records reviewed and nursing notes reviewed Medical History HTN (hypertension) Left flank pain COVID-19 Surgical History No pertinent past surgical history Social History Social History Alcohol intake: current Alcohol intake frequency: holidays/special occasions only Alcohol type: wine Patient Tobacco Use Status: Never used Tobacco Substance Use Type: Marijuana Physical Exam ED Vital Signs: Vital Signs - 24 hr 12/21/24 10:29 12/21/24 12:03 12/21/24 14:12 Temperature 98.6 F 98.2 F 98.2 F Pulse Rate 85 80 75 Respiratory Rate 20 18 18 Blood Pressure 147/87 H 135/96 H 148/96 H Pulse Oximetry 99 100 99 Oxygen Delivery Method Room Air Room Air Room Air BMI result Body Mass Index 31.6 Const General: cooperative, no acute distress, alert and awake Nutritional Appearance: well nourished Orientation/consciousness: patient oriented x3 HENMT Head: Yes normal to inspection and Yes atraumatic Ears: hearing grossly normal bilaterally and external ears normal General nose exam: Normal external nose present, no nasal discharge noted and no epistaxis Face and sinus: Yes normal facial exam, No abrasion and No laceration Mouth: Normal oral and palatal mucosa present, no drooling and no muffled voice Eyes General: appearance normal, both eyes and all related structures Periorbital: periorbital findings normal Eyelids: Yes eyelids normal Conjunctivae: conjunctivae normal Pupils: Equal, round and reactive pupils present EOM: EOMs intact bilaterally Neck Neck: Yes normal visual inspection and Yes full ROM Resp Effort & Inspection: normal respiratory effort and able to speak in complete sentences Neuro General: patient oriented x3, moves all extremities and CN's II-XI intact bilaterally Cranial nerves: Yes Equal, round and reactive pupils present Cognition (Neuro): normal cognition Extrem General: Yes normal to inspection, Yes full ROM and Yes capillary refill normal Psych Appearance: grossly normal Mental Status: mental status grossly normal Affect: normal affect Attitude: cooperative Thought process: Normal thought process present Thought content: Normal thought content present Insight: Good insight present (Psych) Course Course Course Narrative: This is a rapid medical exam performed by Tila Miranda NP: Additional HPI, ROS, PE not included below will be deferred to primary provider. Patient is a 34y/o F with pmhx HTN presenting with complaint of sharp chest pain, cough, nausea and vomiting. Plan: EKG, labs, viral serology Medications Administered Discontinued Medications Generic Name Dose Route Start Last Admin Trade Name Bel PRN Reason Stop Dose Admin Sodium Chloride 1,000 mls @ 999 mls/hr 12/21/24 11:15 12/21/24 13:58 Ns IV 12/21/24 12:15 Infused .Q1H1M HOLLI Infusion Ondansetron HCl 4 mg 12/21/24 11:08 12/21/24 12:02 Ondansetron Hcl 4 Mg/2 Ml Vial IVPUSH 12/21/24 11:09 4 mg ONCE ONE Administration Medical Decision Making Medical Decision Making [facility] Narrative: Patient is a 34 year old assigned female at with a history of HTN and presenting to the emergency department today with left sided chest pain, nausea, and vomiting. Patient's physical exam was unremarkable. Patient's blood work was unremarkable. Patient's EKG was unremarkable. Patient's chest x-ray showed no acute process. Patient has no evidence of pulmonary embolism - no tachycardia, no hypoxia, no shortness of breath. Patient was able to tolerate PO intake while in the department. Patient's clinical presentation is most consistent with a viral illness. I explained my physical exam findings as well as all test results to the patient. I answered all questions asked by the patient. I stressed the importance of the patient taking her medication as directed (either prescribed or as the over the counter packaging recommends). I stressed the importance of the patient following up with her primary care provider. I stressed the importance of the patient returning to the emergency department immediately if her symptoms were to worsen or if she were to develop any dizziness, shortness of breath, difficulty breathing, chest pain, blurry vision, loss of vision, nausea, vomiting, abdominal pain, fever, chills, back pain, or any other complaints. Patient verbalized agreement and understanding with this treatment plan and discharge. Differential Diagnosis Differential Diagnoses: The differential diagnosis associated with the presentation includes Viral illness STEMI NSTEMI Nausea Vomiting COVID_19 Influenza Admission/Observation Consideration of admission/observation: Escalation of care including admission/observation considered Patient would have been admitted to the hospital had her work up had any findings where hospital admission was appropriate and her clinical presentation warranted hospital admission. Lab Data [facility] Lab Attestation statement: I reviewed the patient's lab results. My interpretation of these results are in the MDM Rationale portion of this note. 12/21/24 10:43 12/21/24 10:43 Labs: Lab Results 12/21/24 Range/Units 10:43 WBC 8.5 (4.8-10.8) X10*3/uL RBC 6.02 H (4.20-5.50) X10*6/uL Hgb 12.8 (12.0-16.0) g/dl Hct 40.0 (37.0-47.0) % MCV 66.4 L (80.0-98.0) fL MCH 21.3 L (27.0-33.0) pg MCHC 32.0 (31.0-35.0) g/dl RDW 17.9 H (11.0-16.0) % Plt Count 259 (160-400) X10*3/uL MPV 10.1 (9.4-12.3) fL Immature Gran % (Auto) 0.7 H (0.0-0.4) % Neut % (Auto) 68.1 (45-73) % Lymph % (Auto) 21.5 (20-40) % [place] % (Auto) 6.4 (2-11) % Eos % (Auto) 2.7 (0-4) % Baso % (Auto) 0.6 (0-2) % Lymph # (Auto) 1.8 (1.2-4.9) X10*3/uL [place] # (Auto) 0.5 (0.1-1.2) X10*3/uL Eos # (Auto) 0.2 (0.0-0.4) X10*3/uL Baso # (Auto) 0.1 (0.0-0.2) X10*3/uL Abs Immat Gran (auto) 0.06 H (0.00-0.03) X10*3/uL Absolute Neuts (auto) 5.8 (2.0-8.3) x10*3/uL Absolute Nucleated RBC 0.000 (0.0-0.012) X10*3/uL Nucleated RBC % (auto) 0.0 (0.0-0.2) /100WBC PT 11.8 (10.9-12.4) SEC INR 1.0 (0.9-1.1) Sodium 141 (135-145) mmol/L Potassium 3.7 (3.3-5.1) mmol/L Chloride 107 (96-108) mmol/L Carbon Dioxide 29 (22-29) mmol/L Anion Gap 10 L (12-20) BUN 8 L (9-16) mg/dL Creatinine 0.76 (0.5-1.4) mg/dL Estim Creat Clear Calc 126.5 Estimated GFR > 60 Random Glucose 91 (60-115) mg/dL Calcium 8.8 (8.4-10.2) mg/dL Total Bilirubin 0.5 (0.0-1.0) mg/dL AST 28 (5-31) U/L ALT 38 H (0-31) U/L Alkaline Phosphatase 75 (39-117) U/L Total Protein 7.7 (6.5-8.0) g/dL Albumin 4.5 (3.5-5.0) g/dL Beta HCG, Quant < 2 mIU/mL COVID-19 (LETA) Negative (Negative) COVID-19 Clin Com See Note Influenza Type A (MIS) Negative (Negative) Influenza Type B (MIS) Negative (Negative) Influenza A & B Note See Note S. pyogenes GrpA MIS Negative (Negative) Independent Interpretation I performed an independent interpretation of an: EKG and Plain X-Ray Interpretation: My interpretation is in agreement with the radiologist's impression of this imaging study. L EXAMINATION: XR CHEST CLINICAL INFORMATION: SOB / cough COMPARISON: 01/11/2024 TECHNIQUE: 2 views of the chest were obtained. FINDINGS: The cardiac, hilar, and mediastinal contours are normal. The lungs are clear bilaterally. There is no pneumothorax or pleural effusion. There is no focal osseous or soft tissue abnormality. XR/XR chest 2V IMPRESSION: Normal chest. Electronically signed by: Rangel Phan MD 12/21/2024 11:30 AM EDT Dictated By: Rangel Phan MD Signed By: Electronically signed by Rangel Phan MD 12/21/24 1130 I independently interpreted this EKG and am in agreement with the below findings: Vent. Rate: 76 BPM Atrial Rate: 76 BPM P-R Int: 142 ms QRS Dur: 80 ms QT Int: 392 ms P-R-T Axes: 19 23 -5 degrees QTcB Int: 441 ms Normal sinus rhythm Normal ECG When compared with ECG of 11-Jan-2024 11:40, No significant change was found DD/ 1026 Radiology Impression Discussion of test interpretation with radiology: I have reviewed the radiologist's reading. Chronic Conditions Patient?s care impacted by: Hypertension Discharge Plan Discharge Clinical Impression: Nausea & vomiting, Atypical chest pain, Viral illness Patient Disposition: Home, Self-Care Instructions: Chest Pain (DC), Acute Nausea and Vomiting (DC), Viral Syndrome (ED) Additional Instructions: Your work up today was reassuring there is no EMERGENT process for your symptoms. Your EKG, chest x-ray, and lab work was all unremarkable. I am suspicious you have a viral illness. Please stay well hydrated. IF you are prescribed home medications and/or you are taking over the counter medications at home - it is very important you continue to do so as prescribed / directed unless told otherwise. Follow up with your primary care provider. Return to the emergency department immediately if your symptoms worsen or if you develop any numbness, tingling, dizziness, shortness of breath, difficulty breathing, chest pain, blurry vision, loss of vision, nausea, vomiting, abdominal pain, fever, chills, back pain, or any other complaints. Please see the information below about our Patient Portal. If you are not yet enrolled in the [facility] Patient Portal, you will receive an enrollment email invitation following your visit to any [facility] [place] setting. You may also self-enroll in the Patient Portal by visiting our website: [email or web address] The following information is required to access the Patient Portal: - Your [facility] [place] - Your personal home email address (must match what is in your electronic medical record, Registration staff can assist with this) - Name - Date of Capabilities of the Patient Portal: - Message some providers - View upcoming appointments - Access your health summary, medical history, and visit history - View current conditions and allergies - View procedure and lab results - View your medications, including guidelines, side effects, and precautions - Complete pre-appointment questionnaires requested by your provider - Ready summary reports of your office visits and procedures To access the Patient Portal Mobile Tejal, follow these directions: - Search [employer] in the Tejal Store or [employer] Store - Download the Tejal - Search for [facility] - Enter your login/password Prescriptions: New ondansetron 4 mg tablet,disintegrating 4 mg PO Q8H 3 Days Qty: 9 0RF No Action tamsulosin 0.4 mg capsule 0.4 mg PO BEDTIME 14 Days Qty: 14 0RF prednisone 20 mg tablet 20 mg PO DAILY 5 Days Qty: 5 0RF naproxen 500 mg tablet 500 mg PO BID 14 Days Qty: 28 0RF ibuprofen 600 mg tablet 600 mg PO Q8H PRN (Reason: fever or pain) Qty: 20 0RF pyridoxine (vitamin B6) 50 mg tablet 50 mg PO DAILY 90 Days Qty: 90 3RF Referrals: Angelina Wodo MD [Primary Care Provider, Internal Medicine] Stand Alone Forms: Work/School Release Interventions: ED Discharge Assessment Last Done: 12/21/24 14:12 Discharge Date/Time: 12/21/24 14:13 Print Language: Icelandic
[2024-12-21 10:52] LABS: Hematocrit 40.0 % (37.0-47.0); Hemoglobin 12.8 g/dl (12.0-16.0); Imm Gran Abs Auto 0.06 X10*3/uL (0.00-0.03); Imm Gran Pct Auto 0.7 % (0.0-0.4); Lymphocytes Absolute Auto 1.8 X10*3/uL (1.2-4.9); MANUAL DIFF FLAG NO; Mean Corpuscular HGB Conc 32.0 g/dl (31.0-35.0); Mean Corpuscular Hemoglobin 21.3 pg (27.0-33.0); Mean Corpuscular Volume 66.4 fL (80.0-98.0); NRBC Abs Auto 0.000 X10*3/uL (0.0-0.012); NRBC Pct Auto 0.0 /100WBC (0.0-0.2); Platelet Count 259 X10*3/uL (160-400); Red Blood Count 6.02 X10*6/uL (4.20-5.50); White Blood Count 8.5 X10*3/uL (4.8-10.8)
[2024-12-21 11:03] LABS: INTERNATIONAL NORM RATIO 1.0 (0.9-1.1); Prothrombin Time 11.8 SEC (10.9-12.4)
[2024-12-21 11:08] LABS: COVID-19 Test Negative (Negative); IDNOW Serial# 08D9AD1C; IDNOW Serial# 55D5AD1C; Strep A Nucleic Acid Negative (Negative)
[2024-12-21 11:10] LABS: IDNOW Serial# 58CA691E; Influenza B2 Negative (Negative)
[2024-12-21 11:17] LABS: Alanine Aminotransferase 38 U/L (0-31); Albumin Level 4.5 g/dL (3.5-5.0); Alkaline Phosphatase 75 U/L (39-117); Anion Gap 10 (12-20); Aspartate Amino Transferase 28 U/L (5-31); Blood Urea Nitrogen 8 mg/dL (9-16); Calcium 8.8 mg/dL (8.4-10.2); Carbon Dioxide 29 mmol/L (22-29); Chloride 107 mmol/L (96-108); Creatinine Clr Calc Pharmacy 126.5; Estimated Glomerular Filt Rate > 60; Potassium 3.7 mmol/L (3.3-5.1); Sodium 141 mmol/L (135-145); Total Protein 7.7 g/dL (6.5-8.0)
[2024-12-21 12:03] VITALS: BP 135/96; PULSE 80; RESP 18; TEMP 36.8; O2SAT 100
--- OUTSIDE RECORDS SUMMARY | 2024-12-21 13:29 | XMS_ITS | Encounter Summary ---
Author Organization [employer] Address [address] [place] [address] Care Team Providers Care Computer Designer Name Role Phone Angelina Wood MD Primary Care Provider [phone] Neil Wise PharmD Unavailable [phone] Encounter Details Date Type Department Care Team (Latest Contact Info) Description 01/22/2022 Abstract [facility] CONVERSIONS Dental, Provider, DDS Social History [...] as of this encounter Plan of Treatment Not on file documented as of this encounter Visit Diagnoses Not on filedocumented in this encounter Care Teams Computer Designer Relationship Specialty Start Date End Date Angelina Wood MD [address] [place] [address] PCP - General Family Medicine 05/01/22 Neil Wise, PharmD [address], [place] [id number] Pharmacist Internal Medicine 06/16/23 documented as of this encounter
--- OUTSIDE RECORDS SUMMARY | 2024-12-21 13:29 | XMS_ITS | Encounter Summary ---
Author Organization [employer] Address [address] [place] [address] Care Team Providers Care Recorder Helper [employer]ity Prospecting Name Role Phone Angelina Wood MD Primary Care Provider [phone] Neil Wise PharmD Unavailable [phone] Encounter Details Date Type Department Care Team (Late st Contact Info) Description 03/27/2022 Abstract [facility] [address] [place], [place] [phone] Angelina Wood MD [address] [place], [place] [phone] Social History Tobacco Use Types Packs/Day Years [...] television Not at all 03/27/2022 9:34 AM Monica Peguero MA Moving or speaking so slowly [...] documented as of this encounter Care Teams Recorder Helper [employer] Relationship Specialty Start Date End Date Angelina Wood MD [address] [place] [address] PCP - General Family Medicine 05/01/22 Neil Wise, PharmD [address] [place] [id number] Pharmacist Internal Medicine 06/16/23 documented as of this encounter
--- OUTSIDE RECORDS SUMMARY | 2024-12-21 13:29 | XMS_ITS | Encounter Summary ---
Author Organization [employer] Address [address] [place] [address] Care Team Providers Care Brazer Assembler Name Role Phone Angelina Wood MD Primary Care Provider [phone] Neil Wise PharmD Unavailable [phone] Reason for Visit * Reason Onset Date Comments Med Refill 12/13/2024 Encounter Details Date Type Department Care Team (Late st Contact Info) Description 12/13/2024 Refill [facility] [address] [place], [place] [phone] Name, MD Kalpesh [address] [place] [address] Social History Tobacco Use Types Packs/Day Years [...] with others, in a hotel, in a group home, living outside on the street, on a [...] on file documented as of this encounter Goals Goal Patient Goal Type Associated Problems Recent Progress Patient-Stated? Author Blood Pressure < 140/90 Blood Pressure 123/86( 025 3:51 PM EDT) No Neil Wise, Bisi documented as of this encounter Visit Diagnoses Not on filedocumented in this encounter Additional Health Concerns Assessment Noted Time PHQ-9 Depression Total Score: 11 024 11:00 AM EDT documented as of this encounter Care Teams Brazer Assembler Relationship Specialty Start Date End Date Angelina Wood MD [address] [place] [address] PCP - General Family Medicine 05/01/22 Neil Wise PharmD [address] [place] [address] Pharmacist Internal Medicine 06/16/23 documented as of this encounter
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
--- OUTSIDE RECORDS SUMMARY | 2024-12-21 13:29 | XMS_ITS | Encounter Summary ---
Author Organization [employer] Address [address] [place] [address] Care Team Providers Care Compressor Station Engineer Name Role Phone Angelina Wood MD Primary Care Provider [phone] Neil Wise PharmD Unavailable [phone] Encounter Details Date Type Department Care Team (Late st Contact Info) Description 01/29/2023 Telephone [facility] ADULT DENTAL [address] [place], [place] [phone] Sawyer Contreras DDS [address] [place], [place] [phone] Social History Tobacco Use Types Packs/Day Years [...] the past 12 months, has t he [employer], gas, oil or water company threatened to [...] documented in this encounter Plan of Treatment Not on file documented as of this encounter Visit Diagnoses Not on filedocumented in this encounter Additional Health Concerns Assessment Noted Time PHQ-9 Depression Total Score: 0 03/27/20 22 9:34 AM EST documented as of this encounter Care Teams Compressor Station Engineer Relationship Specialty Start Date End Date Angelina Wood MD [address] [place] [address] PCP - General Family Medicine 05/01/22 Neil Wise, Bisi [address] [place] [address] Pharmacist Internal Medicine 06/16/23 documented as of this encounter
--- OUTSIDE RECORDS SUMMARY | 2024-12-21 13:29 | XMS_ITS | Encounter Summary ---
Author Organization [employer] Address [address] [place] [address] Care Team Providers Care [employer] Membership Sales Agent Name Role Phone Angelina Wood MD Primary Care Provider [phone] Neil Wise PharmD Unavailable [phone] Reason for Visit * Reason Comments Dental Exam Encounter Details Date Type Department Care Team (Late st Contact Info) Description 03/10/2022 Abstract [facility] ADULT DENTAL [address] [place] [address] Dental, Provider, DDS Social History Tobacco Use [...] on file documented as of this encounter Procedures Procedure [...] on filedocumented in this encounter Care Teams Autom[employer] Club Membership Sales Agent Relationship Specialty Start Date End Date Angelina Wood MD [address] [place] [address] PCP - General Family Medicine 05/01/22 Neil Wise, GageD [address] [place] [address] Pharmacist Internal Medicine 06/16/23 documented as of this encounter
--- OUTSIDE RECORDS SUMMARY | 2024-12-21 13:29 | XMS_ITS | Encounter Summary ---
Author Organization [employer] Address [address] [place] [address] Care Team Providers Care Ecg Technician Name Role Phone Angelina Wood MD Primary Care Provider [phone] Neil Wise PharmD Unavailable [phone] Encounter Details Date Type Department Care Team (Late st Contact Info) Description 12/21/2024 Orders Only GENERIC EXTERNAL DATA DEPARTMENT Provider, Generic External Data Social History Tobacco Use Types Packs/Day Years [...] with others, in a hotel, in a penitentiary, living outside on the street, on a [...] 025 3:51 PM EDT) No Neil Wise, PharmD documented as of this encounter Procedures Procedure Name Priority Date/Time Associated Diagnosis Comments XR CHEST 2 VIEWS Routine 12/21/2024 11:1 9 AM EDT INFLUENZA A B2 ID NOW ([facility]) Routine 12/21/2024 10:43 AM EDT STREP A NUCLEIC ACID Routine 12/21/2024 10:43 AM EDT COVID-19 ID NOW (PELAEZ) Routine 12/21/2024 10:43 AM EDT CBC WITH AUTO DIFFERENTIAL Routine 12/21/2024 10:43 AM EDT PROTHROMBIN TIME-INR Routine 12/21/2024 10:43 AM EDT HCG, TOTAL, QN Routine 12/21/2024 10:43 AM EDT COMPREHENSIVE METABOLIC PANEL Routine 12/21/2024 10:43 AM EDT documented in this encounter Results * XR Chest 2 Views (12/21/2024 11:19 AM EDT) Anatomical Region Laterality Modality Chest Radiographic Tita ging 12/21/2024 11:1 9 AM EDT Narrative 12/21/2024 11:33 AM EDT [address] [address] XRay Report Signed Patient: Nighat Montes MR#: [id number] : 1990 Acct:[id number] Age/Sex: 34 / F ADM Date: 12/21/24 Loc: .ED Attending Dr: Ordering Physician: Celi Aleman Date of Service: 12/21/24 Procedure(s): XR chest 2V Accession Number(s): [id number] cc: Celi Aleman; Angelina Wood MD Reason for Exam: SOB / cough EXAMINATION: XR CHEST CLINICAL INFORMATION: SOB / cough COMPARISON: 01/11/2024 TECHNIQUE: 2 views of the chest were obtained. FINDINGS: The cardiac, hilar, and mediastinal contours are normal. The lungs are clear bilaterally. There is no pneumothorax or pleural effusion. There is no focal osseous or soft tissue abnormality. XR/XR chest 2V IMPRESSION: Normal chest. Electronically signed by: Rangel Phan MD 12/21/2024 11:30 AM EDT Dictated By: Rangel Phan MD Signed By: <Electronically signed by Rangel Phan MD in OV> 12/21/24 1130 DD/ 1119 TD/TT: 12/21/24 1122 Spray Drier: Procedure Note Donotuseinterpreter, Image - 12/21/[address] [address] XRay Report Signed Patient: Nighat MontesMR#: [id number] : 1990Acct:[id number] Age/Sex: 34 / FADM Date: 12/21/24 Loc: HO.ED Attending Dr: Ordering Physician: Celi Aleman Date of Service: 12/21/24 Procedure(s): XR chest 2V Accession Number(s): [id number] cc: Celi Aleman; Angelina Wood MD Reason for Exam: SOB / cough EXAMINATION: XR CHEST CLINICAL INFORMATION: SOB / cough COMPARISON: 01/11/2024 TECHNIQUE: 2 views of the chest were obtained. FINDINGS: The cardiac, hilar, and mediastinal contours are normal. The lungs are clear bilaterally. There is no pneumothorax or pleural effusion. There is no focal osseous or soft tissue abnormality. XR/XR chest 2V IMPRESSION: Normal chest. Electronically signed by: Rangel Phan MD 12/21/2024 11:30 AM EDT RP Dictated By: Rangel Pahn MD Signed By: <Electronically signed by Rangel Phan MD in OV> 12/21/24 1130 DD/ 1119 TD/TT: 12/21/24 1122 Spray Drier: [facility] External Provider IMG XR PROCEDURES Final Result * hCG, Total, Quantitative (12/21/2024 10:43 AM EDT) HCG Quantitative <2 mIU/mL [facility] Comment:Weeks post LMP Appro ximate hCG(Last Menstrual Period) Range (mIU/ml)3 - 4 weeks 9 - 1304 - 5 weeks 75 - 2,6005 - 6 weeks 850 - 20,8006 - 7 weeks 4000 - 100,2007 - 12 weeks 11,500 - 289,14958 - 16 weeks 18,300 - 137,57392 - 29 weeks (2nd trimester) 1,400 - 53,76890 - 41 weeks (3rd trimester) 940 - 60,000The Pelaez B- hCG assay is used for the early detection ofpregnancy; it cannot be used to diagnose any conditionunrelated to . If a B-hCG level is not supportedby the clinical evidence, results should be confirmed by analternative method (qualitative urine hCG, for example). 12/21/2024 10:4 3 AM EDT 12/21/2024 10:49 AM EDT us Generic External Data Provider LAB BLOOD ORDERAB LES Final Result [facility] [address] [place] [address] [phone] * (ABNORMAL) Comprehensive Metabolic Panel (12/21/2024 10:43 AM EDT) Sodium 141 135 - 145 mmol/L [facility] Potassium 3.7 3.3 - 5.1 mmol/L [facility] Chloride 107 96 - 108 mmol/L [facility] Carbon Dioxide 29 22 - 29 mmol/L [facility] Anion Gap 10(L) 12 - 20 [facility] Urea Nitrogen (BUN) 8(L) 9 - 16 mg/dL [facility] Creatinine, Serum 0.76 0.5 - 1.4 mg/dL [facility] Creatinine Clr Calc Pharmacy 126.5 [facility] Comment:Provided height and weight: 172.72 cm,94.4 kg.eGFR (calculated from the MDRD study equation) and eCrCl(calculated from the Cockcroft-Gault equation) are based ondifferent parameters and may not yield comparable results.If eCrCl result is absurd, please check patient'sheight/weight. Estimated Glomerular Filt Rate >60 [facility] Comment:Chronic Kidney Disea se: Estimated GFR < 60 mL/min/1.71q5Vycbgw Kidney Disease: Estimated GFR < 15 mL/min/1.73m2 Glucose 91 60 - 115 mg/dL [facility] Calcium 8.8 8.4 - 10.2 mg/dL [facility] Bilirubin, Total 0.5 0.0 - 1.0 mg/dL [facility] Aspartate Amino Transferase 28 5 - 31 U/L [facility] Alanine Aminotransferase 38(H) 0 - 31 U/L [facility] Total Protein 7.7 6.5 - 8.0 g/dL [facility] Albumin Level 4.5 3.5 - 5.0 g/dL [facility] Alkaline Phosphatase 75 39 - 117 U/L [facility] 12/21/2024 10:4 3 AM EDT 12/21/2024 10:49 AM EDT Generic External Data Provider LAB BLOOD ORDERAB LES Final Result Performing Organization Address [facility] Co de Phone Number [facility] [address] [place] [address] [phone] * Influenza A B2 ID NOW (Pelaez) (12/21/2024 10:43 AM EDT) Pathologist [facility] IDNOW SERIAL# [id number] [facility] Influenza A Negative Negative [facility] Influenza B2 Negative Negative [facility] Influenza A B2 Note See Note [facility] Comment:The Pelaez ID NOW In fluenza A B2 test is used for thequalitative detection of influenza A and B from patientswith signs and symptoms of respiratory infection.Negative results do not preclude influenza virus infectionand should not be used as the sole basis for diagnosis,treatment or other patient management decisions.There is a risk of false negative results due to thepresence of variants in the viral targets of the assay, lowlevels of virus in the specimen and co- infection withRespiratory Syncytial Virus. 12/21/2024 10:4 3 AM EDT 12/21/2024 10:50 AM EDT Generic External Data Provider LAB MICROBIOLOGY - GENERAL ORDERABLES Final Result Performing Organization Address [facility] Co de Phone Number [facility] [address] [place] [address] [phone] * COVID-19 ID NOW (PELAEZ) (12/21/2024 10:43 AM EDT) IDNOW SERIAL# [id number] [facility] COVID-19 TEST Negative Negative [facility] COVID-19 NOTE See Note [facility] Comment: Results are for the identification of SARS-CoV2 RNA. TheSARS-CoV2 RNA is generally detectable in respiratory samplesduring the acute phase of infection. Positive results areindicative of the presence of SARS-CoV-2 RNA; clinicalcorrelation with patient history and other diagnosticinformation is necessary to determine patient infectionstatus. Positive results do not rule out bacterial infectionor co- infection with other viruses.Testing facilities within the [place] and itsterritories are required to report all positive results tothe appropriate public health authorities.Negative results should be treated as presumptive and, ifinconsistent with clinical signs and symptoms or necessaryfor patient management, should be tested with differentauthorized or cleared molecular tests. Negative results donot preclude SARS-CoV2 RNA infection and should not be usedas the sole basis for patient management decisions. Negativeresults should be considered in the context of a patient'srecent exposures, history and the presence of clinical signsand symptoms consistent with COVID-19.This test has been authorized by the FDA under an EmergencyUse Authorization (EUA) for use by authorized laboratories.Testing performed on the HBCS NOW utilizing NAAT. 12/21/2024 10:4 3 AM EDT 12/21/2024 10:50 AM EDT us Generic External Data Provider LAB MOLECULAR ARNAUD GNOSTICS ORDERABLES Final Result [facility] [address] [place] [phone] * Strep A Nucleic Acid (12/21/2024 10:43 AM EDT) IDNOW SERIAL# [id number] [facility] Strep A Nucleic Acid Negative Negative [facility] Comment:All test results mus t be correlated with clinical findings.This test has not been evaluated for monitoring treatment ofinfection.Additional follow-up testing using the culture method isrequired if the result is negative and clinical symptomspersist, or in the event of an acute rheumatic feveroutbreak. 12/21/2024 10:4 3 AM EDT 12/21/2024 10:50 AM EDT Generic External Data Provider LAB MICROBIOLOGY - GENERAL ORDERABLES Final Result Performing Organization Address [facility] Co de Phone Number [facility] [address] [place] [phone] * Prothrombin Time-INR (12/21/2024 10:43 AM EDT) Pathologist [facility] Prothrombin Time 11.8 10.9 - 12.4 SEC [facility] INTERNATIONAL NORM RATIO 1.0 0.9 - 1.1 [facility] Comment:INTERNATIONAL NORMAL IZED RATIO (INR) REFERENCE RANGES Reference RangeFor patients not on anticoagulant therapy: 0.9 - 1.1INR ranges for oral anticoagulanttherapy:For prevention and treatment of venous thrombosis and pulmonary embolism: 2.0 - 3.0For acute myocardial infarction with aspirin therapy: 2.0 - 3.0For acute myocardial infarction without aspirin therapy: 3.0 - 4.0For patients with mechanical prosthetic heart valves: 2.5 - 3.5 12/21/2024 10:4 3 AM EDT 12/21/2024 10:49 AM EDT Generic External Data Provider LAB BLOOD ORDERAB LES Final Result Performing Organization Address [facility] de Phone Number [facility] [address] [place] [phone] * (ABNORMAL) CBC auto differential (12/21/2024 10:43 AM EDT) Pathologist [facility] White Blood Count 8.5 4.8 - 10.8 X10*3/uL [facility] Red Blood Count 6.02(H) 4.20 - 5.50 X10*6/uL [facility] Hemoglobin 12.8 12.0 - 16.0 g/dl [facility] Hematocrit 40.0 37.0 - 47.0 % [facility] Mean Corpuscular Volume 66.4(L) 80.0 - 98.0 fL [facility] Mean Corpuscular Hemoglobin 21.3(L) 27.0 - 33.0 pg [facility] Mean Corpuscular HGB Conc 32.0 31.0 - 35.0 g/dl [facility] Red Cell Distribution Width 17.9(H) 11.0 - 16.0 % [facility] Platelet Count 259 160 - 400 X10*3/uL [facility] Mean Platelet Volume 10.1 9.4 - 12.3 fL [facility] Neutrophils Percent Auto 68.1 45 - 73 % [facility] Imm Gran Pct Auto 0.7(H) 0.0 - 0.4 % [facility] Lymphocytes Percent Auto 21.5 20 - 40 % [facility] Monocytes Percent Auto 6.4 2 - 11 % [facility] Eosinophils Percent Auto 2.7 0 - 4 % [facility] Basophils Percent Auto 0.6 0 - 2 % [facility] NRBC Pct Auto 0.0 0.0 - 0.2 /100WBC [facility] Neutrophils Absolute Auto 5.8 2.0 - 8.3 x10*3/uL [facility] Imm Gran Abs Auto 0.06(H) 0.00 - 0.03 X10*3/uL [facility] Lymphocytes Absolute Auto 1.8 1.2 - 4.9 X10*3/uL [facility] Monocytes Absolute Auto 0.5 0.1 - 1.2 X10*3/uL [facility] Eosinophils Absolute Auto 0.2 0.0 - 0.4 X10*3/uL [facility] Basophils Absolute Auto 0.1 0.0 - 0.2 X10*3/uL [facility] NRBC Abs Auto 0.000 0.0 - 0.012 X10*3/uL [facility] 12/21/2024 10:4 3 AM EDT 12/21/2024 10:49 AM EDT us Generic External Data Provider LAB BLOOD ORDERAB LES Final Result [facility] [address] [place] [phone] documented in this encounter Visit Diagnoses Not on filedocumented in this encounter Additional Health Concerns Assessment Noted Time PHQ-9 Depression Total Score: 11 01/19/ 024 11:00 AM EDT documented as of this encounter Care Teams Ecg Technician Relationship Specialty Start Date End Date Angelina Wood MD [address] [place] [phone] PCP - General Family Medicine 05/01/22 Neil Wise, GageD [address] [place] [phone] Pharmacist Internal Medicine 06/16/23 documented as of this encounter
--- OUTSIDE RECORDS SUMMARY | 2024-12-21 13:29 | XMS_ITS | Clinical Summary ---
Author Organization [employer] Address [address] [facility] [address] [place] [address] Care Team Providers Care Capacitor Pack Press Operator Name Role Phone Angelina Wood MD Primary Care Provider [phone] Neil Wise PharmD Unavailable [phone] Allergies Active Allergy Reactions Criticality Noted Date Comments Amoxicillin-Pot Clavulanate Other 05/01/19 23 vomiting Ketorolac Dizziness 03/27/2022 Only oral tablet. Tolerated injection. Tramadol 03/04/2022 Other reaction(s): Vomiting Other reaction(s): Vomiting Medications * This document contains information received from the source organization and may not represent a complete record from that organization. hydrOXYzine pamoate (Vistaril) 50 MG capsule 3 Active Diclofenac Sodium 1 % gel Apply 1 inch topically if needed in the morning and at bedtime (pain). 60 g 4 Active Additional Information Patient not taking.Reported on 08/03/2023 cyclobenzaprine (Flexeril) 10 MG tablet Take 1 tablet (10 mg) by mouth at bedtime for 10 days. 10 tablet 4 Active naloxone (Narcan) 4 mg/0.1 mL nasal spray CALL 911. SPR CONTENTS OF ONE SPRAYER (0.1ML) INTO ONE NOSTRIL. REPEAT IN 2-3 MIN IF SYMPTOMS OF OPIOID EMERGENCY PERSIST, ALTERNATE NOSTRILS 4 Active acetaminophen (Tylenol) 500 MG tablet Take 2 tablets (1,000 mg) by mouth every 6 (six) hours if needed for moderate pain or fever. 50 tablet 1 4 Active multivitamin () 27-0.8 MG tablet Take 1 tablet by mouth Once per day. 90 tablet 3 4 Active Spacer/Aero-Hold ing Chambers (OptiChamber Leigha) miscIndications: Mild asthma with exacerbation, unspecified whether persistent 1 each every 4 (four) hours if needed (asthma). 1 each 4 Active albuterol 108 (90 Base) MCG/ACT inhalerIndicatio ns:Mild asthma with exacerbation, unspecified whether persistent Inhale 2 puffs every 6 (six) hours if needed for wheezing. 18 g 3 4 02/29/20 25 Active cetirizine (ZyrTEC) 10 MG tabletIndication s:Viral syndrome,Seasona l allergic rhinitis, unspecified trigger Take 1 tablet (10 mg) by mouth Once per day. 90 tablet 3 5 Active fluticasone (Flonase) 50 MCG/ACT nasal sprayIndications :Seasonal allergic rhinitis, unspecified trigger Administer 1-2 sprays into each nostril Once per day. Shake gently. Before first use, prime pump. After use, clean tip and replace cap. 16 g 2 5 08/17/19 26 Active metoprolol succinate XL (Toprol XL) 50 MG 24 hr tabletIndication s:Hypertension, unspecified type TAKE 1 & 1/2 TABLETS (75 mg) BY MOUTH EVERY DAY 135 tablet 1 5 Active amLODIPine (Norvasc) 10 MG tablet Take 1 tablet (10 mg) by mouth Once per day. 90 tablet 3 5 Active Ketotifen Fumarate 0.035 % solution Administer 1 drop into affected eye(s) if needed in the morning and at bedtime (eye redness, itching). 10 mL 5 Active Blood Pressure Monitor miscIndications: Primary hypertension Check BP daily 1 each 5 Active ciclopirox (Penlac) 8 % solution Apply topically at bedtime. 6 mL 2 5 11/19/19 26 Active Active Problems Problem Noted Date Diagnosed [...] Seasonal allergic rhinitis 07/10/2022 Assessment & Plan (08/19/2024 12:34 AM EDT): - Continue Zyrtec Assessment & Plan (01/20/2024 10:57 AM EDT): - Continue Zyrtec Assessment & Plan (07/29/2022 1:04 PM EDT): -Continue cetirizine PRN Assessment & Plan (07/10/2022 9:39 AM EDT): Continue Zyrtec TARSHA (obstructive sleep apnea) 07/09/2022 Assessment & [...] Assessment & Plan (07/10/2022 9:26 AM EDT): Goal BP < per 140/90 JNC-8 and < 130/80 per ACC/AHA guideline (Tx threshold 140/90) Office BP not at goal (both SBP and DBP). Home BP not at goal (DBP) Treatment Hx: Indapamide, which was discontinued Continue current lifestyle modifications Continue current medications: Amlodipine 5 mg daily and lisinopril 20 mg daily Follow up in 3 mo, sooner if any problem arises Refer to CDTM vanessa simpson Assessment & Plan (03/28/2022 6:35 AM EST): Goal BP < per 140/90 JNC-8 and < 130/80 per ACC/AHA guideline (Tx threshold 140/90) Office BP not at goal (both SBP and DBP). Home BP not at goal (DBP) Treatment Hx: Indapamide, which was discontinued Continue current lifestyle modifications Continue current medications: Amlodipine 5 mg daily and lisinopril 20 mg daily Follow up in 3 mo, sooner if any problem arises Refer to CDTM to calvin Family history [...] Encounters Date Type Department Care Team Description 12/21/2024 Orders Only GENERIC EXTERNAL DATA DEPARTMENT Provider, Generic External Data [facility] [address] [address] Kalpesh Granados MD 11/18/2024 4:00 PM EDT Office Visit [address] [address] Kalpesh Granados MD Onychomycosis (Primary Dx) 11/18/[address] [address] Angelina Wood MD 11/16/[address] [address] Angelina Wood MD Nurse Triage 11/09/[address] [address] Angelina Wood MD 10/28/2024 Orders Only [facility] External Provider, [facility] 10/25/2024 9:00 AM EDT Office Visit [address] [address] Rob Garay MD Acute conjunctivitis of left eye, unspecified acute conjunctivitis type (Primary Dx); Hypertension, unspecified type; Primary hypertension 10/25/2024 Travel 10/10/2024 Telephone [facility] [address] [place], [place] [phone] Angelina Wood MD Lab Orders from Last 3 Months Immunizations Immunization Administration [...] with others, in a hotel, in a fpc, living outside on the street, on a [...] Sign Reading Time Taken Comments Blood Pressure 123/86 11/18/2024 3:51 PM EDT Pulse 82 11/18/2024 3:51 PM EDT Temperature 36.9 C (98.4 F) 10/25/2024 8:52 AM EDT Respiratory Rate 12 11/18/2024 3:51 PM EDT Oxygen Saturation 97% 11/18/2024 3:51 PM EDT Inhaled Oxygen Concentration - - Weight 97.5 kg (215 lb) 11/18/2024 3:51 PM EDT Height 165.1 cm (5' 5 ) 11/18/2024 3:51 PM EDT Body Mass Index 35.78 11/18/2024 3:51 PM EDT Plan of Treatment Health Maintenance Due Date Last Done Comments HIV Screening 1990 Disability Screening 1990 Family Planning (PISQ) 2006 Hepatitis C Screening 2009 Hepatitis B Vaccines (1 of 3 - 19+ 3-dose series) 2010 Pap Smear 2012 HPV Vaccines (2 - 3-dose series) 05/09/2013 04/11/2013 Pneumococcal Vaccine: Pediatrics (0 to 5 Years) and At-Risk Patients (6 to 49) Years (2 of 2 - PCV) 03/14/2021 03/14/2020 Cervical Cancer Screening 2021 HPV/Cotest 2021 Dental Prophylaxis 02/04/2024 08/03/2023, 1 , 07/18/2020, Additional history exists Dental Oral Exam 03/11/2024 09/09/2023, 07/2020, 01/20/2017, Additional history exists Depression Monitoring 07/20/2024 01/20/2024, 024 Dental X-Ray: Bitewings 08/03/2024 08/03/19, 03/06/2023, 01/30/2023, Additional history exists COVID-19 Vaccine ( season) 2024 01/23/2022, 02/18/2021, 02/06/2021, Additional history exists Influenza Vaccine (#1) 2024 , 01/09/2021, 01/06/2019, Additional history exists Alcohol/Substance Use Screening 01/19/2025 01/20/2024 SDOH Screening 01/19/2025 01/20/2024 Dental X-Ray: Full Mouth 01/23/2025 01/22/2022, 02/28 Diabetes: Hemoglobin A1C 08/17/2025 08/17/2024, 02/28 Tobacco Screening 11/18/2025 11/18/2024 Lipid Panel 01/19/2029 01/20/2024, 03/27/2022 DTaP/Tdap/Td Vaccines [...] 3:51 PM EDT) No Neil Wise, Bisi Procedures Procedure Name Priority Date/Time Associated Diagnosis Comments XR CHEST 2 VIEWS Routine 12/21/2024 11:1 9 AM EDT HCG, TOTAL, QN Routine 12/21/2024 10:43 AM EDT COMPREHENSIVE METABOLIC PANEL Routine 12/21/2024 10:43 AM EDT COVID-19 ID NOW (PELAEZ) Routine 12/21/2024 10:43 AM EDT PROTHROMBIN TIME-INR Routine 12/21/2024 10:43 AM EDT CBC WITH AUTO DIFFERENTIAL Routine 12/21/2024 10:43 AM EDT INFLUENZA A B2 ID NOW ([employer]) Routine 12/21/2024 10:43 AM EDT STREP A NUCLEIC ACID Routine 12/21/2024 10:43 AM EDT XR HAND 3+ VIEWS RIGHT Routine 11:36 PM EDT HEMOGLOBIN A1C Routine 08/17/2024 1:16 PM EDT Screening for diabetes mellitus LIPID PANEL, STANDARD Routine 01/20/2024 11:40 AM [...] Recently Relevant to Health Maintenance Results * XR Chest 2 Views (12/21/2024 11:19 AM EDT) Anatomical Region Laterality Modality Chest Radiographic Tita ging 12/21/2024 11:1 9 AM EDT Narrative 12/21/2024 11:33 AM EDT [address] [address] XRay Report Signed Patient: Nighat Montes MR#: [id number] : 1990 Acct:[id number] Age/Sex: 34 / F ADM Date: 12/21/24 Loc: HO.ED Attending Dr: Ordering Physician: Celi Aleman Date of Service: 12/21/24 Procedure(s): XR chest 2V Accession Number(s): [id number] cc: Celi Aleman; Angelina Wood MD Reason [...] 12/21/24 1130 DD/ 1119 TD/TT: 12/21/24 1122 Care Consultant: Procedure Note Donotuseinterpreter, Image - 12/21/[address] [address] XRay Report Signed Patient: Nighat MontesMR#: [id number] : 1990Acct:[id number] Age/Sex: 34 / FADM Date: 12/21/24 Loc: HO.ED Attending Dr: Ordering Physician: Celi Aleman Date of Service: 12/21/24 Procedure(s): XR chest 2V Accession Number(s): [id number] cc: Celi Aleman; Angelina Wood MD Reason [...] 12/21/24 1130 DD/ 1119 TD/TT: 12/21/24 1122 Care Consultant: [facility] External Provider IMG XR PROCEDURES Final Result * Influenza A B2 ID NOW (Pelaez) (12/21/2024 10:43 AM EDT) IDNOW SERIAL# [id number] [facility] Influenza A Negative Negative [facility] Influenza B2 Negative Negative [facility] Influenza A B2 Note See Note [facility] Comment:The Pelaez ID NOW In fluenza [...] GENERAL ORDERABLES Final Result Performing Organization Address [facility] de Phone Number [facility] [address] [place] [phone] * Strep A Nucleic Acid (12/21/2024 10:43 AM EDT) IDNOW SERIAL# [id number] [facility] Strep A Nucleic Acid Negative Negative [facility] Comment:All test results mus t be [...] GENERAL ORDERABLES Final Result Performing Organization Address [facility] de Phone Number [facility] [address] [place] [phone] * COVID-19 ID NOW (PELAEZ) (12/21/2024 10:43 AM EDT) IDNOW SERIAL# [id number] [facility] COVID-19 TEST Negative Negative [facility] COVID-19 NOTE See Note [facility] Comment: Results are for the identification of SARS-CoV2 RNA. TheSARS-CoV2 RNA is generally detectable in respiratory samplesduring the acute phase of infection. Positive results areindicative of the presence of SARS-CoV-2 RNA; clinicalcorrelation with patient history and other diagnosticinformation is necessary to determine patient infectionstatus. Positive results do not rule out bacterial infectionor co- infection with other viruses.Testing facilities within the [facility] are required to report all positive results [...] use by authorized laboratories.Testing performed on the [employer] NOW utilizing NAAT. 12/21/2024 10:4 3 AM EDT 12/21/2024 10:50 AM EDT us Generic External Data Provider LAB MOLECULAR ARNAUD GNOSTICS ORDERABLES Final Result [facility] [address] [place] [phone] * (ABNORMAL) CBC auto differential (12/21/2024 10:43 AM EDT) White Blood Count 8.5 4.8 - 10.8 X10*3/uL [facility] Red Blood Count 6.02(H) 4.20 - 5.50 X10*6/uL [facility] Hemoglobin 12.8 12.0 - 16.0 g/dl [facility] Hematocrit 40.0 37.0 - 47.0 % [facility] Mean Corpuscular Volume 66.4(L) 80.0 - 98.0 fL [facility] Mean Corpuscular Hemoglobin 21.3(L) 27.0 - 33.0 pg [facility] Mean Corpuscular HGB Conc 32.0 31.0 - 35.0 g/dl [facility] Red Cell Distribution Width 17.9(H) 11.0 - 16.0 % [facility] Platelet Count 259 160 - 400 X10*3/uL [facility] Mean Platelet Volume 10.1 9.4 - 12.3 fL [facility] Neutrophils Percent Auto 68.1 45 - 73 % [facility] Imm Gran Pct Auto 0.7(H) 0.0 - 0.4 % [facility] Lymphocytes Percent Auto 21.5 20 - 40 % [facility] Monocytes Percent Auto 6.4 2 - 11 % [facility] Eosinophils Percent Auto 2.7 0 - 4 % [facility] Basophils Percent Auto 0.6 0 - 2 % [facility] NRBC Pct Auto 0.0 0.0 - 0.2 /100WBC [facility] Neutrophils Absolute Auto 5.8 2.0 - 8.3 x10*3/uL [facility] Imm Gran Abs Auto 0.06(H) 0.00 - 0.03 X10*3/uL [facility] Lymphocytes Absolute Auto 1.8 1.2 - 4.9 X10*3/uL [facility] Monocytes Absolute Auto 0.5 0.1 - 1.2 X10*3/uL [facility] Eosinophils Absolute Auto 0.2 0.0 - 0.4 X10*3/uL [facility] Basophils Absolute Auto 0.1 0.0 - 0.2 X10*3/uL [facility] NRBC Abs Auto 0.000 0.0 - 0.012 X10*3/uL [facility] 12/21/2024 10:4 3 AM EDT 12/21/2024 10:49 AM EDT us Generic External Data Provider LAB BLOOD ORDERAB LES Final Result [facility] [address] [place] [phone] * Prothrombin Time-INR (12/21/2024 10:43 AM EDT) Prothrombin Time 11.8 10.9 - 12.4 SEC [facility] INTERNATIONAL NORM RATIO 1.0 0.9 - 1.1 [facility] Comment:INTERNATIONAL NORMAL IZED RATIO (INR) REFERENCE [...] ORDERAB LES Final Result Performing Organization Address [facility] Co de Phone Number [facility] [address] [place] [phone] * hCG, Total, Quantitative (12/21/2024 10:43 AM EDT) HCG Quantitative <2 mIU/mL [facility] Comment:Weeks post LMP Appro ximate hCG(Last Menstrual Period) Range (mIU/ml)3 - 4 weeks 9 - 1304 - 5 weeks 75 - 2,6005 - 6 weeks 850 - 20,8006 - 7 weeks 4000 - 100,2007 - 12 weeks 11,500 - 289,16368 - 16 weeks 18,300 - 137,76962 - 29 weeks (2nd trimester) 1,400 - 53,07534 - 41 weeks (3rd trimester) 940 - [...] ORDERAB LES Final Result Performing Organization Address [facility] Co de Phone Number [facility] [address] [place] [phone] * (ABNORMAL) Comprehensive Metabolic Panel (12/21/2024 10:43 AM EDT) Sodium 141 135 - 145 mmol/L [facility] Potassium 3.7 3.3 - 5.1 mmol/L [facility] Chloride 107 96 - 108 mmol/L [facility] Carbon Dioxide 29 22 - 29 mmol/L [facility] Anion Gap 10(L) 12 - 20 [facility] Urea Nitrogen (BUN) 8(L) 9 - 16 mg/dL [facility] Creatinine, Serum 0.76 0.5 - 1.4 mg/dL [facility] Creatinine Clr Calc Pharmacy 126.5 [facility] Comment:Provided height and weight: 172.72 cm,94.4 kg.eGFR (calculated from the MDRD study equation) and eCrCl(calculated from the Cockcroft-Gault equation) are based ondifferent parameters and may not yield comparable results.If eCrCl result is absurd, please check patient'sheight/weight. Estimated Glomerular Filt Rate >60 [facility] Comment:Chronic Kidney Disea se: Estimated GFR < 60 mL/min/1.61j3Blwlyc Kidney Disease: Estimated GFR < 15 mL/min/1.73m2 Glucose 91 60 - 115 mg/dL [facility] Calcium 8.8 8.4 - 10.2 mg/dL [facility] Bilirubin, Total 0.5 0.0 - 1.0 mg/dL [facility] Aspartate Amino Transferase 28 5 - 31 U/L [facility] Alanine Aminotransferase 38(H) 0 - 31 U/L [facility] Total Protein 7.7 6.5 - 8.0 g/dL [facility] Albumin Level 4.5 3.5 - 5.0 g/dL [facility] Alkaline Phosphatase 75 39 - 117 U/L [facility] 12/21/2024 10:4 3 AM EDT 12/21/2024 10:49 AM EDT us Generic External Data Provider LAB BLOOD ORDERAB LES Final Result [facility] [address] [place] [phone] * XR Hand 3+ Views Right (10/28/2024 11:36 PM EDT) Anatomical Region Laterality Modality Upper Extremities, Hand Right Radiogra phic Imaging 10/28/2024 11:3 6 PM EDT Narrative 10/28/2024 11:38 PM EDT [place] [address] XRay Report Signed Patient: Nighat Montes MR#: [id number] : 1990 Acct:[id number] Age/Sex: 34 / F ADM Date: 10/28/24 Loc: HO.ED Attending Dr: Ordering Physician: Evelyn Titus MD Date of Service: 10/28/24 Procedure(s): XR hand RT min 3V Accession Number(s): [id number] cc: Evelyn Titus MD; Angelina Wood MD CLINICAL HISTORY: hand swelling pain s p punching wall 3 view right hand Comparison: None provided Findings: No fractures or dislocations. No significant loss of joint space or osteophytes. No erosions. No radiopaque foreign body. IMPRESSION: 1. No acute findings This document has been electronically signed by: Eugenio Quach MD on 10/28/2024 23:36:43 Dictated By: Eugenio Quach MD Signed By: <Electronically signed by Eugenio Quach MD in OV> 10/28/242336 DD/ 35 TD/TT: 10/28/242335 Care Consultant: Procedure Note Shajiter, Image - 10/28/[address] [address] XRay Report Signed Patient: Nighat MontesMR#: [id number] : 1990Acct:[id number] Age/Sex: 34 / FADM Date: 10/28/24 Loc: HO.ED Attending Dr: Ordering Physician: Evelyn Titus MD Date of Service: 10/28/24 Procedure(s): XR hand RT min 3V Accession Number(s): [id number] cc: Evelyn Titus MD; Angelina Wood MD CLINICAL HISTORY: hand swelling pain s p punching wall 3 view right hand Comparison: None provided Findings: No fractures or dislocations. No significant loss of joint space or osteophytes. No erosions. No radiopaque foreign body. IMPRESSION: 1. No acute findings This document has been electronically signed by: Eugenio Quach MD on 10/28/2024 23:36:43 Dictated By: Eugenio Quach MD Signed By: <Electronically signed by Eugenio Quach MD in OV> 10/28/242336 DD/ 35 TD/TT: 10/28/242335 Care Consultant: [facility] External Provider IMG XR PROCEDURES Final Result * Hemoglobin A1c (08/17/2024 1:16 PM EDT) Hemoglobin A1c 5.9 <6.0 % [facility] Comment:Hemoglobin A1C Refer ence Range Adults: 4.8 - 6.0 % Non diabetic: < 6.0 % Goal: < 7.0 %Additional Action Suggested: > 8.0 %Note: Hemoglobin A1c results are invalid for patients with abnormal amounts of HbF. Blood transfusions may impact the HbA1c concentration in the patient sample. Estimated Average Glucose 123 mg/dL [facility] Comment:eAG = Estimated ave rage glucose which is %A1C expressed asaverage glucose, using the formula of the A0E-KdtlqvmYculbyt Glucose study (ADAG), Diabetes Care, Vol.31,#8,Oct. 2007 Blood Venous blood specimen / Unknown 08/17/2024 1:16 PM EDT 08/17/2024 1:16 PM EDT Angelina Wood MD LAB BLOOD ORDERABLES Final Resul t [facility] [address] [place] [phone] * Lipid Panel, Standard (01/20/2024 11:40 AM EDT) Triglycerides 61 <150 mg/dL [facility] Comment:Desirable Triglyceri de: less than 150 mg/dLBorderline High Triglyceride 150-199 mg/dLHigh Triglyceride: 200-499 mg/dLVery High Triglyceride: greater than or equal to 5OO mg/dL Cholesterol 112 <200 mg/dL [facility] Comment:Desirable Cholestero l: less than 200 mg/dLBorderline High Cholesterol: 200-239 mg/dLHigh Cholesterol: greater than 239 mg/dL LDL Cholesterol Calculated 53 <100 mg/dL [facility] Comment:Desirable LDL: less than 100 mg/dLNear Optimal/Above Optimal LDL: 110- 129 mg/dLBorderline High LDL: 130-159 mg/dLHigh LDL: 160-189 mg/dLVery High LDL: greater than or equal to 190 mg/dL HDL Cholesterol 47 >40 mg/dL [facility] Comment:Desirable HDL: great er than 40 mg/dL Note: This HDL assay may give artificially low results in patients with liver disease. 01/20/2024 11:4 0 AM EDT 01/20/2024 1:24 PM EDT us Angelina Wood MD LAB BLOOD ORDERABLES Final Resul t [facility] [address] [place] [phone] from Last 3 Months or Most Recently Relevant to Health Maintenance Insurance [facility] PPO D[facility] MEDICAID STAND ADULT Care Teams Capacitor Pack Press Operator Relationship Specialty Start Date End Date Angelina Wood MD [address] [place] [address] PCP - General Family Medicine 05/01/22 Neil Wise, PharmD [address] [place] [address] Pharmacist Internal Medicine 06/16/23
--- OUTSIDE RECORDS SUMMARY | 2024-12-21 13:29 | XMS_ITS | Encounter Summary ---
Author Organization [employer] Address [address] [place] [address] Care Team Providers Care Electric Motor Repairman Name Role Phone Angelina Wood MD Primary Care Provider [phone] Neil Wise PharmD Unavailable [phone] Encounter Details Date Type Department Care Team (Late st Contact Info) Description 10/28/2023 Orders Only [facility] [address] [place], [place] [phone] Angelina Wood MD [address] [place], [place] [phone] Social History Tobacco Use Types Packs/Day Years [...] t he electric, gas, oil or water [employer] threatened to shut off services in [...] documented as of this encounter Care Teams Electric Motor Repairman Relationship Specialty Start Date End Date Angelina Wood MD [address] [place] [address] PCP - General Family Medicine 05/01/22 Neil Wise, PharmD [address] [place] [address] Pharmacist Internal Medicine 06/16/23 documented as of this encounter
--- OUTSIDE RECORDS SUMMARY | 2024-12-21 13:29 | XMS_ITS | Encounter Summary ---
Author Organization [employer] Address [address] [facility] [address] [place] [address] Care Team Providers Care Flag Decorator Name Role Phone Angelina Wood MD Primary Care Provider [phone] Neil Wise PharmD Unavailable [phone] Encounter Details Date Type Department Care Team (Latest Contact Info) Description 07/02/2020 Abstract [facility] CONVERSIONS Dental, Provider, DDS Social History [...] on filedocumented in this encounter Care Teams Flag Decorator Relationship Specialty Start Date End Date Angelina Wood MD [address] [place] [address] PCP - General Family Medicine 05/01/22 Neil Wise, PharmD [address] [place], [place] [phone] Pharmacist Internal Medicine 06/16/23 documented as of this encounter
--- OUTSIDE RECORDS SUMMARY | 2024-12-21 13:29 | XMS_ITS | Encounter Summary ---
Author Organization [employer] Address [address] [facility] 7t [place] [address] Care Team Providers Care Mess Attendant Name Role Phone Angelina Wood MD Primary Care Provider [phone] Neil Wise PharmD Unavailable [phone] Encounter Details Date Type Department Care Team (Late st Contact Info) Description 04/02/2022 Orders Only [facility] [address] [place], [place] [phone] Angelina Wood MD [address] [place], [place] [phone] Alopecia areata (Primary Dx) Social History Tobacco [...] (07/16/2022 8:43 PM EDT) Urine NEGATIVE [facility] Comment:This test was develo ped to detect early . Falsenegative results may occur after the 5th - 7th week ofpregnancy when using this test method. If clinicallyindicated, consider a serum hCG. 07/16/2022 8:43 PM EDT 07/16/2022 8:47 PM EDT [facility] External Provider LAB URI NE ORDERABLES Final Result [facility] [address] [place] [address] [phone] * (ABNORMAL) Urinalysis, Complete, with Reflex to Culture (07/16/2022 8:43 PM EDT) Color Urine Yellow [facility] Appearance Urine Clear [facility] PH 6.0 5.0 - 9.0 [facility] Glucose Urine UA Negative Negative mg/dL [facility] Urine Blood Trace(A) Negative [facility] Specific [place] - Urine 1.015 1.005 - 1.025 [facility] Urine Protein Negative Neg-Trace mg/dL [facility] Urine Ketones Negative Negative mg/dL [facility] Nitrite Urine Negative Negative [facility] Leukocyte Esterase Urine Negative Negative [facility] RBC Urine 3-5(A) 0 - 2 /HPF [facility] Urine WBC 0-5 0 - 5 /HPF [facility] Urine Squamous Epithelial Cell 3-5 0 - 2 /HPF [facility] Urine Bacteria None Seen None Seen [facility] Hyaline Casts, Urine 0-2 0 - 2 /LPF [facility] 07/16/2022 8:43 PM EDT 07/16/2022 8:47 PM EDT Narrative [facility] - 07/16/2022 9:12 PM EDT [id number], Clean Catch [facility] External Provider LAB URI NE ORDERABLES Final Result Performing Organization Address [facility]/ZIP Co de Phone Number [facility] [address] [place] [address] [phone] * Lipase (07/16/2022 8:14 PM EDT) Lipase 43 8 - 78 U/L [facility] 07/16/2022 8:14 PM EDT 07/16/2022 8:16 PM EDT [facility] External Provider LAB BLO OD ORDERABLES Final Result Performing Organization Address [facility] Co de Phone Number [facility] [address] [place] [address] [phone] * (ABNORMAL) Basic Metabolic Panel (07/16/2022 8:14 PM EDT) Sodium 140 135 - 145 mmol/L [facility] Potassium 4.0 3.3 - 5.1 mmol/L [facility] Chloride 108 96 - 108 mmol/L [facility] Carbon Dioxide 27 22 - 29 mmol/L [facility] Anion Gap 9(L) 12 - 20 [facility] Urea Nitrogen (BUN) 12 9 - 16 mg/dL [facility] Creatinine, Serum 0.83 0.5 - 1.4 mg/dL [facility] Creatinine Clr Calc Pharmacy 107.0 [facility] Comment:Provided height and weight: 157.48 cm,97.522 kg.eGFR (calculated from the MDRD study equation) and eCrCl(calculated from the Cockcroft-Gault equation) are based ondifferent parameters and may not yield comparable results.If eCrCl result is absurd, please check patient'sheight/weight. Estimated Glomerular Filt Rate >60 [facility] Comment:NOTE: For -Am erican individuals, multiply the result by 1.210.Chronic Kidney Disease: Estimated GFR < 60 mL/min/1.86p0Hestpy Kidney Disease: Estimated GFR < 15 mL/min/1.73m2 Glucose 99 60 - 115 mg/dL [facility] Calcium 9.3 8.4 - 10.2 mg/dL [facility] 07/16/2022 8:14 PM EDT 07/16/2022 8:16 PM EDT [facility] External Provider LAB BLO OD ORDERABLES Final Result [facility] [address] [place] [address] [phone] * (ABNORMAL) Hepatic Function Panel (07/16/2022 8:14 PM EDT) Bilirubin, Total 0.4 0.0 - 1.0 mg/dL [facility] Bilirubin, Direct 0.2 0.0 - 0.5 mg/dL [facility] Aspartate Amino Transferase 26 5 - 31 U/L [facility] Alanine Aminotransferase 46(H) 0 - 31 U/L [facility] Total Protein 7.0 6.5 - 8.0 g/dL [facility] Albumin Level 4.2 3.5 - 5.0 g/dL [facility] Alkaline Phosphatase 70 39 - 117 U/L [facility] 07/16/2022 8:14 PM EDT 07/16/2022 8:16 PM EDT [facility] External Provider LAB BLO OD ORDERABLES Final Result [facility] [address] [place] [address] [phone] * (ABNORMAL) CBC auto differential (07/16/2022 8:14 PM EDT) White Blood Count 11.3(H) 4.8 - 10.8 X10*3/uL [facility] Red Blood Count 5.94(H) 4.20 - 5.50 X10*6/uL [facility] Hemoglobin 12.4 12.0 - 16.0 g/dl [facility] Hematocrit 40.2 37.0 - 47.0 % [facility] Mean Corpuscular Volume 67.7(L) 80.0 - 98.0 fL [facility] Mean Corpuscular Hemoglobin 20.9(L) 27.0 - 33.0 pg [facility] Mean Corpuscular HGB Conc 30.8(L) 31.0 - 35.0 g/dl [facility] Red Cell Distribution Width 18.5(H) 11.0 - 16.0 % [facility] Platelet Count 340 160 - 400 X10*3/uL [facility] Mean Platelet Volume 10.4 9.4 - 12.3 fL [facility] Neutrophils Percent Auto 58.7 45 - 73 % [facility] Imm Gran Pct Auto 1.1(H) 0.0 - 0.4 % [facility] Lymphocytes Percent Auto 29.1 20 - 40 % [facility] Monocytes Percent Auto 7.4 2 - 11 % [facility] Eosinophils Percent Auto 3.3 0 - 4 % [facility] Basophils Percent Auto 0.4 0 - 2 % [facility] NRBC Pct Auto 0.0 0.0 - 0.2 /100WBC [facility] Neutrophils Absolute Auto 6.6 2.0 - 8.3 x10*3/uL [facility] Imm Gran Abs Auto 0.12(H) 0.00 - 0.03 X10*3/uL [facility] Lymphocytes Absolute Auto 3.3 1.2 - 4.9 X10*3/uL [facility] Monocytes Absolute Auto 0.8 0.1 - 1.2 X10*3/uL [facility] Eosinophils Absolute Auto 0.4 0.0 - 0.4 X10*3/uL [facility] Basophils Absolute Auto 0.1 0.0 - 0.2 X10*3/uL [facility] NRBC Abs Auto 0.000 0.0 - 0.012 X10*3/uL [facility] 07/16/2022 8:14 PM EDT 07/16/2022 8:16 PM EDT [facility] External Provider LAB BLO OD ORDERABLES Final Result [facility] [address] [place] [address] [phone] documented in this encounter Visit Diagnoses Diagnosis Alopecia areata- Primary documented in this encounter Additional Health Concerns Assessment Noted Time PHQ-9 Depression Total Score: 0 03/27/20 22 9:34 AM EST documented as of this encounter Care Teams Mess Attendant Relationship Specialty Start Date End Date Angelina Wood MD [address] [place] [address] PCP - General Family Medicine 05/01/22 Neil Wise, Bisi [address] [place] [address] Pharmacist Internal Medicine 06/16/23 documented as of this encounter
--- OUTSIDE RECORDS SUMMARY | 2024-12-21 13:29 | XMS_ITS | Clinical Summary ---
Author Organization [facility] ity Address [address] [place] [address] Care Team Providers Care Nurse Case Manager Name Role Phone Ramone Tomlin MD Primary Care Provider [phone] Allergies Active Allergy Reactions Criticality Noted Date [...] 03/25/2019 Obstructive sleep apnea 11/18/2018 Overview (03/26/2024): [facility] Polysomnogram: Date 11/11/2018; Wt [...] 6mo and older 02/11/2013 Influenza, Unspecified 01/09/2021 [employer] SARS-CoV-2 COVID-19, mRNA, LNP-S, preservative free 02/18/2021 [...] CT scan Acute intractable headache 02/02/2019 DX:Ac [facility] intractable headache Family History Medical History Relation [...] 5 Years) and At-Risk Patients (6 to 49 Years) (2 of 2 - PCV) 03/14/2021 03/14/2020 Social Influencers of Health Screening 03/08/2022 Hypertension/CHF/CAD Annual BMP Blood Test 11/18/2022 11/18/2021 Depression Screening 03/30/2024 COVID-19 Vaccine ( season) 2024 02/18/2021, 04/18/2020, 03/28/2020 Influenza Vaccine (#1) 2024 , 01/06/2019, 01/04/2015, Additional history exists Cholesterol Screening [...] Results * Cervical Cancer Screening: HPV (04/03/2022) [facility] Cervical Cancer Screening: HPV positive,a bstracted Historical Provider HEALTH MAINTENANCE Final Result * Annual BMP Blood Test (11/18/2021) [facility] Annual BMP Blood Test ABSTRACTED [facility] Provider HEALTH MAINTENANCE Final Result * Lipid panel (01/10/2021) [facility] LDL/HDL Ratio 3 0 - 4 Triglycerides 82 0 - 150 mg/dL Cholesterol 122 0 - 200 mg/dL HDL 44 >=40 mg/dL LDL Cholesterol 62 0 - 100 mg/dL Blood Venous blood specimen / Unknown Result [facility] Provider LAB BLOOD ORDERABLES Yazmin l Result * HIV Screening (12/03/2016) [facility] HIV Screening ABSTRACTED [facility] Provider HEALTH MAINTENANCE Final Result * Hepatitis C Screening (11/23/2015) [facility] Hepatitis C Screening ABSTRACTED Historical Provider HEALTH MAINTENANCE Final Result from Last 3 Months or Most Recently Relevant to Health Maintenance Care Teams Nurse Case Manager Relationship Specialty Start Date End Date Ramone Tomlin MD [address] [place] [address] PCP - General Internal Medicine 08/02/21
--- OUTSIDE RECORDS SUMMARY | 2024-12-21 13:29 | XMS_ITS | Encounter Summary ---
Author Organization [employer] Address [address] [place] [address] Care Team Providers Care Wood Type Cutter Name Role Phone Angelina Wood MD Primary Care Provider [phone] Neil Wise PharmD Unavailable Encounter Details Date Type Department Care Team (Late st Contact Info) Description 08/17/2024 Orders Only [facility] [address] [place], [place] [phone] Angelina Wood MD [address] [place], [place] [phone] Microcytosis (Primary Dx) Social History Tobacco Use Types [...] with others, in a hotel, in a mcfp, living outside on the street, on a [...] the past 12 months, has t he [employer], gas, oil or water company threatened to [...] Blood Pressure 123/86( 025 3:51 PM EDT) Neil Jung, GageD documented as of this encounter Procedures Procedure Name Priority Date/Time Associated Diagnosis Comments PATHOLOGIST REVIEW - CBC Routine 08/18/2024 4:52 PM EDT Microcytosis IRON AND TOTAL IRON BINDING CAPACITY Routine 08/18/2024 4:52 PM EDT Microcytosis RETICULOCYTE COUNT Routine 08/18/2024 4: 52 PM EDT Microcytosis FERRITIN Routine 08/18/2024 4:52 PM EDT Microcytosis documented in this encounter Results * Ferritin (08/18/2024 4:52 PM EDT) Ferritin 35 10 - 122 ng/mL [facility] Blood Venous blood specimen / Unknown 08/18/2024 4:52 PM EDT 08/18/2024 4:53 PM EDT Angelina Wood MD LAB BLOOD ORDERABLES Final Resul t Performing Organization Address [facility] Co de Phone Number [facility] [address] [place] [address] [phone] * Pathologist Review - CBC (08/18/2024 4:52 PM EDT) Pathologist Review - CBC SEE NOTE [facility] Comment:- Unremarkable perip heral smear.Reviewed by Jazmin Trinidad MD Blood Venous blood specimen / Unknown 08/18/2024 4:52 PM EDT 08/18/2024 4:53 PM EDT Angelina Wood MD LAB BLOOD ORDERABLES Final Resul t Performing Organization Address [facility] de Phone Number [facility] [address] [place] [address] [phone] * (ABNORMAL) Reticulocyte Count (08/18/2024 4:52 PM EDT) Reticulocytes Absolute 0.078 0.026 - 0.095 X10*6/uL [facility] Immature Retic Fraction 12.3 3.0 - 15.9 % [facility] Retic HGB Equivalent 24.1(L) 30.0 - 35.0 pg [facility] Reticulocyte Percent 1.3 0.5 - 1.8 % [facility] Blood Venous blood specimen / Unknown 08/18/2024 4:52 PM EDT 08/18/2024 4:53 PM EDT Angelina Wood MD LAB BLOOD ORDERABLES Final Resul t Performing Organization Address [facility] Co de Phone Number [facility] [address] [place] [address] [phone] * Iron And Total Iron Binding Capacity (08/18/2024 4:52 PM EDT) Iron 42 30 - 160 mcg/dL [facility] Total Iron Binding Capacity 286 228 - 428 mcg/dL [facility] Percent Iron Saturation 15 15 - 50 % [facility] Unsaturated Iron Binding 244 ug/dL [facility] Blood Venous blood specimen / Unknown 08/18/2024 4:52 PM EDT 08/18/2024 4:53 PM EDT Angelina Wood MD LAB BLOOD ORDERABLES Final Resul t [facility] [address] [place] [address] [phone] documented in this encounter Visit Diagnoses Diagnosis Microcytosis- Primary Other abnormality of red blood cells documented in this encounter Additional Health Concerns Assessment Noted Time PHQ-9 Depression Total Score: 11 024 11:00 AM EDT documented as of this encounter Care Teams Wood Type Cutter Relationship Specialty Start Date End Date Angelina Wood MD [address] [place] [address] PCP - General Family Medicine 05/01/22 Neil Wise, PharmD [address] [place] [address] Pharmacist Internal Medicine 06/16/23 documented as of this encounter
--- OUTSIDE RECORDS SUMMARY | 2024-12-21 13:29 | XMS_ITS | Encounter Summary ---
Author Organization [employer] Address [address] [facility] 7t [place] [address] Care Team Providers Care Biztalk Administrator Name Role Phone Angelina Wood MD Primary Care Provider [phone] Neil Wise PharmD Unavailable [phone] Reason for Visit * Reason Onset Date Comments Nurse Triage 12/31/2022 Encounter Details Date Type Department Care Team (Late st Contact Info) Description 12/31/2022 Telephone [facility] [address] [place], [place] [phone] Angelina Wood MD [address] [place], [place] [phone] Nurse Triage Social History Tobacco Use Types [...] Pcp. Pt is advised to come to [facility] today open till 800pm and Pt agrees. [...] accepted this outcome Please contact pt at [phone] documented in this encounter Plan of Treatment Not on file documented as of this encounter Visit Diagnoses Not on filedocumented in this encounter Additional Health Concerns Assessment Noted Time PHQ-9 Depression Total Score: 0 03/27/20 22 9:34 AM EST documented as of this encounter Care Teams Biztalk Administrator Relationship Specialty Start Date End Date Angelina Wood MD [address] [place] [address] PCP - General Family Medicine 05/01/22 Neil Wise PharmD [address] [place] [address] Pharmacist Internal Medicine 06/16/23 documented as of this encounter
[2024-12-21 14:12] VITALS: BP 148/96; PULSE 75; RESP 18; TEMP 36.8; O2SAT 99
== END 2024-12-21 14:13 | disposition home or self-care (01) ==
PROVIDERS: Registered Nurse Emergency; Emergency Provider Emergency Medicine; PCP Family Medicine
DX: R07.89 Other chest pain (principal); R11.2 Nausea with vomiting, unspecified; B34.9 Viral infection, unspecified; I10 Essential (primary) hypertension; Z79.899 Other long term (current) drug therapy
CPT/HCPCS: 71046; 80053; 84702; 85025; 85610; 87502; 87635; 87651; 93005; 96361; 96374; 99284; J2405

== ENCOUNTER → 2024-12-21 10:26 | Outpatient (BNV) | payer BC, SELFPAY | PROVIDERS: Emergency Provider Emergency Medicine; PCP Family Medicine; Visit Provider Internal Medicine Cardiovascular Disease | DX: R07.89 Other chest pain (principal) | CPT/HCPCS: 93010 ==

== ENCOUNTER → 2024-12-21 11:09 | Outpatient (BNV) | payer BC, SELFPAY | PROVIDERS: PCP Family Medicine; Visit Provider Radiology Diagnostic Radiology | DX: R06.02 Shortness of breath (principal) | CPT/HCPCS: 71046 ==

== ENCOUNTER 2024-12-23 12:24 | Outpatient (REF) | payer BC, SELFPAY ==
--- OUTSIDE RECORDS SUMMARY | 2013-01-29 20:00 | XMS_ITS | Continuity of Care Document ---
Author Organization [facility] Address [facility] [place] [address] Phone Care Team Providers [facility] [employer] Director Name Role Phone Provider, [facility] Unavailable Unavailable Advance Directives Directive Yes / No Effective Date File Name No Information Encounters Encounter Description Practice Location Reason(s) For Visit Diagnoses Date Provider Sammy[facility], [address] [place] [address], [id number], tel:[phone] No Information Provider [facility]. . [facility], [address] [place] [address], [id number], [place] tel:[phone] [facility] Location UNSPECIFIED VITAMIN D DEFICIENSYNCOPE AND COLLAPSE Provider [facility]. . [facility], [address] [place] [address], [id number], [place] tel:[phone] [facility] Location UNSPECIFIED VITAMIN D DEFICIENSYNCOPE AND COLLAPSE Provider [facility]. . [facility], [address] [place] [address], [id number], [place] tel:[phone] [facility] Location DISTURBANCE OF SKIN SENSATIONSYNCOPE AND COLLAPSE Provider [facility]. . [facility], [address] [place] [address], [id number], [place] tel:[phone] [facility] Location SPRAIN OF NECK Provider [facility]. . [facility], [address] [place] [address], [id number], [place] tel:[phone] [facility] Location PAIN, LIMBUNSPECIFIED VITAMIN D DEFICIEN Provider [facility]. . [facility], [address] [place], [place] [address], [place], [id number], [place] tel:[phone] [facility] Location PAIN, LIMB Provider [facility]. . [facility], [address], [place], [place], [id number], [place] tel:[phone] [facility] Location OVARIAN CYST Provider [facility]. . [facility], [address], [place], [place], [id number], [place] tel:[phone] [facility] Location OVARIAN CYST Provider [facility]. . [facility], [address], [place], [place], [id number], [place] tel:[phone] [facility] Location OVARIAN CYST Provider [facility]. . [facility], [address], [place], [place], [id number], [place] tel:[phone] [facility] Location OVARIAN CYSTSCREENING EXAMINATION FOR PULM Provider [facility]. . [facility], [address], [place], [place], [id number], [place] tel:[phone] [facility] Location No Information Provider [facility]. . [facility], [address], [place], [place], [id number], [place] tel:[phone] [facility] Location UTI NOS Provider [facility]. . [facility], [address], [place], [place], [id number], [place] tel:[phone] [facility] Location SEPSIS Provider [facility]. . [facility], [address], [place], [place], [id number], [place] tel:[phone] [facility] Location FEVER Provider [facility]. . [facility], [address], [place], [place], [id number], [place] tel:[phone] [facility] Location INFLUENZA WITH OTHER RESPIRATO Provider [facility]. . [facility], [facility] [address], [place], [place], [id number], [place] tel:[phone] [facility] Location UTI NOS Provider [facility]. . [facility], [address], [place], [place], [id number], [place] tel:[phone] [facility] Location PHARYNGITIS, STREP Provider [facility]. . [facility], [address], [place], [place], [id number], [place] tel:[phone] [facility] Location ALLERGIC RHINITIS NOS Provider [facility]. . [facility], [address], [place], [place], [id number], [place] tel:[phone] [facility] Location ALLERGIC RHINITIS NOS Provider [facility]. . [facility], [address], [place], [place], [id number], [place] tel:[phone] [facility] Location SHORTNESS OF BREATH Provider [facility]. . [facility], [address], [place], [place], [id number], [place] tel:[phone] [facility] Location PAIN IN R ARM Provider [facility]. . [facility], [address], [place], [place], [id number], [place] tel:[phone] [facility] Location MAJOR DEPRESSIVE DISORDER SINGASTROESOPHAGEAL REFLUX Provider [facility]. . [facility], [address], [place], [place], [id number], [place] tel:[phone] [facility] Location PAIN IN L KNEE & L HIP Provider [facility]. . [facility], [address], [place], [place], [id number], [place] tel:[phone] [facility] Location PAIN IN L KNEE & L HIP Provider [facility]. . [facility], [address], [place], [place], [id number], [place] tel:[phone] [facility] Location OTALGIA UNSPECIFIEDPHARYNGITI S, VIRAL ACUTE Provider [facility]. . [facility], [address], [place], [place], [id number], [place] tel:[phone] [facility] Location PANIC DISORDER WITHOUT AGORAPH Provider [facility]. . [facility], [address], [place], [place], [id number], [place] tel:[phone] [facility] Location No Information Provider [facility]. . [facility], [address], [place], [place], [id number], [place] tel:[phone] [facility] Location HEADACHE NOSOTHER PSYCHOLOGICAL OR PHYSICA Provider [facility]. . [facility], [address], [place], [place], [id number], [place] tel:[phone] [facility] Location No Information Provider [facility]. . [facility], [address], [place], [place], [id number], [place] tel:[phone] [facility] Location HEADACHE NOSCOUGH Provider [facility]. . [facility], [address], [place], [place], [id number], [place] tel:[phone] [facility] Location No Information Provider [facility]. . [facility], [address], [place], [place], [id number], [place] tel:[phone] [facility] Location UPPER RESP INFECTION NOS Provider [facility]. . [facility], [address], [place], [place], [id number], [place] tel:[phone] [facility] Location HEADACHE NOS Provider [facility]. . [facility], [address], [place], [place], [id number], [place] tel:[phone] [facility] Location GASTROENTERITIS, VIRAL Provider [facility]. . [facility], [address], [place], [place], [id number], [place] tel:[phone] [facility] Location No Information Provider [facility]. . [facility], [address], [place], [place], [id number], [place] tel:[phone] [facility] Location ROUTINE CHILD EXAM Provider [facility]. . [address], [place], [place], [id number], [place] tel:[phone] [facility] Location ANXIETY STATE NOSHEADACHE, MIGRAINEHEADACHE NOS Provider [facility]. . [address], [place], [place], [id number], [place] tel:[phone] [facility] Location HEADACHE, MIGRAINE Provider [facility]. . [...] dose schedule), for intramuscular use administered Note: [facility] city conversion as of 01/30/2013 ; Source: New Immunization Record Payers Payer name Insurance type Covered constitution party ID Authoriza tion(s) No Information Social History Type Description Quantity Date Captured Comments Sex Female Smoking Status No Information Chief Complaint And Reason For Visit No Information History Of Present Illness Encounter Date Complaint History Of Prese nt Illness No Information Instructions Date Instruction Additional Infor mation No Information Assessments Type Assessment Date No Information
--- NOTE | ~2024-12-23 | US_ITS ---
CLINICAL HISTORY: N20.0 - Calculus of kidney US renal with Color Doppler Comparison: US/SR - US KIDNEY BILATERAL - 07/17/22 15:30 EDT Findings: Right kidney normal size and echotexture, 11.1 cm length. No hydronephrosis or mass. Normal color flow. Nonobstructing caliceal stone upper pole measuring 3 x 2 x 2 mm. Left kidney normal size and echotexture, 10.2 cm length. No hydronephrosis or mass. Normal color flow. Nonobstructing caliceal stone midpole measuring 6 x 4 x 4 mm. Impression: 1. Bilateral nephrolithiasis. No evidence of obstructive uropathy. This document has been electronically signed by: Ramy Yun MD on 12/24/2024 16:13:36
--- OUTSIDE RECORDS SUMMARY | 2024-12-23 14:01 | XMS_ITS | Encounter Summary ---
Author Organization [employer] Address [address] [facility] 7t [place] [address] Care Team Providers Care Retort Pre Cooker Name Role Phone Angelina Wood MD Primary Care Provider [phone] Neil Wise PharmD Unavailable [phone] Reason for Visit * Reason Onset Date Comments Nurse Triage 12/31/2022 Encounter Details Date Type Department Care Team (Late st Contact Info) Description 12/31/2022 Telephone [facility] MED[facility] [address] [place], [place] [phone] Angelina Wood MD [address] [place], [place] [phone] Nurse Triage Social History Tobacco Use Types [...] Pcp. Pt is advised to come to [facility] today open till 800pm and Pt agrees. [...] accepted this outcome Please contact pt at [phone] documented in this encounter Plan of Treatment Not on file documented as of this encounter Visit Diagnoses Not on filedocumented in this encounter Additional Health Concerns Assessment Noted Time PHQ-9 Depression Total Score: 0 03/27/20 22 9:34 AM EST documented as of this encounter Care Teams Retort Pre Cooker Relationship Specialty Start Date End Date Angelina Wood MD [address] [place] [address] PCP - General Family Medicine 05/01/22 Neil Wise PharmD [address] [place] [address] Pharmacist Internal Medicine 06/16/23 documented as of this encounter
--- OUTSIDE RECORDS SUMMARY | 2024-12-23 14:01 | XMS_ITS | Encounter Summary ---
Author Organization [employer] Address [address] [place] [address] Care Team Providers Care Maintenance Worker House Trailer Name Role Phone Angelina Wood MD Primary Care Provider [phone] Neil Wise PharmD Unavailable [phone] Reason for Visit * Reason Onset Date Comments Med Refill 12/13/2024 Encounter Details Date Type Department Care Team (Late st Contact Info) Description 12/13/2024 Refill [facility] [place] [address] [place], [place] [phone] Name, MD Kalpesh [address] [place] [address] Social History Tobacco Use Types Packs/Day Years [...] with others, in a hotel, in a skilled nursing, living outside on the street, on a [...] documented as of this encounter Care Teams Maintenance Worker House Trailer Relationship Specialty Start Date End Date Angelina Wood MD [address] [place] [address] PCP - General Family Medicine 05/01/22 Neil Wise PharmD [address] [place] [address] Pharmacist Internal Medicine 06/16/23 documented as of this encounter
--- OUTSIDE RECORDS SUMMARY | 2024-12-23 14:01 | XMS_ITS | Encounter Summary ---
Author Organization [employer] Address [address] [facility] 7t [place] [address] Care Team Providers Care Station Superintendent Name Role Phone Angelina Wood MD Primary Care Provider [phone] Neil Wise PharmD Unavailable Encounter Details Date Type Department Care Team (Latest Contact Info) Description 01/22/2022 Abstract [facility] Dental, Provider, DDS Social History [...] on filedocumented in this encounter Care Teams Station Superintendent Relationship Specialty Start Date End Date Angelina Wood MD [address] [place] [address] PCP - General Family Medicine 05/01/22 Neil Wise, PharmD [address] [place], [place] [phone] Pharmacist Internal Medicine 06/16/23 documented as of this encounter
--- OUTSIDE RECORDS SUMMARY | 2024-12-23 14:01 | XMS_ITS | Encounter Summary ---
Author Organization [employer] Address [address] [facility] 7t [place] [address] Care Team Providers Care Mill Tender Warm Up Name Role Phone Angelina Wood MD Primary Care Provider [phone] Neil Wise PharmD Unavailable [phone] Encounter Details Date Type Department Care Team (Late st Contact Info) Description 10/28/2023 Orders Only [facility] MEDICINE [address] [place], [place] [phone] Angelina Wood MD [address] [place], [place] [phone] Social History Tobacco Use Types Packs/Day Years [...] t he electric, gas, oil or water [employer] threatened to shut off services in your [...] documented as of this encounter Care Teams Mill Tender Warm Up Relationship Specialty Start Date End Date Angelina Wood MD [address] [place] [address] PCP - General Family Medicine 05/01/22 Neil Wise, PharmD [address] [place] [address] Pharmacist Internal Medicine 06/16/23 documented as of this encounter
--- OUTSIDE RECORDS SUMMARY | 2024-12-23 14:01 | XMS_ITS | Encounter Summary ---
Author Organization [employer] Address [address] [facility] 7t [place] [address] Care Team Providers Care Oral And Maxillofacial Pathologist Name Role Phone Angelina Wood MD Primary Care Provider [phone] Neil Wise PharmD Unavailable [phone] Reason for Visit * Reason Comments Dental Exam Encounter Details Date Type Department Care Team (Late st Contact Info) Description 03/10/2022 Abstract [facility] [address] [place] [address] Dental, Provider, DDS Social History Tobacco Use [...] on filedocumented in this encounter Care Teams Oral And Maxillofacial Pathologist Relationship Specialty Start Date End Date Angelina Wood MD [address] [place] [address] PCP - General Family Medicine 05/01/22 Neil Wise, GageD [address] [place] [address] Pharmacist Internal Medicine 06/16/23 documented as of this encounter
--- OUTSIDE RECORDS SUMMARY | 2024-12-23 14:01 | XMS_ITS | Encounter Summary ---
Author Organization [employer] Address [address] [place] [address] Care Team Providers Care Direct Support Professional Name Role Phone Angelina Wood MD Primary Care Provider [phone] Neil Wise PharmD Unavailable [phone] Encounter Details Date Type Department Care Team [...] with others, in a hotel, in a assisted, living outside on the street, on a [...] AM EDT INFLUENZA A B2 ID NOW ([email or web address]) Routine 12/21/2024 10:43 AM EDT STREP A [...] AM EDT Narrative 12/21/2024 11:33 AM EDT [address] [address] XRay Report Signed Patient: Nighat Montes MR#: [id number] : 1990 Acct:[id number] Age/Sex: 34 / F ADM Date: 12/21/24 Loc: .ED Attending Dr: Ordering Physician: Celi Aleman Date of Service: 12/21/24 Procedure(s): XR chest 2V Accession Number(s): [id number] cc: Celi Aleman; Angelina Wood MD Reason [...] 12/21/24 1130 DD/ 1119 TD/TT: 12/21/24 1122 Mechanic Sound Technician: Procedure Note Donotuseinterpreter, Image - 12/21/[address] [address] XRay Report Signed Patient: Nighat MontesMR#: [id number] : 1990Acct:[id number] Age/Sex: 34 / FADM Date: 12/21/24 Loc: HO.ED Attending Dr: Ordering Physician: Celi Aleman Date of Service: 12/21/24 Procedure(s): XR chest 2V Accession Number(s): [id number] cc: Celi Aleman; Angelina Wood MD Reason [...] 11:30 AM EDT RP Dictated By: Rangel Phan MD Signed By: <Electronically signed by Rangel Phan MD in OV> 12/21/24 1130 DD/ 1119 TD/TT: 12/21/24 1122 Mechanic Sound Technician: [facility] External Provider IMG XR PROCEDURES Final Result * hCG, Total, Quantitative (12/21/2024 10:43 AM EDT) HCG Quantitative <2 mIU/mL [facility] Comment:Weeks post LMP Appro ximate hCG(Last Menstrual Period) Range (mIU/ml)3 - 4 weeks 9 - 1304 - 5 weeks 75 - 2,6005 - 6 weeks 850 - 20,8006 - 7 weeks 4000 - 100,2007 - 12 weeks 11,500 - 289,54300 - 16 weeks 18,300 - 137,60587 - 29 weeks (2nd trimester) 1,400 - 53,74569 - 41 weeks (3rd trimester) 940 - [...] Provider LAB BLOOD ORDERAB LES Final Result [facility] [address] [place] [phone] * (ABNORMAL) Comprehensive Metabolic Panel (12/21/2024 10:43 AM EDT) Sodium 141 135 - 145 mmol/L [facility] Potassium 3.7 3.3 - 5.1 mmol/L [facility] Chloride 107 96 - 108 mmol/L [facility] Carbon Dioxide 29 22 - 29 mmol/L [facility] Anion Gap 10(L) 12 - 20 [facility] Urea Nitrogen (BUN) 8(L) 9 - 16 mg/dL [facility] Creatinine, Serum 0.76 0.5 - 1.4 mg/dL [facility] Creatinine Clr Calc Pharmacy 126.5 [facility] Comment:Provided height and weight: 172.72 cm,94.4 kg.eGFR (calculated from the MDRD study equation) and eCrCl(calculated from the Cockcroft-Gault equation) are based ondifferent parameters and may not yield comparable results.If eCrCl result is absurd, please check patient'sheight/weight. Estimated Glomerular Filt Rate >60 [facility] Comment:Chronic Kidney Disea se: Estimated GFR < 60 mL/min/1.25z4Sjlcts Kidney Disease: Estimated GFR < 15 mL/min/1.73m2 Glucose 91 60 - 115 mg/dL [facility] Calcium 8.8 8.4 - 10.2 mg/dL [facility] Bilirubin, Total 0.5 0.0 - 1.0 mg/dL [facility] Aspartate Amino Transferase 28 5 - 31 U/L [facility] Alanine Aminotransferase 38(H) 0 - 31 U/L [facility] Total Protein 7.7 6.5 - 8.0 g/dL [facility] Albumin Level 4.5 3.5 - 5.0 g/dL [facility] Alkaline Phosphatase 75 39 - 117 U/L [facility] 12/21/2024 10:4 3 AM EDT 12/21/2024 10:49 AM EDT Generic External Data Provider LAB BLOOD ORDERAB LES Final Result Performing Organization Address [facility] Co de Phone Number [facility] [address] [place] [address] [phone] * Influenza A B2 ID NOW (Pelaez) (12/21/2024 10:43 AM EDT) Pathologist [facility] IDNOW SERIAL# [id number] [facility] Influenza A Negative Negative [facility] Influenza B2 Negative Negative [facility] Influenza A B2 Note See Note [facility] Comment:The Pelaez ID NOW In fluenza [...] GENERAL ORDERABLES Final Result Performing Organization Address [facility] Co de Phone Number [facility] [address] [place] [address] [phone] * COVID-19 ID NOW (PELAEZ) (12/21/2024 10:43 AM EDT) IDNOW SERIAL# [id number] [facility] COVID-19 TEST Negative Negative [facility] COVID-19 NOTE See Note [facility] Comment: Results are for the identification of SARS-CoV2 RNA. TheSARS-CoV2 RNA is generally detectable in respiratory samplesduring the acute phase of infection. Positive results areindicative of the presence of SARS-CoV-2 RNA; clinicalcorrelation with patient history and other diagnosticinformation is necessary to determine patient infectionstatus. Positive results do not rule out bacterial infectionor co- infection with other viruses.Testing facilities within the [place] and itsterritories are required to report [...] use by authorized laboratories.Testing performed on the Spl[employer] NOW utilizing NAAT. 12/21/2024 10:4 3 AM EDT 12/21/2024 10:50 AM EDT us Generic External Data Provider LAB MOLECULAR ARNAUD GNOSTICS ORDERABLES Final Result [facility] [address] [place] [phone] * Strep A Nucleic Acid (12/21/2024 10:43 AM EDT) IDNOW SERIAL# [id number] [facility] Strep A Nucleic Acid Negative Negative [facility] Comment:All test results mus t be [...] GENERAL ORDERABLES Final Result Performing Organization Address [facility] Co de Phone Number [facility] [address] [place] [phone] * Prothrombin Time-INR (12/21/2024 10:43 AM EDT) Pathologist [facility] Prothrombin Time 11.8 10.9 - 12.4 SEC [facility] INTERNATIONAL NORM RATIO 1.0 0.9 - 1.1 [facility] Comment:INTERNATIONAL NORMAL IZED RATIO (INR) REFERENCE [...] ORDERAB LES Final Result Performing Organization Address [facility] de Phone Number [facility] [address] [place] [phone] * (ABNORMAL) CBC auto differential (12/21/2024 10:43 AM EDT) Pathologist [facility] White Blood Count 8.5 4.8 - 10.8 X10*3/uL [facility] Red Blood Count 6.02(H) 4.20 - 5.50 X10*6/uL [facility] Hemoglobin 12.8 12.0 - 16.0 g/dl [facility] Hematocrit 40.0 37.0 - 47.0 % [facility] Mean Corpuscular Volume 66.4(L) 80.0 - 98.0 fL [facility] Mean Corpuscular Hemoglobin 21.3(L) 27.0 - 33.0 pg [facility] Mean Corpuscular HGB Conc 32.0 31.0 - 35.0 g/dl [facility] Red Cell Distribution Width 17.9(H) 11.0 - 16.0 % [facility] Platelet Count 259 160 - 400 X10*3/uL [facility] Mean Platelet Volume 10.1 9.4 - 12.3 fL [facility] Neutrophils Percent Auto 68.1 45 - 73 % [facility] Imm Gran Pct Auto 0.7(H) 0.0 - 0.4 % [facility] Lymphocytes Percent Auto 21.5 20 - 40 % [facility] Monocytes Percent Auto 6.4 2 - 11 % [facility] Eosinophils Percent Auto 2.7 0 - 4 % [facility] Basophils Percent Auto 0.6 0 - 2 % [facility] NRBC Pct Auto 0.0 0.0 - 0.2 /100WBC [facility] Neutrophils Absolute Auto 5.8 2.0 - 8.3 x10*3/uL [facility] Imm Gran Abs Auto 0.06(H) 0.00 - 0.03 X10*3/uL [facility] Lymphocytes Absolute Auto 1.8 1.2 - 4.9 X10*3/uL [facility] Monocytes Absolute Auto 0.5 0.1 - 1.2 X10*3/uL [facility] Eosinophils Absolute Auto 0.2 0.0 - 0.4 X10*3/uL [facility] Basophils Absolute Auto 0.1 0.0 - 0.2 X10*3/uL [facility] NRBC Abs Auto 0.000 0.0 - 0.012 X10*3/uL [facility] 12/21/2024 10:4 3 AM EDT 12/21/2024 10:49 AM EDT us Generic External Data Provider LAB BLOOD ORDERAB LES Final Result [facility] [address] [place] [phone] documented in this encounter Visit Diagnoses Not on filedocumented in this encounter Additional Health Concerns Assessment Noted Time PHQ-9 Depression Total Score: 11 01/19/ 024 11:00 AM EDT documented as of this encounter Care Teams Direct Support Professional Relationship Specialty Start Date End Date Angelina Wood MD [address] [place] [phone] PCP - General Family Medicine 05/01/22 Neil Wise, GageD [address] [place] [phone] Pharmacist Internal Medicine 06/16/23 documented as of this encounter
--- OUTSIDE RECORDS SUMMARY | 2024-12-23 14:01 | XMS_ITS | Encounter Summary ---
Author Organization [employer] Address [address] [place] [address] Care Team Providers Care Online Marketing Strategist Name Role Phone Angelina Wood MD Primary Care Provider [phone] Neil Wise PharmD Unavailable [phone] Encounter Details Date Type Department Care Team (Late st Contact Info) Description 08/17/2024 Orders Only [facility] [address], [place] [phone] Angelina Wood MD [address], [place] [phone] Microcytosis (Primary Dx) Social History Tobacco Use [...] the past 12 months, has t he [employer], gas, oil or water company threatened to [...] EDT) Ferritin 35 10 - 122 ng/mL [facility] Blood Venous blood specimen / Unknown 08/18/2024 4:52 PM EDT 08/18/2024 4:53 PM EDT Angelina Wood MD LAB BLOOD ORDERABLES Final Resul t Performing Organization Address [facility] Co de Phone Number [facility] [address] [place] [phone] * Pathologist Review - CBC (08/18/2024 4:52 PM EDT) Pathologist Review - CBC SEE NOTE [facility] Comment:- Unremarkable perip heral smear.Reviewed by Jazmin Trinidad MD Blood Venous blood specimen / Unknown 08/18/2024 4:52 PM EDT 08/18/2024 4:53 PM EDT Angelina Wood MD LAB BLOOD ORDERABLES Final Resul t Performing Organization Address [facility] de Phone Number [facility] [address] [place] [phone] * (ABNORMAL) Reticulocyte Count (08/18/2024 4:52 PM EDT) Reticulocytes Absolute 0.078 0.026 - 0.095 X10*6/uL [facility] Immature Retic Fraction 12.3 3.0 - 15.9 % [facility] Retic HGB Equivalent 24.1(L) 30.0 - 35.0 pg [facility] Reticulocyte Percent 1.3 0.5 - 1.8 % [facility] Blood Venous blood specimen / Unknown 08/18/2024 4:52 PM EDT 08/18/2024 4:53 PM EDT Angelina Wood MD LAB BLOOD ORDERABLES Final Resul t Performing Organization Address [facility] Co de Phone Number [facility] [address] [place] [phone] * Iron And Total Iron Binding Capacity (08/18/2024 4:52 PM EDT) Iron 42 30 - 160 mcg/dL [facility] Total Iron Binding Capacity 286 228 - 428 mcg/dL [facility] Percent Iron Saturation 15 15 - 50 % [facility] Unsaturated Iron Binding 244 ug/dL [facility] Blood Venous blood specimen / Unknown 08/18/2024 4:52 PM EDT 08/18/2024 4:53 PM EDT Angelina Wood MD LAB BLOOD ORDERABLES Final Resul t [facility] [address] [place] [phone] documented in this encounter Visit Diagnoses Diagnosis Microcytosis- Primary Other abnormality of red blood cells documented in this encounter Additional Health Concerns Assessment Noted Time PHQ-9 Depression Total Score: 11 024 11:00 AM EDT documented as of this encounter Care Teams Online Marketing Strategist Relationship Specialty Start Date End Date Angelina Wood MD [address] [place] [address] PCP - General Family Medicine 05/01/22 Neil Wise, PharmD [address] [place] [phone] Pharmacist Internal Medicine 06/16/23 documented as of this encounter
--- OUTSIDE RECORDS SUMMARY | 2024-12-23 14:01 | XMS_ITS | Encounter Summary ---
Author Organization [employer] Address [address] [place] [address] Care Team Providers Care Level Vial Curvature Gauger Name Role Phone Angelina Wood MD Primary Care Provider [phone] Neil Wise PharmD Unavailable [phone] Encounter Details Date Type Department Care Team (Late st Contact Info) Description 01/29/2023 Telephone [facility] [address] [place], [place] [phone] Sawyer Contreras DDS [address] [place], [place] [phone] Social History Tobacco Use Types Packs/Day Years [...] the past 12 months, has t he [employer], gas, oil or water company threatened to [...] documented as of this encounter Care Teams Level Vial Curvature Gauger Relationship Specialty Start Date End Date Angelina Wood MD [address] [place] [address] PCP - General Family Medicine 05/01/22 Neil Wise, Bisi [address] [place] [address] Pharmacist Internal Medicine 06/16/23 documented as of this encounter
--- OUTSIDE RECORDS SUMMARY | 2024-12-23 14:01 | XMS_ITS | Clinical Summary ---
Author Organization [facility] Address [address] [place] [address] Care Team Providers Care [place] Name Role Phone Ramone Tomlin MD Primary [...] 03/25/2019 Obstructive sleep apnea 11/18/2018 Overview (03/26/2024): [facility] Polysomnogram: Date 11/11/2018; Wt [...] 6mo and older 02/11/2013 Influenza, Unspecified 01/09/2021 [employer] SARS-CoV-2 COVID-19, mRNA, LNP-S, preservative free 02/18/2021 [...] CT scan Acute intractable headache 02/02/2019 DX:Ac [place] intractable headache Family History Medical History Relation [...] Results * Cervical Cancer Screening: HPV (04/03/2022) [facility] Cervical Cancer Screening: HPV positive,a bstracted Historical Provider HEALTH MAINTENANCE Final Result * Annual BMP Blood Test (11/18/2021) [facility] Annual BMP Blood Test ABSTRACTED [facility] Provider HEALTH MAINTENANCE Final Result * Lipid panel (01/10/2021) [facility] LDL/HDL Ratio 3 0 - 4 Triglycerides 82 0 - 150 mg/dL Cholesterol 122 0 - 200 mg/dL HDL 44 >=40 mg/dL LDL Cholesterol 62 0 - 100 mg/dL Blood Venous blood specimen / Unknown Result [facility] Provider LAB BLOOD ORDERABLES Yazmin l Result * HIV Screening (12/03/2016) [facility] HIV Screening ABSTRACTED [facility] Provider HEALTH MAINTENANCE Final Result * Hepatitis C Screening (11/23/2015) [facility] Hepatitis C Screening ABSTRACTED Historical Provider HEALTH MAINTENANCE Final Result from Last 3 Months or Most Recently Relevant to Health Maintenance Care Teams [place] Relationship Specialty Start Date End Date Ramone Tomlin MD [address] [place] [address] PCP - General Internal Medicine 08/02/21
--- OUTSIDE RECORDS SUMMARY | 2024-12-23 14:01 | XMS_ITS | Clinical Summary ---
Author Organization [employer] Address [address] [facility] 7t [place] [address] Care Team Providers Care Marine Firer Name Role Phone Angelina Wood MD Primary Care Provider [phone] Neil Wise PharmD Unavailable [phone] Allergies Active Allergy Reactions Criticality Noted Date [...] DEPARTMENT Provider, Generic External Data 12/[facility]/[address] [facility] [address] [address] Kalpesh Granados MD 11/18/2024 4:00 PM EDT Office Visit [address] [address] Kalpesh Granados MD Onychomycosis (Primary Dx) 11/18/[address] [address] Angelina Wood MD 11/16/[address] [address] Angelina Wood MD Nurse Triage 11/09/[address] [address] Angelina Wood MD 10/28/2024 Orders Only [facility] External Provider, [facility] 10/25/2024 9:00 AM EDT Office Visit [address] [address] Rob Garay MD Acute conjunctivitis of left eye, unspecified acute conjunctivitis type (Primary Dx); Hypertension, unspecified type; Primary hypertension 10/25/2024 Travel 10/10/2024 Telephone [facility] [address] [place], [place] [phone] Angelina Wood MD Lab Orders from Last [...] with others, in a hotel, in a care home, living outside on the street, on [...] AM EDT INFLUENZA A B2 ID NOW (xkoto) Routine 12/21/2024 10:43 AM EDT STREP A [...] AM EDT Narrative 12/21/2024 11:33 AM EDT [address] [address] XRay Report Signed Patient: Nighat Montes MR#: [id number] : 1990 Acct:[id number] Age/Sex: 34 / F ADM Date: 12/21/24 Loc: HO.ED Attending Dr: Ordering Physician: Celi Aleman Date of Service: 12/21/24 Procedure(s): XR chest 2V Accession Number(s): [id number] cc: Celi Aleman; Angelina Wood MD Reason [...] 2V IMPRESSION: Normal chest. Electronically signed by: Rangle Phan MD 12/21/2024 11:30 AM EDT Dictated By: Rangel Phan MD Signed By: <Electronically signed by Rangel Phan MD in OV> 12/21/24 1130 DD/ 1119 TD/TT: 12/21/24 1122 Casting Machine Operator Automatic: Procedure Note Donotuseinterpreter, Image - 12/21/[address] [address] XRay Report Signed Patient: Nighat MontesMR#: [id number] : 1990Acct:[id number] Age/Sex: 34 / FADM Date: 12/21/24 Loc: HO.ED Attending Dr: Ordering Physician: Celi Aleman Date of Service: 12/21/24 Procedure(s): XR chest 2V Accession Number(s): [id number] cc: Celi Aleman; Angelina Wood MD Reason [...] 12/21/24 1130 DD/ 1119 TD/TT: 12/21/24 1122 Casting Machine Operator Automatic: [facility] External Provider IMG XR PROCEDURES Final Result * Influenza A B2 ID NOW (Pelaez) (12/21/2024 10:43 AM EDT) IDNOW SERIAL# [id number] [facility] Influenza A Negative Negative [facility] Influenza B2 Negative Negative [facility] Influenza A B2 Note See Note [facility] Comment:The Pelaez ID NOW In [...] GENERAL ORDERABLES Final Result Performing Organization Address [facility] de Phone Number [facility] [address] [place] [phone] * Strep A Nucleic Acid (12/21/2024 10:43 AM EDT) IDNOW SERIAL# [id number] [facility] Strep A Nucleic Acid Negative Negative [facility] Comment:All test results mus t [...] ORDERABLES Final Result Performing Organization Address [facility] de Phone Number [facility] [address] [place] [phone] * COVID-19 ID NOW (PELAEZ) (12/21/2024 10:43 AM EDT) IDNOW SERIAL# [id number] [facility] COVID-19 TEST Negative Negative [facility] COVID-19 NOTE See Note [facility] Comment: Results are for the identification of SARS-CoV2 RNA. TheSARS-CoV2 RNA is generally detectable in respiratory samplesduring the acute phase of infection. Positive results areindicative of the presence of SARS-CoV-2 RNA; clinicalcorrelation with patient history and other diagnosticinformation is necessary to determine patient infectionstatus. Positive results do not rule out bacterial infectionor co- infection with other viruses.Testing facilities within the [facility] and [facility] are required to report all positive [...] use by authorized laboratories.Testing performed on the makeena NOW utilizing NAAT. 12/21/2024 10:4 3 AM EDT 12/21/2024 10:50 AM EDT us Generic External Data Provider LAB MOLECULAR ARNAUD GNOSTICS ORDERABLES Final Result [facility] [address] [place] [phone] * (ABNORMAL) CBC auto differential (12/21/2024 10:43 AM EDT) White Blood Count 8.5 4.8 - 10.8 X10*3/uL [facility] Red Blood Count 6.02(H) 4.20 - 5.50 X10*6/uL [facility] Hemoglobin 12.8 12.0 - 16.0 g/dl [facility] Hematocrit 40.0 37.0 - 47.0 % [facility] Mean Corpuscular Volume 66.4(L) 80.0 - 98.0 fL [facility] Mean Corpuscular Hemoglobin 21.3(L) 27.0 - 33.0 pg [facility] Mean Corpuscular HGB Conc 32.0 31.0 - 35.0 g/dl [facility] Red Cell Distribution Width 17.9(H) 11.0 - 16.0 % [facility] Platelet Count 259 160 - 400 X10*3/uL [facility] Mean Platelet Volume 10.1 9.4 - 12.3 fL [facility] Neutrophils Percent Auto 68.1 45 - 73 % [facility] Imm Gran Pct Auto 0.7(H) 0.0 - 0.4 % [facility] Lymphocytes Percent Auto 21.5 20 - 40 % [facility] Monocytes Percent Auto 6.4 2 - 11 % [facility] Eosinophils Percent Auto 2.7 0 - 4 % [facility] Basophils Percent Auto 0.6 0 - 2 % [facility] NRBC Pct Auto 0.0 0.0 - 0.2 /100WBC [facility] Neutrophils Absolute Auto 5.8 2.0 - 8.3 x10*3/uL [facility] Imm Gran Abs Auto 0.06(H) 0.00 - 0.03 X10*3/uL [facility] Lymphocytes Absolute Auto 1.8 1.2 - 4.9 X10*3/uL [facility] Monocytes Absolute Auto 0.5 0.1 - 1.2 X10*3/uL [facility] Eosinophils Absolute Auto 0.2 0.0 - 0.4 X10*3/uL [facility] Basophils Absolute Auto 0.1 0.0 - 0.2 X10*3/uL [facility] NRBC Abs Auto 0.000 0.0 - 0.012 X10*3/uL [facility] 12/21/2024 10:4 3 AM EDT 12/21/2024 10:49 AM EDT us Generic External Data Provider LAB BLOOD ORDERAB LES Final Result [facility] [address] [place] [phone] [phone] * Prothrombin Time-INR (12/21/2024 10:43 AM EDT) Prothrombin Time 11.8 10.9 - 12.4 SEC [facility] INTERNATIONAL NORM RATIO 1.0 0.9 - 1.1 [facility] Comment:INTERNATIONAL NORMAL IZED RATIO (INR) [...] ORDERAB LES Final Result Performing Organization Address [facility] Co de Phone Number [facility] [address] [place] [phone] * hCG, Total, Quantitative (12/21/2024 10:43 AM EDT) HCG Quantitative <2 mIU/mL [facility] Comment:Weeks post LMP Appro ximate hCG(Last Menstrual Period) Range (mIU/ml)3 - 4 weeks 9 - 1304 - 5 weeks 75 - 2,6005 - 6 weeks 850 - 20,8006 - 7 weeks 4000 - 100,2007 - 12 weeks 11,500 - 289,67803 - 16 weeks 18,300 - 137,37702 - 29 weeks (2nd trimester) 1,400 - 53,68825 - 41 weeks (3rd trimester) 940 - [...] ORDERAB LES Final Result Performing Organization Address [facility] Co de Phone Number [facility] [address] [place] [phone] * (ABNORMAL) Comprehensive Metabolic Panel (12/21/2024 10:43 AM EDT) Sodium 141 135 - 145 mmol/L [facility] Potassium 3.7 3.3 - 5.1 mmol/L [facility] Chloride 107 96 - 108 mmol/L [facility] Carbon Dioxide 29 22 - 29 mmol/L [facility] Anion Gap 10(L) 12 - 20 [facility] Urea Nitrogen (BUN) 8(L) 9 - 16 mg/dL [facility] Creatinine, Serum 0.76 0.5 - 1.4 mg/dL [facility] Creatinine Clr Calc Pharmacy 126.5 [facility] Comment:Provided height and weight: 172.72 cm,94.4 kg.eGFR (calculated from the MDRD study equation) and eCrCl(calculated from the Cockcroft-Gault equation) are based ondifferent parameters and may not yield comparable results.If eCrCl result is absurd, please check patient'sheight/weight. Estimated Glomerular Filt Rate >60 [facility] Comment:Chronic Kidney Disea se: Estimated GFR < 60 mL/min/1.28j1Xsntjr Kidney Disease: Estimated GFR < 15 mL/min/1.73m2 Glucose 91 60 - 115 mg/dL [facility] Calcium 8.8 8.4 - 10.2 mg/dL [facility] Bilirubin, Total 0.5 0.0 - 1.0 mg/dL [facility] Aspartate Amino Transferase 28 5 - 31 U/L [facility] Alanine Aminotransferase 38(H) 0 - 31 U/L [facility] Total Protein 7.7 6.5 - 8.0 g/dL [facility] Albumin Level 4.5 3.5 - 5.0 g/dL [facility] Alkaline Phosphatase 75 39 - 117 U/L [facility] 12/21/2024 10:4 3 AM EDT 12/21/2024 10:49 AM EDT us Generic External Data Provider LAB BLOOD ORDERAB LES Final Result [facility] [address] [place] [phone] * XR Hand 3+ Views Right (10/28/2024 11:36 PM EDT) Anatomical Region Laterality Modality Upper Extremities, Hand Right Radiogra phic Imaging 10/28/2024 11:3 6 PM EDT Narrative 10/28/2024 11:38 PM EDT [place] [address] XRay Report Signed Patient: Nighat Montes MR#: [id number] : 1990 Acct:[id number] Age/Sex: 34 / F ADM Date: 10/28/24 Loc: HO.ED Attending Dr: Ordering Physician: Evelyn Titus MD Date of Service: 10/28/24 Procedure(s): XR hand RT min 3V Accession Number(s): [id number] cc: Evelyn Titus MD; Angelina Wood MD [...] in OV> 10/28/242336 DD/ 35 TD/TT: 10/28/242335 Casting Machine Operator Automatic: Procedure Note Shajiter, Image - 10/28/[address] [address] XRay Report Signed Patient: Nighat MontesMR#: [id number] : 1990Acct:[id number] Age/Sex: 34 / FADM Date: 10/28/24 Loc: HO.ED Attending Dr: Ordering Physician: Evelyn Titus MD Date of Service: 10/28/24 Procedure(s): XR hand RT min 3V Accession Number(s): [id number] cc: Evelyn Titus MD; Angelina Wood MD [...] in OV> 10/28/242336 DD/ 35 TD/TT: 10/28/242335 Casting Machine Operator Automatic: [facility] External Provider IMG XR PROCEDURES Final Result * Hemoglobin A1c (08/17/2024 1:16 PM EDT) Hemoglobin A1c 5.9 <6.0 % [facility] Comment:Hemoglobin A1C Refer ence Range Adults: 4.8 - 6.0 % Non diabetic: < 6.0 % Goal: < 7.0 %Additional Action Suggested: > 8.0 %Note: Hemoglobin A1c results are invalid for patients with abnormal amounts of HbF. Blood transfusions may impact the HbA1c concentration in the patient sample. Estimated Average Glucose 123 mg/dL [facility] Comment:eAG = Estimated ave rage glucose which is %A1C expressed asaverage glucose, using the formula of the V7G-FwetjypHemeyel Glucose study (ADAG), Diabetes Care, Vol.31,#8,Oct. 2007 Blood Venous blood specimen / Unknown 08/17/2024 1:16 PM EDT 08/17/2024 1:16 PM EDT Angelina Wood MD LAB BLOOD ORDERABLES Final Resul t [facility] [address] [place] [phone] * Lipid Panel, Standard (01/20/2024 11:40 AM EDT) Triglycerides 61 <150 mg/dL [facility] Comment:Desirable Triglyceri de: less than 150 mg/dLBorderline High Triglyceride 150-199 mg/dLHigh Triglyceride: 200-499 mg/dLVery High Triglyceride: greater than or equal to 5OO mg/dL Cholesterol 112 <200 mg/dL [facility] Comment:Desirable Cholestero l: less than 200 mg/dLBorderline High Cholesterol: 200-239 mg/dLHigh Cholesterol: greater than 239 mg/dL LDL Cholesterol Calculated 53 <100 mg/dL [facility] Comment:Desirable LDL: less than 100 mg/dLNear Optimal/Above Optimal LDL: 110- 129 mg/dLBorderline High LDL: 130-159 mg/dLHigh LDL: 160-189 mg/dLVery High LDL: greater than or equal to 190 mg/dL HDL Cholesterol 47 >40 mg/dL [facility] Comment:Desirable HDL: great er than 40 mg/dL Note: This HDL assay may give artificially low results in patients with liver disease. 01/20/2024 11:4 0 AM EDT 01/20/2024 1:24 PM EDT us Angelina Wood MD LAB BLOOD ORDERABLES Final Resul t [facility] [address] [place] [phone] from Last 3 Months or Most Recently Relevant to Health Maintenance Insurance [facility] P[facility] ADULT Care Teams Marine Firer Relationship Specialty Start Date End Date Angelina Wood MD [address] [place] [address] PCP - General Family Medicine 05/01/22 Neil Wise, PharmD [address] [place] [address] Pharmacist Internal Medicine 06/16/23
--- OUTSIDE RECORDS SUMMARY | 2024-12-23 14:01 | XMS_ITS | Encounter Summary ---
Author Organization [employer] Address [address] [facility] 7t [place] [address] Care Team Providers Care Grails Web Application Developer Name Role Phone Angelina Wood MD Primary Care Provider [phone] Neil Wise PharmD Unavailable [phone] Encounter Details Date Type Department Care Team (Latest Contact Info) Description 07/02/2020 Abstract [facility] CONVERSIONS Dental, Provider, DDS Social History [...] on filedocumented in this encounter Care Teams Grails Web Application Developer Relationship Specialty Start Date End Date Angelina Wood MD [address] [place] [address] PCP - General Family Medicine 05/01/22 Neil Wise, PharmD [address] [place], [place] [phone] Pharmacist Internal Medicine 06/16/23 documented as of this encounter
--- OUTSIDE RECORDS SUMMARY | 2024-12-23 14:01 | XMS_ITS | Encounter Summary ---
Author Organization [employer] Address [address] [facility] 7t [place] [address] Care Team Providers Care Hrbp Name Role Phone Angelina Wood MD Primary Care Provider [phone] Neil Wise PharmD Unavailable [phone] Encounter Details Date Type Department Care Team (Late st Contact Info) Description 03/27/[address] [facility] MEDICINE [address] [place], [place] [phone] Angelina Wood MD [address] [place], [place] [phone] Social History Tobacco Use Types Packs/Day Years [...] documented as of this encounter Care Teams Hrbp Relationship Specialty Start Date End Date Angelina Wood MD [address] [place] [address] PCP - General Family Medicine 05/01/22 Neil Wise, PharmD [address] [place] [phone] Pharmacist Internal Medicine 06/16/23 documented as of this encounter
--- OUTSIDE RECORDS SUMMARY | 2024-12-23 14:01 | XMS_ITS | Encounter Summary ---
Author Organization [employer] Address [address] [facility] 7t [place] [address] Care Team Providers Care Blade Operator Name Role Phone Angelina Wood MD Primary Care Provider [phone] Neil Wise PharmD Unavailable [phone] Encounter Details Date Type Department Care Team (Late st Contact Info) Description 04/02/2022 Orders Only [facility] MEDICINE [address] [place], [place] [phone] Angelina Wood MD [address] [place], [place] [phone] Alopecia areata (Primary Dx) Social History Tobacco [...] (07/16/2022 8:43 PM EDT) Urine NEGATIVE NEGATIVE [facility] Comment:This test was develo ped to detect early . Falsenegative results may occur after the 5th - 7th week ofpregnancy when using this test method. If clinicallyindicated, consider a serum hCG. 07/16/2022 8:43 PM EDT 07/16/2022 8:47 PM EDT [facility] External Provider LAB URI NE ORDERABLES Final Result [facility] [address] [place] [phone] * (ABNORMAL) Urinalysis, Complete, with Reflex to Culture (07/16/2022 8:43 PM EDT) Color Urine Yellow [facility] Appearance Urine Clear [facility] PH 6.0 5.0 - 9.0 [facility] Glucose Urine UA Negative Negative mg/dL [facility] Urine Blood Trace(A) Negative [facility] Specific Donaldson - Urine 1.015 1.005 - 1.025 [facility] Urine Protein Negative Neg-Trace mg/dL [facility] Urine Ketones Negative Negative mg/dL [facility] Nitrite Urine Negative Negative [facility] Leukocyte Esterase Urine Negative Negative [facility] RBC Urine 3-5(A) 0 - 2 /HPF [facility] Urine WBC 0-5 0 - 5 /HPF [facility] Urine Squamous Epithelial Cell 3-5 0 - 2 /HPF [facility] Urine Bacteria None Seen None Seen [facility] Hyaline Casts, Urine 0-2 0 - 2 /LPF [facility] 07/16/2022 8:43 PM EDT 07/16/2022 8:47 PM EDT Narrative [facility] - 07/16/2022 9:12 PM EDT [id number], Clean Catch [facility] External Provider LAB URI NE ORDERABLES Final Result Performing Organization Address [facility]/ZIP Co de Phone Number [facility] [address] [place] [phone] * Lipase (07/16/2022 8:14 PM EDT) Lipase 43 8 - 78 U/L [facility] 07/16/2022 8:14 PM EDT 07/16/2022 8:16 PM EDT [facility] External Provider LAB BLO OD ORDERABLES Final Result Performing Organization Address [facility] Co de Phone Number [facility] [address] [place] [phone] * (ABNORMAL) Basic Metabolic Panel (07/16/2022 8:14 PM EDT) Sodium 140 135 - 145 mmol/L [facility] Potassium 4.0 3.3 - 5.1 mmol/L [facility] Chloride 108 96 - 108 mmol/L [facility] Carbon Dioxide 27 22 - 29 mmol/L [facility] Anion Gap 9(L) 12 - 20 [facility] Urea Nitrogen (BUN) 12 9 - 16 mg/dL [facility] Creatinine, Serum 0.83 0.5 - 1.4 mg/dL [facility] Creatinine Clr Calc Pharmacy 107.0 [facility] Comment:Provided height and weight: 157.48 cm,97.522 kg.eGFR (calculated from the MDRD study equation) and eCrCl(calculated from the Cockcroft-Gault equation) are based ondifferent parameters and may not yield comparable results.If eCrCl result is absurd, please check patient'sheight/weight. Estimated Glomerular Filt Rate >60 [facility] Comment:NOTE: For -Am erican individuals, multiply the result by 1.210.Chronic Kidney Disease: Estimated GFR < 60 mL/min/1.20o7Sqprgm Kidney Disease: Estimated GFR < 15 mL/min/1.73m2 Glucose 99 60 - 115 mg/dL [facility] Calcium 9.3 8.4 - 10.2 mg/dL [facility] 07/16/2022 8:14 PM EDT 07/16/2022 8:16 PM EDT us [facility] External Provider LAB BLO OD ORDERABLES Final Result [facility] [address] [place] [phone] * (ABNORMAL) Hepatic Function Panel (07/16/2022 8:14 PM EDT) Bilirubin, Total 0.4 0.0 - 1.0 mg/dL [facility] Bilirubin, Direct 0.2 0.0 - 0.5 mg/dL [facility] Aspartate Amino Transferase 26 5 - 31 U/L [facility] Alanine Aminotransferase 46(H) 0 - 31 U/L [facility] Total Protein 7.0 6.5 - 8.0 g/dL [facility] Albumin Level 4.2 3.5 - 5.0 g/dL [facility] Alkaline Phosphatase 70 39 - 117 U/L [facility] 07/16/2022 8:14 PM EDT 07/16/2022 8:16 PM EDT us [facility] External Provider LAB BLO OD ORDERABLES Final Result [facility] [address] [place] [phone] * (ABNORMAL) CBC auto differential (07/16/2022 8:14 PM EDT) White Blood Count 11.3(H) 4.8 - 10.8 X10*3/uL [facility] Red Blood Count 5.94(H) 4.20 - 5.50 X10*6/uL [facility] Hemoglobin 12.4 12.0 - 16.0 g/dl [facility] Hematocrit 40.2 37.0 - 47.0 % [facility] Mean Corpuscular Volume 67.7(L) 80.0 - 98.0 fL [facility] Mean Corpuscular Hemoglobin 20.9(L) 27.0 - 33.0 pg [facility] Mean Corpuscular HGB Conc 30.8(L) 31.0 - 35.0 g/dl [facility] Red Cell Distribution Width 18.5(H) 11.0 - 16.0 % [facility] Platelet Count 340 160 - 400 X10*3/uL [facility] Mean Platelet Volume 10.4 9.4 - 12.3 fL [facility] Neutrophils Percent Auto 58.7 45 - 73 % [facility] Imm Gran Pct Auto 1.1(H) 0.0 - 0.4 % [facility] Lymphocytes Percent Auto 29.1 20 - 40 % [facility] Monocytes Percent Auto 7.4 2 - 11 % [facility] Eosinophils Percent Auto 3.3 0 - 4 % [facility] Basophils Percent Auto 0.4 0 - 2 % [facility] NRBC Pct Auto 0.0 0.0 - 0.2 /100WBC [facility] Neutrophils Absolute Auto 6.6 2.0 - 8.3 x10*3/uL [facility] Imm Gran Abs Auto 0.12(H) 0.00 - 0.03 X10*3/uL [facility] Lymphocytes Absolute Auto 3.3 1.2 - 4.9 X10*3/uL [facility] Monocytes Absolute Auto 0.8 0.1 - 1.2 X10*3/uL [facility] Eosinophils Absolute Auto 0.4 0.0 - 0.4 X10*3/uL [facility] Basophils Absolute Auto 0.1 0.0 - 0.2 X10*3/uL [facility] NRBC Abs Auto 0.000 0.0 - 0.012 X10*3/uL [facility] 07/16/2022 8:14 PM EDT 07/16/2022 8:16 PM EDT us [facility] External Provider LAB BLO OD ORDERABLES Final Result [facility] [address] [place] [phone] documented in this encounter Visit Diagnoses Diagnosis Alopecia areata- Primary documented in this encounter Additional Health Concerns Assessment Noted Time PHQ-9 Depression Total Score: 0 03/27/20 22 9:34 AM EST documented as of this encounter Care Teams Blade Operator Relationship Specialty Start Date End Date Angelina Wood MD [address] [place] [address] PCP - General Family Medicine 05/01/22 Neil Wise, Bisi [address] [place] [address] Pharmacist Internal Medicine 06/16/23 documented as of this encounter
== END 2024-12-23 12:25 | disposition home or self-care (01) ==
LOC: HO.US 12:24
PROVIDERS: PCP Family Medicine; Visit Provider Urology
DX: N20.0 Calculus of kidney (principal)
CPT/HCPCS: 76775

== ENCOUNTER → 2024-12-23 12:26 | Outpatient (BNV) | payer BC, SELFPAY | PROVIDERS: PCP Family Medicine; Visit Provider Radiology Diagnostic Radiology | DX: N20.0 Calculus of kidney (principal) | CPT/HCPCS: 76775 ==

== ENCOUNTER 2025-01-31 18:17 | Emergency (ER) | payer BC, SELFPAY ==
--- OUTSIDE RECORDS SUMMARY | 2013-01-29 19:00 | XMS_ITS | Continuity of Care Document ---
Author Organization [facility] Address [facility] [place] [address] Phone Care Team Providers Care Contract Negotiation Specialist Name Role Phone Provider, [facility] Unavailable Unavailable Advance Directives Directive Yes / No Effective Date File Name No Information Encounters Encounter Description Practice Location Reason(s) For Visit Diagnoses Date Provider Sammyed, [address] [place] [address], [id number], tel:[phone] No Information Provider [facility]. . [facility], [address] [place] [address], [id number], [place] tel:[phone] [facility] Location UNSPECIFIED VITAMIN D DEFICIENSYNCOPE AND COLLAPSE Provider [facility]. . [facility], [address] [place] [address], [id number], [place] tel:[phone] [facility] Location UNSPECIFIED VITAMIN D DEFICIENSYNCOPE AND COLLAPSE Provider [facility]. . [facility], [address] [place] [address], [id number], [place] tel:[phone] [facility] Location DISTURBANCE OF SKIN SENSATIONSYNCOPE AND COLLAPSE Provider [facility]. . [facility], [address] [place] [address], [id number], [place] tel:[phone] [facility] Location SPRAIN OF NECK Provider [facility]. . [facility], [address] [place] [address], [id number], tel:[phone] [facility] Location PAIN, LIMBUNSPECIFIED VITAMIN D DEFICIEN Provider [facility]. . [facility], [address] [place], [place] [address], [place], [id number], [place] tel:[phone] [facility] Location PAIN, LIMB Provider [facility]. . [facility], [address], [place], [place], [id number], [place] tel:[phone] [facility] Location OVARIAN CYST Provider [facility]. . [facility], [address], [place], [place], [id number], [place] tel:[phone] [facility] Location OVARIAN CYST Provider [facility]. . [facility], [address], [place], [place], [id number], [place] tel:[phone] [facility] Location OVARIAN CYST Provider [facility]. . [facility], [address] [employer] [address], [place], [place], [id number], [place] tel:[phone] [facility] Location OVARIAN CYSTSCREENING EXAMINATION FOR PULM Provider [facility]. . [facility], [address] [employer] [address], [place], [place], [id number], [place] tel:[phone] [facility] Location No Information Provider [facility]. . [facility], [address] [employer] [address], [place], [place], [id number], [place] tel:[phone] [facility] Location UTI NOS Provider [facility]. . [facility], [address], [place], [place], [id number], [place] tel:[phone] [facility] Location SEPSIS Provider [facility]. . [facility], [address], [place], [place], [id number], [place] tel:[phone] [facility] Location FEVER Provider [facility]. . [facility], [address] [employer] [address], [place], [place], [id number], [place] tel:[phone] [facility] Location INFLUENZA WITH OTHER RESPIRATO Provider [facility]. . [facility], [facility] [employer] [address], [place], [place], [id number], [place] tel:[phone] [facility] Location UTI NOS Provider [facility]. . [facility], [address], [place], [place], [id number], [place] tel:[phone] [facility] Location PHARYNGITIS, STREP Provider [facility]. . [facility], [address] [employer] [address], [place], [place], [id number], [place] tel:[phone] [facility] Location ALLERGIC RHINITIS NOS Provider [facility]. . [facility], [address] [employer] [address], [place], [place], [id number], [place] tel:[phone] [facility] Location ALLERGIC RHINITIS NOS Provider [facility]. . [facility], [address] [employer] [address], [place], [place], [id number], [place] tel:[phone] [facility] Location SHORTNESS OF BREATH Provider [facility]. . [facility], [address] [employer] [address], [place], [place], [id number], [place] tel:[phone] [facility] Location PAIN IN R ARM Provider [facility]. . [facility], [address] [employer] [address], [place], [place], [id number], [place] tel:[phone] [facility] Location MAJOR DEPRESSIVE DISORDER SINGASTROESOPHAGEAL REFLUX Provider [facility]. . [facility], [address] [employer] [address], [place], [place], [id number], [place] tel:[phone] [facility] Location PAIN IN L KNEE & L HIP Provider [facility]. . [facility], [address] [employer] [address], [place], [place], [id number], [place] tel:[phone] [facility] Location PAIN IN L KNEE & L HIP Provider [facility]. . [facility], [address] [employer] [address], [place], [place], [id number], [place] tel:[phone] [facility] Location OTALGIA UNSPECIFIEDPHARYNGITI S, VIRAL ACUTE Provider [facility]. . [facility], [address], [place], [place], [id number], [place] tel:[phone] [facility] Location PANIC DISORDER WITHOUT AGORAPH Provider [facility]. . [facility], [address], [place], [place], [id number], [place] tel:[phone] [facility] Location No Information Provider [facility]. . [facility], [address], [place], [place], [id number], [place] tel:[phone] [facility] Location HEADACHE NOSOTHER PSYCHOLOGICAL OR PHYSICA Provider [facility]. . [facility], [address], [place], [place], [id number], [place] tel:[phone] [facility] Location No Information Provider [facility]. . [facility], [address] [employer] [address], [place], [place], [id number], [place] tel:[phone] [facility] Location HEADACHE NOSCOUGH Provider [facility]. . [facility], [address], [place], [place], [id number], [place] tel:[phone] [facility] Location No Information Provider [facility]. . [facility], [address] [employer], [place], [place], [id number], [place] tel:[phone] [facility] Location UPPER RESP INFECTION NOS Provider [facility]. . [facility], [address], [place], [place], [id number], [place] tel:[phone] [facility] Location HEADACHE NOS Provider [facility]. . [facility], [address], [place], [place], [id number], [place] tel:[phone] [facility] Location GASTROENTERITIS, VIRAL Provider [facility]. . [facility], [address] [employer] [address], [place], [place], [id number], [place] tel:[phone] [facility] Location No Information Provider [facility]. . [facility], [address], [place], [place], [id number], [place] tel:[phone] [facility] Location ROUTINE CHILD EXAM Provider [facility]. . [address], [place], [place], [id number], [place] tel:[phone] [facility] Location ANXIETY STATE NOSHEADACHE, MIGRAINEHEADACHE NOS Provider [facility]. . [address], [place], [place], [id number], [place] tel:[phone] [facility] Location HEADACHE, MIGRAINE Provider [facility]. . Family History Family Member Type Diagnosis Age At Onset No Information Immunizations Vaccine Date Status Comments Tetanus, diphtheria toxoids and acellular pertussis vaccine (Tdap), for use in individuals 7 years or older, for intramuscular use administered Note: [facility] [place] city conversion as of 01/30/2013 ; Source: New Immunization Record Varicella virus vaccine, stan e, for subcutaneous use administered Note: [facility] [place] conversion as of 01/30/2013 ; Source: New Immunization Record Human Papilloma virus (HPV) vaccine, types 6, 11, 16, 18 (quadrivalent) 3 dose schedule, for intramuscular use administered Note: [facility] [place] conversion as of 01/30/2013 ; Source: New Immunization Record Human Papilloma virus (HPV) vaccine, types 6, 11, 16, 18 (quadrivalent) 3 dose schedule, for intramuscular use administered Note: [facility] [place] conversion as of 01/30/2013 ; Source: New Immunization Record Human Papilloma virus (HPV) vaccine, types 6, 11, 16, 18 (quadrivalent) 3 dose schedule, for intramuscular use administered Note: [facility] [place] conversion as of 01/30/2013 ; Source: New Immunization Record Meningococcal conjugate vaccine, serogroups A, C, Y and W-135 (tetravalent), for intramuscular use administered Note: [facility] [place] city conversion as of 01/30/2013 ; Source: New Immunization Record Hemophilus influenza b vacci ne (Hib), PRP-T conjugate (4 dose schedule), for intramuscular use administered Note: [facility] city conversion as of 01/30/2013 ; Source: New Immunization Record Payers Payer name Insurance type Covered libertarian ID Authoriza tion(s) No Information Social History Type Description Quantity Date Captured Comments Sex Female Smoking Status No Information Chief Complaint And Reason For Visit No Information History Of Present Illness Encounter Date Complaint History Of Prese nt Illness No Information Instructions Date Instruction Additional Infor mation No Information Assessments Type Assessment Date No Information
[2025-01-31 18:29] VITALS: BP 145/96; PULSE 94; RESP 20; TEMP 36.4; O2SAT 98; BMI 39.3
--- NOTE | 2025-01-31 18:31 | ED.GENADULT ---
HPI - General Adult General Chief complaint: Skin/Abscess/Foreign Body Stated complaint: Cyst on Rt thigh Time Seen by Provider: 01/31/25 22:04 Source: patient, RN notes reviewed and old records reviewed Mode of arrival: ambulatory Limitations: no limitations History of Present Illness ED Provider: Russ GANDARA narrative: 34-year-old female with past medical history significant for hypertension, obesity presents for evaluation of a cyst on her right leg. She reports yesterday she noticed a small pimple to the right upper thigh. The area has been getting more painful, redder. She denies any fevers but does have some chills and body aches. She reports a history of abscesses requiring incision and drainage but not for several years No other complaints or concerns Related Data Previous Rx's ?Medication ?Instructions ?Recorded pyridoxine (vitamin B6) 50 mg 50 mg PO DAILY 90 days #90 tabs 11/24/23 tablet naproxen 500 mg tablet 500 mg PO BID 14 days #28 tabs 06/17/24 prednisone 20 mg tablet 20 mg PO DAILY 5 days #5 tabs 06/17/24 tamsulosin 0.4 mg capsule 0.4 mg PO BEDTIME 14 days #14 caps 06/17/24 ibuprofen 600 mg tablet 600 mg PO Q8H PRN fever or pain 10/29/24 #20 tabs ondansetron 4 mg disintegrating 4 mg PO Q8H 3 days #9 tabs 12/21/24 tablet cephalexin 500 mg tablet 500 mg PO Q8H #21 tabs 01/31/25 Allergies Allergy/AdvReac Type Severity Reaction Status Date / Time tramadol AdvReac Vomiting Verified 01/31/25 18:32 Review of Systems Constitutional: Constitutional: Reports body ache(s), Reports chills, Denies fever(s), Denies headache(s) and Denies malaise Eyes: Eyes: Denies blurry vision ENT: Denies dizziness, Denies dry mouth and Denies headache(s) Cardiovascular: Cardiovascular: Denies chest pain and Denies dyspnea on exertion Respiratory: Respiratory: Denies cough and Denies dyspnea on exertion Gastrointestinal: Gastrointestinal: Denies abdominal pain, Denies nausea and Denies vomiting Integumentary/Breasts: Skin/Breast: Reports erythema, Reports skin pain and Reports skin swelling Neurologic: Denies dizziness and Denies headache(s) Psychiatric: Psychiatric: Denies anxiety [facility] Past Medical History Medical History HTN (hypertension) Left flank pain COVID-19 Surgical History No pertinent past surgical history Social History Social History Alcohol intake: current Alcohol intake frequency: does not drink Alcohol type: wine Patient Tobacco Use Status: Never used Tobacco Smoked in Last 30 Days: No Use of substances other than those prescribed or required for medical reasons: No Substance Use Type: Marijuana Advance Directives: No Advance Directives Information Provided: No Do you have a plan to hurt others: No Plan Patient : No Physical Exam ED Vital Signs: Vital Signs - 24 hr 01/31/25 18:29 01/31/25 22:20 01/31/25 23:44 Temperature 97.6 F 98.3 F 98.1 F Pulse Rate 94 85 75 Respiratory Rate 20 16 18 Blood Pressure 145/96 H 138/91 H 136/89 Pulse Oximetry 98 96 97 Oxygen Delivery Method Room Air Room Air Room Air BMI result Body Mass Index 39.3 Const General: healthy appearing, comfortable, no acute distress, alert and awake Nutritional Appearance: well nourished Orientation/consciousness: patient oriented x3 HENMT Head: Yes normocephalic and Yes atraumatic Eyes Eyelids: Yes eyelids normal Conjunctivae: conjunctivae normal Sclerae: sclerae normal Corneas: corneas normal Pupils: Equal, round and reactive pupils present EOM: EOMs intact bilaterally Neck Neck: Yes full ROM Resp Effort & Inspection: normal respiratory effort, able to speak in complete sentences and not labored GI Inspection: No distended Palpation (GI): Soft to palpation, not firm, nontender, no guarding and not rigid Skin Other: The patient had a 2 cm area of induration to the right upper, inner thigh. There was about a 4 cm area surrounding erythema with increased warmth. No active drainage, no fluctuance. General skin exam: elasticity normal Neuro General: patient oriented x3 Cranial nerves: Yes Equal, round and reactive pupils present and Yes Bilaterally intact EOM present Cognition (Neuro): normal cognition Extrem Other: Moving all extremities well without any obvious deformities Course Course Course Narrative: This is a rapid medical exam performed by Tila Miranda NP: Additional HPI, ROS, PE not included below will be deferred to primary provider. Patient is a 34y/o F presenting with abscess to right inner thigh. Applied warm compresses but area not draining and erythema increasing in size. Plan: labs including cultures Medications Administered Discontinued Medications Generic Name Dose Route Start Last Admin Trade Name Bel PRN Reason Stop Dose Admin Cephalexin HCl 500 mg 01/31/25 23:21 01/31/25 23:32 Cephalexin 500 Mg Capsule PO 01/31/25 23:22 500 mg ONCE ONE Administration Lidocaine/Epinephrine 10 ml 01/31/25 22:37 01/31/25 23:32 Lidocaine Hcl 1%/Epi 1:100,000 10 Ml Vial INFILTRATI 01/31/25 22:38 10 ml ONCE ONE Administration Procedures Abscess I/D Site: lower extremity Side (if applicable): right Local Anesthetic: lidocaine 1% and with epi Amount of anesthesia used (mL): 2 Technique: needle aspiration Amount of fluid expressed (mL): 1 Sent for culture/gram staining?: No Irrigation: No Packing used?: none Medical Decision Making Medical Decision Making [facility] Narrative: 34-year-old female presents for evaluation of a skin infection to the right upper thigh. She does appear to have an early abscess. The area is indurated and not fluctuant. I discussed the options with the patient including treated with antibiotics versus needle aspiration versus incision and drainage. She is amenable to needle aspiration. See procedure note[place] [address] with a known infection but otherwise vital signs are stable, she is not meet sepsis criteria. Differential Diagnosis Differential Diagnoses: The differential diagnosis associated with the presentation includes Cellulitis Abscess Phlegmon Sebaceous cyst Lab Data [facility] Lab Attestation statement: I reviewed the patient's lab results. Mild leukocytosis, no significant anemia. Normal platelet count. No electrolyte abnormalities warranting intervention 01/31/25 18:57 01/31/25 18:57 Labs: Lab Results 01/31/25 Range/Units 18:57 WBC 12.0 H (4.8-10.8) X10*3/uL RBC 5.88 H (4.20-5.50) X10*6/uL Hgb 12.2 (12.0-16.0) g/dl Hct 39.3 (37.0-47.0) % MCV 66.8 L (80.0-98.0) fL MCH 20.7 L (27.0-33.0) pg MCHC 31.0 (31.0-35.0) g/dl RDW 17.2 H (11.0-16.0) % Plt Count 285 (160-400) X10*3/uL MPV 10.6 (9.4-12.3) fL Immature Gran % (Auto) 0.8 H (0.0-0.4) % Neut % (Auto) 64.0 (45-73) % Lymph % (Auto) 24.9 (20-40) % [place] % (Auto) 7.4 (2-11) % Eos % (Auto) 2.5 (0-4) % Baso % (Auto) 0.4 (0-2) % Lymph # (Auto) 3.0 (1.2-4.9) X10*3/uL [place] # (Auto) 0.9 (0.1-1.2) X10*3/uL Eos # (Auto) 0.3 (0.0-0.4) X10*3/uL Baso # (Auto) 0.1 (0.0-0.2) X10*3/uL Abs Immat Gran (auto) 0.10 H (0.00-0.03) X10*3/uL Absolute Neuts (auto) 7.7 (2.0-8.3) x10*3/uL Absolute Nucleated RBC 0.000 (0.0-0.012) X10*3/uL Nucleated RBC % (auto) 0.0 (0.0-0.2) /100WBC Sodium 140 (135-145) mmol/L Potassium 3.6 (3.3-5.1) mmol/L Chloride 110 H (96-108) mmol/L Carbon Dioxide 24 (22-29) mmol/L Anion Gap 10 L (12-20) BUN 10 (9-16) mg/dL Creatinine 0.76 (0.5-1.4) mg/dL Estim Creat Clear Calc 114.8 Estimated GFR > 60 Random Glucose 136 H (60-115) mg/dL Calcium 9.0 (8.4-10.2) mg/dL Total Bilirubin 0.3 (0.0-1.0) mg/dL AST 21 (5-31) U/L ALT 29 (0-31) U/L Alkaline Phosphatase 76 (39-117) U/L Total Protein 7.6 (6.5-8.0) g/dL Albumin 4.4 (3.5-5.0) g/dL Beta HCG, Quant < 2 mIU/mL Discharge Plan Discharge Clinical Impression: Abscess of right thigh Patient Disposition: Home, Self-Care Instructions: Abscess (ED) Additional Instructions: I recommend continuing warm compresses every 4 hours for 10-15 minutes. Take cephalexin 4 times daily for 1 week. You may use ibuprofen or Tylenol for pain pain Follow up with your primary doctor, return for new or worsening symptoms Prescriptions: New cephalexin 500 mg tablet 500 mg PO Q8H Qty: 21 0RF No Action tamsulosin 0.4 mg capsule 0.4 mg PO BEDTIME 14 Days Qty: 14 0RF prednisone 20 mg tablet 20 mg PO DAILY 5 Days Qty: 5 0RF naproxen 500 mg tablet 500 mg PO BID 14 Days Qty: 28 0RF ibuprofen 600 mg tablet 600 mg PO Q8H PRN (Reason: fever or pain) Qty: 20 0RF ondansetron 4 mg tablet,disintegrating 4 mg PO Q8H 3 Days Qty: 9 0RF pyridoxine (vitamin B6) 50 mg tablet 50 mg PO DAILY 90 Days Qty: 90 3RF Interventions: ED Discharge Assessment Last Done: 01/31/25 23:44 Print Language: Tunisian
[2025-01-31 19:03] LABS: MANUAL DIFF FLAG NO
[2025-01-31 19:04] LABS: Hematocrit 39.3 % (37.0-47.0); Hemoglobin 12.2 g/dl (12.0-16.0); Imm Gran Abs Auto 0.10 X10*3/uL (0.00-0.03); Imm Gran Pct Auto 0.8 % (0.0-0.4); Lymphocytes Absolute Auto 3.0 X10*3/uL (1.2-4.9); Mean Corpuscular HGB Conc 31.0 g/dl (31.0-35.0); Mean Corpuscular Hemoglobin 20.7 pg (27.0-33.0); Mean Corpuscular Volume 66.8 fL (80.0-98.0); NRBC Abs Auto 0.000 X10*3/uL (0.0-0.012); NRBC Pct Auto 0.0 /100WBC (0.0-0.2); Platelet Count 285 X10*3/uL (160-400); Red Blood Count 5.88 X10*6/uL (4.20-5.50); White Blood Count 12.0 X10*3/uL (4.8-10.8)
[2025-01-31 19:24] LABS: Alanine Aminotransferase 29 U/L (0-31); Albumin Level 4.4 g/dL (3.5-5.0); Alkaline Phosphatase 76 U/L (39-117); Anion Gap 10 (12-20); Aspartate Amino Transferase 21 U/L (5-31); Blood Urea Nitrogen 10 mg/dL (9-16); Calcium 9.0 mg/dL (8.4-10.2); Carbon Dioxide 24 mmol/L (22-29); Chloride 110 mmol/L (96-108); Creatinine Clr Calc Pharmacy 114.8; Estimated Glomerular Filt Rate > 60; Potassium 3.6 mmol/L (3.3-5.1); Sodium 140 mmol/L (135-145); Total Protein 7.6 g/dL (6.5-8.0)
--- OUTSIDE RECORDS SUMMARY | 2025-01-31 22:16 | XMS_ITS | Clinical Summary ---
Author Organization [facility] ity Address [address] [place] [address] Care Team Providers Care 3D Modeler Name Role Phone Ramone Tomlin MD Primary Care Provider [phone] Allergies Active Allergy Reactions Criticality Noted Date [...] 03/25/2019 Obstructive sleep apnea 11/18/2018 Overview (03/26/2024): [facility] Polysomnogram: Date 11/11/2018; Wt [...] Acne 04/09/2010 Dysfunctional uterine bleeding 04/09/2010 Immunizations Immunization Administration Dates Next Due HPV, Quadrivalent 04/11/2013 Influenza trivalent, 0.5mL, preservative free (Fluarix; FluLaval; Fluzone) ages 6mo and older (Afluria) 3 years and older 01/04/2015 Influenza trivalent, with pr eservative (Fluzone; Afluria) 6mo and older 02/11/2013 Influenza, Unspecified 01/09/2021 AqueSys SARS-CoV-2 COVID-19, mRNA, LNP-S, preservative free 02/18/2021 [...] CT scan Acute intractable headache 02/02/2019 DX:Ac picayune intractable headache Family History Medical History Relation [...] - Td or Tdap) 03/14/2030 03/14/2020, 04/09/2010 RSV Immunization Adult Patients (1 - 1-dose 75+ series) 2066 Hepatitis C Screening Completed 11/23/2015 HIV Screening [...] Results * Cervical Cancer Screening: HPV (04/03/2022) [facility] Cervical Cancer Screening: HPV positive,a bstracted Historical Provider HEALTH MAINTENANCE Final Result * Annual BMP Blood Test (11/18/2021) [facility] Annual BMP Blood Test ABSTRACTED Historical Provider HEALTH MAINTENANCE Final Result * Lipid panel (01/10/2021) [facility] LDL/HDL Ratio 3 0 - 4 Triglycerides 82 0 - 150 mg/dL Cholesterol 122 0 - 200 mg/dL HDL 44 >=40 mg/dL LDL Cholesterol 62 0 - 100 mg/dL Blood Venous blood specimen / Unknown Historical Provider LAB BLOOD ORDERABLES Yazmin l Result * HIV Screening (12/03/2016) [facility] HIV Screening ABSTRACTED Historical Provider HEALTH MAINTENANCE Final Result * Hepatitis C Screening (11/23/2015) [facility] Hepatitis C Screening ABSTRACTED Historical Provider HEALTH MAINTENANCE Final Result from Last 3 Months or Most Recently Relevant to Health Maintenance Care Teams 3D Modeler Relationship Specialty Start Date End Date Ramone Tomlin MD [address] [place] [address] PCP - General Internal Medicine 08/02/21
--- OUTSIDE RECORDS SUMMARY | 2025-01-31 22:16 | XMS_ITS | Clinical Summary ---
Author Organization [employer] Address [address] [facility] 7t [place] [address] Care Team Providers Care Ammunition Assembly I Laborer Name Role Phone Angelina Wood MD Primary Care Provider Neil Wise PharmD Unavailable Allergies Active Allergy Reactions Criticality Noted Date [...] Encounters Date Type Department Care Team Description 01/31/2025 Orders Only GENERIC EXTERNAL DATA DEPARTMENT Provider, Generic External Data 12/21/2024 Orders Only GENERIC EXTERNAL DATA DEPARTMENT Provider, Generic External Data 12/13/2024 Refill [facility] [address] [place] [phone] NameKalpesh MD 11/18/2024 4:00 PM EDT Office Visit [facility] [address] [address] NameKalpesh MD Onychomycosis (Primary Dx) 11/18/2024 Telephone [facility] [address] [place] [phone] Angelina Wood MD 11/16/2024 Telephone [facility] [address] [place] [address] [phone] Angelina Wood MD Nurse Triage 11/09/2024 Telephone [facility] [address] [place] [address] [phone] Angelina Wood MD from Last 3 Months Immunizations Immunization Administration [...] Comments HIV Screening 1991 Disability Screening 1991 Alcohol/Substance Use Screening 2003 Family Planning (PISQ) 2006 Hepatitis C Screening [...] 07/20/2024 01/20/2024, 024 Dental X-Ray: [facility]ings 08/03/2024 08/03/19 24, 03/06/2023, 01/30/2023, Additional history exists COVID-19 Vaccine ( season) 2024 01/23/2022, 02/18/2021, 02/06/2021, Additional history exists Influenza Vaccine (#1) 2024 , 01/09/2021, 01/06/2019, Additional history exists SDOH Screening 01/19/2025 01/20/2024 Dental X-Ray: Full [...] 025 3:51 PM EDT) No Neil Wise, GageD Procedures Procedure Name Priority Date/Time Associated Diagnosis Comments HCG, TOTAL, QN Routine 01/31/2025 6:57 PM EST COMPREHENSIVE METABOLIC PANEL Routine 01/31/2025 6:57 PM EST CBC WITH AUTO DIFFERENTIAL Routine 01/31/2025 6:57 PM EST US RENAL COMPLETE Routine 12/24/2024 4:1 3 PM EDT XR CHEST 2 VIEWS Routine 12/21/2024 11:1 9 AM EDT HCG, TOTAL, QN Routine 12/21/2024 10:43 AM EDT COMPREHENSIVE METABOLIC PANEL Routine 12/21/2024 10:43 AM EDT COVID-19 ID NOW (PELAEZ) Routine 12/21/2024 10:43 AM EDT PROTHROMBIN TIME-INR Routine 12/21/2024 10:43 AM EDT CBC WITH AUTO DIFFERENTIAL Routine 12/21/2024 10:43 AM EDT INFLUENZA A B2 ID NOW (PELAEZ) Routine 12/21/2024 10:43 AM EDT STREP A NUCLEIC ACID Routine 12/21/2024 10:43 AM EDT HEMOGLOBIN A1C Routine 08/17/2024 1:16 PM [...] Maintenance Results * (ABNORMAL) CBC auto differential (01/31/2025 6:57 PM EST) Only the most recent of2 resultswithin the time period is included. White Blood Count 12.0(H) 4.8 - 10.8 X10*3/uL [facility] Red Blood Count 5.88(H) 4.20 - 5.50 X10*6/uL [facility] Hemoglobin 12.2 12.0 - 16.0 g/dl [facility] Hematocrit 39.3 37.0 - 47.0 % [facility] Mean Corpuscular Volume 66.8(L) 80.0 - 98.0 fL [facility] Mean Corpuscular Hemoglobin 20.7(L) 27.0 - 33.0 pg [facility] Mean Corpuscular HGB Conc 31.0 31.0 - 35.0 g/dl [facility] Red Cell Distribution Width 17.2(H) 11.0 - 16.0 % [facility] Platelet Count 285 160 - 400 X10*3/uL [facility] Mean Platelet Volume 10.6 9.4 - 12.3 fL [facility] Neutrophils Percent Auto 64.0 45 - 73 % [facility] Imm Gran Pct Auto 0.8(H) 0.0 - 0.4 % [facility] Lymphocytes Percent Auto 24.9 20 - 40 % [facility] Monocytes Percent Auto 7.4 2 - 11 % [facility] Eosinophils Percent Auto 2.5 0 - 4 % [facility] Basophils Percent Auto 0.4 0 - 2 % [facility] NRBC Pct Auto 0.0 0.0 - 0.2 /100WBC [facility] Neutrophils Absolute Auto 7.7 2.0 - 8.3 x10*3/uL [facility] Imm Gran Abs Auto 0.10(H) 0.00 - 0.03 X10*3/uL [facility] Lymphocytes Absolute Auto 3.0 1.2 - 4.9 X10*3/uL [facility] Monocytes Absolute Auto 0.9 0.1 - 1.2 X10*3/uL [facility] Eosinophils Absolute Auto 0.3 0.0 - 0.4 X10*3/uL [facility] Basophils Absolute Auto 0.1 0.0 - 0.2 X10*3/uL [facility] NRBC Abs Auto 0.000 0.0 - 0.012 X10*3/uL [facility] 01/31/2025 6:57 PM EST 01/31/2025 7:02 PM EST us Generic External Data Provider LAB BLOOD ORDERAB LES Final Result [facility] [address] [place] [phone] * hCG, Total, Quantitative (01/31/2025 6:57 PM EST) Only the most recent of2 resultswithin the time period is included. HCG Quantitative <2 mIU/mL [facility] Comment:Weeks post LMP Appro ximate hCG(Last Menstrual Period) Range (mIU/ml)3 - 4 weeks 9 - 1304 - 5 weeks 75 - 2,6005 - 6 weeks 850 - 20,8006 - 7 weeks 4000 - 100,2007 - 12 weeks 11,500 - 289,52557 - 16 weeks 18,300 - 137,51106 - 29 weeks (2nd trimester) 1,400 - 53,50777 - 41 weeks (3rd trimester) 940 - 60,000The Pelaez B- hCG assay is used for the early detection ofpregnancy; it cannot be used to diagnose any conditionunrelated to . If a B-hCG level is not supportedby the clinical evidence, results should be confirmed by analternative method (qualitative urine hCG, for example). 01/31/2025 6:57 PM EST 01/31/2025 7:02 PM EST us Generic External Data Provider LAB BLOOD ORDERAB LES Final Result [facility] [address] [place] [address] [phone] * (ABNORMAL) Comprehensive Metabolic Panel (01/31/2025 6:57 PM EST) Only the most recent of2 resultswithin the time period is included. Sodium 140 135 - 145 mmol/L [facility] Potassium 3.6 3.3 - 5.1 mmol/L [facility] Chloride 110(H) 96 - 108 mmol/L [facility] Carbon Dioxide 24 22 - 29 mmol/L [facility] Anion Gap 10(L) 12 - 20 [facility] Urea Nitrogen (BUN) 10 9 - 16 mg/dL [facility] Creatinine, Serum 0.76 0.5 - 1.4 mg/dL [facility] Creatinine Clr Calc Pharmacy 114.8 [facility] Comment:Provided height and weight: 157.48 cm,97.5 kg.eGFR (calculated from the MDRD study equation) and eCrCl(calculated from the Cockcroft-Gault equation) are based ondifferent parameters and may not yield comparable results.If eCrCl result is absurd, please check patient'sheight/weight. Estimated Glomerular Filt Rate >60 [facility] Comment:Chronic Kidney Disea se: Estimated GFR < 60 mL/min/1.97l8Vrgpti Kidney Disease: Estimated GFR < 15 mL/min/1.73m2 Glucose 136(H) 60 - 115 mg/dL [facility] Calcium 9.0 8.4 - 10.2 mg/dL [facility] Bilirubin, Total 0.3 0.0 - 1.0 mg/dL [facility] Aspartate Amino Transferase 21 5 - 31 U/L [facility] Alanine Aminotransferase 29 0 - 31 U/L [facility] Total Protein 7.6 6.5 - 8.0 g/dL [facility] Albumin Level 4.4 3.5 - 5.0 g/dL [facility] Alkaline Phosphatase 76 39 - 117 U/L [facility] 01/31/2025 6:57 PM EST 01/31/2025 7:02 PM EST us Generic External Data Provider LAB BLOOD ORDERAB LES Final Result Performing Organization Address City/State/[facility] Co de Phone Number [facility] [address] [place] [phone] * US Renal Complete (12/24/2024 4:13 PM EDT) Anatomical Region Laterality Modality Kidney Ultrasound 12/24/2024 4:13 PM EDT Narrative 12/24/2024 4:15 PM EDT [address] [address] Ultrasound Report Signed Patient: Nighat Montes MR#: [id number] : 1990 Acct:[id number] Age/Sex: 34 / F ADM Date: 12/23/24 Loc: HO.US Attending Dr: Wesly Smyth MD Ordering Physician: Wesly Smyth MD Date of Service: 12/23/24 Procedure(s): US renal BI Accession Number(s): [id number] cc: Wesly Smyth MD; Angelina Wood MD Reason for Exam: N20.0 - Calculus of kidney CLINICAL HISTORY: N20.0 - Calculus of kidney US renal with Color Doppler Comparison: US/SR - US KIDNEY BILATERAL - 07/17/22 15:30 EDT Findings: Right kidney normal size and echotexture, 11.1 cm length. No hydronephrosis or mass. Normal color flow. Nonobstructing caliceal stone upper pole measuring 3 x 2 x 2 mm. Left kidney normal size and echotexture, 10.2 cm length. No hydronephrosis or mass. Normal color flow. Nonobstructing caliceal stone midpole measuring 6 x 4 x 4 mm. Impression: 1. Bilateral nephrolithiasis. No evidence of obstructive uropathy. This document has been electronically signed by: Ramy Yun MD on 12/24/2024 16:13:36 Dictated By: Ramy Yun MD Signed By: <Electronically signed by Ramy Yun MD in OV> 12/24/241613 DD/ 12 TD/TT: 12/24/241612 Wholesale Manager: Procedure Note Donotuseinterpreter, Image - 12/24/2024 [place] [address] Ultrasound Report Signed Patient: Nighat MontesMR#: [id number] : 1990Acct:[id number] Age/Sex: 34 / FADM Date: 12/23/24 Loc: HO.US Attending Dr: Wesly Smyth MD Ordering Physician: Wesly Smyth MD Date of Service: 12/23/24 Procedure(s): US renal BI Accession Number(s): [id number] cc: Wesly Smyth MD; Angelina Wood MD Reason for Exam: N20.0 - Calculus of kidney CLINICAL HISTORY: N20.0 - Calculus of kidney US renal with Color Doppler Comparison: US/SR - US KIDNEY BILATERAL - 07/17/22 15:30 EDT Findings: Right kidney normal size and echotexture, 11.1 cm length. No hydronephrosis or mass. Normal color flow. Nonobstructing caliceal stone upper pole measuring 3 x 2 x 2 mm. Left kidney normal size and echotexture, 10.2 cm length. No hydronephrosis or mass. Normal color flow. Nonobstructing caliceal stone midpole measuring 6 x 4 x 4 mm. Impression: 1. Bilateral nephrolithiasis. No evidence of obstructive uropathy. This document has been electronically signed by: Ramy Yun MD on 12/24/2024 16:13:36 Dictated By: Ramy Yun MD Signed By: <Electronically signed by Ramy Yun MD in OV> 12/24/241613 DD/ 161 TD/TT: 12/24/241612 Wholesale Manager: us [facility] External Provider IMG US PROCEDURES Edited Result - Final * XR Chest 2 Views (12/21/2024 11:19 AM EDT) Anatomical Region Laterality Modality Chest Radiographic Tita ging 12/21/2024 11:1 9 AM EDT Narrative 12/21/2024 11:33 AM EDT [address] [address] XRay Report Signed Patient: Nighat Montes MR#: [id number] : 1990 Acct:[id number] Age/Sex: 34 / F ADM Date: 12/21/24 Loc: HO.ED Attending Dr: Ordering Physician: Celi Aleman Date of Service: 12/21/24 Procedure(s): XR chest 2V Accession Number(s): [id number] cc: Celi Aleman; Angelina Wood MD Reason [...] 12/21/24 1130 DD/ 1119 TD/TT: 12/21/24 1122 Wholesale Manager: Procedure Note Donotuseinterpreter, Image - 12/21/[address] [address] XRay Report Signed Patient: Nighat MontesMR#: [id number] : 1990Acct:[id number] Age/Sex: 34 / FADM Date: 12/21/24 Loc: .ED Attending Dr: Ordering Physician: Celi Aleman Date of Service: 12/21/24 Procedure(s): XR chest 2V Accession Number(s): [id number] cc: Celi Aleman; Angelina Wood MD Reason [...] 12/21/24 1130 DD/ 1119 TD/TT: 12/21/24 1122 Wholesale Manager: [facility] External Provider IMG XR PROCEDURES Final Result * Influenza A B2 ID NOW (Pelaez) (12/21/2024 10:43 AM EDT) IDNOW SERIAL# [id number] [facility] Influenza A Negative Negative [facility] Influenza B2 Negative Negative [facility] Influenza A B2 Note See Note [facility] Comment:The Pelaez ID NOW In fluenza [...] LAB MICROBIOLOGY - GENERAL ORDERABLES Final Result [facility] [address] [place] [phone] * Strep A Nucleic Acid (12/21/2024 10:43 AM EDT) IDNOW SERIAL# [id number] [facility] Strep A Nucleic Acid Negative Negative [facility] Comment:All test results mus t be correlated with clinical findings.This test has not been evaluated for monitoring treatment ofinfection.Additional follow-up testing using the culture method isrequired if the result is negative and clinical symptomspersist, or in the event of an acute rheumatic feveroutbreak. 12/21/2024 10:4 3 AM EDT 12/21/2024 10:50 AM EDT us Generic External Data Provider LAB MICROBIOLOGY - GENERAL ORDERABLES Final Result [facility] [address] [place] [address] [phone] * COVID-19 ID NOW (PELAEZ) (12/21/2024 10:43 AM EDT) IDNOW SERIAL# [id number] [facility] COVID-19 TEST Negative Negative [facility] COVID-19 NOTE See Note [facility] Comment: Results are for the identification of SARS-CoV2 RNA. TheSARS-CoV2 RNA is generally detectable in respiratory samplesduring the acute phase of infection. Positive results areindicative of the presence of SARS-CoV-2 RNA; clinicalcorrelation with patient history and other diagnosticinformation is necessary to determine patient infectionstatus. Positive results do not rule out bacterial infectionor co- infection with other viruses.Testing facilities within the [facility] and itsterritories are required to report all [...] use by authorized laboratories.Testing performed on the Ryonet ID NOW utilizing NAAT. 12/21/2024 10:4 3 AM EDT 12/21/2024 10:50 AM EDT Generic External Data Provider LAB MOLECULAR ARNAUD GNOSTICS ORDERABLES Final Result Performing Organization Address [facility]/ZIP Co de Phone Number [facility] [address] [place] [phone] * Prothrombin Time-INR (12/21/2024 10:43 AM EDT) Prothrombin Time 11.8 10.9 - 12.4 SEC [facility] INTERNATIONAL NORM RATIO 1.0 0.9 - 1.1 [facility] Comment:INTERNATIONAL NORMAL IZED RATIO (INR) REFERENCE [...] ORDERAB LES Final Result Performing Organization Address [facility] Co de Phone Number [facility] [address] [place] [phone] * Hemoglobin A1c (08/17/2024 1:16 PM EDT) Hemoglobin A1c 5.9 <6.0 % [facility] Comment:Hemoglobin A1C Refer ence Range Adults: 4.8 - 6.0 % Non diabetic: < 6.0 % Goal: < 7.0 %Additional Action Suggested: > 8.0 %Note: Hemoglobin A1c results are invalid for patients with abnormal amounts of HbF. Blood transfusions may impact the HbA1c concentration in the patient sample. Estimated Average Glucose 123 mg/dL [facility] Comment:eAG = Estimated ave rage glucose which is %A1C expressed asaverage glucose, using the formula of the M0W-YdoxncpHdcghkr Glucose study (ADAG), Diabetes Care, Vol.31,#8,Oct. 2007 Blood Venous blood specimen / Unknown 08/17/2024 1:16 PM EDT 08/17/2024 1:16 PM EDT us Angelina Wood MD LAB BLOOD ORDERABLES Final Resul t [facility] [address] [place] [phone] * Lipid Panel, Standard (01/20/2024 11:40 AM EDT) Triglycerides 61 <150 mg/dL [facility] Comment:Desirable Triglyceri de: less than 150 mg/dLBorderline High Triglyceride 150-199 mg/dLHigh Triglyceride: 200-499 mg/dLVery High Triglyceride: greater than or equal to 5OO mg/dL Cholesterol 112 <200 mg/dL [facility] Comment:Desirable Cholestero l: less than 200 mg/dLBorderline High Cholesterol: 200-239 mg/dLHigh Cholesterol: greater than 239 mg/dL LDL Cholesterol Calculated 53 <100 mg/dL [facility] Comment:Desirable LDL: less than 100 mg/dLNear Optimal/Above Optimal LDL: 110- 129 mg/dLBorderline High LDL: 130-159 mg/dLHigh LDL: 160-189 mg/dLVery High LDL: greater than or equal to 190 mg/dL HDL Cholesterol 47 >40 mg/dL [facility] Comment:Desirable HDL: great er than 40 mg/dL Note: This HDL assay may give artificially low results in patients with liver disease. 01/20/2024 11:4 0 AM EDT 01/20/2024 1:24 PM EDT us Angelina Wood MD LAB BLOOD ORDERABLES Final Resul t [facility] [address] [place] [phone] from Last 3 Months or Most Recently Relevant to Health Maintenance Insurance BCBS PPO [facility] MEDICAID STAND ADULT Care Teams Ammunition Assembly I Laborer Relationship Specialty Start Date End Date Angelina Wood MD [address] [place] [address] PCP - General Family Medicine 05/01/22 Neil Wise, GageD [address] [place] [address] Pharmacist Internal Medicine 06/16/23
--- OUTSIDE RECORDS SUMMARY | 2025-01-31 22:17 | XMS_ITS | Encounter Summary ---
Author Organization [employer] Address [address] [facility] 7t [place] [address] Care Team Providers Care Roll Out Manager Name Role Phone Angelina Wood MD Primary Care Provider [phone] Neil Wise PharmD Unavailable [phone] Encounter Details Date Type Department Care Team (Late st Contact Info) Description 10/28/2023 Orders Only [facility] [address] [place], [place] [phone] Angelina Wood MD [address] [place], [place] [phone] Social History Tobacco Use Types Packs/Day Years [...] t he electric, gas, oil or water [employer] threatened to shut off services in your [...] documented as of this encounter Care Teams Roll Out Manager Relationship Specialty Start Date End Date Angelina Wood MD [address] [place] [address] PCP - General Family Medicine 05/01/22 Neil Wise, PharmD [address] [place] [address] Pharmacist Internal Medicine 06/16/23 documented as of this encounter
--- OUTSIDE RECORDS SUMMARY | 2025-01-31 22:17 | XMS_ITS | Encounter Summary ---
Author Organization [employer] Address [address] [facility] 7t [place] [address] Care Team Providers Care Home Visit Field Care Manager Name Role Phone Angelina Wood MD Primary Care Provider [phone] Neil Wise PharmD Unavailable [phone] Encounter Details Date Type Department Care Team (Late st Contact Info) Description 03/27/2022 Abstract [facility] [address] [place], [place] [phone] Angelina Wood MD [address] [place], [place] [phone] Social History Tobacco Use Types Packs/Day Years [...] documented as of this encounter Care Teams Home Visit Field Care Manager Relationship Specialty Start Date End Date Angelina Wood MD [address] [place] [address] PCP - General Family Medicine 05/01/22 Neil Wise, PharmD [address] [place] [phone] Pharmacist Internal Medicine 06/16/23 documented as of this encounter
--- OUTSIDE RECORDS SUMMARY | 2025-01-31 22:17 | XMS_ITS | Encounter Summary ---
Author Organization [employer] Address [address] [facility] [address] [place] [address] Care Team Providers Care Engineer Booster And Exhauster Name Role Phone Angelina Wood MD Primary Care Provider Neil Wise PharmD Unavailable [phone] Encounter Details Date Type Department Care Team (Late st Contact Info) Description 08/17/2024 Orders Only [facility] MEDICINE [address] [place], [place] [phone] Angelina Wood MD [address] [place], [place] [phone] Microcytosis (Primary Dx) Social History Tobacco Use [...] the past 12 months, has t he [employer], gas, oil or water company threatened to [...] EDT) Ferritin 35 10 - 122 ng/mL [facility] Blood Venous blood specimen / Unknown 08/18/2024 4:52 PM EDT 08/18/2024 4:53 PM EDT Angelina Wood MD LAB BLOOD ORDERABLES Final Resul t Performing Organization Address [facility] Co de Phone Number [facility] [address] [place] [phone] * Pathologist Review - CBC (08/18/2024 4:52 PM EDT) Pathologist Review - CBC SEE NOTE [facility] Comment:- Unremarkable perip heral smear.Reviewed by Jazmin Trinidad MD Blood Venous blood specimen / Unknown 08/18/2024 4:52 PM EDT 08/18/2024 4:53 PM EDT Angelina Wood MD LAB BLOOD ORDERABLES Final Resul t Performing Organization Address [facility] de Phone Number [facility] [address] [place] [phone] * (ABNORMAL) Reticulocyte Count (08/18/2024 4:52 PM EDT) Reticulocytes Absolute 0.078 0.026 - 0.095 X10*6/uL [facility] Immature Retic Fraction 12.3 3.0 - 15.9 % [facility] Retic HGB Equivalent 24.1(L) 30.0 - 35.0 pg [facility] Reticulocyte Percent 1.3 0.5 - 1.8 % [facility] Blood Venous blood specimen / Unknown 08/18/2024 4:52 PM EDT 08/18/2024 4:53 PM EDT Angelina Wood MD LAB BLOOD ORDERABLES Final Resul t Performing Organization Address [facility] Co de Phone Number [facility] [address] [place] [phone] * Iron And Total Iron Binding Capacity (08/18/2024 4:52 PM EDT) Iron 42 30 - 160 mcg/dL [facility] Total Iron Binding Capacity 286 228 - 428 mcg/dL [facility] Percent Iron Saturation 15 15 - 50 % [facility] Unsaturated Iron Binding 244 ug/dL [facility] Blood Venous blood specimen / Unknown 08/18/2024 4:52 PM EDT 08/18/2024 4:53 PM EDT Angelina Wood MD LAB BLOOD ORDERABLES Final Resul t [facility] [address] [place] [phone] documented in this encounter Visit Diagnoses Diagnosis Microcytosis- Primary Other abnormality of red blood cells documented in this encounter Additional Health Concerns Assessment Noted Time PHQ-9 Depression Total Score: 11 024 11:00 AM EDT documented as of this encounter Care Teams Engineer Booster And Exhauster Relationship Specialty Start Date End Date Angelina Wood MD [address] [place] [address] PCP - General Family Medicine 05/01/22 Neil Wise, PharmD [address] [place] [address] Pharmacist Internal Medicine 06/16/23 documented as of this encounter
--- OUTSIDE RECORDS SUMMARY | 2025-01-31 22:17 | XMS_ITS | Encounter Summary ---
Author Organization [employer] Address [address] [facility] 7t [place] [address] Care Team Providers Care Director Of Loss Prevention Name Role Phone Angelina Wood MD Primary Care Provider [phone] Neil Wise PharmD Unavailable [phone] Reason for Visit * Reason Comments Dental Exam Encounter Details Date Type Department Care Team (Late st Contact Info) Description 03/10/2022 Abstract [facility] [address] [place] [address] Dental, Provider, DDS Social History Tobacco Use [...] on filedocumented in this encounter Care Teams Director Of Loss Prevention Relationship Specialty Start Date End Date Angelina Wood MD [address] [place] [address] PCP - General Family Medicine 05/01/22 Neil Wise, GageD [address] [place] [address] Pharmacist Internal Medicine 06/16/23 documented as of this encounter
--- OUTSIDE RECORDS SUMMARY | 2025-01-31 22:17 | XMS_ITS | Encounter Summary ---
Author Organization [employer] Address [address] [facility] 7t [place] [address] Care Team Providers Care Legal Analyst Name Role Phone Angelina Wood MD Primary Care Provider [phone] Neil Wise PharmD Unavailable [phone] Reason for Visit * Reason Onset Date Comments Nurse Triage 12/31/2022 Encounter Details Date Type Department Care Team (Late st Contact Info) Description 12/31/[address] [facility] MED[facility]INE [address] [place], [place] [phone] Angelina Wood MD [address] [place], [place] [phone] Nurse Triage Social History Tobacco Use Types [...] Pcp. Pt is advised to come to [facility] today open till 800pm and Pt agrees. [...] accepted this outcome Please contact pt at [phone] documented in this encounter Plan of Treatment Not on file documented as of this encounter Visit Diagnoses Not on filedocumented in this encounter Additional Health Concerns Assessment Noted Time PHQ-9 Depression Total Score: 0 03/27/20 22 9:34 AM EST documented as of this encounter Care Teams Legal Analyst Relationship Specialty Start Date End Date Angelina Wood MD [address] [place] [phone] PCP - General Family Medicine 05/01/22 Neli Wise PharmD [address] [place] [address] Pharmacist Internal Medicine 06/16/23 documented as of this encounter
--- OUTSIDE RECORDS SUMMARY | 2025-01-31 22:17 | XMS_ITS | Encounter Summary ---
Author Organization [employer] Address [address] [place] [address] Care Team Providers Care Model And Dye Person Name Role Phone Angelina Wood MD Primary Care Provider [phone] Neil Wise PharmD Unavailable [phone] Encounter Details Date Type Department Care Team (Latest Contact Info) Description 01/22/2022 Abstract [facility] CONVERSIONS Dental, Provider, DDS Social [...] on filedocumented in this encounter Care Teams Model And Dye Person Relationship Specialty Start Date End Date Angelina Wood MD [address] [place] [address] PCP - General Family Medicine 05/01/22 Neil Wise, PharmD [address], [place] [phone] Pharmacist Internal Medicine 06/16/23 documented as of this encounter
--- OUTSIDE RECORDS SUMMARY | 2025-01-31 22:17 | XMS_ITS | Encounter Summary ---
Author Organization [employer] Address [address] [place] [address] Care Team Providers Care Warp Hanger Name Role Phone Angelina Wood MD Primary Care Provider [phone] Neil Wise PharmD Unavailable [phone] Encounter Details Date Type Department Care Team (Late st Contact Info) Description 01/29/2023 Telephone [facility] [address] [place], [place] [phone] Sawyer Contreras DDS [address] [place], [place] [phone] Social History Tobacco Use Types Packs/Day Years [...] the past 12 months, has t he [employer], gas, oil or water company threatened to [...] documented as of this encounter Care Teams Warp Hanger Relationship Specialty Start Date End Date Angelina Wood MD [address] [place] [address] PCP - General Family Medicine 05/01/22 Neil Wise, Bisi [address] [place] [address] Pharmacist Internal Medicine 06/16/23 documented as of this encounter
--- OUTSIDE RECORDS SUMMARY | 2025-01-31 22:17 | XMS_ITS | Encounter Summary ---
Author Organization [employer] Address [address] [place] [address] Care Team Providers Care Special Effects Makeup Artist Name Role Phone Angelina Wood MD Primary Care Provider [phone] Neil Wise PharmD Unavailable [phone] Reason for Visit * Reason Onset Date Comments Med Refill 12/13/2024 Encounter Details Date Type Department Care Team (Late st Contact Info) Description 12/13/2024 Refill [facility] [place] [address] [place], [place] [phone] Name, MD Kalpesh [address] [place] [address] Social History Tobacco Use Types Packs/Day Years [...] documented as of this encounter Care Teams Special Effects Makeup Artist Relationship Specialty Start Date End Date Angelina Wood MD [address] [place] [address] PCP - General Family Medicine 05/01/22 Neil Wise PharmD [address] [place] [address] Pharmacist Internal Medicine 06/16/23 documented as of this encounter
--- OUTSIDE RECORDS SUMMARY | 2025-01-31 22:17 | XMS_ITS | Data Portability ---
Author Organization [place] - [employer] [place] Address [address] [place] [id number] Care Team Providers Care Heavy Lift Rigger Name Role Phone Unavailable Primary Care Provider [phone] Assessment No assessment recorded. Plan of Treatment Reminders Order Date Submit Date Provider Last Modified By Organization Details Last Modified Time Details Appointments None recorde d. Lab urinaly sis, dipstic k, auto 2023 024 [facility], [address] , [place], [address], 4 12:56:11 pregnan cy test, urine 2023 024 [facility], [address] , [place], [address], 4 12:56:12 Referral None recorde d. Procedures None recorde d. Surgeries None recorde d. Imaging None recorde d. Medication Orders TobraDe x 0.3 %-0.1 % eye drops,s uspensi on 2024 025 [email or web address] [facility], [address] [place] [address], [address], 5 13:11:18 ondanse deyvi 4 mg disinte grating tablet 2023 024 [email or web address] [facility], [address] [place], [address], 4 09:07:05 Imodium A-D 2 mg tablet [address], [address] [place] [address], [address], 4 09:07:05 amoxici llin 875 mg tablet [address], [address] [place] [address], [address], 4 09:07:06 Motrin IB 200 mg capsule 2023 024 [facility], [address] [place] [address], [address], 4 15:15:52 Patient TargetsNo targets recorded. Patient Instructions Encounter Date Encounter Id Patient Instructions Last Modified By Organization Details Last Modified Time 07/27/2023 [id number] A healthy lifestyle: care instructions caio Not available 07/27/2023 12:56:09 Thank you for visiting [facility]. We may be calling you to [...] also view your lab results using the Genophen tejal, available in the Tejal Store and [employer] Online Milestone Platform. First-time tejal users will need to create an account; please note you l l need to select a login and password for the tejal versus just using your patient portal login. Your lab results will be posted to the Genophen tejal as soon as they r e available. If you have any questions regarding your visit, our Aftercare department can be reached at [phone]. Our hours are Thursday from 8 am 11 pm or Thursday/Thursday from 9a 8p. Flank Pain Your Care Instructions Flank [...] your doctor if you can take an bcrs-wre-iiwffaw pain medicine, such as acetaminophen (Tylenol), ibuprofen [...] you do not get better as expected. [email or web address] Not available 07/27/2023 12:50:32 12/08/2023 [id number] A healthy lifestyle: care instructions hemant Not available 12/09/2023 09:07:06 Thank you for visiting [facility]. We may be calling you to [...] also view your lab results using the Genophen tejal, available in the Tejal Store and [employer] Play. First-time tejal users will need to create an account; please note you l l need to select a login and password for the tejal versus just using your patient portal login. Your lab results will be posted to the Genophen tejal as soon as they r e available. If you have any questions regarding your visit, our Aftercare department can be reached at [phone]. Our hours are Thursday from 8 am 11 pm or Thursday/Thursday from 9a 8p. Otitis Media (adult) Your Care Instructions: [...] taking a prescription pain medicine, take an gfhj-ijb-xnlmwmm medicine, such as acetaminophen (Tylenol), ibuprofen (Advil, [...] goes by. [email or web address] Not available 12/08/2023 15:37:38 08/20/2024 [id number] A healthy lifestyle: care instructions [email or web address] Not available 08/20/2024 13:11:18 Thank you for visiting [facility]. We may be calling you to [...] also view your lab results using the Genophen tejal, available in the Tejal Store and Google Play. First-time tejal users will need to create an account; please note you l l need to select a login and password for the tejal versus just using your patient portal login. Your lab results will be posted to the Genophen tejal as soon as they r e available. Need a note to excuse you from work or school? You can submit a request online at [email or web address] We will respond to your request within 2 business days. If you have any questions regarding your visit, our Aftercare department can be reached at [phone]. Our hours are Thursday from 8 am 11 pm or Thursday/Thursday from 9a 8p. Conjunctivitis Your Care Instructions: Pinkeye is redness and swelling of the eye surface and the conjunctiva (the lining of the eyelid and the covering of the white part of the eye). Pinkeye is also called conjunctivitis. Pinkeye is often caused by infection with bacteria or a virus. Dry air, allergies, smoke, and chemicals are other common causes. Pinkeye often clears on its own in 7 to 10 days. Antibiotics only help if the pinkeye is caused by bacteria. Pinkeye caused by infection spreads easily. If an allergy or chemical is causing pinkeye, it will not go away unless you can avoid whatever is causing it. Follow-up care is a carrasquillo part of your treatment and safety. Be sure to make and go to all appointments, and call your doctor if you are having problems. It's also a good idea to know your test results and keep a list of the medicines you take. How can you care for yourself at home? Wash your hands often. Always wash them before and after you treat pinkeye or touch your eyes or face. Use moist cotton or a clean, wet cloth to remove crust. Wipe from the inside corner of the eye to the outside. Use a clean part of the cloth for each wipe. Put cold or warm wet cloths on your eye a few times a day if the eye hurts. Do not wear contact lenses or eye makeup until the pinkeye is gone. Throw away any eye makeup you were using when you got pinkeye. Clean your contacts and storage case. If you wear disposable contacts, use a new pair when your eye has cleared and it is safe to wear contacts again. If the doctor gave you antibiotic ointment or eyedrops, use them as directed. Use the medicine for as long as instructed, even if your eye starts looking better soon. Keep the bottle tip clean, and do not let it touch the eye area. To put in eyedrops or ointment: Tilt your head back, and pull your lower eyelid down with one finger. Drop or squirt the medicine inside the lower lid. Close your eye for 30 to 60 seconds to let the drops or ointment move around. Do not touch the ointment or dropper tip to your eyelashes or any other surface. Do not share towels, pillows, or washcloths while you have pinkeye. When should you call for help? Call your doctor now or seek immediate medical care if: You have pain in your eye, not just irritation on the surface. You have a change in vision or loss of vision. You have an increase in discharge from the eye. Your eye has not started to improve or begins to get worse within 48 hours after you start using antibiotics. Pinkeye lasts longer than 7 days. Watch closely for changes in your health, and be sure to contact your doctor if you have any problems. [email or web address] Not available 08/20/2024 11:24:02 Reason for Referral None Reported. Results Created Date Observation Date Name Description Value Unit Range Abnormal Flag Note LastModifiedBy Organization Detail LastModifiedTime 07/27/19 24 07/27/2023 pregn scott test, urine Human Chorionic Gonadotropin (hCG) NEGATI VE Not Available [facility] Mann [address] [place], [address], 07/27/2023 12:47:00 07/27/19 24 07/27/2023 urina lysis , dipst ick, auto BLOOD NEGATI VE - (tamika/u L, ref. neg) Not Available el[facility] [address] [place], [address], 07/27/2023 12:46:28 07/27/19 24 07/27/2023 urina lysis , dipst ick, auto UROBILINOGEN NORMAL - (mg/dL , ref. normal ) Not Available [facility] [address], [place], [address], 07/27/2023 12:46:28 07/27/19 24 07/27/2023 urina lysis , dipst ick, auto BILIRUBIN 1 - (mg/dL , ref. neg) Not Available [facility] [address], [place], [address], 07/27/2023 12:46:28 07/27/19 24 07/27/2023 urina lysis , dipst ick, auto PROTEIN NEGATI VE - (mg/dL , ref. neg) Not Available [facility] [address], [place], [address], 07/27/2023 12:46:28 07/27/19 24 07/27/2023 urina lysis , dipst ick, auto NITRATES NEGATI VE - (ref. neg) Not Available [facility] [address], [place], [address], 07/27/2023 12:46:28 07/27/19 24 07/27/2023 urina lysis , dipst ick, auto KETONES NEGATI VE - (mg/dL , ref. neg) Not Available [facility] [address], [place], [address], 07/27/2023 12:46:28 07/27/19 24 07/27/2023 urina lysis , dipst ick, auto GLUCOSE NEGATI VE - (mg/dL , ref. neg) Not Available [facility] [address], [place], [address], 07/27/2023 12:46:28 07/27/19 24 07/27/2023 urina lysis , dipst ick, auto pH 5 - (ref. 5.0-7. 0) Not Available Dacia Mann [address], [place], [address], 07/27/2023 12:46:28 07/27/19 24 07/27/2023 urina lysis , dipst ick, auto SPECIFIC GRAVITY 1.015 (ref. 1.010- 1.030) Not Available D[facility] Mann [address], [place], [address], 07/27/2023 12:46:28 07/27/19 24 07/27/2023 urina lysis , dipst ick, auto LEUKOCYTES Neg - (David/d L, ref. neg) Not Available Rubénnitin Mann [address], [place], [address], 07/27/2023 12:46:28 Result Notes None recorded. Problems Name Problem SNOMED Code Status Onset Date Resolution Date Notes Provider Name and Address Organization Details Recorded Time Hypertensive disorder 14750316 Active 2023 MAGNOLIA Mercado - [facility] 12:33:59 Problem Notes None recorded. [...] Not Available Not Available Not Avai lable TobraDex 0.3 %-0.1 % eye drops,suspe nsion INSTILL 1 DROP INTO AFFECTED EYE(S) BY OPHTHALMI C ROUTE EVERY 6 HOURS 2024 active Not Available Not Available Not Avai [...] blood by Pulse oximetry Body temperature Systolic And Diastolic Provider Name and Address Organization Details Last Updated DateTime 4 90 /min 16 /min 98 % 98 % 97.4 [degF] 139/100 mm[Hg] Gracia Rubinas [place] - .[facility] 4 12:35:06 Date Recorded Body height Body mass index (BMI) Body weight Heart rate Body temperature Respiratory rate Oxygen saturation Oxygen saturation in Arterial blood by Pulse oximetry Systolic And Diastolic Provider Name and Address Organization Details Last Updated DateTime 5 157.48 cm 37.5 kg/m2 17418.4 4 g 78 /min 98.7 [degF] 16 /min 98 % 98 % 136/97 mm[Hg] Lashonda Sanchez [place] - [facility] 5 11:17:49 Date Recorded Body height Body mass index (BMI) Body weight Heart rate Body temperature Respiratory rate Oxygen saturation Oxygen saturation in Arterial blood by Pulse oximetry Systolic And Diastolic Provider Name and Address Organization Details Last Updated DateTime 4 157.48 cm 37.5 kg/m2 99614.4 4 g 111 /min 98.7 [degF] 16 /min 96 % 96 % 133/96 mm[Hg] Malissa Suldickson [place] - [facility] 4 15:19:07 Social History None recorded. Functional Status Question Answer Note LastModified by Organizat ion Details LastModified Time What is your [...] Diagnosis SNOMED-CT Code Diagnosis ICD10 Code Diagnosis IMO Codes Diagnosis Note [id number] Adithya saba MD [facility] [address] [place] [address] 07/27/2023 12:11:07 07/27/2023 12:49:11 Flank pain 095115268 R10.9 - hx of recurrent kidney stone- Continue with flomax- Follow up with urologist- NSAID for pain control [id number] Allison Suh MD [facility] [address] [place] [address] 12/08/2023 14:48:13 12/08/2023 15:21:14 Acute right otitis media 728909268 H66.91 Viral gastroenteritis 11 [id number] A08.4 [id number] Savita WHITAKERNitin Mann [address] [place] [address] 08/20/2024 11:04:26 08/20/2024 11:26:14 Acute conjunctivitis of left eye 4271055773 H10.32 [id number] Health Concerns Section Related Observation LastModified by Organization Detai ls LastModified Time None Recorded Concern Status LastModified by Organization Details LastModified Time None Recorded Advance Directives Directive None Recorded Payers Insurance Date Sequence Insurance Name Policy Number Policy Palom[place] Covered Member ID Palomino Member ID Guarantor Name 08/20/2024 1 [facility] [id number] Nighat Montes [id number] Nighat Montes 08/20/2024 1 [place] [facility] Nighat Montes [id number] Nighat Montes Notes Date Note Type Note Provider Name and Address Organization Details Recorded Time 07/27/2023 text/html Flank Pain - cmdReported by PatientHPIFor patient presents with, patient reportsflank pain which began one week ago. For pertinent findings, patient reports(+) history of kidney stonesbut reportsno fever,no chills,no dysuria,no nausea/vomiting,no blood in urine,no abdominal discomfort,no chest pain, andno shortness of breath.33 y/o F presents w b/l flank pain [...] infxnpain well controlled currently Adithya Billings MD [address],[facility], [place], [address], [facility] - [facility] 07/27/2023 18:15:07 12/08/2023 text/html Vomiting and Caroline rrhea - cmdReported by PatientHPIFor patient presents with, patient reportsvomiting and diarrhea which began yesterday. For menstrual history, patient reportslmp: 12/03/23. For pertinent findings, patient reportsno abdominal cramping/discomfortan dno vomiting blood. 24y/o F c/o n/v/d since yesterday. She denies fever, abd pain, vomiting blood, blood in stool, or other sxs. She mentions that the side of her R ear began hurting today. Pt notes that she vomited and had diarrhea this morning. Pt is currently on her period and she usually doesn't experience these sxs while on it. CHRISTIE Quinonez [address] [place] [address], [place], [address], [facility] - [facility] 12/08/2023 17:45:08 08/20/2024 text/html Eye Complaint - cmdReported by PatientHPIFor patient presents with, patient reportsleft eye complaint which began yesterday. For pertinent findings, patient reports(+) eye pain,(+) eye redness,(+) eye discharge, and(+) eyelid swellingbut reportsno contact lens use,no photophobia,no eye trauma,no vision change,no fever,no cough,no ear symptoms,no throat symptoms, andno nasal symptoms. 34 y/o f reports that she woke up yesterday with left eye pain, redness and dischargept denies injuring her left eyept reports she used saline eyedrops and an OTC cream with no relief Cooper Johnson MD [address], [place], [address], [facility] - [facility] 08/20/2024 11:56:43 OBGyn Episode No OBEpisode recorded.
--- OUTSIDE RECORDS SUMMARY | 2025-01-31 22:17 | XMS_ITS | Encounter Summary ---
Author Organization [email or web address] Address [address] [facility] 7t [place] [address] Care Team Providers Care Costume Shop Manager Name Role Phone Angelina Wood MD Primary Care Provider [phone] Neil Wise PharmD Unavailable Encounter Details Date Type Department Care Team (Late st Contact Info) Description 04/02/2022 Orders Only [facility] [address] [place], [place] [phone] Angelina Wood MD [address] [place], [place] [phone] Alopecia areata (Primary Dx) Social History Tobacco [...] (07/16/2022 8:43 PM EDT) Urine NEGATIVE NEGATIVE [facility] Comment:This test was develo ped to detect early . Falsenegative results may occur after the 5th - 7th week ofpregnancy when using this test method. If clinicallyindicated, consider a serum hCG. 07/16/2022 8:43 PM EDT 07/16/2022 8:47 PM EDT [facility] External Provider LAB URI NE ORDERABLES Final Result [facility] [address] [place] [phone] * (ABNORMAL) Urinalysis, Complete, with Reflex to Culture (07/16/2022 8:43 PM EDT) Color Urine Yellow [facility] Appearance Urine Clear [facility] PH 6.0 5.0 - 9.0 [facility] Glucose Urine UA Negative Negative mg/dL [facility] Urine Blood Trace(A) Negative [facility] Specific Jbphh - Urine 1.015 1.005 - 1.025 [facility] Urine Protein Negative Neg-Trace mg/dL [facility] Urine Ketones Negative Negative mg/dL [facility] Nitrite Urine Negative Negative [facility] Leukocyte Esterase Urine Negative Negative [facility] RBC Urine 3-5(A) 0 - 2 /HPF [facility] Urine WBC 0-5 0 - 5 /HPF [facility] Urine Squamous Epithelial Cell 3-5 0 - 2 /HPF [facility] Urine Bacteria None Seen None Seen [facility] Hyaline Casts, Urine 0-2 0 - 2 /LPF [facility] 07/16/2022 8:43 PM EDT 07/16/2022 8:47 PM EDT Narrative [facility] - 07/16/2022 9:12 PM EDT [id number], Clean Catch [facility] External Provider LAB URI NE ORDERABLES Final Result Performing Organization Address [facility]/ZIP Co de Phone Number [facility] [address] [place] [phone] * Lipase (07/16/2022 8:14 PM EDT) Lipase 43 8 - 78 U/L [facility] 07/16/2022 8:14 PM EDT 07/16/2022 8:16 PM EDT [facility] External Provider LAB BLO OD ORDERABLES Final Result Performing Organization Address [facility] Co de Phone Number [facility] [address] [place] [phone] * (ABNORMAL) Basic Metabolic Panel (07/16/2022 8:14 PM EDT) Sodium 140 135 - 145 mmol/L [facility] Potassium 4.0 3.3 - 5.1 mmol/L [facility] Chloride 108 96 - 108 mmol/L [facility] Carbon Dioxide 27 22 - 29 mmol/L [facility] Anion Gap 9(L) 12 - 20 [facility] Urea Nitrogen (BUN) 12 9 - 16 mg/dL [facility] Creatinine, Serum 0.83 0.5 - 1.4 mg/dL [facility] Creatinine Clr Calc Pharmacy 107.0 [facility] Comment:Provided height and weight: 157.48 cm,97.522 kg.eGFR (calculated from the MDRD study equation) and eCrCl(calculated from the Cockcroft-Gault equation) are based ondifferent parameters and may not yield comparable results.If eCrCl result is absurd, please check patient'sheight/weight. Estimated Glomerular Filt Rate >60 [facility] Comment:NOTE: For -Am erican individuals, multiply the result by 1.210.Chronic Kidney Disease: Estimated GFR < 60 mL/min/1.84r3Ebdbbz Kidney Disease: Estimated GFR < 15 mL/min/1.73m2 Glucose 99 60 - 115 mg/dL [facility] Calcium 9.3 8.4 - 10.2 mg/dL [facility] 07/16/2022 8:14 PM EDT 07/16/2022 8:16 PM EDT us [facility] External Provider LAB BLO OD ORDERABLES Final Result [facility] [address] [place] [phone] * (ABNORMAL) Hepatic Function Panel (07/16/2022 8:14 PM EDT) Bilirubin, Total 0.4 0.0 - 1.0 mg/dL [facility] Bilirubin, Direct 0.2 0.0 - 0.5 mg/dL [facility] Aspartate Amino Transferase 26 5 - 31 U/L [facility] Alanine Aminotransferase 46(H) 0 - 31 U/L [facility] Total Protein 7.0 6.5 - 8.0 g/dL [facility] Albumin Level 4.2 3.5 - 5.0 g/dL [facility] Alkaline Phosphatase 70 39 - 117 U/L [facility] 07/16/2022 8:14 PM EDT 07/16/2022 8:16 PM EDT us [facility] External Provider LAB BLO OD ORDERABLES Final Result [facility] [address] [place] [phone] * (ABNORMAL) CBC auto differential (07/16/2022 8:14 PM EDT) White Blood Count 11.3(H) 4.8 - 10.8 X10*3/uL [facility] Red Blood Count 5.94(H) 4.20 - 5.50 X10*6/uL [facility] Hemoglobin 12.4 12.0 - 16.0 g/dl [facility] Hematocrit 40.2 37.0 - 47.0 % [facility] Mean Corpuscular Volume 67.7(L) 80.0 - 98.0 fL [facility] Mean Corpuscular Hemoglobin 20.9(L) 27.0 - 33.0 pg [facility] Mean Corpuscular HGB Conc 30.8(L) 31.0 - 35.0 g/dl [facility] Red Cell Distribution Width 18.5(H) 11.0 - 16.0 % [facility] Platelet Count 340 160 - 400 X10*3/uL [facility] Mean Platelet Volume 10.4 9.4 - 12.3 fL [facility] Neutrophils Percent Auto 58.7 45 - 73 % [facility] Imm Gran Pct Auto 1.1(H) 0.0 - 0.4 % [facility] Lymphocytes Percent Auto 29.1 20 - 40 % [facility] Monocytes Percent Auto 7.4 2 - 11 % [facility] Eosinophils Percent Auto 3.3 0 - 4 % [facility] Basophils Percent Auto 0.4 0 - 2 % [facility] NRBC Pct Auto 0.0 0.0 - 0.2 /100WBC [facility] Neutrophils Absolute Auto 6.6 2.0 - 8.3 x10*3/uL [facility] Imm Gran Abs Auto 0.12(H) 0.00 - 0.03 X10*3/uL [facility] Lymphocytes Absolute Auto 3.3 1.2 - 4.9 X10*3/uL [facility] Monocytes Absolute Auto 0.8 0.1 - 1.2 X10*3/uL [facility] Eosinophils Absolute Auto 0.4 0.0 - 0.4 X10*3/uL [facility] Basophils Absolute Auto 0.1 0.0 - 0.2 X10*3/uL [facility] NRBC Abs Auto 0.000 0.0 - 0.012 X10*3/uL [facility] 07/16/2022 8:14 PM EDT 07/16/2022 8:16 PM EDT us [facility] External Provider LAB BLO OD ORDERABLES Final Result [facility] [address] [place] [phone] documented in this encounter Visit Diagnoses Diagnosis Alopecia areata- Primary documented in this encounter Additional Health Concerns Assessment Noted Time PHQ-9 Depression Total Score: 0 03/27/20 22 9:34 AM EST documented as of this encounter Care Teams Costume Shop Manager Relationship Specialty Start Date End Date Angelina Wood MD [address] [place] [address] PCP - General Family Medicine 05/01/22 Neil Wise, Bisi [address] [place] [address] Pharmacist Internal Medicine 06/16/23 documented as of this encounter
--- OUTSIDE RECORDS SUMMARY | 2025-01-31 22:17 | XMS_ITS | Encounter Summary ---
Author Organization [employer] Address [address] [facility] [address] [place] [address] Care Team Providers Care Clinical Trials Specialist Name Role Phone Angelina Wood MD Primary Care Provider [phone] Neil Wise PharmD Unavailable [phone] Encounter Details Date Type Department Care Team (Late st Contact Info) Description 01/31/2025 Orders Only GENERIC EXTERNAL DATA [...] with others, in a hotel, in a detention, living outside on the street, on a [...] Diagnosis Comments CBC WITH AUTO DIFFERENTIAL Routine 01/31/2025 6:57 PM EST HCG, TOTAL, QN Routine 01/31/2025 6:57 PM EST COMPREHENSIVE METABOLIC PANEL Routine 01/31/2025 6:57 PM EST documented in this encounter Results * hCG, Total, Quantitative (01/31/2025 6:57 PM EST) HCG Quantitative <2 mIU/mL [facility] Comment:Weeks post LMP Appro ximate hCG(Last Menstrual Period) Range (mIU/ml)3 - 4 weeks 9 - 1304 - 5 weeks 75 - 2,6005 - 6 weeks 850 - 20,8006 - 7 weeks 4000 - 100,2007 - 12 weeks 11,500 - 289,93831 - 16 weeks 18,300 - 137,17760 - 29 weeks (2nd trimester) 1,400 - 53,82573 - 41 weeks (3rd trimester) 940 - 60,000The Higginbotham B- hCG assay is used for the early detection ofpregnancy; it cannot be used to diagnose any conditionunrelated to . If a B-hCG level is not supportedby the clinical evidence, results should be confirmed by analternative method (qualitative urine hCG, for example). 01/31/2025 6:57 PM EST 01/31/2025 7:02 PM EST us Generic External Data Provider LAB BLOOD ORDERAB LES Final Result [facility] [address] [place] [phone] * (ABNORMAL) Comprehensive Metabolic Panel (01/31/2025 6:57 PM EST) Sodium 140 135 - 145 mmol/L [facility] Potassium 3.6 3.3 - 5.1 mmol/L [facility] Chloride 110(H) 96 - 108 mmol/L [facility] Carbon Dioxide 24 22 - 29 mmol/L [facility] Anion Gap 10(L) 12 - 20 [facility] Urea Nitrogen (BUN) 10 9 - 16 mg/dL [facility] Creatinine, Serum 0.76 0.5 - 1.4 mg/dL [facility] Creatinine Clr Calc Pharmacy 114.8 [facility] Comment:Provided height and weight: 157.48 cm,97.5 kg.eGFR (calculated from the MDRD study equation) and eCrCl(calculated from the Cockcroft-Gault equation) are based ondifferent parameters and may not yield comparable results.If eCrCl result is absurd, please check patient'sheight/weight. Estimated Glomerular Filt Rate >60 [facility] Comment:Chronic Kidney Disea se: Estimated GFR < 60 mL/min/1.87q9Aaqtjg Kidney Disease: Estimated GFR < 15 mL/min/1.73m2 Glucose 136(H) 60 - 115 mg/dL [facility] Calcium 9.0 8.4 - 10.2 mg/dL [facility] Bilirubin, Total 0.3 0.0 - 1.0 mg/dL [facility] Aspartate Amino Transferase 21 5 - 31 U/L [facility] Alanine Aminotransferase 29 0 - 31 U/L [facility] Total Protein 7.6 6.5 - 8.0 g/dL [facility] Albumin Level 4.4 3.5 - 5.0 g/dL [facility] Alkaline Phosphatase 76 39 - 117 U/L [facility] 01/31/2025 6:57 PM EST 01/31/2025 7:02 PM EST us Generic External Data Provider LAB BLOOD ORDERAB LES Final Result [facility] [address] [place] [phone] * (ABNORMAL) CBC auto differential (01/31/2025 6:57 PM EST) White Blood Count 12.0(H) 4.8 - 10.8 X10*3/uL [facility] Red Blood Count 5.88(H) 4.20 - 5.50 X10*6/uL [facility] Hemoglobin 12.2 12.0 - 16.0 g/dl [facility] Hematocrit 39.3 37.0 - 47.0 % [facility] Mean Corpuscular Volume 66.8(L) 80.0 - 98.0 fL [facility] Mean Corpuscular Hemoglobin 20.7(L) 27.0 - 33.0 pg [facility] Mean Corpuscular HGB Conc 31.0 31.0 - 35.0 g/dl [facility] Red Cell Distribution Width 17.2(H) 11.0 - 16.0 % [facility] Platelet Count 285 160 - 400 X10*3/uL [facility] Mean Platelet Volume 10.6 9.4 - 12.3 fL [facility] Neutrophils Percent Auto 64.0 45 - 73 % [facility] Imm Gran Pct Auto 0.8(H) 0.0 - 0.4 % [facility] Lymphocytes Percent Auto 24.9 20 - 40 % [facility] Monocytes Percent Auto 7.4 2 - 11 % [facility] Eosinophils Percent Auto 2.5 0 - 4 % [facility] Basophils Percent Auto 0.4 0 - 2 % [facility] NRBC Pct Auto 0.0 0.0 - 0.2 /100WBC [facility] Neutrophils Absolute Auto 7.7 2.0 - 8.3 x10*3/uL [facility] Imm Gran Abs Auto 0.10(H) 0.00 - 0.03 X10*3/uL [facility] Lymphocytes Absolute Auto 3.0 1.2 - 4.9 X10*3/uL [facility] Monocytes Absolute Auto 0.9 0.1 - 1.2 X10*3/uL [facility] Eosinophils Absolute Auto 0.3 0.0 - 0.4 X10*3/uL [facility] Basophils Absolute Auto 0.1 0.0 - 0.2 X10*3/uL [facility] NRBC Abs Auto 0.000 0.0 - 0.012 X10*3/uL [facility] 01/31/2025 6:57 PM EST 01/31/2025 7:02 PM EST us Generic External Data Provider LAB BLOOD ORDERAB LES Final Result Performing Organization Address City/State/[facility] Co de Phone Number [facility] [address] [place] [phone] documented in this encounter Visit Diagnoses Not on filedocumented in this encounter Additional Health Concerns Assessment Noted Time PHQ-9 Depression Total Score: 11 024 11:00 AM EDT documented as of this encounter Care Teams Clinical Trials Specialist Relationship Specialty Start Date End Date Angelina Wood MD [address] [place] [phone] PCP - General Family Medicine 05/01/22 Neil Wise, PharmD [address] [place] [address] Pharmacist Internal Medicine 06/16/23 documented as of this encounter
--- OUTSIDE RECORDS SUMMARY | 2025-01-31 22:17 | XMS_ITS | Encounter Summary ---
Author Organization [employer] Address [address] [facility] 7t [place] [address] Care Team Providers Care Engagement Mgr Name Role Phone Angelina Wood MD Primary Care Provider [phone] Neil Wise PharmD Unavailable [phone] Encounter Details Date Type Department Care Team (Latest Contact Info) Description 07/02/2020 Abstract [facility] CON[facility] Dental, Provider, DDS Social History [...] on filedocumented in this encounter Care Teams Engagement Mgr Relationship Specialty Start Date End Date Angelina Wood MD [address] [place] [address] PCP - General Family Medicine 05/01/22 Neil Wise, PharmD [address] [place], [place] [phone] Pharmacist Internal Medicine 06/16/23 documented as of this encounter
[2025-01-31 22:20] VITALS: BP 138/91; PULSE 85; RESP 16; TEMP 36.8; O2SAT 96
[2025-01-31] MEDS: Lidocaine HCl 1%/Epi 1:100,000 10 ML VIAL INFILTRATI (23:32)
[2025-01-31 23:44] VITALS: BP 136/89; PULSE 75; RESP 18; TEMP 36.7; O2SAT 97
== END 2025-01-31 23:45 | disposition home or self-care (01) ==
PROVIDERS: Registered Nurse Emergency; Emergency Provider Emergency Medicine; PCP Family Medicine
DX: L02.415 Cutaneous abscess of right lower limb (principal); I10 Essential (primary) hypertension
CPT/HCPCS: 10160; 36415; 80053; 84702; 85025; 87040; 99284; J2004

== ENCOUNTER 2025-03-13 07:17 | Outpatient (AMB) | payer BC, SELFPAY ==
--- OUTSIDE RECORDS SUMMARY | 2013-01-29 19:00 | XMS_ITS | Continuity of Care Document ---
Author Organization [facility] Address [facility] [place] [address] Phone Care Team Providers Care Electric Meter Repairer Name Role Phone Provider, [facility] Unavailable Unavailable Advance Directives Directive Yes / No Effective Date File Name No Information Encounters Encounter Description Practice Location Reason(s) For Visit Diagnoses Date Provider Sammyed, [address] [place] [address], [id number], tel:[phone] No Information Provider [facility]. . [facility], [address] [place] [address], [id number], [place] tel:[phone] [facility] Location UNSPECIFIED VITAMIN D DEFICIENSYNCOPE AND COLLAPSE Provider [facility]. . [facility], [address] [place] [address], [id number], [place] tel:[phone] [facility] Location UNSPECIFIED VITAMIN D DEFICIENSYNCOPE AND COLLAPSE Provider [facility]. . [facility], [address] [place] [address], [id number], [place] tel:[phone] [facility] Location DISTURBANCE OF SKIN SENSATIONSYNCOPE AND COLLAPSE Provider [facility]. . [facility], [address] [place] [address], [id number], [place] tel:[phone] [facility] Location SPRAIN OF NECK Provider [facility]. . [facility], [address] [place] [address], [id number], tel:[phone] [facility] Location PAIN, LIMBUNSPECIFIED VITAMIN D DEFICIEN Provider [facility]. . [facility], [address] [place], [place] [address], [place], [id number], [place] tel:[phone] [facility] Location PAIN, LIMB Provider [facility]. . [facility], [address], [place], [place], [id number], [place] tel:[phone] [facility] Location OVARIAN CYST Provider [facility]. . [facility], [address], [place], [place], [id number], [place] tel:[phone] [facility] Location OVARIAN CYST Provider [facility]. . [facility], [address], [place], [place], [id number], [place] tel:[phone] [facility] Location OVARIAN CYST Provider [facility]. . [facility], [address], [place], [place], [id number], [place] tel:[phone] [facility] Location OVARIAN CYSTSCREENING EXAMINATION FOR PULM Provider [facility]. . [facility], [address], [place], [place], [id number], [place] tel:[phone] [facility] Location No Information Provider [facility]. . [facility], [address], [place], [place], [id number], [place] tel:[phone] [facility] Location UTI NOS Provider [facility]. . [facility], [address], [place], [place], [id number], [place] tel:[phone] [facility] Location SEPSIS Provider [facility]. . [facility], [address], [place], [place], [id number], [place] tel:[phone] [facility] Location FEVER Provider [facility]. . [facility], [address], [place], [place], [id number], [place] tel:[phone] [facility] Location INFLUENZA WITH OTHER RESPIRATO Provider [facility]. . [facility], [facility] [address], [place], [place], [id number], [place] tel:[phone] [facility] Location UTI NOS Provider [facility]. . [facility], [address], [place], [place], [id number], [place] tel:[phone] [facility] Location PHARYNGITIS, STREP Provider [facility]. . [facility], [address], [place], [place], [id number], [place] tel:[phone] [facility] Location ALLERGIC RHINITIS NOS Provider [facility]. . [facility], [address], [place], [place], [id number], [place] tel:[phone] [facility] Location ALLERGIC RHINITIS NOS Provider [facility]. . [facility], [address], [place], [place], [id number], [place] tel:[phone] [facility] Location SHORTNESS OF BREATH Provider [facility]. . [facility], [address], [place], [place], [id number], [place] tel:[phone] [facility] Location PAIN IN R ARM Provider [facility]. . [facility], [address], [place], [place], [id number], [place] tel:[phone] [facility] Location MAJOR DEPRESSIVE DISORDER SINGASTROESOPHAGEAL REFLUX Provider [facility]. . [facility], [address], [place], [place], [id number], [place] tel:[phone] [facility] Location PAIN IN L KNEE & L HIP Provider [facility]. . [facility], [address], [place], [place], [id number], [place] tel:[phone] [facility] Location PAIN IN L KNEE & L HIP Provider [facility]. . [facility], [address], [place], [place], [id number], [place] tel:[phone] [facility] Location OTALGIA UNSPECIFIEDPHARYNGITI S, VIRAL ACUTE Provider [facility]. . [facility], [address], [place], [place], [id number], [place] tel:[phone] [facility] Location PANIC DISORDER WITHOUT AGORAPH Provider [facility]. . [facility], [address], [place], [place], [id number], [place] tel:[phone] [facility] Location No Information Provider [facility]. . [facility], [address], [place], [place], [id number], [place] tel:[phone] [facility] Location HEADACHE NOSOTHER PSYCHOLOGICAL OR PHYSICA Provider [facility]. . [facility], [address], [place], [place], [id number], [place] tel:[phone] [facility] Location No Information Provider [facility]. . [facility], [address], [place], [place], [id number], [place] tel:[phone] [facility] Location HEADACHE NOSCOUGH Provider [facility]. . [facility], [address], [place], [place], [id number], [place] tel:[phone] [facility] Location No Information Provider [facility]. . [facility], [address], [place], [place], [id number], [place] tel:[phone] [facility] Location UPPER RESP INFECTION NOS Provider [facility]. . [facility], [address], [place], [place], [id number], [place] tel:[phone] [facility] Location HEADACHE NOS Provider [facility]. . [facility], [address], [place], [place], [id number], [place] tel:[phone] [facility] Location GASTROENTERITIS, VIRAL Provider [facility]. . [facility], [address], [place], [place], [id number], [place] tel:[phone] [facility] Location No Information Provider [facility]. . [facility], [address], [place], [place], [id number], [place] tel:[phone] [facility] Location ROUTINE CHILD EXAM Provider [facility]. . [address], [place], [place], [id number], [place] tel:[phone] [facility] Location ANXIETY STATE NOSHEADACHE, MIGRAINEHEADACHE NOS Provider [facility]. . [address], [place], [place], [id number], [place] tel:[phone] [facility] Location HEADACHE, MIGRAINE Provider [facility]. . [...] dose schedule), for intramuscular use administered Note: [facility] city conversion as of 01/30/2013 ; Source: New Immunization Record Payers Payer name Insurance type Covered green party ID Authoriza tion(s) No Information Social History Type Description Quantity Date Captured Comments Sex Female Smoking Status No Information Chief Complaint And Reason For Visit No Information History Of Present Illness Encounter Date Complaint History Of Prese nt Illness No Information Instructions Date Instruction Additional Infor mation No Information Assessments Type Assessment Date No Information
--- OUTSIDE RECORDS SUMMARY | 2025-03-01 15:30 | XMS_ITS | Encounter Summary ---
Author Organization [employer] Address [address] [facility] [address] [facility] [address] [place] [address] Care Team Providers Care Online Trader Name Role Phone Angelina Wood MD Primary Care Provider [phone] Neil Wise PharmD Unavailable [phone] Reason for Visit * Reason Comments Consult Encounter Details Date Type Department Care Team (Late st Contact Info) Description 03/01/2025 3:30 PM EST Office Visit [facility] [address] [place] [address] Lisa Tucker, ELFEGOS [address] [place] [address] Social History Tobacco Use Types Packs/Day Years [...] Female 01/27/2022 10:30 AM EDT Sexual Orientation Lesbian 03/02/2025 1: 11 PM EST documented as of this encounter Progress Notes * Lisa Tucker DDS - 03/01/2025 3:30 PM EST Dental procedures in this visit D0140 - LIMITED ORAL EVALUATION - PROBLEM FOCUSED 14,15,18,19 (Completed) Service provider: Lisa Tucker DDS Billing provider: Jimbo Ellis DMD [id number] - INTRAORAL - PERIAPICAL FIRST RADIOGRAPHIC IMAGE 18,19 (Completed) Service provider: Lisa Tucker DDS Billing provider: Jimbo Ellis DMD [id number] - BITEWING - SINGLE RADIOGRAPHIC IMAGE (Completed) Service provider: Lisa Tucker DDS Billing provider: Jimbo Ellis DMD Patient ID: Nighat Montes is a 34 y.o. female. Time Out: Date: 03/01/2025 Location: [facility] Tooth: [facility] Procedure: Exam Verified the above with patient, credentialing assistant, and provider. Confirmed via patient's chart, intraorally and by radiographs. Cancellation Clerk: not applicable 34 y.o. y/o female presents for limited exam with Dr. Lisa Tucker DDS Medical history: Reviewed in EHR Vitals: There were no vitals taken for this visit. Allergies: Reviewed in EHR Medications: Reviewed in EHR Radiographs taken: Yes CHIEF COMPLAINT: I am having pain down here, sometimes it radiates to the back of my ear, it is about a 10 on the pain scale when it does hurt. It started about two weeks, went away so I left it alone, and then today it started again Discussion: Patient presented at visit referring pain on the lower left posterior quadrant, sometimes radiating to the back of the ear. Radiographic analysis depicts no significant findings that may be producing an inflammatory or painful response. Radiolucency underneath composite filling on mesial of #14 is observed which may be compatible with recurrent decay and incipient carious lesion observed on mesial of #19. Neither finding present as a cause of pain. Clinical observation presents a slight high bite, which was reduced using high speed football keith bur. Teeth 18-19 were percussed,palpated, aired, and bite tested, no painful response recorded. Patient suggested the idea of a possible ear infection. Patient was advised that teeth cote, markings are WNL, but that if symptoms progress for the worse such as trouble breathing or swallowing, unbearable pain, to please visit the emergency room. Patient was also advised that she may walk in to the ER or urgent care to have her ears checked for a possible infection. Patient symptoms will be monitored after today's occlusal reduction. Patient made aware that if symptoms persist in mouth a panoramic X- Ray may be deemed necessary for a more in depth analysis. NV: Follow Up Provider: Dr. Lisa Tucker DDS Dental Analyst: Juan Carlos Mccoy Attending: Dr. Ellis * Jimbo Ellis, DMD - 03/01/2025 3:30 PM EST I saw and evaluated the patient, participating in the carrasquillo portions of the service. I reviewed the resident???s note. I agree with the resident???s findings and plan. Jimbo Ellis DMD documented in this encounter Plan of Treatment Upcoming Encounters Date Type Department Care Team (Late st Contact Info) Description 05/05/2025 2:15 PM EST Office Visit [facility] [address] [place] [address] Elsa Coughlin Scheduled Orders Name Type Priority Associated Diagnoses Orde r Schedule CONSULTATION - DIAGNOSTIC SERVICE PROVIDED BY DENTIST OR PHYSICIAN OTHER THAN REQUESTING DENTIST OR PHYSICIAN Dental Routine 1 Occurrenc es starting 03/01/2025 14 MO 14 MO RESIN-BASED COMPOSITE - 2 SURF, POSTERIOR Dental Routine [address] arting 03/02/2025 19 MO 19 MO RESIN-BASED COMPOSITE - 2 SURF, POSTERIOR Dental Routine [address] arting 03/02/2025 documented as of this encounter Goals Goal Patient Goal Type Associated Problems Recent Progress Patient-Stated? Author Blood Pressure < 140/90 Blood Pressure 123/86( 025 3:51 PM EDT) No Neil Wies, PharmMeagan documented as of this encounter Procedures Procedure Name Priority Date/Time Associated Diagnosis Comments 14,15,18,19 LIMITED ORAL EVALUATION - PROBLEM FOCUSED Routine 03/01/2025 3:30 PM EST 18,19 INTRAORAL - PERIAPICAL FIRST RADIOGRAPHIC IMAGE Routine 03/01/2025 3:30 PM EST BITEWING - SINGLE RADIOGRAPHIC IMAGE Routine 03/01/2025 3:30 PM EST documented in this encounter Visit Diagnoses Not on filedocumented in this encounter Additional Health Concerns Assessment Noted Time PHQ-9 Depression Total Score: 11 024 11:00 AM EDT documented as of this encounter Care Teams Online Trader Relationship Specialty Start Date End Date Angelina Wood MD [address] [place] [address] PCP - General Family Medicine 05/01/22 Neil Wise, GageD [address] [place] [address] Pharmacist Internal Medicine 06/16/23 documented as of this encounter"
--- NOTE | 2025-03-13 07:17 | A.OFFVIS_ITS ---
Intake Visit Reasons: US f/u Intake Note: Patient is present for Ultrasound follow up for Kidney Stones Urology Med: None Antibiotic Allergy: None Blood Thinner: None Imaging: Renal US 12/24/24 Occupational Therapist Assistant Required: No Accompanied by: Self / Same As Patient Allergies tramadol Adverse Reaction (Verified 03/13/25 07:46) Vomiting Medication List - Last Reconciled 03/13/25 by LUDY West- amlodipine 10 mg PO DAILY metoprolol succinate ER mg PO HPI Comments Details: Nighat is a pleasant female patient of Dr. Wood. She has a past medical history of nephrolithiasis and hypertension. She is being followed up on today via video telehealth for her nephrolithiasis. In discussion with the patient today she reports noting intermittent episodes of right-sided flank pain since her last office visit here. We did review most recent renal imaging 12/22 nonobstructing calyceal stone upper pole of the right kidney measuring 3 x 2 x 2 mm. Left kidney with nonobstructing calyceal stone in the mid pole measuring 6 x 4 x 4 mm. No hydronephrosis or evidence of obstructive uropathy noted per radiology report. She reports she has since completed vitamin B6. When asked she does endorse to not be drinking much water daily. We did review previous [facility] results that noted extremely low volume of 0.2 L. We discussed increase calcium oxalate levels as well as urine citrate levels. We discussed further treatment options to include lifestyle modifications such as adequate hydration. We also discussed adding 1 oz of lemon juice to water daily. We discussed further treatment options of nephrolithiasis and risks and benefits of these treatment options. We will continue with surveillance monitoring at this time. She otherwise denies any bothersome urinary issues. She denies urinary urgency, urinary frequency, urinary incontinence, dysuria, foul-smelling urine, fever, and or chills. All questions were answered. She otherwise offers no other issues or concerns at this time. PREVIOUS OFFICE NOTE: Stone follow-up Imaging - KUB possible small stone left side Stone composition consistent with prior procedure Continue with vitamin B6 and allopurinol Twelve month follow-up nurse-practitioner Nephrolithiasis Presentation to emergency room with past history of nephrolithiasis Imaging - 08/19 CT multiple small bilateral calculi left greater than right - 11/20 KUB - small stone Intervention - 09/19 left ureteroscopy - 11/19 right USR Stone composition - 09/19 calcium oxalate monohydrate 80% - 11/19 calcium oxalate monohydrate 80% Laboratories - 09/19 Ca 9.3 Therapeutic plan - may benefit from 24 hour urine Reviewed imaging Has been having right-sided intermittent flank pain We discussed hydration Will continue with surveillance monitoring Restart vitamin B6 Follow-up in 4-6 months with imaging and [facility] Medical History HTN (hypertension) Left flank pain COVID-19 Surgical History No pertinent past surgical history Social History Alcohol intake: current Alcohol intake frequency: does not drink Alcohol type: wine Patient Tobacco Use Status: Never used Tobacco Substance Use Type: Marijuana Review of Systems Const All systems reviewed & are unremarkable except as noted in HPI and below Physical Exam Const General: cooperative, healthy appearing, comfortable, no acute distress, well developed, alert and awake Orientation/consciousness: patient oriented x3 Resp Effort & Inspection: normal respiratory effort and able to speak in complete sentences Neuro General: patient oriented x3 Psych Appearance: grossly normal and well kempt Mental Status: mental status grossly normal Speech and movement: Clear speech present Affect: normal affect Attitude: cooperative Thought process: Normal thought process present Thought content: Normal thought content present Insight: Fair insight present (Psych) Judgement: Fair judgement present (Psych) Telehealth Telehealth Telehealth Platform: [facility] Location of provider rendering services: practice address Location of patient: address on file Patient Identification confirmed using: Name, : Yes Telehealth method: video Patient verbally consented to treatment: Yes Patient verbally consented to billing insurance company: Yes Patient informed of any privacy concerns related to visit: Yes Minutes spent on Phone/Video with Pt.: 15 Results Reviewed Results Reviewed: Date of Service: 12/23/24 Procedure(s): US renal BI Findings: Right kidney normal size and echotexture, 11.1 cm length. No hydronephrosis or mass. Normal color flow. Nonobstructing caliceal stone upper pole measuring 3 x 2 x 2 mm. Left kidney normal size and echotexture, 10.2 cm length. No hydronephrosis or mass. Normal color flow. Nonobstructing caliceal stone midpole measuring 6 x 4 x 4 mm. Impression: 1. Bilateral nephrolithiasis. No evidence of obstructive uropathy. Assessment & Plan Assessment & Plan (1) Nephrolithiasis: Code(s): N20.0 - Calculus of kidney Category: Medical Plan Most recent renal imaging results reviewed with the patient today; as noted above. Previous [facility] results reviewed with the patient today; as noted above. We did discussed the importance of adequate hydration relation to nephrolithiasis as well as overall health and well-being. Restart vitamin B6 as discussed and prescribed. We discussed potential causes of right-sided flank pain as well as further treatment options and risks and benefits of these treatment options. Will continue with surveillance monitoring. We discussed adding 1 oz of lemon juice to water daily. Will repeat [facility]ol[facility] prior to next office visit Will obtain KUB Follow-up in 4-6 months with imaging and [facility]; or sooner with any issues, concerns, and or questions Orders: Orders XR KUB 4 Months N20.0 - Calculus of kidney URORISK Today N20.0 - Calculus of kidney Medications: Refilled pyridoxine (vitamin B6) 50 mg PO DAILY 90 days 90 tabs 3RF N20.0 - Calculus of kidney pyridoxine (vitamin B6) 50 mg PO DAILY 90 tabs 3RF 90 days N20.0 - Calculus of kidney Patient Instructions: The patient had an opportunity to ask questions regarding the treatment plan. All questions were answered. Physical exam, labs, and imaging were discussed and reviewed in detail. As well as risks, benefits, and discussion of treatment choices. No major barriers to understanding were identified. The patient expressed understanding and agreement with the above treatment plan. The patient was made aware they should contact our office by phone for worsening of their current condition, the appearance of new symptoms, or with any questions or concerns. Compliance is encouraged with any medications and follow up testing that is ordered. It is a privilege to be allowed the opportunity to participate in? your urological care.? Again, if you have any questions or concerns If you have any questions or concerns please do not hesitate to contact me. The office is [phone]. This note is constructed using voice recognition software. While every effort has been made to ensure accuracy doll wig hackler errors may have been included. Yours sincerely, Alma Jones, REGRADER-BC Coding Level of Care Code Tele Est Pt Level 3 (58325) Diagnoses Nephrolithiasis N20.0
--- OUTSIDE RECORDS SUMMARY | 2025-03-13 07:19 | XMS_ITS | Clinical Summary ---
Author Organization [employer] Address [address] [facility] [place] [address] Care Team Providers Care Working Manager Name Role Phone Angelina Wood MD Primary Care Provider [phone] Neil Wise PharmD Unavailable [phone] Allergies Active Allergy Reactions Criticality Noted Date [...] at bedtime (pain). 60 g 4 Active cyclobenzaprine (Flexeril) 10 MG tablet Take 1 [...] per day. 90 tablet 3 4 Active Spacer/Aero-Holdi ng Chambers (OptiChamber Leigha) miscIndications:M ild asthma with exacerbation, unspecified whether persistent 1 each every 4 (four) hours if needed (asthma). 1 each 4 Active albuterol 108 (90 Base) MCG/ACT inhalerIndication s:Mild asthma with exacerbation, unspecified whether persistent Inhale 2 puffs every 6 (six) hours if needed for wheezing. 18 g 3 4 Active cetirizine (ZyrTEC) 10 MG tabletIndications :Viral syndrome,Seasonal allergic rhinitis, unspecified trigger Take 1 tablet (10 mg) by mouth Once per day. 90 tablet 3 5 Active fluticasone (Flonase) 50 MCG/ACT nasal sprayIndications: Seasonal allergic rhinitis, unspecified trigger Administer 1-2 sprays into each nostril Once per day. Shake gently. Before first use, prime pump. After use, clean tip and replace cap. 16 g 2 5 08/17/19 26 Active metoprolol succinate XL (Toprol XL) 50 MG 24 hr tabletIndications :Hypertension, unspecified type TAKE 1 & 1/2 TABLETS [...] 10 mL 5 Active Blood Pressure Monitor miscIndications:P rimary hypertension Check BP daily 1 each 5 [...] sooner if any problem arises Refer to CDEMMANUEL to calvin Assessment & Plan (03/28/2022 6:35 [...] Encounters Date Type Department Care Team Description 03/01/2025 3:30 PM EST Office Visit [facility] [address] [place] [address] Lisa Tucker DDS 03/01/2025 Travel 03/01/2025 Telephone [facility] [address] [place] [address] Lisa Tucker DDS 02/20/2025 Telephone [facility] [address] [place] [address] Elsa Coughlin did not have insurance information 02/17/2025 Telephone [facility] [address] [place] [phone] Elsa Coughlin insurance 02/02/2025 Telephone [facility] [address] [place] [address] Angelina Wood MD Nurse Triage 01/31/2025 Orders Only GENERIC EXTERNAL DATA DEPARTMENT Provider, Generic External Data 12/21/2024 Orders Only GENERIC EXTERNAL DATA DEPARTMENT Provider, Generic External Data 12/13/2024 Refill [facility] [address] [place] [phone] Name, MD Kalpesh from Last 3 Months Immunizations Immunization Administration [...] with others, in a hotel, in a longterm, living outside on the street, on a [...] Orientation Lesbian 03/02/2025 1: 11 PM EST Last Filed Vital Signs Vital Sign Reading [...] 11/18/2024 3:51 PM EDT Plan of Treatment Upcoming Encounters Date Type Department Care Team (Late st Contact Info) Description 05/05/2025 2:15 PM EST Office Visit [facility] [address] [place] [address] Elsa Coughlin Health Maintenance Due Date Last Done Comments [...] history exists Depression Monitoring 07/20/2024 01/20/2024, 024 COVID-19 Vaccine ( season) 2024 01/23/2022, 02/18/2021, 02/06/2021, Additional history exists Influenza Vaccine (#1) 2024 , 01/09/2021, 01/06/2019, Additional history exists SDOH Screening 01/19/2025 01/20/2024 Dental X-Ray: Full Mouth 01/23/2025 01/22/2022, 02/28 Diabetes: Hemoglobin A1C 08/17/2025 08/17/2024, 02/28 Tobacco Screening 11/18/2025 11/18/2024 Dental X-Ray: Bitewings 03/02/2026 03/01/20, 08/03/2023, 03/06/2023, Additional history exists Lipid Panel 01/19/2029 01/20/2024, 03/27/2022 DTaP/Tdap/Td Vaccines (3 - Td or Tdap) 03/14/2030 01/01/2021, 03/14/2020, 04/09/2010 Zoster Vaccines (1 of [...] Procedure Name Priority Date/Time Associated Diagnosis Comments BITEWING - SINGLE RADIOGRAPHIC IMAGE Routine 03/01/2025 3:30 PM EST 18,19 INTRAORAL - PERIAPICAL FIRST RADIOGRAPHIC IMAGE Routine 03/01/2025 3:30 PM EST 14,15,18,19 LIMITED ORAL EVALUATION - PROBLEM FOCUSED Routine 03/01/2025 3:30 PM EST HCG, TOTAL, QN Routine 01/31/2025 6:57 PM EST COMPREHENSIVE METABOLIC PANEL Routine 01/31/2025 6:57 PM EST CBC WITH AUTO DIFFERENTIAL Routine 01/31/2025 6:57 PM EST BLOOD CULTURE (FIRST) Routine 01/31/2025 6:57 PM EST BLOOD CULTURE (SECOND) Routine 6:57 PM EST US RENAL COMPLETE Routine [...] Recently Relevant to Health Maintenance Results * Blood Culture (First) (01/31/2025 6:57 PM EST) Blood Venous blood specimen / Unknown 01/31/2025 6:57 PM EST 01/31/2025 7:02 PM EST Comment:Blood [facility] - 02/05/2025 9:02 PM EST Blood Culture (First) No growth after 5 days. Specimen Source: Blood Generic External Data Provider LAB MICROBIOLOGY - GENERAL ORDERABLES Final Result [facility] [address] [place] [phone] * Blood Culture (Second) (01/31/2025 6:57 PM EST) Blood Venous blood specimen / Unknown 01/31/2025 6:57 PM EST 01/31/2025 7:02 PM EST Comment:Blood [facility] - 02/05/2025 9:02 PM EST Blood Culture (Second) No growth after 5 days. Specimen Source: Blood us Generic External Data Provider LAB MICROBIOLOGY - GENERAL ORDERABLES Final Result [facility] [address] [place] [phone] * (ABNORMAL) CBC auto differential (01/31/2025 6:57 PM EST) Only the most recent of2 resultswithin the time period is included. White Blood Count 12.0(H) 4.8 - 10.8 X10*3/uL [facility] Red Blood Count 5.88(H) 4.20 - 5.50 X10*6/uL [facility] Hemoglobin 12.2 12.0 - 16.0 g/dl [facility] Hematocrit 39.3 37.0 - 47.0 % [facility] Mean Corpuscular Volume 66.8(L) 80.0 - 98.0 fL [facility] Mean Corpuscular Hemoglobin 20.7(L) 27.0 - 33.0 pg [facility] Mean Corpuscular HGB Conc 31.0 31.0 - 35.0 g/dl [facility] Red Cell Distribution Width 17.2(H) 11.0 - 16.0 % [facility] Platelet Count 285 160 - 400 X10*3/uL [facility] Mean Platelet Volume 10.6 9.4 - 12.3 fL [facility] Neutrophils Percent Auto 64.0 45 - 73 % [facility] Imm Gran Pct Auto 0.8(H) 0.0 - 0.4 % [facility] Lymphocytes Percent Auto 24.9 20 - 40 % [facility] Monocytes Percent Auto 7.4 2 - 11 % [facility] Eosinophils Percent Auto 2.5 0 - 4 % [facility] Basophils Percent Auto 0.4 0 - 2 % [facility] NRBC Pct Auto 0.0 0.0 - 0.2 /100WBC [facility] Neutrophils Absolute Auto 7.7 2.0 - 8.3 x10*3/uL [facility] Imm Gran Abs Auto 0.10(H) 0.00 - 0.03 X10*3/uL [facility] Lymphocytes Absolute Auto 3.0 1.2 - 4.9 X10*3/uL [facility] Monocytes Absolute Auto 0.9 0.1 - 1.2 X10*3/uL [facility] Eosinophils Absolute Auto 0.3 0.0 - 0.4 X10*3/uL [facility] Basophils Absolute Auto 0.1 0.0 - 0.2 X10*3/uL [facility] NRBC Abs Auto 0.000 0.0 - 0.012 X10*3/uL [facility] 01/31/2025 6:57 PM EST 01/31/2025 7:02 PM EST us Generic External Data Provider LAB BLOOD ORDERAB LES Final Result Performing Organization Address City/State/[facility] Co de Phone Number [facility] [address] [place] [phone] * hCG, Total, Quantitative (01/31/2025 6:57 PM EST) Only the most recent of2 resultswithin the time period is included. HCG Quantitative <2 mIU/mL [facility] Comment:Weeks post LMP Appro ximate hCG(Last Menstrual Period) Range (mIU/ml)3 - 4 weeks 9 - 1304 - 5 weeks 75 - 2,6005 - 6 weeks 850 - 20,8006 - 7 weeks 4000 - 100,2007 - 12 weeks 11,500 - 289,60816 - 16 weeks 18,300 - 137,20242 - 29 weeks (2nd trimester) 1,400 - 53,22261 - 41 weeks (3rd trimester) 940 - [...] Provider LAB BLOOD ORDERAB LES Final Result [facility] [address], [place] [phone] * (ABNORMAL) Comprehensive Metabolic Panel (01/31/2025 6:57 PM EST) Only the most recent of2 resultswithin the time period is included. Sodium 140 135 - 145 mmol/L [facility] Potassium 3.6 3.3 - 5.1 mmol/L [facility] Chloride 110(H) 96 - 108 mmol/L [facility] Carbon Dioxide 24 22 - 29 mmol/L [facility] Anion Gap 10(L) 12 - 20 [facility] Urea Nitrogen (BUN) 10 9 - 16 mg/dL [facility] Creatinine, Serum 0.76 0.5 - 1.4 mg/dL [facility] Creatinine Clr Calc Pharmacy 114.8 [facility] Comment:Provided height and weight: 157.48 cm,97.5 kg.eGFR (calculated from the MDRD study equation) and eCrCl(calculated from the Cockcroft-Gault equation) are based ondifferent parameters and may not yield comparable results.If eCrCl result is absurd, please check patient'sheight/weight. Estimated Glomerular Filt Rate >60 [facility] Comment:Chronic Kidney Disea se: Estimated GFR < 60 mL/min/1.14d6Ddoglf Kidney Disease: Estimated GFR < 15 mL/min/1.73m2 Glucose 136(H) 60 - 115 mg/dL [facility] Calcium 9.0 8.4 - 10.2 mg/dL [facility] Bilirubin, Total 0.3 0.0 - 1.0 mg/dL [facility] Aspartate Amino Transferase 21 5 - 31 U/L [facility] Alanine Aminotransferase 29 0 - 31 U/L [facility] Total Protein 7.6 6.5 - 8.0 g/dL [facility] Albumin Level 4.4 3.5 - 5.0 g/dL [facility] Alkaline Phosphatase 76 39 - 117 U/L [facility] 01/31/2025 6:57 PM EST 01/31/2025 7:02 PM EST us Generic External Data Provider LAB BLOOD ORDERAB LES Final Result Performing Organization Address City/State/[facility] Co de Phone Number [facility] [address] [place] [phone] * US Renal Complete (12/24/2024 4:13 PM EDT) Anatomical Region Laterality Modality Kidney Ultrasound 12/24/2024 4:13 PM EDT Narrative 12/24/2024 4:15 PM EDT [address] [address] Ultrasound Report Signed Patient: Nighat Montes MR#: [id number] : 1990 Acct:[id number] Age/Sex: 34 / F ADM Date: 12/23/24 Loc: HO.US Attending Dr: Wesly Smyth MD Ordering Physician: Wesly Smyth MD Date of Service: 12/23/24 Procedure(s): US renal BI Accession Number(s): [id number] cc: Wesly Smyth MD; Angelina Wood MD [...] in OV> 12/24/241613 DD/ 12 TD/TT: 12/24/241612 [employer] Portal Consultant: Procedure Note Gilbert, Image - 12/24/2024 [place] [address] Ultrasound Report Signed Patient: Nighat MontesMR#: [id number] : 1990Acct:[id number] Age/Sex: 34 / FADM Date: 12/23/24 Loc: HO.US Attending Dr: Wesly Smyth MD Ordering Physician: Wesly Smyth MD Date of Service: 12/23/24 Procedure(s): US renal BI Accession Number(s): [id number] cc: Wesly Smyth MD; Angelina Wood MD [...] in OV> 12/24/241613 DD/ 12 TD/TT: 12/24/241612 [employer] Portal Consultant: us [employer] External Provider IMG US PROCEDURES Edited Result - Final * XR Chest 2 Views (12/21/2024 11:19 AM EDT) Anatomical Region Laterality Modality Chest Radiographic Tita ging 12/21/2024 11:1 9 AM EDT Narrative 12/21/2024 11:33 AM EDT [address] [address] XRay Report Signed Patient: Nighat Montes MR#: [id number] : 1990 Acct:[id number] Age/Sex: 34 / F ADM Date: 12/21/24 Loc: .ED Attending Dr: Ordering Physician: Celi Aleman Date of Service: 12/21/24 Procedure(s): XR chest 2V Accession Number(s): [id number] cc: Celi Aleman; Angelina Wood MD Reason [...] 12/21/24 1130 DD/ 1119 TD/TT: 12/21/24 1122 Sap Portal Consultant: Procedure Note Donotuseinterpreter, Image - 12/21/[address] [address] XRay Report Signed Patient: Nighat MontesMR#: [id number] : 1990Acct:[id number] Age/Sex: 34 / FADM Date: 12/21/24 Loc: .ED Attending Dr: Ordering Physician: Celi Aleman Date of Service: 12/21/24 Procedure(s): XR chest 2V Accession Number(s): [id number] cc: Celi Aleman; Angelina Wood MD Reason [...] 12/21/24 1130 DD/ 1119 TD/TT: 12/21/24 1122 Sap Portal Consultant: [facility] External Provider IMG XR PROCEDURES Final Result * Influenza A B2 ID NOW (Pelaez) (12/21/2024 10:43 AM EDT) IDNOW SERIAL# [id number] [facility] Influenza A Negative Negative [facility] Influenza B2 Negative Negative [facility] Influenza A B2 Note See Note [facility] Comment:The Pelaez ID NOW In fluenza [...] LAB MICROBIOLOGY - GENERAL ORDERABLES Final Result [facility] [address] [place] [phone] * Strep A Nucleic Acid (12/21/2024 10:43 AM EDT) IDNOW SERIAL# [id number] [facility] Strep A Nucleic Acid Negative Negative [facility] Comment:All test results mus t be [...] LAB MICROBIOLOGY - GENERAL ORDERABLES Final Result [facility] [address] [place] [phone] * COVID-19 ID NOW (PELAEZ) (12/21/2024 10:43 AM EDT) JOANNEW SERIAL# [id number] [facility] COVID-19 TEST Negative Negative [facility] COVID-19 NOTE See Note [facility] Comment: Results are for the identification of SARS-CoV2 RNA. TheSARS-CoV2 RNA is generally detectable in respiratory samplesduring the acute phase of infection. Positive results areindicative of the presence of SARS-CoV-2 RNA; clinicalcorrelation with patient history and other diagnosticinformation is necessary to determine patient infectionstatus. Positive results do not rule out bacterial infectionor co- infection with other viruses.Testing facilities within the [facility] and itsterritories are required to report all [...] use by authorized laboratories.Testing performed on the Invisible Sentinel ID NOW utilizing NAAT. 12/21/2024 10:4 3 AM EDT 12/21/2024 10:50 AM EDT Generic External Data Provider LAB MOLECULAR ARNAUD GNOSTICS ORDERABLES Final Result Performing Organization Address [facility] Co de Phone Number [facility] [address] [place] [address] [phone] * Prothrombin Time-INR (12/21/2024 10:43 AM EDT) Prothrombin Time 11.8 10.9 - 12.4 SEC [facility] INTERNATIONAL NORM RATIO 1.0 0.9 - 1.1 [facility] Comment:INTERNATIONAL NORMAL IZED RATIO (INR) REFERENCE [...] ORDERAB LES Final Result Performing Organization Address [facility] Co de Phone Number [facility] [address] [place] [phone] * Hemoglobin A1c (08/17/2024 1:16 PM EDT) Hemoglobin A1c 5.9 <6.0 % [facility] Comment:Hemoglobin A1C Refer ence Range Adults: 4.8 - 6.0 % Non diabetic: < 6.0 % Goal: < 7.0 %Additional Action Suggested: > 8.0 %Note: Hemoglobin A1c results are invalid for patients with abnormal amounts of HbF. Blood transfusions may impact the HbA1c concentration in the patient sample. Estimated Average Glucose 123 mg/dL [facility] Comment:eAG = Estimated ave rage glucose which is %A1C expressed asaverage glucose, using the formula of the Y8J-TlprkdnAqhpben Glucose study (ADAG), Diabetes Care, Vol.31,#8,Oct. 2007 Blood Venous blood specimen / Unknown 08/17/2024 1:16 PM EDT 08/17/2024 1:16 PM EDT us Angelina Wood MD LAB BLOOD ORDERABLES Final Resul t [facility] [address] [place] [phone] * Lipid Panel, Standard (01/20/2024 11:40 AM EDT) Triglycerides 61 <150 mg/dL [facility] Comment:Desirable Triglyceri de: less than 150 mg/dLBorderline High Triglyceride 150-199 mg/dLHigh Triglyceride: 200-499 mg/dLVery High Triglyceride: greater than or equal to 5OO mg/dL Cholesterol 112 <200 mg/dL [facility] Comment:Desirable Cholestero l: less than 200 mg/dLBorderline High Cholesterol: 200-239 mg/dLHigh Cholesterol: greater than 239 mg/dL LDL Cholesterol Calculated 53 <100 mg/dL [facility] Comment:Desirable LDL: less than 100 mg/dLNear Optimal/Above Optimal LDL: 110- 129 mg/dLBorderline High LDL: 130-159 mg/dLHigh LDL: 160-189 mg/dLVery High LDL: greater than or equal to 190 mg/dL HDL Cholesterol 47 >40 mg/dL [facility] Comment:Desirable HDL: great er than 40 mg/dL Note: This HDL assay may give artificially low results in patients with liver disease. 01/20/2024 11:4 0 AM EDT 01/20/2024 1:24 PM EDT us Angelina Wood MD LAB BLOOD ORDERABLES Final Resul t [facility] [address] [place] [phone] from Last 3 Months or Most Recently Relevant to Health Maintenance Insurance BC PPO [facility] Care Teams Working Manager Relationship Specialty Start Date End Date Angelina Wood MD [address] [place] [address] PCP - General Family Medicine 05/01/22 Neil Wise, GageD [address] [place] [phone] Pharmacist Internal Medicine 06/16/23
--- OUTSIDE RECORDS SUMMARY | 2025-03-13 07:19 | XMS_ITS | Encounter Summary ---
Author Organization [employer] Address [address] [facility] [place] [address] Care Team Providers Care Food Packer Name Role Phone Angelina Wood MD Primary Care Provider [phone] Neil Wise PharmD Unavailable [phone] Encounter Details Date Type Department Care Team (Late st Contact Info) Description 03/01/2025 Telephone [facility] [address] [place], [place] [phone] Lisa Tucker DDS [address] [place] [address] Social History Tobacco Use Types Packs/Day Years [...] with others, in a hotel, in a custodial, living outside on the street, on a [...] PM EST documented as of this encounter Miscellaneous Notes * Telephone Encounter - Efren Rodriguez - 03/01/2025 9:36 AM EST PT states she has [facility] unable to post coverage documented in this encounter Plan of Treatment Upcoming Encounters Date Type Department Care Team (Late st Contact Info) Description 05/05/2025 2:15 PM EST Office Visit [facility] [address] [facility], [place] [phone] Elsa Coughlin documented as of this encounter Goals Goal [...] documented as of this encounter Care Teams Food Packer Relationship Specialty Start Date End Date Angelina Wood MD [address] [place] [address] PCP - General Family Medicine 05/01/22 Neil Wise, GageD [address] [place] [address] Pharmacist Internal Medicine 06/16/23 documented as of this encounter
--- OUTSIDE RECORDS SUMMARY | 2025-03-13 07:19 | XMS_ITS | Clinical Summary ---
Author Organization [facility] ity Address [address] [place] [address] Care Team Providers Care International Logistics Analyst Name Role Phone Ramone Tomlin MD Primary Care Provider [phone] Allergies Active Allergy Reactions Criticality Noted Date [...] 03/25/2019 Obstructive sleep apnea 11/18/2018 Overview (03/26/2024): [facility] Polysomnogram: Date 11/11/2018; Wt 182#; [...] 6mo and older 02/11/2013 Influenza, Unspecified 01/09/2021 [employer] SARS-CoV-2 COVID-19, mRNA, LNP-S, preservative free 02/18/2021 [...] CT scan Acute intractable headache 02/02/2019 DX:Ac [facility] [facility] [place] intractable headache Family History Medical History Relation [...] on file Sexual Orientation Not on file Last Filed Vital Signs Vital Sign Reading [...] * Cervical Cancer Screening: HPV (04/03/2022) Pathologist [facility] Cervical Cancer Screening: HPV positive,a bstracted Historical Provider HEALTH MAINTENANCE Final Result * Annual BMP Blood Test (11/18/2021) Pathologist [facility] Annual BMP Blood Test ABSTRACTED Historical Provider HEALTH MAINTENANCE Final Result * Lipid panel (01/10/2021) [facility] LDL/HDL Ratio 3 0 - 4 Triglycerides 82 0 - 150 mg/dL Cholesterol 122 0 - 200 mg/dL HDL 44 >=40 mg/dL LDL Cholesterol 62 0 - 100 mg/dL Blood Venous blood specimen / Unknown Historical Provider LAB BLOOD ORDERABLES Yazmin l Result * HIV Screening (12/03/2016) [facility] HIV Screening ABSTRACTED Historical Provider HEALTH MAINTENANCE Final Result * Hepatitis C Screening (11/23/2015) [facility] Hepatitis C Screening ABSTRACTED Historical Provider HEALTH MAINTENANCE Final Result from Last 3 Months or Most Recently Relevant to Health Maintenance Care Teams International Logistics Analyst Relationship Specialty Start Date End Date Ramone Tomlin MD [address] [place] [address] PCP - General Internal Medicine 08/02/21
--- OUTSIDE RECORDS SUMMARY | 2025-03-13 07:19 | XMS_ITS | Encounter Summary ---
Author Organization [employer] Address [address] [facility] 7t [place] [address] Care Team Providers Care Yard Jacker Name Role Phone Angelina Wood MD Primary Care Provider [phone] Neil Wise PharmD Unavailable [phone] Encounter Details Date Type Department Care Team (Late st Contact Info) Description 08/17/2024 Orders Only [facility] [address] [place], [place] [phone] Angelina Wood MD [address] [place], [place] [phone] Microcytosis (Primary Dx) Social History Tobacco Use [...] PM EST documented as of this encounter Plan of Treatment Upcoming Encounters Date Type Department Care Team (Late st Contact Info) Description 05/05/2025 2:15 PM EST Office Visit [facility] [address] [place] [phone] Elsa Coughlin documented as of this encounter [...] EDT) Ferritin 35 10 - 122 ng/mL [facility] Blood Venous blood specimen / Unknown 08/18/2024 4:52 PM EDT 08/18/2024 4:53 PM EDT Angelina Wood MD LAB BLOOD ORDERABLES Final Resul t Performing Organization Address [facility]/ZIP Co de Phone Number [facility] [address] [place] [phone] * Pathologist Review - CBC (08/18/2024 4:52 PM EDT) Pathologist Review - CBC SEE NOTE [facility] Comment:- Unremarkable perip heral smear.Reviewed by Jazmin Trinidad MD Blood Venous blood specimen / Unknown 08/18/2024 4:52 PM EDT 08/18/2024 4:53 PM EDT us Angelina Wood MD LAB BLOOD ORDERABLES Final Resul t Performing Organization Address [facility]/ZIP Co de Phone Number [facility] [address] [place] [phone] * (ABNORMAL) Reticulocyte Count (08/18/2024 4:52 PM EDT) Reticulocytes Absolute 0.078 0.026 - 0.095 X10*6/uL [facility] Immature Retic Fraction 12.3 3.0 - 15.9 % [facility] Retic HGB Equivalent 24.1(L) 30.0 - 35.0 pg [facility] Reticulocyte Percent 1.3 0.5 - 1.8 % [facility] Blood Venous blood specimen / Unknown 08/18/2024 4:52 PM EDT 08/18/2024 4:53 PM EDT us Angelina Wood MD LAB BLOOD ORDERABLES Final Resul t Performing Organization Address [facility] Co de Phone Number [facility] [address] [place] [phone] [phone] * Iron And Total Iron Binding Capacity (08/18/2024 4:52 PM EDT) Iron 42 30 - 160 mcg/dL [facility] Total Iron Binding Capacity 286 228 - 428 mcg/dL [facility] Percent Iron Saturation 15 15 - 50 % [facility] Unsaturated Iron Binding 244 ug/dL [facility] Blood Venous blood specimen / Unknown 08/18/2024 4:52 PM EDT 08/18/2024 4:53 PM EDT Angelina Wood MD LAB BLOOD ORDERABLES Final Resul t Performing Organization Address [facility] Co de Phone Number [facility] [address] [place] [phone] documented in this encounter Visit Diagnoses Diagnosis Microcytosis- Primary Other abnormality of red blood cells documented in this encounter Additional Health Concerns Assessment Noted Time PHQ-9 Depression Total Score: 11 024 11:00 AM EDT documented as of this encounter Care Teams Yard Jacker Relationship Specialty Start Date End Date Angelina Wood MD [address] [place] [address] PCP - General Family Medicine 05/01/22 Neil Wise, GageD [address] [place] [address] Pharmacist Internal Medicine 06/16/23 documented as of this encounter
--- OUTSIDE RECORDS SUMMARY | 2025-03-13 07:20 | XMS_ITS | Encounter Summary ---
Author Organization [employer] Address [address] [facility] 7t [place] [address] Care Team Providers Care Assembler Ping Pong Table Name Role Phone Angelina Wood MD Primary Care Provider [phone] Neil Wise PharmD Unavailable [phone] Reason for Visit * Reason Onset Date Comments Nurse Triage 12/31/2022 Encounter Details Date Type Department Care Team (Late st Contact Info) Description 12/31/2022 Telephone [facility] [address] [place], [place] [phone] Angelina Wood MD [address] [place], [place] [phone] Nurse Triage Social History Tobacco Use Types [...] Pcp. Pt is advised to come to [facility] today open till 800pm [...] accepted this outcome Please contact pt at [phone] documented in this encounter Plan of Treatment Upcoming Encounters Date Type Department Care Team (Late st Contact Info) Description 05/05/2025 2:15 PM EST Office Visit [facility] ADULT [facility] [address] [place] [address] Elsa Coughlin documented as of this encounter Visit Diagnoses Not on filedocumented in this encounter Additional Health Concerns Assessment Noted Time PHQ-9 Depression Total Score: 0 03/27/20 22 9:34 AM EST documented as of this encounter Care Teams Assembler Ping Pong Table Relationship Specialty Start Date End Date Angelina Wood MD [address] [place] [address] PCP - General Family Medicine 05/01/22 Neil Wise, Bisi [address] [place] [address] Pharmacist Internal Medicine 06/16/23 documented as of this encounter
--- OUTSIDE RECORDS SUMMARY | 2025-03-13 07:20 | XMS_ITS | Encounter Summary ---
Author Organization [employer] Address [address] 7[address] [place] [address] Care Team Providers Care Microbiology Teacher Name Role Phone Angelina Wood MD Primary Care Provider [phone] Neil Wise PharmD Unavailable [phone] Reason for Visit * Reason Onset Date Comments Med Refill 12/13/2024 Encounter Details Date Type Department Care Team (Late st Contact Info) Description 12/13/2024 Refill [facility] [address] [place] [address] [phone] Name, MD Kalpesh [address] [place] [address] [phone] Social History Tobacco Use Types Packs/Day Years [...] with others, in a hotel, in a intermediate, living outside on the street, on a [...] 05/05/2025 2:15 PM EST Office Visit [facility] [address] [place] [address] Elsa Coughlin documented as of this encounter [...] documented as of this encounter Care Teams Microbiology Teacher Relationship Specialty Start Date End Date Angelina Wood MD [address] [place] [address] PCP - General Family Medicine 05/01/22 Neil Wise, PharmD [address] [place] [address] [place] [address] Pharmacist Internal Medicine 06/16/23 documented as of this encounter
--- OUTSIDE RECORDS SUMMARY | 2025-03-13 07:20 | XMS_ITS | Encounter Summary ---
Author Organization [employer] Address [address] [facility] [address] 7t [place] [address] Care Team Providers Care Plant Pathologist Name Role Phone Angelina Wood MD Primary Care Provider [phone] Neil Wise PharmD Unavailable [phone] Encounter Details Date Type Department Care Team ([facility] st Contact Info) Description 10/28/2023 Orders Only [facility] [address] [place], [place] [phone] Angelina Wood MD [address] [place], [place] [phone] Social History Tobacco Use Types Packs/Day Years [...] Description 05/05/2025 2:15 PM EST Office Visit [facility] AD[facility] [address] [place] [address] Elsa Coughlin documented as of this encounter Goals Goal Patient Goal Type Associated Problems Recent Progress Patient-Stated? Author Blood Pressure < 140/90 Blood Pressure 123/86( 025 3:51 PM EDT) No Neil Wise, PharmD documented as of this encounter Visit Diagnoses Not on filedocumented in this encounter Additional Health Concerns Assessment Noted Time PHQ-9 Depression Total Score: 0 03/27/20 9:34 AM EST documented as of this encounter Care Teams Plant Pathologist Relationship Specialty Start Date End Date Angelina Wood MD [address] [place] [address] PCP - General Family Medicine 05/01/22 Neli Wise, PharmD [address] [place] [address] Pharmacist Internal Medicine 06/16/23 documented as of this encounter
--- OUTSIDE RECORDS SUMMARY | 2025-03-13 07:20 | XMS_ITS | Encounter Summary ---
Author Organization [employer] Address [address] [facility] [address] 7t [place] [address] Care Team Providers Care Dixonac Operator Name Role Phone Angelina Wood MD Primary Care Provider [phone] Neil Wise PharmD Unavailable [phone] Encounter Details Date Type Department Care Team ([facility] st Contact Info) Description 01/29/2023 Telephone [facility] [address] [place] [address] Sawyer Contreras, DDS [address] [place] [address] Social History Tobacco Use Types Packs/Day Years [...] Description 05/05/2025 2:15 PM EST Office Visit [facility] ADULT DENT[facility] [address] [place] [address] Elsa Coughlin documented as of this encounter Visit Diagnoses Not on filedocumented in this encounter Additional Health Concerns Assessment Noted Time PHQ-9 Depression Total Score: 0 03/27/20 22 9:34 AM EST documented as of this encounter Care Teams Dixonac Operator Relationship Specialty Start Date End Date Angelina Wood MD [address] [place] [address] PCP - General Family Medicine 05/01/22 Neil Wise, Bisi [address] [place] [address] Pharmacist Internal Medicine 06/16/23 documented as of this encounter
--- OUTSIDE RECORDS SUMMARY | 2025-03-13 07:20 | XMS_ITS | Encounter Summary ---
Author Organization [employer] Address [address] [facility] 7t [place] [address] Care Team Providers Care Director Money Name Role Phone Angelina Wood MD Primary Care Provider [phone] Neil Wise PharmD Unavailable [phone] Encounter Details Date Type Department Care Team (Late st Contact Info) Description 03/27/2022 Abstract [facility] MED[facility]INE [address] [place], [place] [phone] Angelina Wood MD [address] [place] [address] Social History Tobacco Use Types Packs/Day Years [...] Orientation Lesbian 03/02/2025 1: 11 PM EST COVID-19 Exposure Response Date Recorded In the [...] Questionnaire -2 Score 0 03/27/2022 9:34 AM Monica Peguero MA * Over the past 2 weeks, [...] Description 05/05/2025 2:15 PM EST Office Visit [facility] ADULT DENTAL [address] [place] [address] Elsa Coughlin documented as of this encounter Visit Diagnoses Not on filedocumented in this encounter Additional Health Concerns Assessment Noted Time PHQ-9 Depression Total Score: 0 12/29/20 22 9:34 AM EST documented as of this encounter Care Teams Director Money Relationship Specialty Start Date End Date Angelina Wood MD [address] [place], [place] [phone] PCP - General Family Medicine 05/01/22 Neil Wise, GageD [address] [place] [address] Pharmacist Internal Medicine 06/16/23 documented as of this encounter
--- OUTSIDE RECORDS SUMMARY | 2025-03-13 07:20 | XMS_ITS | Data Portability ---
Author Organization [place] - .[employer] Address [address] [place] [phone] Care Team Providers Care Instrument Assembly Supervisor Name Role Phone Unavailable Primary Care Provider Assessment No assessment recorded. Plan of Treatment Reminders Order Date Submit Date Provider Last Modified By Organization Details Last Modified Time Details Appointments None recorde d. Lab urinaly sis, dipstic k, auto 2023 024 [facility], [address] , [place], [address], 4 12:56:11 pregnan cy test, urine 2023 024 [facility], [address] , [place], [address], 4 12:56:12 Referral None recorde d. Procedures None recorde d. Surgeries None recorde d. Imaging None recorde d. Medication Orders TobraDe x 0.3 %-0.1 % eye drops,s uspensi on 2024 025 [email or web address] [facility], [address] [place] [address], [address], 5 13:11:18 ondanse deyvi 4 mg disinte grating tablet 2023 024 [email or web address] [facility], [address] [place], [address], 4 09:07:05 Imodium A-D 2 mg tablet [address], [address] [place] [address], [address], 4 09:07:05 amoxici llin 875 mg tablet [address], [address] [place] [address], [address], 4 09:07:06 Motrin IB 200 mg capsule 2023 024 [facility], [address] [place] [address], [address], 4 15:15:52 Patient TargetsNo targets recorded. Patient Instructions Encounter Date Encounter Id Patient Instructions Last Modified By Organization Details Last Modified Time 07/27/2023 [id number] A healthy lifestyle: care instructions caio Not available 07/27/2023 12:56:09 Thank you for visiting [employer] [facility]. We may be calling you to review your lab results or schedule a follow up appointment. The call will be through an automated system which asks you to press a carrasquillo to speak with one of our agents. Please be on the lookout for this call and listen to the message in its entirety. You may also view your lab results using the [employer] tejal, available in the Tej[employer] Store and [employer] Follicum. First-time tejal users will need to create an account; please note you l l need to select a login and password for the tejal versus just using your patient portal login. Your lab results will be posted to the [employer] tejal as soon as they r e available. If you have any questions regarding your visit, our Aftercare department can be reached at [phone]. Our hours are Thursday from 8 am [...] your doctor if you can take an iviy-hrw-ktljhnb pain medicine, such as acetaminophen (Tylenol), ibuprofen [...] you do not get better as expected. [email or web address] Not available 07/27/2023 12:50:32 12/08/2023 [id number] A healthy lifestyle: care instructions hemant Not available 12/09/2023 09:07:06 Thank you for visiting [employer] [facility]. We may be calling you to review your lab results or schedule a follow up appointment. The call will be through an automated system which asks you to press a carrasquillo to speak with one of our agents. Please be on the lookout for this call and listen to the message in its entirety. You may also view your lab results using the [employer] tejal, available in the [employer] Store and Google Play. First-time tejal users will need to create an account; please note you l l need to select a login and password for the tejal versus just using your patient portal login. Your lab results will be posted to the [employer] tejal as soon as they r e available. If you have any questions regarding your visit, our Aftercare department can be reached at [phone]. Our hours are Thursday from 8 am [...] taking a prescription pain medicine, take an ffcm-ptd-mgsnprg medicine, such as acetaminophen (Tylenol), ibuprofen (Advil, [...] by. [email or web address] Not available 12/08/2023 15:37:38 08/20/2024 [id number] A healthy lifestyle: care instructions [email or web address] Not available 08/20/2024 13:11:18 Thank you for visiting [employer] [facility]. We may be calling you to review your lab results or schedule a follow up appointment. The call will be through an automated system which asks you to press a carrasquillo to speak with one of our agents. Please be on the lookout for this call and listen to the message in its entirety. You may also view your lab results using the [employer] tejal, available in the [employer] Store and [employer] Play. First-time tejal users will need to create an account; please note you l l need to select a login and password for the tejal versus just using your patient portal login. Your lab results will be posted to the [employer] tejal as soon as they r e available. Need a note to excuse you from work or school? You can submit a request online at [email or web address] We will respond to your request within 2 business days. If you have any questions regarding your visit, our Aftercare department can be reached at [phone]. Our hours are Thursday from 8 am [...] Chorionic Gonadotropin (hCG) NEGATI VE Not Available elizabeth Mann [address] [place], [address], 07/27/2023 12:47:00 07/27/19 24 07/27/2023 urina lysis , dipst ick, auto BLOOD NEGATI VE - (tamika/u L, ref. neg) Not Available elizabeth Mann [address] [place], [address], 07/27/2023 12:46:28 07/27/19 24 07/27/2023 urina lysis , dipst ick, auto UROBILINOGEN NORMAL - (mg/dL , ref. normal ) Not Available [facility] [address], [place], [address], 07/27/2023 12:46:28 07/27/19 24 07/27/2023 urina lysis , dipst ick, auto BILIRUBIN 1 - (mg/dL , ref. neg) Not Available [facility], [place], [address], 07/27/2023 12:46:28 07/27/19 24 07/27/2023 urina lysis , dipst ick, auto PROTEIN NEGATI VE - (mg/dL , ref. neg) Not Available [facility] [address], [place], [address], 07/27/2023 12:46:28 07/27/19 24 07/27/2023 urina lysis , dipst ick, auto NITRATES NEGATI VE - (ref. neg) Not Available [facility], [place], [address], 07/27/2023 12:46:28 07/27/19 24 07/27/2023 urina lysis , dipst ick, auto KETONES NEGATI VE - (mg/dL , ref. neg) Not Available [facility], [place], [address], 07/27/2023 12:46:28 07/27/19 24 07/27/2023 urina lysis , dipst ick, auto GLUCOSE NEGATI VE - (mg/dL , ref. neg) Not Available [facility], [place], [address], 07/27/2023 12:46:28 07/27/19 24 07/27/2023 urina lysis , dipst ick, auto pH 5 - (ref. 5.0-7. 0) Not Available Dacia Mann [address], [place], [address], 07/27/2023 12:46:28 07/27/19 24 07/27/2023 urina lysis , dipst ick, auto SPECIFIC GRAVITY 1.015 (ref. 1.010- 1.030) Not Available Dacia Mann [address], [place], [address], 07/27/2023 12:46:28 07/27/19 24 07/27/2023 urina lysis , dipst ick, auto LEUKOCYTES Neg - (David/d L, ref. neg) Not Available Rubénmarcela Mann [address], [place], [address], 07/27/2023 12:46:28 Result Notes None recorded. Problems Name Problem SNOMED Code Status Onset Date Resolution Date Notes Provider Name and Address Organization Details Recorded Time Hypertensive disorder 50549448 Active 2023 MAGNOLIA Mercado - .[facility] 12:33:59 Problem Notes None recorded. [...] Recorded Heart rate Respiratory rate Oxygen saturation Body temperature Systolic And Diastolic Provider Name and Address Organization Details Last Updated DateTime 4 90 /min 16 /min 98 % 97.4 [degF] 139/100 mm[Hg] Gracia Rubinas [place] - .[facility] 4 12:35:06 Date Recorded Body height Body mass index (BMI) Body weight Heart rate Body temperature Respiratory rate Oxygen saturation Systolic And Diastolic Provider Name and Address Organization Details Last Updated DateTime 5 157.48 cm 37.5 kg/m2 92830.4 4 g 78 /min 98.7 [degF] 16 /min 98 % 136/97 mm[Hg] Lashonda Sanchez [place] - .[facility] 5 11:17:49 Date Recorded Body height Body mass index (BMI) Body weight Heart rate Body temperature Respiratory rate Oxygen saturation Systolic And Diastolic Provider Name and Address Organization Details Last Updated DateTime 4 157.48 cm 37.5 kg/m2 80373.4 4 g 111 /min 98.7 [degF] 16 /min 96 % 133/96 mm[Hg] Malissa Sweeney [place] - .[facility] 4 15:19:07 Social History None recorded. Functional [...] ICD10 Code Diagnosis IMO Codes Diagnosis Note [id number] Adithya saba MD [facility] [address] [place] [address] 07/27/2023 12:11:07 07/27/2023 12:49:11 Flank pain [id number] R10.9 - hx of recurrent kidney stone- Continue with flomax- Follow up with urologist- NSAID for pain control [id number] Allison Suh MD [facility] [address] [place] [address] 12/08/2023 14:48:13 12/08/2023 15:21:14 Acute right otitis media 860252132 H66.91 Viral gastroenteritis 11 [id number] A08.4 [id number] Savita Shawn SINGH [facility] [address] [place] [address] 08/20/2024 11:04:26 08/20/2024 11:26:14 Acute conjunctivitis of left eye 5845306793 H10.32 [id number] Health Concerns Section Related Observation LastModified by Organization Detai ls LastModified Time None Recorded Concern Status LastModified by Organization Details LastModified Time None Recorded Advance Directives Directive None Recorded Payers Insurance Date Sequence Insurance Name Policy Number Policy Palomino Covered Member ID Palomino Member ID Guarantor Name 08/20/2024 1 [facility] [id number] Nighat Montes [id number] Nighat Montes 08/20/2024 1 MEDICAID-MD : [facility] Nighat Montes [id number] Nighat Montes Notes Date Note Type Note [...] well controlled currently Adithya Billings MD [address] [facility],[address] [facility], [place], [address], [facility] - .[facility] 07/27/2023 18:15:07 12/08/2023 text/html Vomiting and Caroline [...] sxs while on it. CHRISTIE Quinonez [address] [facility],[address] [place] [address], [phone], [facility] - .[facility] 12/08/2023 17:45:08 08/20/2024 text/html [...] with no relief Cooper Johnson MD [address] [facility],[address] [place] [address], [place], [phone], [facility] - .[facility] 08/20/2024 11:56:43 OBGyn Episode No OBEpisode recorded.
--- OUTSIDE RECORDS SUMMARY | 2025-03-13 07:20 | XMS_ITS | Encounter Summary ---
Author Organization [employer] Address [address] [facility] 7t [place] [address] Care Team Providers Care Political Consultant Name Role Phone Angelina Wood MD Primary Care Provider [phone] Neil Wise PharmD Unavailable [phone] Encounter Details Date Type Department Care Team (Latest Contact Info) Description 07/02/2020 Abstract [facility] CONVERSIONS Dental, Provider, DDS Social History Tobacco [...] Description 05/05/2025 2:15 PM EST Office Visit [facility] ADULT DENTAL [address] [place] [address] Elsa Coughlin documented as of this encounter Visit Diagnoses Not on filedocumented in this encounter Care Teams Political Consultant Relationship Specialty Start Date End Date Angelina Wood MD [address] [place], [place] [phone] PCP - General Family Medicine 05/01/22 Neil Wise, PharmD [address] [place], [place] [phone] Pharmacist Internal Medicine 06/16/23 documented as of this encounter
--- OUTSIDE RECORDS SUMMARY | 2025-03-13 07:20 | XMS_ITS | Encounter Summary ---
Author Organization [employer] Address [address] [facility] 7t [place] [address] Care Team Providers Care Certified Industrial Hygienist Name Role Phone Angelina Wood MD Primary Care Provider [phone] Neil Wise PharmD Unavailable [phone] Reason for Visit * Reason Onset Date Comments Nurse Triage 02/02/2025 Encounter Details Date Type Department Care Team (Late st Contact Info) Description 02/02/2025 Telephone [facility] [address] [place], [place] [phone] Angelina Wood MD [address] [place], [place] [phone] Nurse Triage Social History Tobacco Use Types [...] with others, in a hotel, in a usp, living outside on the street, on a [...] encounter Miscellaneous Notes * Telephone Encounter - Lea Yoder RN - 02/02/2025 3:15 PM EST called pt to triage, spoke to pt. pt states had a boil on her right thigh and went to the ER at [facility] 01/31. pt states needle aspiration done of area with minimal fluid obtained. pt advised to followup with PCP as needed and given Cephalexin 500 mg Q8 hours which she started yesterday. pt states in the last 24 hours the swelling, redness, and pain have increased and was thinking about going backto the ER. pt reports chills, tactile fever, increased redness, increased swelling, and pain in thethigh and was advised in the setting of increasing symptoms would go back to the ER for re evaluation and treatment as needed. advised home care: rest, fluids, warm compresses, continue antibiotics for now and call back for follow up Thursday or Thursday. pt understands and agrees with plan. will request records from clinical coordinators. Protocol Used: Boil (Skin Abscess) (Adult) Protocol-Based Disposition: See in Office or Video Visit within 3 Days Positive Triage Question: * Boil > 1/2 inch across (> 12 mm; larger than a marble) * All higher-acuity triage questions were negative Care Advice Discussed: * Reassurance and Education - Boil * Treatment for a Boil - General Care Advice * Treatment for a Boil - Moist Heat * Treatment for a Boil - Antibiotic Ointment * Draining Pus Is Contagious * Reasons To Call Back - Severe pain or fever occurs - Widespread rash occurs - You become worse * Telephone Encounter - Kalpesh Arteaga - 02/02/2025 2:01 PM EST Patient calling to report ED visit on : Date: 01/31/2025 Hospital: [facility] Seen for: Abscess on right thigh Symptomatic Yes *if yes message should go to Triage Patient advised will forward to team nurse for follow up The abscess was drained a little bit, but not fully. The abscess did get worse and was advised to call PCP office. documented in this encounter Plan of Treatment Upcoming Encounters Date Type Department Care Team ([facility] st Contact Info) Description 05/05/2025 2:15 PM EST Office Visit [facility] ADULT DENTAL [address] [place] [address] Elsa Coughlin documented as of this encounter [...] documented as of this encounter Care Teams Certified Industrial Hygienist Relationship Specialty Start Date End Date Angelina Wood MD [address] [place] [address] PCP - General Family Medicine 05/01/22 Neil Wise, GageD [address] [place], [place] [address]p[place] [address] Pharmacist Internal Medicine 06/16/23 documented as of this encounter
--- OUTSIDE RECORDS SUMMARY | 2025-03-13 07:20 | XMS_ITS | Encounter Summary ---
Author Organization [employer] Address [address] 7[address] [place] [address] Care Team Providers Care Sales Appointment Coordinator Name Role Phone Angelina Wood MD Primary Care Provider [phone] Neil Wise PharmD Unavailable [phone] Reason for Visit * Reason Comments Dental Exam Encounter Details Date Type Department Care Team (Late st Contact Info) Description 03/10/2022 Abstract [facility] ADULT D[facility]AL [address] [place] [address] Dental, Provider, DDS Social History Tobacco Use [...] [facility] [address] [place] [address] Elsa Coughlin documented as of this encounter Procedures Procedure [...] on filedocumented in this encounter Care Teams Sales Appointment Coordinator Relationship Specialty Start Date End Date Angelina Wood MD [address] [place] [address] PCP - General Family Medicine 05/01/22 Neil Wise PharmD [address] [place] [address] Pharmacist Internal Medicine 06/16/23 documented as of this encounter
--- OUTSIDE RECORDS SUMMARY | 2025-03-13 07:20 | XMS_ITS | Encounter Summary ---
Author Organization [employer] Address [address] [facility] 7t [place] [address] Care Team Providers Care Facilities Officer Name Role Phone Angelina Wood MD Primary Care Provider [phone] Neil Wise PharmD Unavailable [phone] Encounter Details Date Type Department Care Team (Late st Contact Info) Description 04/02/2022 Orders Only [facility] MEDICINE [address] [place], [place] [phone] Angelina Wood MD [address] [place], [place] [phone] Alopecia areata (Primary Dx) Social History Tobacco [...] Encounters Date Type Department Care Team (Late Contact Info) Description 05/05/2025 2:15 PM EST Office Visit [facility] ADULT DENTAL [address] [place] [address] Elsa Coughlin documented as of this encounter [...] (07/16/2022 8:43 PM EDT) Urine NEGATIVE NEGATIVE [facility] Comment:This test was develo ped to detect early . Falsenegative results may occur after the 5th - 7th week ofpregnancy when using this test method. If clinicallyindicated, consider a serum hCG. 07/16/2022 8:43 PM EDT 07/16/2022 8:47 PM EDT us [facility] External Provider LAB URI NE ORDERABLES Final Result [facility] [address] [place] [address] [phone] * (ABNORMAL) Urinalysis, Complete, with Reflex to Culture (07/16/2022 8:43 PM EDT) Color Urine Yellow [facility] Appearance Urine Clear [facility] PH 6.0 5.0 - 9.0 [facility] Glucose Urine UA Negative Negative mg/dL [facility] Urine Blood Trace(A) Negative [facility] Specific Hitchcock - Urine 1.015 1.005 - 1.025 [facility] Urine Protein Negative Neg-Trace mg/dL [facility] Urine Ketones Negative Negative mg/dL [facility] Nitrite Urine Negative Negative [facility] Leukocyte Esterase Urine Negative Negative [facility] RBC Urine 3-5(A) 0 - 2 /HPF [facility] Urine WBC 0-5 0 - 5 /HPF [facility] Urine Squamous Epithelial Cell 3-5 0 - 2 /HPF [facility] Urine Bacteria None Seen None Seen [facility] Hyaline Casts, Urine 0-2 0 - 2 /LPF [facility] 07/16/2022 8:43 PM EDT 07/16/2022 8:47 PM EDT Narrative [facility] - 07/16/2022 9:12 PM EDT [id number], Clean Catch [facility] External Provider LAB URI NE ORDERABLES Final Result Performing Organization Address [facility]/ZIP Co de Phone Number [facility] [address] [place] [place] [phone] * Lipase (07/16/2022 8:14 PM EDT) Pathologist [facility] Lipase 43 8 - 78 U/L [facility] 07/16/2022 8:14 PM EDT 07/16/2022 8:16 PM EDT [facility] External Provider LAB BLO OD ORDERABLES Final Result Performing Organization Address [facility] de Phone Number [facility] [address] [place] [phone] * (ABNORMAL) Basic Metabolic Panel (07/16/2022 8:14 PM EDT) Sodium 140 135 - 145 mmol/L [facility] Potassium 4.0 3.3 - 5.1 mmol/L [facility] Chloride 108 96 - 108 mmol/L [facility] Carbon Dioxide 27 22 - 29 mmol/L [facility] Anion Gap 9(L) 12 - 20 [facility] Urea Nitrogen (BUN) 12 9 - 16 mg/dL [facility] Creatinine, Serum 0.83 0.5 - 1.4 mg/dL [facility] Creatinine Clr Calc Pharmacy 107.0 [facility] Comment:Provided height and weight: 157.48 cm,97.522 kg.eGFR (calculated from the MDRD study equation) and eCrCl(calculated from the Cockcroft-Gault equation) are based ondifferent parameters and may not yield comparable results.If eCrCl result is absurd, please check patient'sheight/weight. Estimated Glomerular Filt Rate >60 [facility] Comment:NOTE: For -Am erican individuals, multiply the result by 1.210.Chronic Kidney Disease: Estimated GFR < 60 mL/min/[id number] Kidney Disease: Estimated GFR < 15 mL/min/1.73m2 Glucose 99 60 - 115 mg/dL [facility] Calcium 9.3 8.4 - 10.2 mg/dL [facility] 07/16/2022 8:14 PM EDT 07/16/2022 8:16 PM EDT us [facility] External Provider LAB BLO OD ORDERABLES Final Result [facility] [address] [place] [phone] [phone] * (ABNORMAL) Hepatic Function Panel (07/16/2022 8:14 PM EDT) Pathologist [facility] Bilirubin, Total 0.4 0.0 - 1.0 mg/dL [facility] Bilirubin, Direct 0.2 0.0 - 0.5 mg/dL [facility] Aspartate Amino Transferase 26 5 - 31 U/L [facility] Alanine Aminotransferase 46(H) 0 - 31 U/L [facility] Total Protein 7.0 6.5 - 8.0 g/dL [facility] Albumin Level 4.2 3.5 - 5.0 g/dL [facility] Alkaline Phosphatase 70 39 - 117 U/L [facility] 07/16/2022 8:14 PM EDT 07/16/2022 8:16 PM EDT us [facility] External Provider LAB BLO OD ORDERABLES Final Result [facility] [address] [place] [address] [phone] * (ABNORMAL) CBC auto differential (07/16/2022 8:14 PM EDT) White Blood Count 11.3(H) 4.8 - 10.8 X10*3/uL [facility] Red Blood Count 5.94(H) 4.20 - 5.50 X10*6/uL [facility] Hemoglobin 12.4 12.0 - 16.0 g/dl [facility] Hematocrit 40.2 37.0 - 47.0 % [facility] Mean Corpuscular Volume 67.7(L) 80.0 - 98.0 fL [facility] Mean Corpuscular Hemoglobin 20.9(L) 27.0 - 33.0 pg [facility] Mean Corpuscular HGB Conc 30.8(L) 31.0 - 35.0 g/dl [facility] Red Cell Distribution Width 18.5(H) 11.0 - 16.0 % [facility] Platelet Count 340 160 - 400 X10*3/uL [facility] Mean Platelet Volume 10.4 9.4 - 12.3 fL [facility] Neutrophils Percent Auto 58.7 45 - 73 % [facility] Imm Gran Pct Auto 1.1(H) 0.0 - 0.4 % [facility] Lymphocytes Percent Auto 29.1 20 - 40 % [facility] Monocytes Percent Auto 7.4 2 - 11 % [facility] Eosinophils Percent Auto 3.3 0 - 4 % [facility] Basophils Percent Auto 0.4 0 - 2 % [facility] NRBC Pct Auto 0.0 0.0 - 0.2 /100WBC [facility] Neutrophils Absolute Auto 6.6 2.0 - 8.3 x10*3/uL [facility] Imm Gran Abs Auto 0.12(H) 0.00 - 0.03 X10*3/uL [facility] Lymphocytes Absolute Auto 3.3 1.2 - 4.9 X10*3/uL [facility] Monocytes Absolute Auto 0.8 0.1 - 1.2 X10*3/uL [facility] Eosinophils Absolute Auto 0.4 0.0 - 0.4 X10*3/uL [facility] Basophils Absolute Auto 0.1 0.0 - 0.2 X10*3/uL [facility] NRBC Abs Auto 0.000 0.0 - 0.012 X10*3/uL [facility] 07/16/2022 8:14 PM EDT 07/16/2022 8:16 PM EDT [facility] External Provider LAB BLO OD ORDERABLES Final Result Performing Organization Address City/State/[facility] Co de Phone Number [facility] [address] [place] [phone] documented in this encounter Visit Diagnoses Diagnosis Alopecia areata- Primary documented in this encounter Additional Health Concerns Assessment Noted Time PHQ-9 Depression Total Score: 0 03/27/20 22 9:34 AM EST documented as of this encounter Care Teams Facilities Officer Relationship Specialty Start Date End Date Angelina Wood MD [address] [place] [address] PCP - General Family Medicine 05/01/22 Neil Wise, PharmD [address] [place] [address] Pharmacist Internal Medicine 06/16/23 documented as of this encounter
--- OUTSIDE RECORDS SUMMARY | 2025-03-13 07:20 | XMS_ITS | Encounter Summary ---
Author Organization [employer] Address [address] [facility] [address] [place] [address] Care Team Providers Care Toilet And Laundry Soap Supervisor Name Role Phone Angelina Wood MD Primary Care Provider [phone] Neil Wise PharmD Unavailable [phone] Reason for Visit * Reason Onset Date Comments did not have insurance information 02/20/2025 Encounter Details Date Type Department Care Team ([facility] st Contact Info) Description 02/20/2025 Telephone [facility] [address] [place] [address] Elsa Coughlin did not have insurance information Social History Tobacco Use Types Packs/Day Years [...] with others, in a hotel, in a jail, living outside on the street, on a [...] encounter Miscellaneous Notes * Telephone Encounter - Rupali Clement - 02/20/2025 8:38 AM EST Patient appointment cancelled due to not having insurance information available. Will call back to reschedule once they have their of [place] insurance on hand. documented in this encounter Plan of Treatment Upcoming Encounters Date Type Department Care Team (Late st Contact Info) Description 05/05/2025 2:15 PM EST Office Visit [facility] [address] [place] [address] Elsa Coughlin documented as of this encounter [...] documented as of this encounter Care Teams Toilet And Laundry Soap Supervisor Relationship Specialty Start Date End Date Angelina Wood MD [address] [place] [address] PCP - General Family Medicine 05/01/22 Neil Wise, GageD [address] [place] [address] Pharmacist Internal Medicine 06/16/23 documented as of this encounter
--- OUTSIDE RECORDS SUMMARY | 2025-03-13 07:20 | XMS_ITS | Encounter Summary ---
Author Organization [employer] Address [address] [facility] 7t [place] [address] Care Team Providers Care Chiller Tender Name Role Phone Angelina Wood MD Primary Care Provider [phone] Neil Wise PharmD Unavailable [phone] Encounter Details Date Type Department Care Team (Latest Contact Info) Description 01/22/2022 Abstract [facility] CONVERSIONS Dental, Provider, DDS Social [...] Description 05/05/2025 2:15 PM EST Office Visit [facility] ADULT DENTAL [address] [place] [address] Elsa Coughlin documented as of this encounter Visit Diagnoses Not on filedocumented in this encounter Care Teams Chiller Tender Relationship Specialty Start Date End Date Angelina Wood MD [address] [place], [place] [phone] PCP - General Family Medicine 05/01/22 Neil Wise, PharmD [address] [place], [place] [phone] Pharmacist Internal Medicine 06/16/23 documented as of this encounter
== END 2025-03-13 08:16 | disposition home or self-care (01) ==
LOC: HO.HUSH 07:17
PROVIDERS: PCP Family Medicine; Visit Provider Nurse Practitioner Family
DX: N20.0 Calculus of kidney (principal)
CPT/HCPCS: 99213